=== PATIENT | female | born 1935 | race Caucasian/White ===

== ENCOUNTER 2020-03-26 13:22 | Outpatient (RCR) | payer MEDICARE, BC, SELFPAY | END 2020-04-11 23:59 | disposition home or self-care (01) | LOC: SPT 13:22 | PROVIDERS: PCP Family Medicine; Referring Provider Family Medicine; Visit Provider Family Medicine | DX: M50.90 Cervical disc disorder, unspecified, unspecified cervical region (principal) | CPT/HCPCS: 97110; 97161 ==

== ENCOUNTER 2020-04-12 06:00 | Outpatient (RCR) | payer MEDICARE, BC, SELFPAY | END 2020-05-11 23:59 | disposition home or self-care (01) | LOC: SPT 06:00 | PROVIDERS: PCP Family Medicine; Visit Provider Family Medicine | DX: M50.90 Cervical disc disorder, unspecified, unspecified cervical region (principal) | CPT/HCPCS: 97110 ==

== ENCOUNTER 2020-05-18 06:59 | Day surgery (SDC) | payer MEDICARE, BC, SELFPAY ==
[2020-05-17 08:17] VITALS: BMI 24.5
--- NOTE | 2020-05-18 08:25 | ANES.PREANE2 ---
Pre-Anesthetic Assessment Pre-Anesthetic Assessment: Height/Weight: Height 1.68 m Weight 68.946 kg Proposed Procedure: Operation Date: 05/18/20 08:30 Proposed Procedures p EGD/poss biopsy 21909 81135 d64.9(Not Applicable) - Franklin Barroso MD s Colonoscopy/poss biopsy/poss polypectomy(Not Applicable) - Franklin Barroso MD Last intake: Intake Last Liquid Date 05/17/20 Last Liquid Time 21:00 Last Solid Date 05/16/20 Last Solid Time 18:00 Pulmonary: Pulmonary: Sleep apnea (CPAP) Comments: hx PE (DVT) PUlm HTN CV/HEM: CV/HEM: HTN Comments: mitral regurge GI: GI: GERD Metabolic: Metabolic: DM Neuropsych: Neuropsych: CVA Anesthetic Plan: ASA status: 4 Anesthesia: MAC PFSH Anesthesia PFSH: Medical History (Updated 05/13/20 @ 18:40 by Franklin Barroso MD) Anemia Anticoagulant long-term use CVA (cerebral vascular accident) Diabetes DVT (deep venous thrombosis) Dyslipidemia GERD (gastroesophageal reflux disease) [place] (hard of hearing) HTN (hypertension) Hx pulmonary embolism Mitral regurgitation BASIL on CPAP Pulmonary HTN Surgical History History of colonoscopy with polypectomy S/P cholecystectomy S/P knee surgery Status post tubal ligation Family History Brother CAD (coronary artery disease) Cancer Myocardial infarction Father Tuberculosis Denies family history of Anesthesia complication Bleeding disorder Social History Smoking and tobacco status: never smoked Household members: family Marital status: / Current occupational status: retired Data Anesthesia Cardiac Studies: No Data to Display
[2020-05-18 08:40] LABS: Glucose Point of Care 97 mg/dL (70-110)
[2020-05-18] MEDS: sodium chloride 0.9% 1,000 ML 30 ML IV (09:01)
[2020-05-18] MEDS: Fleet Enema 133 mL Enema PR (09:01)
--- NOTE | 2020-05-18 10:02 | W.PM.OPSUD ---
Surgery/Procedure H&P Update DATE OF PROCEDURE: May 18, 2020 DATE H&P PERFORMED: 05/07/20 H&P UPDATE INFORMATION: I have reviewed H&P completed within last 30 days, I have examined patient prior to procedure and No changes to prior documentation PLANNED PROCEDURE: Operation Date: 05/18/20 08:30 Proposed Procedures p EGD/poss biopsy 25134 65543 d64.9(Not Applicable) - Franklin Barroso MD s Colonoscopy/poss biopsy/poss polypectomy(Not Applicable) - Franklin Barroso MD
--- NOTE | 2020-05-18 10:26 | SUR.PREOP ---
0800 Preop nurse noted bowel prep unsuccessful. Stool dark green sludge instead of liquid. Dr. Barroso notified. Pt to receive fleets enema. Case delayed due to inadequate bowel prep.
[2020-05-18 10:32] VITALS: BP 147/60; PULSE 75; RESP 16; TEMP 36.1; O2SAT 96
--- NOTE | 2020-05-18 10:34 | ANE.PACU2 ---
Inpatient post-anesthesia follow up: Airway intact: Yes Vital signs: Temperature 97.0 F Pulse Rate 75 Respiratory Rate 16 Blood Pressure 147/60 Pulse Oximetry 96 Oxygen Delivery Me thod Nasal Cannula Oxygen Flow Rate 3 Fraction of Inspir ed Oxygen Hydration adequate: Yes Nausea and vomiting: No Pain level: 1 Mental status: Baseline
[2020-05-18 10:38] VITALS: BP 151/78; PULSE 69; RESP 18; O2SAT 97
== END 2020-05-18 10:56 | disposition home or self-care (01) ==
PROVIDERS: PCP Family Medicine; Visit Provider Surgery
PROC: 0DJ08ZZ Inspection of Upper Intestinal Tract, Via Natural or Artificial Opening Endoscopic (ICD-10-PCS; CPT 43235; principal; 2020-05-18 08:30)
PROC: 0DJD8ZZ Inspection of Lower Intestinal Tract, Via Natural or Artificial Opening Endoscopic (ICD-10-PCS; CPT 45378; 2020-05-18 08:30)
DX: D64.9 Anemia, unspecified (principal); K44.9 Diaphragmatic hernia without obstruction or gangrene; K22.2 Esophageal obstruction; K57.30 Diverticulosis of large intestine without perforation or abscess without bleeding; K64.8 Other hemorrhoids; Z79.82 Long term (current) use of aspirin; Z86.73 Personal history of transient ischemic attack (TIA), and cerebral infarction without residual deficits; E11.9 Type 2 diabetes mellitus without complications; Z86.718 Personal history of other venous thrombosis and embolism; E78.5 Hyperlipidemia, unspecified; K21.9 Gastro-esophageal reflux disease without esophagitis; I10 Essential (primary) hypertension; G47.33 Obstructive sleep apnea (adult) (pediatric); Z82.49 Family history of ischemic heart disease and other diseases of the circulatory system; Z79.01 Long term (current) use of anticoagulants
CPT/HCPCS: 12345; 36416; 43235; 45378; 82962; J2704; J7030

== ENCOUNTER 2020-07-21 20:00 | Outpatient (CLI) | payer MEDICARE, BC, SELFPAY | END 2020-07-21 20:01 | disposition home or self-care (01) | LOC: SLEEP 07-22 10:12 | PROVIDERS: PCP Family Medicine; Visit Provider Family Medicine | DX: G47.33 Obstructive sleep apnea (adult) (pediatric) (principal); D64.9 Anemia, unspecified; I48.91 Unspecified atrial fibrillation; I50.9 Heart failure, unspecified; R40.0 Somnolence | CPT/HCPCS: 95811 ==

== ENCOUNTER → 2021-03-10 08:26 | Outpatient (BNVA) | payer MEDICARE, BC, SELFPAY | PROVIDERS: PCP Family Medicine; Visit Provider Obstetrics & Gynecology | DX: Z01.810 Encounter for preprocedural cardiovascular examination (principal); Z20.822 Contact with and (suspected) exposure to COVID-19 | CPT/HCPCS: 80053; 87635 ==

== ENCOUNTER 2021-03-16 09:24 | Inpatient (IN) | payer MEDICARE, BC, SELFPAY ==
[2021-03-14 12:02] VITALS: BMI 27.1
[2021-03-14 12:42] LABS: Basophils # 0.1 10^3/uL (0.0-0.1); Eosinophils # 0.2 10^3/uL (0.0-0.8); Eosinophils % 4.3 %; Hematocrit 40.2 % (37.0-47.0); Hemoglobin 13.5 g/dL (11.5-15.3); Lymphocytes # 1.7 10^3/uL (0.8-4.8); Lymphocytes % 35.2 %; Mean Corpuscular HGB Conc 33.6 g/dL (30.0-36.0); Mean Corpuscular Hemoglobin 34.7 pg (28.0-34.0); Mean Corpuscular Volume 103.3 fL (81-99); Mean Platelet Volume 8.9 fL (7.4-10.4); Monocytes # 0.4 10^3/uL (0.2-0.9); Neutrophils # 2.45 10^3/uL (1.8-7.7); Neutrophils % 50.3 %; Nucleated Red Blood Cells % 0 %; Platelet Count 186 10^3/cmm (130-400); Red Blood Count 3.89 10^6/uL (4.1-5.3); Red Cell Distribution Width 12.4 % (12.1-15.1); White Blood Count 4.9 10^3/uL (4.0-10.0)
--- NOTE | 2021-03-14 12:45 | ECG_ITS ---
[facility] Test Date: 2021-03-14 Pat Name: Juliana Rodney Department: Room: Gender: Female Cloth Neutralizer: : 1935 Requested By: Sav Koehler Order Number: [id number] Tami MD: Diego Woods M.D. Measurements Intervals [place] Rate: 74 P: [place]: QRS: 3 QRSD: 68 T: 0 QT: 361 QTc: 401 Interpretive Statements ATRIAL FIBRILLATION ST DEVIATION AND MODERATE T-WAVE ABNORMALITY, CONSIDER ANTERIOR ISCHEMIA [-0.1+ mV T WAVE IN V3/V4] INTERPRETATION BASED ON A DEFAULT AGE OF 40 YEARS Compared to ECG 04/27/2017 05:29:45 T-wave abnormality now present Possible ischemia now present Electronically Signed On 03-16-2021 8:07:05 CDT by Diego Woods M.D. [email or web address]
[2021-03-14 13:23] LABS: Alanine Aminotransferase 10 U/L (0-33); Albumin Level 4.3 g/dL (3.5-5.2); Alkaline Phosphatase 135 IU/L (35-105); Anion Gap 12.7 (5-19); Aspartate Amino Transferase 18 U/L (0-32); Blood Urea Nitrogen 12 mg/dL (8-23); Calcium 10.1 mg/dL (8.5-10.5); Carbon Dioxide 28 mmol/L (22-29); Chloride 106 mmol/L (98-107); Glucose 87 mg/dL (65-115); Osmolality Calculated 295 mOsm/kg (285-295); Potassium 3.7 mmol/L (3.5-5.1); Sodium 143 mmol/L (136-145); Total Bilirubin 0.5 mg/dL (0.15-1.2); Total Protein 7.3 g/dL (6.6-8.7)
[2021-03-14 13:50] LABS: INR 1.05 (0.8-1.2)
[2021-03-14 14:34] LABS: Add Urine Microscopic? NO; Charge for UA Resulting for Rev
[2021-03-14 14:46] LABS: Specific Gravity, Urine 1.005 (1.005-1.030); Urine Appearance Clear (CLEAR); Urine Color Straw (Yellow); pH Urine 5 (5-7)
[2021-03-14 14:47] LABS: Bilirubin Urine Neg (Negative); Blood Urine Neg (Negative); Glucose Urine UA Norm (Normal); Ketones Urine Negative (Negative); Leukocyte Esterase Urine Negative (Negative); Nitrate Urine Negative (Negative); Protein Urine Neg (Negative); Urobilinogen Urine Norm (Negative)
--- NOTE | 2021-03-14 16:22 | ANES.PREANE2 ---
Pre-Anesthetic Assessment Pre-Anesthetic Assessment: Height/Weight: Height 1.57 m Weight 67.132 kg Preop Diagnosis: Pelvic organ prolapse stage III Proposed Procedure: Operation Date: 03/16/21 09:30 Proposed Procedures p Total Vaginal Hysterectomy 28456 26026 11405 87229 N81.10 N81.2 N39.46(Not Applicable) - Taye Muller MD s Salpingo-Oophorectomy (Vaginal)(Not Applicable) - Taye Muller MD s Sling(Not Applicable) - Taye Muller MD s Sacrospinous ligament fixation(Not Applicable) - Taye Muller MD Was Beta David taken within 24 hours: Yes Was Clonidine taken within 24 hours: N/A Social: Social History: No alcohol and No tobacco Exam: Pre-Anes Outpt Exam: alert, oriented x 3, clear to auscultation bilaterally and regular rate & rhythm Airway: Submandibular: WNL Cervical ROM: WNL MP: 2 Dentition: False CV/HEM: CV/HEM: Anemia, DVT (PE), HTN and Murmur (MR) GI: GI: GERD Neuropsych: Neuropsych: CVA Anesthetic Plan: ASA status: 3 Anesthesia: General Risk of > 500 ml blood loss (7ml/kg in children): No PFSH Anesthesia PFSH: Medical History Anemia Anticoagulant long-term use CVA (cerebral vascular accident) Diabetes DVT (deep venous thrombosis) Dyslipidemia GERD (gastroesophageal reflux disease) [place] (hard of hearing) HTN (hypertension) Hx pulmonary embolism Mitral regurgitation BASIL on CPAP Pulmonary HTN Surgical History H/O esophagogastroduodenoscopy (05/18/20) History of colonoscopy with polypectomy (05/18/20) Diverticulosis S/P cholecystectomy S/P knee surgery Status post tubal ligation Family History Brother CAD (coronary artery disease) Cancer Myocardial infarction Colon cancer Father Tuberculosis Son Diabetes Hyperlipidemia Denies family history of Ovarian cancer Clotting disorder Breast cancer Anesthesia complication Bleeding disorder Hypertension Uterine cancer Thyroid condition Stroke Social History (Updated 03/11/21 @ 10:23 by Maine Perez RN) Smoking and tobacco status: never smoked Alcohol intake: never Substance/Drug Use: never Household members: family Marital status: / Current occupational status: retired Data Anesthesia CBC & Chem 7: 03/14/21 12:25 03/14/21 12:25 Other Labs: Laboratory Results - last 48 hr 03/14/21 03/14/21 03/14/21 12:20 12:25 12:25 WBC 4.9 RBC 3.89 L Hgb 13.5 Hct 40.2 MCV 103.3 H MCH 34.7 H MCHC 33.6 RDW 12.4 Plt Count 186 MPV 8.9 Neut % (Auto) 50.3 Lymph % (Auto) 35.2 [place] % (Auto) 9.0 Eos % (Auto) 4.3 Baso % (Auto) 1.0 Neut # (Auto) 2.45 Lymph # (Auto) 1.7 [place] # (Auto) 0.4 Eos # (Auto) 0.2 Baso # (Auto) 0.1 Nucleated RBC % (auto) 0 Nucleated RBCs # 0.0 PT 14.00 INR 1.05 Sodium Potassium Chloride Carbon Dioxide Anion Gap BUN Creatinine GFR Calculation Glucose Calculated Osmolality Calcium Total Bilirubin AST ALT Alkaline Phosphatase Total Protein Albumin Globulin Urine Color Straw Urine Appearance Clear Urine pH 5 Ur Specific [place] 1.005 Urine Protein Neg Urine Glucose (UA) Norm Urine Ketones Negative Urine Blood Neg Urine Nitrate Negative Urine Bilirubin Neg Urine Urobilinogen Norm Ur Leukocyte Esterase Negative Blood Type Rho(D) Type Antibody Screen 03/14/21 03/14/21 12:25 12:25 WBC RBC Hgb Hct MCV MCH MCHC RDW Plt Count MPV Neut % (Auto) Lymph % (Auto) [place] % (Auto) Eos % (Auto) Baso % (Auto) Neut # (Auto) Lymph # (Auto) [place] # (Auto) Eos # (Auto) Baso # (Auto) Nucleated RBC % (auto) Nucleated RBCs # PT INR Sodium 143 Potassium 3.7 Chloride 106 Carbon Dioxide 28 Anion Gap 12.7 BUN 12 Creatinine 0.8 GFR Calculation Not Reportable Glucose 87 Calculated Osmolality 295 Calcium 10.1 Total Bilirubin 0.5 AST 18 ALT 10 Alkaline Phosphatase 135 H Total Protein 7.3 Albumin 4.3 Globulin 3.0 Urine Color Urine Appearance Urine pH Ur Specific [place] Urine Protein Urine Glucose (UA) Urine Ketones Urine Blood Urine Nitrate Urine Bilirubin Urine Urobilinogen Ur Leukocyte Esterase Blood Type O Negative Rho(D) Type Negative / 0 Antibody Screen Negative Cardiac Studies: No Data to Display
[2021-03-16] VITALS (17 sets, daily range): BP systolic 124–165; BP diastolic 62–91; PULSE 71–99; RESP 16–20; TEMP 36.7–37.2; O2SAT 93–100
--- NOTE | 2021-03-16 06:31 | P.ANESUD_ITS ---
Pre-Anesthetic Update Pre-Anesthetic Assessment: Date of Surgery/Procedure: 03/16/21 Preop Nhung gnosis: Pelvic organ prolapse stage III Proposed Procedure: Operation Date: 03/16/21 07:00 Proposed Procedures p Total Vaginal Hysterectomy 14501 84530 31572 04806 N81.10 N81.2 N39.46(Not Applicable) - Taye Muller MD s Salpingo-Oophorectomy (Vaginal)(Not Applicable) - Taye Muller MD s Sling(Not Applicable) - Taye Muller MD s Sacrospinous ligament fixation(Not Applicable) - Taye Muller MD Any changes to Pre-Anesthetic Assessment?: No Labs Last 48hrs: Laboratory Results - last 48 hr 03/14/21 03/14/21 03/14/21 12:20 12:25 12:25 WBC 4.9 RBC 3.89 L Hgb 13.5 Hct 40.2 MCV 103.3 H MCH 34.7 H MCHC 33.6 RDW 12.4 Plt Count 186 MPV 8.9 Neut % (Auto) 50.3 Lymph % (Auto) 35.2 [place] % (Auto) 9.0 Eos % (Auto) 4.3 Baso % (Auto) 1.0 Neut # (Auto) 2.45 Lymph # (Auto) 1.7 [place] # (Auto) 0.4 Eos # (Auto) 0.2 Baso # (Auto) 0.1 Nucleated RBC % (a uto) 0 Nucleated RBCs # 0.0 PT 14.00 INR 1.05 Sodium Potassium Chloride Carbon Dioxide Anion Gap BUN Creatinine GFR Calculation Glucose Calculated Osmolal ity Calcium Total Bilirubin AST ALT Alkaline Phosphata se Total Protein Albumin Globulin Urine Color Straw Urine Appearance Clear Urine pH 5 Ur Specific [place] y 1.005 Urine Protein Neg Urine Glucose (UA) Norm Urine Ketones Negative Urine Blood Neg Urine Nitrate Negative Urine Bilirubin Neg Urine Urobilinogen Norm Ur Leukocyte Monika ase Negative Blood Type Rho(D) Type Antibody Screen 03/14/21 03/14/21 12:25 12:25 WBC RBC Hgb Hct MCV MCH MCHC RDW Plt Count MPV Neut % (Auto) Lymph % (Auto) [place] % (Auto) Eos % (Auto) Baso % (Auto) Neut # (Auto) Lymph # (Auto) [place] # (Auto) Eos # (Auto) Baso # (Auto) Nucleated RBC % (a uto) Nucleated RBCs # PT INR Sodium 143 Potassium 3.7 Chloride 106 Carbon Dioxide 28 Anion Gap 12.7 BUN 12 Creatinine 0.8 GFR Calculation Not Reportable Glucose 87 Calculated Osmolal ity 295 Calcium 10.1 Total Bilirubin 0.5 AST 18 ALT 10 Alkaline Phosphata se 135 H Total Protein 7.3 Albumin 4.3 Globulin 3.0 Urine Color Urine Appearance Urine pH Ur Specific Grav[place] y Urine Protein Urine Glucose (UA) Urine Ketones Urine Blood Urine Nitrate Urine Bilirubin Urine Urobilinogen Ur Leukocyte Monika ase Blood Type O Negative Rho(D) Type Negative / 0 Antibody Screen Negative Exam: Pre-Anes Outpt Exam: alert, oriented x 3, clear to auscultation bilaterally and regular rate & rhythm Cardiac Studies: No Data to Display
[2021-03-16 06:33] LABS: Glucose Point of Care 106 mg/dL (70-110)
[2021-03-16] MEDS: scopolamine 1.5 Patch 1 PATCH TRANSDERMA (06:44)
[2021-03-16] MEDS: enoxaparin 40 mg/0.4 mL Syringe SUBCUT (06:44)
[2021-03-16] MEDS: sodium chloride 0.9% 1,000 ML 30 ML IV (06:45)
--- NOTE | 2021-03-16 06:57 | W.PM.OPSUD ---
Surgery/Procedure H&P Update DATE OF PROCEDURE: March 16, 2021 DATE H&P PERFORMED: 03/11/21 H&P UPDATE INFORMATION: I have reviewed H&P completed within last 30 days, I have examined patient prior to procedure and No changes to prior documentation PREOP DIAGNOSIS: Pelvic organ prolapse stage III PLANNED PROCEDURE: Operation Date: 03/16/21 07:00 Proposed Procedures p Total Vaginal Hysterectomy 10952 91114 25333 51677 N81.10 N81.2 N39.46(Not Applicable) - Taye Muller MD s Salpingo-Oophorectomy (Vaginal)(Not Applicable) - Taye Muller MD s Sling(Not Applicable) - Taye Muller MD s Sacrospinous ligament fixation(Not Applicable) - Taye Muller MD
[2021-03-16] MEDS: ceFOXitin 2,000 MG in sodium chloride 0.9% (plus) 50 ML 100 MG IV (07:06)
--- NOTE | 2021-03-16 08:10 | SUR.OPER ---
updated family via cell phone
--- NOTE | 2021-03-16 09:05 | SUR.OPER ---
family updated via cell phone
--- NOTE | 2021-03-16 10:27 | P.OP_ITS ---
Operative Report Date of procedure: March 16, 2021 Pre-op Diagnosis: Pelvic organ prolapse stage III Post-op diagnosis: same Procedure Done: Total vaginal hysterectomy with bilateral salpingo-oophorectomy Anterior colporrhaphy augmented with allograft with mid urethral sling. Small rectal laceration repair. Specimens removed/disposition: Uterus left and right adnexa and ovaries Surgeon: Taye Muller MD Anesthesia: General Estimated blood loss (mL): 100 IV fluids (mL): 1,000 Urine output (mL): 700 Complications: Small rectal laceration Condition: stable Disposition: PACU Procedure: After obtaining informed consent, the patient was taken to the operating roomThe patient was placed in dorsal lithotomy position prepped, and draped in the usual sterile fashion. The abdomen, vulva and vagina were prepped and draped in a sterile manner. The pre-procedure timeout verifying the correct patient, procedure, site and side, could not requirements was performed and acknowledge by the OR team. A Klein catheter was placed. A Bookwalter vaginal retractor was placed into the vagina in usual manner visualize the cervix. Cervix was grasped with a single tooth tenaculum and circumferentially infiltrated with 1% Xylocaine with epinephrine. Then cervix was circumferentially incised with bovie and the bladder was dissected off the pubovesical cervical fascia anteriorly with a sponge stick and Metzenbaum scissors. The anterior peritoneal reflection was identified and the anterior cul-de-sac was entered sharply with Metzenbaum scissors. The same procedure was performed posteriorly and a posterior colpotomy was made through the posterior cul-de-sac space without difficulty and the posterior blade of the Bookwalter vaginal retractor was advanced posteriorly into the cul-de-sac. At this time, the left and right uterosacral ligaments were isolated and ligated with 0 Vicryl. The Enseal device was placed over the uterosacral ligaments on either side and was then used in a serial fashion up through the cardinal ligaments bilaterally cross-clamped, cut, and sealed with the EnsealEnseal device. Finally, the uterine arteries were cross-clamped, cut, sealed and ligated with the Enseal device. Hemostasis was assured. The broad ligaments were then serially clamped, sealed and cut with the Enseal device on both sides. Excellent hemostasis was visualized. Both cornua were clamped, sealed and cut with the Enseal device. Then the pedicles were then suture ligated with excellent hemostasis. The uterus was excised and submitted for pathologic evaluation. No other abnormalities were noted in the pelvic cavity. The peritoneum was then closed in a pursestring fashion with 0 Vicryl suture. The vaginal cuff angles were closed with [id number] #0 Vicryl suture on both sides and transfixed with the ipsilateral cardinal and uterosacral ligaments. The remainder of the vaginal cuff was closed with #0 Vicryl in a running locked fashion. At this time, instruments were removed from the vagina at hemostasis assured. Then proceeded to performe the single incision midurethral sling. The anterior vaginal mucosa beneath the midurethra was infiltrated with 0.5% Marcaine with epinephrine. A vertical midline incision was made beneath the midurethra, nearly 1.5 cm length. Careful submucosal dissection was performed bilaterally up to the interior portion of the inferior pubic ramus. The insertion of adductor longus tendon on the patient?s pubic ramus was identified as reference land angie. Palpated the notch along the internal edge of ischiopubic ramus where the adductor longus tendon and the inferior pubic ramus meet. The needle of the SIS inserted aiming at the location of this notch. One of the integrated self- fixating tips place onto the needle by sliding it over the end of the needle. The needle/sling assembly was inserted toward the location of identified reference notch making sure that the flat of the handle is perpendicular to the desired path. The needle was tracked along the posterior surface of the ischiopubic ramus until the midline angie on the mesh is approximately at the midline position under the urethra. The needle was removed and the same was repeated on the contralateral side until the appropriate sling tension under the urethra was achieved ensuring that the mesh lays flat. The needle was removed and vaginal incision was closed in a running interlocking fashion with 2-0 Vicryl. Then proceedeed to perform the anterior colporrhaphy. The vaginal mucosa was then injected in the midline with normal saline. The vaginal mucosa was scored in the midline with the Bovie approximately 1 cm medial to the urethral meatus to 1 cm distal to the vaginal cuff. This vaginal mucosa was then undermined and then incised in the midline with the Metzenbaum scissors. The lateral aspects of the vaginal mucosa were then grasped with the Allis clamps and the vaginal mucosa was then dissected off the underlying fascia with the Metzenbaum scissors. Again, there was noted to be quite a bit of oozing at the incision, which was controlled with cautery. After adequate dissection was performed, bilaterally. A Coloplast allograft was modified at time of application to fit spacea, 4 x 4 cm piece . The graft was placed in front of cystocele ready to be implanted with the Basement Membrane facing the vagina mucosa. Suture is placed at distal end of graft and placed towards vaginal cuff. Final suture is placed on proximal portion of the graft to complete the pl acement overlying the bladder. Then Interrupted vertical mattress sutures of 0 Vicryl were used to elevate the cystocele superiorly. The excessive vaginal mucosa was then trimmed with the Metzenbaum scissors and the vaginal mucosa was then reapproximated in the running interlocking fashion with 2-0 Vicryl. The proceede to performe the sacrouspinous fixation. The posterior vaginal mucosa is opened in the routine fashion as described previously in Posterior Repair. A finger is inserted through the incision in the posterior vaginal mucosa, dissecting out the rectovaginal space (RVS). The right rectal pillar (RRP) is identified. The rectal pillar can be bluntly perforated either with the finger. But a small rectal laceration was noted. At this time Gerneral surgery Dr. Barroso was consulted intraoperatively. The laceration was repair in layers to water tight in usual fashion with 3-O Vicryl. The area was copiously irrigated and a Doyle acosta was left in place. The fixation was not perform. then Then the Klein catheter was removed and cystoscope was inserted. The bladder was filled with sterile water. Complete evaluation of the bladder mucosa was performed noting no lacerations, dimpling, tears, bleeding of the mucosa or muscular layers. Both ureteral orifices were identified. Prompt excretion of urine from both ureteral orifices was noted. Cystoscope was withdrawn. Excellent hemostasis was obtained. Sponge, lap, needle, and instrument counts were correct times three. The patient was taken to the recovery room, awake and in stable condition. This documentation was created by [employer] drapery maker software (known for inherent drapery maker error). Every effort was made to assure accuracy of drapery maker. Any obvious errors or omissions should be clarified with the author of the document.
--- NOTE | 2021-03-16 11:01 | SUR.PHASEI ---
1045- REMOVED SCOPALAMINE PATCH PER MANI, CIGAR HEAD HOLER
[2021-03-16] MEDS: ketorolac 30 mg/mL INJ IVP ×2 (12:08→18:42)
--- NOTE | 2021-03-16 13:15 | PC.NURSE ---
60 mL sangiuneous drainage emptied from ERIC drain.
--- NOTE | 2021-03-16 15:13 | ANE.PACU2 ---
Inpatient post-anesthesia follow up: Airway intact: Yes Vital signs: Temperature 98.4 F Pulse Rate 90 Respiratory Rate 18 Blood Pressure 131/62 Pulse Oximetry 95 Oxygen Delivery Me thod Room Air Oxygen Flow Rate 6 Fraction of Inspir ed Oxygen Hydration adequate: Yes Nausea and vomiting: No Pain level: 2 Mental status: Baseline
--- NOTE | 2021-03-16 16:00 | PC.NURSE ---
Emptied 70 mL of sangineous drainage from ERIC drain
[2021-03-16] MEDS: acetaminophen 325 mg Tablet 650 MG PO (16:20)
[2021-03-16] MEDS: dextrose 5%-lactated ringers 1,000 ML 125 ML IV (18:37)
[2021-03-16] MEDS: ferrous sulfate EC 325 mg Tablet PO (18:41)
[2021-03-16] MEDS: docusate sodium 100 mg Capsule PO (18:41)
--- NOTE | 2021-03-16 18:45 | PC.NURSE ---
Emptied 50 mL of sanguineous drainage from ERIC drain.
[2021-03-16] MEDS: metoprolol tartrate 50 mg Tablet PO (21:02)
[2021-03-17] VITALS (7 sets, daily range): BP systolic 127–152; BP diastolic 60–84; PULSE 60–88; RESP 16–18; TEMP 36.6–37.4; O2SAT 97
[2021-03-17] MEDS: ketorolac 30 mg/mL INJ IVP (01:13)
[2021-03-17] MEDS: dextrose 5%-lactated ringers 1,000 ML 125 ML IV ×2 (02:57→14:05)
[2021-03-17] MEDS: sodium chloride 0.9% 500 ML IV (04:39)
[2021-03-17 05:04] LABS: Hematocrit 29.4 % (37.0-47.0); Hemoglobin 9.8 g/dL (11.5-15.3); Mean Corpuscular HGB Conc 33.3 g/dL (30.0-36.0); Mean Platelet Volume 9.2 fL (7.4-10.4); Platelet Count 142 10^3/cmm (130-400); Red Cell Distribution Width 12.7 % (12.1-15.1); White Blood Count 5.2 10^3/uL (4.0-10.0)
[2021-03-17] MEDS: acetaminophen 325 mg Tablet 650 MG PO ×2 (06:32→21:01)
[2021-03-17] MEDS: losartan 50 mg Tablet PO (09:17)
[2021-03-17] MEDS: ferrous sulfate EC 325 mg Tablet PO ×2 (09:17→17:43)
[2021-03-17] MEDS: docusate sodium 100 mg Capsule PO ×2 (09:18→17:43)
[2021-03-17] MEDS: aspirin 81 mg EC Tablet PO (09:20)
[2021-03-17] MEDS: dilTIAZem ER (24HR) 180 mg Capsule PO (09:22)
[2021-03-17] MEDS: FUROsemide 40 mg Tablet 80 MG PO (09:23)
[2021-03-17] MEDS: metoprolol tartrate 50 mg Tablet PO (09:24)
[2021-03-17] MEDS: potassium chloride ER 10 mEq Tablet PO (09:40)
[2021-03-17] MEDS: pantoprazole DR 40 mg Tablet PO (09:41)
--- NOTE | 2021-03-17 11:07 | P.PN_ITS ---
Subjective Subjective: Interval history: Mrs. Rodney 85-year-old female status post total vaginal hysterectomy with anterior colporrhaphy augmented with allograft and mid urethral sling, postoperative day 1. Refers doing better. Vitals/I&O/Wt Last Vital Signs Temp 98.0 F 03/17/21 02:15 Pulse 82 03/17/21 09:15 Resp 16 03/17/21 09:15 BP 152/84 03/17/21 09:17 Pulse Ox 97 03/17/21 09:15 03/16/21 03/17/21 03/17/21 22:59 06:59 14:59 Intake Total 999 / 2049 Output Total 620 / 2380 450 / 2830 Balance -620 / -1330 550 / -780 Physical Exam Narrative: EXAM NARRATIVE: GA: Alert and oriented ?3. HEENT: WNL. Heart: Regular rate and rhythm. Lungs: Clear to auscultation bilaterally. Abdomen: Bowel sounds present, nontender. 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 ERIC drainage in place Extremities: No edema, no cyanosis, no calves pain. Urinary Catheter Management^: Klein: Cath Placed During This Visit: yes, but has since been removed by the nurse Reason for Continuing Indwelling Catheter: Perioperative Use in Selected Surgeries Urinary Catheter Date of Insertion: 03/16/21 Urinary Catheter Time of Insertion: 07:38 Date Urinary Catheter Removed: 03/17/21 Time Urinary Catheter Discontinued: 06:45 Data : 03/17/21 04:55 03/14/21 12:25 A&P Assessment and plan (1) POP-Q stage 3 cystocele: Mrs. Rodney 85-year-old female status post TVH and BSO with anterior c olporrhaphy augmented with allograft and mid urethral sling. Planed sacrospinous ligament fixation not performed due to surgical complication with a small rectal laceration which was repaired in layers in usual manner. A ERIC drainage was performed left in place. The patient is tolerating diet well. Urine output adequate. Ambulating without difficulty. First void PVR pending. 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
[2021-03-17 11:08] LABS: Glucose Point of Care 101 mg/dL (70-110)
[2021-03-17] MEDS: ibuprofen 800 mg tablet PO (12:43)
[2021-03-17] MEDS: HYDROcodone-acetaminophen 5-325 mg Tablet PO (12:43)
[2021-03-17 14:36] LABS: Glucose Point of Care 139 mg/dL (70-110)
[2021-03-17] MEDS: ondansetron 2 mg/ML SDV 2 mL 4 MG IVP (20:57)
[2021-03-17] MEDS: alum-mag-hydroxide-sime 30 mL UDC PO (21:10)
[2021-03-18 04:02] LABS: Glucose Point of Care 205 mg/dL (70-110)
[2021-03-18] MEDS: ibuprofen 800 mg tablet PO ×2 (06:39→12:17)
[2021-03-18 06:43] VITALS: BP 147/91; PULSE 82; RESP 16; TEMP 36.7
[2021-03-18 09:09] VITALS: BP 156/70
[2021-03-18] MEDS: losartan 50 mg Tablet PO (09:09)
[2021-03-18] MEDS: ferrous sulfate EC 325 mg Tablet PO (09:09)
[2021-03-18] MEDS: docusate sodium 100 mg Capsule PO (09:09)
[2021-03-18] MEDS: aspirin 81 mg EC Tablet PO (09:12)
[2021-03-18] MEDS: metoprolol tartrate 50 mg Tablet PO (09:12)
[2021-03-18] MEDS: FUROsemide 40 mg Tablet 80 MG PO (09:12)
[2021-03-18] MEDS: dilTIAZem ER (24HR) 180 mg Capsule PO (09:12)
[2021-03-18] MEDS: pantoprazole DR 40 mg Tablet PO (09:32)
[2021-03-18] MEDS: potassium chloride ER 10 mEq Tablet PO (09:32)
[2021-03-18 10:33] LABS: Glucose Point of Care 151 mg/dL (70-110)
[2021-03-18 11:07] VITALS: BP 157/70; PULSE 62; RESP 14; TEMP 37.1; O2SAT 95
[2021-03-18 11:39] LABS: Glucose Point of Care 109 mg/dL (70-110)
--- NOTE | 2021-03-18 13:09 | P.DS_ITS ---
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 Rodney 85-year-old female with pelvic organ prolapse stage III, adm itted for planned total vaginal hysterectomy with anterior colporrhaphy and mid urethral sling and sacrospinous ligament fixation. The total vaginal hysterectomy with anterior colporrhaphy augmented with allograft and mid urethral sling, were performed without complications. However sacrospinous ligament suspension was attempted and not performed due to surgical complication with a small rectal laceration which was repaired in layers with 3-0 Chromic Gut and 3-0 Vicryl in usual fashion. A ERIC drainage was placed. Postop observation has been uneventful, she is status post procedure postoperative day 2. Tolerating diet well, ambulating without difficulty pain under control. However PVR has been greater than 150 mL on 2 occasions and the patient will be discharged home with a leg Klein catheter, and instructed to follow-up to the clinic Sunday. Postop operative precautions were given. Physical Exam Narrative: EXAM NARRATIVE: GA: Alert and oriented ?3. HEENT: WNL. Heart: Regular rate and rhythm. Lungs: Clear to auscultation bilaterally. Abdomen: Bowel sounds present, nontender. FOUNDRY PATTERNMAKER: Spotting. Extremities: No edema, no cyanosis, no calves pain. Urinary Catheter Management^: Klein: Cath Placed During This Visit: yes, but has since been removed by the nurse Reason for Continuing Indwelling Catheter: Acute Urinary Retention or Obstruction Urinary Catheter Date of Insertion: 03/18/21 Urinary Catheter Time of Insertion: 11:52 Date Urinary Catheter Removed: 03/18/21 Time Urinary Catheter Discontinued: 09:45 Discharge Data Data Completed and Pending: Completed Studies During Hospitalization Category Date Time Status Pathology: Surgic al [PTH] Routine Pth 03/16/21 10:40 Completed Pending at discharge Category Date Time Status ES surgery / GI i mages Routine Exams 03/16/21 06:39 Taken Labs from last 24 hours 03/18/21 03/18/21 03/17/21 11:35 09:37 19:30 POC Glucose 109 151 H 205 H 03/17/21 14:31 POC Glucose 139 H Vitals: Last Vital Signs Temp 98.8 F 03/18/21 11:07 Pulse 62 03/18/21 11:07 Resp 14 03/18/21 11:07 BP 157/70 03/18/21 11:07 Pulse Ox 95 03/18/21 11:07 Discharge Plan Discharge Patient Disposition: Home Condition: Stable Prescriptions: New acetaminophen 325 mg capsule 325 mg PO Q4H PRN (Reason: fever or pain) Qty: 60 RF: 0 Colace 100 mg capsule 100 mg PO BID Qty: 60 RF: 0 hydrocodone-acetaminophen 5-325 mg tablet 1 tab PO Q4H PRN (Reason: pain) Qty: 20 RF: 0 Continued ferrous sulfate [Feosol] 325 mg (65 mg iron) tablet 325 mg PO BID RF: 0 glucosamine sulfate 1,000 mg capsule 1,000 mg PO BID RF: 0 calcium carbonate [Calcium 600] 600 mg calcium (1,500 mg) tablet 600 mg PO BID RF: 0 potassium chloride [Klor-Con M20] 20 mEq tablet,ER particles/crystals 10 meq PO DAILY RF: 0 furosemide 80 mg tablet 80 mg PO DAILY RF: 0 glimepiride 1 mg tablet 0.5 mg PO DAILY RF: 0 metoprolol tartrate 50 mg tablet 50 mg PO BID RF: 0 alprazolam [Xanax] 0.25 mg tablet 0.25 mg PO TID PRN (Reason: Anxiety) RF: 0 esomeprazole magnesium [Nexium] 40 mg capsule,delayed release(DR/EC) 40 mg PO DAILY RF: 0 sennosides 25 mg tablet 50 mg PO DAILY PRN (Reason: constipation) RF: 0 aspirin [Aspir-81] 81 mg tablet,delayed release (DR/EC) 81 mg PO DAILY RF: 0 losartan 50 mg tablet 50 mg PO DAILY Qty: 30 RF: 3 diltiazem HCl 180 mg capsule,extended release 24hr 180 mg PO DAILY RF: 0 Pradaxa 75 mg capsule 75 mg PO BID RF: 0 acetaminophen [Tylenol Extra Strength] 500 mg Tablet 1,000 mg PO QID RF: 0 Discharge Orders: Discharge Order (Routine); Ordered 03/18/21 Ordered By: Taye Muller Referrals: Taye Muller MD [Physician] - 03/21/21 10:15 am (Appt on Sunday: 03/21 at 1015 Your 2 week post-op appointment is scheduled for 03/29 @ 8:30 Your 6 week post-op appointment is scheduled for 04/29 @ 11:15) Discharge Diet: GI Soft and Soft Mechanical Discharge Activity: Increase activity as tolerated Patient Instructions: Klein Catheter Care, Vaginal Hysterectomy (DC), Anterior Vaginal Repair (DC), Bladder Sling Procedures (DC), OB Discharge Report, OB Food/Drug Interaction Guide, Opioid Safety Activity Restrictions/Additional Instructions: 1. Please call [facility] [place] [facility] clinic on next working day to make your post-operative appointment next Sunday. 2. Please stay home until you come back to the clinic on first post-operative check up. 3. Please follow instructions on your medications CAREFULLY. 4. If you have abdominal incision, do not cover it unless dressing is necessary because of drainage. OK to shower, but avoid bath. Leave steri-strips until they fall off. If they are still on one week after surgery, you may remove them. 5. If you had vaginal surgery or vaginal repair, Dr. Muller may instruct you to take SITZ bath. 6. Yellow, blood tinged odorous vaginal discharge is usually normal after hysterectomy or vaginal surgeries. 7. No sexual intercourse, tampons, or douches until you are completely released from the post-operative care. 8. Avoid constipation by eating right and maybe using some Metamucil or Milk of Magnesia. 9. All prescription refills are given during the working hours. Please do no wait till it runs out. Call the clinic at [phone] before your medication runs out. The clinic will get in touch with your doctor to prescribe medications if necessary. 10. Please remain within 40 mile radius from our hospital because emergencies do happen now and then during the post-operative period. 11. If you have stairs at home, take one step at a time slowly and minimize the number of trips. It helps to stay in one floor for the next few days. No lifting except what you can lift by one hand until you are released from the post-operative care. 12. Driving is discouraged until you are well healed. It may be 3-4 weeks before you feel strong enough to drive. You should be able to turn and look through the rear window without pain and you should be able to push the brake pedal very hard without pain before you drive. No fast rules, but SAFETY should be your primary concern. DO NOT drive if you are on sedating medications such as narcotics. 13. Call the clinic (during working hours) to make urgent appointment or go to the Emergency room, if any of the following occurs: i. Vaginal bleeding becomes heavy, more than a period. ii. Incision becomes red and sore, or drains pus. iii. Your temperature is over 100.4 or you have chill. iv. IV site becomes red and swollen (a little ``knot?? is usually OK) v. Persistent nausea and vomiting vi. Persistent constipation or diarrhea vii. Rash or allergic reaction to medications. Discharge Attestations GRINDER OPERATOR EXTERNAL TOOL Time Spent in Discharge Care*: greater than 30 min Coding Level of Care Code Acute Washer Engineer for Chg Fwd Diagnoses POP-Q stage 3 cystocele N81.10
--- NOTE | 2021-03-18 13:30 | PC.NURSE ---
ERIC drain removed by Dr. Muller. Drain intact after removal.
[2021-03-18 13:52] VITALS: BP 132/66; PULSE 81; RESP 15; TEMP 36.6; O2SAT 96
[2021-03-18] MEDS: tetanus-dipt-pertussis 0.5 mL SDV IM (14:02)
== END 2021-03-18 14:49 | disposition home or self-care (01) | DRG 742 ==
LOC: OBGYN 09:24
PROVIDERS: Admitting Provider Obstetrics & Gynecology; PCP Family Medicine; Visit Provider Obstetrics & Gynecology
PROC: 0UT98ZZ Resection of Uterus, Via Natural or Artificial Opening Endoscopic (ICD-10-PCS; principal; 2021-03-16 07:00)
PROC: 0UT98ZZ Resection of Uterus, Via Natural or Artificial Opening Endoscopic (ICD-10-PCS; CPT 58720; 2021-03-16 07:00)
PROC: 0UT98ZZ Resection of Uterus, Via Natural or Artificial Opening Endoscopic (ICD-10-PCS; CPT 57288; 2021-03-16 07:00)
PROC: 0UT98ZZ Resection of Uterus, Via Natural or Artificial Opening Endoscopic (ICD-10-PCS; CPT 57282; 2021-03-16 07:00)
PROC: 0TJB8ZZ Inspection of Bladder, Via Natural or Artificial Opening Endoscopic (ICD-10-PCS; CPT 52000; 2021-03-16 07:00)
DX: N81.10 Cystocele, unspecified (principal); N99.71 Accidental puncture and laceration of a genitourinary system organ or structure during a genitourinary system procedure; Z79.82 Long term (current) use of aspirin; D64.9 Anemia, unspecified; Z86.73 Personal history of transient ischemic attack (TIA), and cerebral infarction without residual deficits; E11.9 Type 2 diabetes mellitus without complications; Z79.84 Long term (current) use of oral hypoglycemic drugs; Z86.718 Personal history of other venous thrombosis and embolism; E78.5 Hyperlipidemia, unspecified; K21.9 Gastro-esophageal reflux disease without esophagitis; H91.90 Unspecified hearing loss, unspecified ear; I10 Essential (primary) hypertension; Z86.711 Personal history of pulmonary embolism; I34.0 Nonrheumatic mitral (valve) insufficiency; G47.33 Obstructive sleep apnea (adult) (pediatric); I27.20 Pulmonary hypertension, unspecified
CPT/HCPCS: 36415; 36416; 51702; 51798; 80053; 81003; 82962; 85025; 85027; 85610; 86850; 86900; 88307; 90471; 90715; 93005; 96372; C1713; C1762; G0378; J0694; J1100; J1650; J1815; J1885; J2405; J2704; J2710; J3010; J3490; J7030; J7040

== ENCOUNTER 2021-03-20 13:16 | Emergency (ER) | payer MEDICARE, BC, SELFPAY ==
[2021-03-20] VITALS (7 sets, daily range): BP systolic 121–156; BP diastolic 59–80; PULSE 63–74; RESP 16–20; TEMP 37.2; O2SAT 94–97; BMI 32.9
--- NOTE | 2021-03-20 14:00 | XRR_ITS ---
PROCEDURE INFORMATION: Exam: XR Chest Exam date and time: 03/20/2021 2:26 PM Age: 85 years old Clinical indication: Fever; Additional info: Fever, recent surgery TECHNIQUE: Imaging protocol: XR of the chest. Views: 1 view. COMPARISON: CR Chest 1 [place] [id number] 04/26/2017 8:46 PM FINDINGS: Lungs: Minimal bibasilar atelectasis or scarring. Pleural spaces: No definite pleural effusion. No pneumothorax. Heart/Mediastinum: Minimal cardiomegaly. Bones/joints: No acute findings. XR/XR chest 1V portable [id number] IMPRESSION: No acute findings.
--- NOTE | 2021-03-20 14:41 | CTR_ITS ---
PROCEDURE INFORMATION: Exam: CTA Chest With Contrast Exam date and time: 03/20/2021 3:01 PM Age: 85 years old Clinical indication: Other: Post hyst; Shortness of breath; Prior surgery; Surgery date: 3-7 days post-operative; Additional info: Hypoxia, post surgery. Pe HX TECHNIQUE: Imaging protocol: Computed tomographic angiography of the chest with contrast. 3D rendering (Not supervised by radiologist): MIP and/or 3D reconstructed images were created by the technologist. Radiation optimization: All CT scans at this facility use at least one of these dose optimization techniques: automated exposure control; mA and/or kV adjustment per patient size (includes targeted exams where dose is matched to clinical indication); or iterative reconstruction. Contrast material: OMNI 350; Contrast volume: 95 ml; Contrast route: INTRAVENOUS (IV); COMPARISON: CR (CHEST, ) 03/20/2021 2:27 PM RADIATION DOSE METRICS: Total DLP (mGy-cm): 1228.46 FINDINGS: Pulmonary arteries: No pulmonary emboli. Aorta: No aortic aneurysm. Lungs: Minimal bibasilar scarring. No acute consolidation or mass. Pleural spaces: Unremarkable. No pneumothorax. No pleural effusion. Heart: Cardiomegaly, no pericardial effusion. Lymph nodes: No significant adenopathy. Stomach and bowel: Hiatal hernia, the stomach is partially intrathoracic. Bones/joints: No acute findings. Soft tissues: Unremarkable. IMPRESSION: No acute findings. PROCEDURE INFORMATION: Exam: CT Abdomen And Pelvis With Contrast Exam date and time: 03/20/2021 3:01 PM Age: 85 years old Clinical indication: Other: Post hyst; Shortness of breath; Prior surgery; Surgery date: 3-7 days post-operative; Additional info: Hypoxia, post surgery. Pe HX TECHNIQUE: Imaging protocol: Computed tomography of the abdomen and pelvis with contrast. Radiation optimization: All CT scans at this facility use at least one of these dose optimization techniques: automated exposure control; mA and/or kV adjustment per patient size (includes targeted exams where dose is matched to clinical indication); or iterative reconstruction. Contrast material: OMNI 350; Contrast volume: 95 ml; Contrast route: INTRAVENOUS (IV); COMPARISON: CR (CHEST, ) 03/20/2021 2:27 PM RADIATION DOSE METRICS: Total DLP (mGy-cm): 1228.46 FINDINGS: Liver: No mass. Gallbladder and bile ducts: Cholecystectomy. No ductal dilation. Pancreas: No acute findings. No ductal dilation. Spleen: Normal. No splenomegaly. Adrenal glands: Normal. No mass. Kidneys and ureters: Normal. No hydronephrosis. Stomach and bowel: No acute findings. No obstruction. No mucosal thickening. Appendix: No evidence of appendicitis. Intraperitoneal space: Unremarkable. No free air. No significant fluid collection. Vasculature: No abdominal aortic aneurysm. Lymph nodes: No significant adenopathy. Urinary bladder: Bladder catheter, underdistended. Reproductive: No acute findings. Bones/joints: No acute findings. Soft tissues: Unremarkable. CT/CT angio chest w abd pel w con IMPRESSION: No acute findings. Radiation Dose CTDIVOL = (mGy): DLP = 1228.46~1228.46 (mGy-cm)
[2021-03-20 14:57] LABS: Basophils % 0.4 %; Eosinophils # 0.1 10^3/uL (0.0-0.8); Eosinophils % 1.3 %; Hematocrit 30.8 % (37.0-47.0); Hemoglobin 10.3 g/dL (11.5-15.3); Lymphocytes # 1.1 10^3/uL (0.8-4.8); Lymphocytes % 16.3 %; Mean Corpuscular HGB Conc 33.4 g/dL (30.0-36.0); Mean Corpuscular Hemoglobin 35.3 pg (28.0-34.0); Mean Corpuscular Volume 105.5 fL (81-99); Mean Platelet Volume 9.4 fL (7.4-10.4); Monocytes # 0.6 10^3/uL (0.2-0.9); Monocytes % 8.7 %; Neutrophils # 4.88 10^3/uL (1.8-7.7); Neutrophils % 72.9 %; Nucleated Red Blood Cells % 0 %; Platelet Count 175 10^3/cmm (130-400); Red Blood Count 2.92 10^6/uL (4.1-5.3); Red Cell Distribution Width 12.1 % (12.1-15.1); White Blood Count 6.7 10^3/uL (4.0-10.0)
[2021-03-20] MEDS: iohexol 350 mg/mL 100 mL Btl IV (15:09)
[2021-03-20 15:14] LABS: Add Urine Culture? No; Bacteria Urine TRACE /hpf; Bilirubin Urine Neg (Negative); Blood Urine Neg (Negative); Glucose Urine UA Norm (Normal); Ketones Urine Negative (Negative); Leukocyte Esterase Urine Negative (Negative); Nitrate Urine Negative (Negative); Protein Urine Neg (Negative); Specific Gravity, Urine 1.005 (1.005-1.030); Transitional Epi Cells Urine RARE /hpf; Urine Appearance Clear (CLEAR); Urine Color Colorless (Yellow); Urobilinogen Urine Norm (Negative); WBC Urine 0-4 /hpf (0-5); pH Urine 5 (5-7)
[2021-03-20 15:24] LABS: Lactate (Lactic Acid level) 0.8 mmol/L (0.5-2.2)
[2021-03-20 15:25] LABS: Alanine Aminotransferase 10 U/L (0-33); Albumin Level 3.4 g/dL (3.5-5.2); Alkaline Phosphatase 94 IU/L (35-105); Anion Gap 13.1 (5-19); Aspartate Amino Transferase 19 U/L (0-32); Blood Urea Nitrogen 10 mg/dL (8-23); Calcium 9.3 mg/dL (8.5-10.5); Carbon Dioxide 30 mmol/L (22-29); Chloride 102 mmol/L (98-107); Globulin 3.1 g/dL (1.3-4.6); Glucose 96 mg/dL (65-115); Osmolality Calculated 293 mOsm/kg (285-295); Potassium 3.1 mmol/L (3.5-5.1); Sodium 142 mmol/L (136-145); Total Bilirubin 0.9 mg/dL (0.15-1.2); Total Protein 6.5 g/dL (6.6-8.7)
--- NOTE | 2021-03-20 15:59 | W.ED.FEVER ---
HPI - Fever General: Chief Complaint: Fever Stated Complaint: FEVER, POSS INFECTION Time Seen by Provider: 03/20/21 13:59 History of Present Illness: HPI Narrative: Patient prevents with her son from home after they noticed a temp of 99.5 today she has had a little bit of lower abdominal pain but only when you press on it. They just felt she seemed a little bit more sluggish than usual they were concerned if her fever has potentially been higher because she does take Tylenol fairly regularly. They thought maybe she had a little bit of increase in respirations but patient says she has chronically shortness of breath. Patient is hard of hearing and little bit of a poor historian so most of it is by her son who is a business performance specialist. He states she had a vaginal hysterectomy and a bladder saddle surgery about 5 days ago with some complications of adhesions and/or a mild rectal tear that involved a drain however the drain was removed 2 days ago. She is otherwise been eating and drinking well passing gas. She does have a history of blood clots from previous surgeries and is chronically on Pradaxa and had recently restarted it. Patient really has no complaints however when I did palpate her abdomen she said that was a little uncomfortable. She does have a Klein catheter in place as well and they have not noticed any abnormal sediment odor or discoloration Review of Systems Narrative: General: denies fatigue, + fever or chills HEENT: denies ear pain, denies nasal congestion, denies vision changes, denies sore throat Neck: denies masses or pain Resp: denies cough, denies shortness of breath, denies pleuritic pain Cardio: denies chest pain, denies edema GI: +abdominal pain, denies N/V/D, denies black/tarry or bloody stools : denies hematuria, denies dysuria, does have a leg bag in place from postop urinary retention Neuro: denies headache, denies dizziness, denies motor or sensory changes Musculoskeletal: denies pain, denies swelling Skin: denies rashes Psych: denies SI or HI Endocrine: denies thyroid symptoms, denies lymphadenopathy all over ROS reviewed and patient denies PFSH ED PFSH: Medical History Anemia Anticoagulant long-term use CVA (cerebral vascular accident) Diabetes DVT (deep venous thrombosis) Dyslipidemia GERD (gastroesophageal reflux disease) [place] (hard of hearing) HTN (hypertension) Hx pulmonary embolism Mitral regurgitation BASIL on CPAP POP-Q stage 3 cystocele Pulmonary HTN Surgical History H/O esophagogastroduodenoscopy (05/18/20) History of colonoscopy with polypectomy (05/18/20) Diverticulosis S/P cholecystectomy S/P knee surgery Status post tubal ligation Family History Brother CAD (coronary artery disease) Cancer Myocardial infarction Colon cancer Father Tuberculosis Son Diabetes Hyperlipidemia Denies family history of Ovarian cancer Clotting disorder Breast cancer Anesthesia complication Bleeding disorder Hypertension Uterine cancer Thyroid condition Stroke Social History Smoking and tobacco status: never smoked Alcohol intake: never Household members: family Marital status: / Current occupational status: retired Physical Exam Narrative: EXAM NARRATIVE: General: a/o/3, no distress, [place] Head: atraumatic HEENT: normal eyes, normal conjunctiva, normal hearing, normal external nose, normal mouth, mucous membranes moist Neck: FROM, trachea midline Chest: normal expansion, no gross deformities Resp: normal speech, no retractions, no accessory muscle use, CTA bilaterally Cardio: regular rate and rhythm and no murmur, no peripheral edema, normal peripheral pulses GI: soft, flat RLQ and LLQ tender, no guarding normal BS. rectal area appears normal : deferred Musculoskeletal: FROM, no pain or gross deformities Neuro: a/o appropriate for age, no gross motor or sensory deficitys, CN II-XII grossly intact, normal coordination, normal speech Skin: no rashes Psych: cooperative, normal mood and effect Course Vital Signs: Vital signs: Vital Signs Temperature 98.9 F 03/20/21 13:29 Pulse Rate 74 03/20/21 15:54 Respiratory Rate 20 H 03/20/21 15:54 Blood Pressure 137/80 03/20/21 15:54 Pulse Oximetry 97 03/20/21 15:54 MDM - Fever MDM Narrative: Medical decision making narrative: Patient has no fever here she does have some mild abdominal pain she is almost 5 days postop which could be at risk for an abscess so CT of her abdomen pelvis will be checked since her urine was negative as was her chest x-ray. And discussed with son that since we are already to be giving her contrast and that the CT scan of her head and just check her for pneumonia and/or a PE by CT scan all of the her work-up was negative she has a normal white count her urine looks clean. They are actually scheduled to follow-up with the surgeon tomorrow for catheter removal. They will make sure and check her temperature little more regularly. This just possibly could be mild postop fever which can be common. They feel comfortable going home she lives with her family Medical Records: Attestation: I reviewed the patient's medical records. Lab Data: Attestation: I reviewed the patient's lab results. Labs: Lab Results 03/20/21 03/20/21 03/20/21 Range/Units 14:35 14:35 14:35 WBC 6.7 (4.0-10.0) 10^3/ uL RBC 2.92 L (4.1-5.3) 10^6/u L Hgb 10.3 L (11.5-15.3) g/dL Hct 30.8 L (37.0-47.0) % MCV 105.5 H (81-99) fL MCH 35.3 H (28.0-34.0) pg MCHC 33.4 (30.0-36.0) g/dL RDW 12.1 (12.1-15.1) % Plt Count 175 (130-400) 10^3/c mm MPV 9.4 (7.4-10.4) fL Neut % (Auto) 72.9 % Lymph % (Auto) 16.3 % [place] % (Auto) 8.7 % Eos % (Auto) 1.3 % Baso % (Auto) 0.4 % Neut # (Auto) 4.88 (1.8-7.7) 10^3/u L Lymph # (Auto) 1.1 (0.8-4.8) 10^3/u L [place] # (Auto) 0.6 (0.2-0.9) 10^3/u L Eos # (Auto) 0.1 (0.0-0.8) 10^3/u L Baso # (Auto) 0.0 (0.0-0.1) 10^3/u L Nucleated RBC % (a uto) 0 % Nucleated RBCs # 0.0 /100WBC Sodium 142 (136-145) mmol/L Potassium 3.1 L (3.5-5.1) mmol/L Chloride 102 (98-107) mmol/L Carbon Dioxide 30 H (22-29) mmol/L Anion Gap 13.1 (5-19) BUN 10 (8-23) mg/dL Creatinine 0.7 (0.5-0.9) mg/dL GFR Calculation Not Reportable Glucose 96 (65-115) mg/dL Calculated Osmolal ity 293 (285-295) mOsm/k g Lactate 0.8 (0.5-2.2) mmol/L Calcium 9.3 (8.5-10.5) mg/dL Total Bilirubin 0.9 (0.15-1.2) mg/dL AST 19 (0-32) U/L ALT 10 (0-33) U/L Alkaline Phosphata se 94 (35-105) IU/L Total Protein 6.5 L (6.6-8.7) g/dL Albumin 3.4 L (3.5-5.2) g/dL Globulin 3.1 (1.3-4.6) g/dL Urine Color (Yellow) Urine Appearance (CLEAR) Urine pH (5-7) Ur Specific Gravit y (1.005-1.030) Urine Protein (Negative) Urine Glucose (UA) (Normal) Urine Ketones (Negative) Urine Blood (Negative) Urine Nitrate (Negative) Urine Bilirubin (Negative) Urine Urobilinogen (Negative) mg/dL Ur Leukocyte Monika ase (Negative) Urine RBC (0-2) /hpf Urine WBC (0-5) /hpf Ur Squamous Epith Cells (0-5) /hpf Ur Transition Epit h Cell /hpf Amorphous Sediment Urine Bacteria (NONE) /hpf 03/20/21 Range/Units 14:40 WBC (4.0-10.0) 10^3/ uL RBC (4.1-5.3) 10^6/u L Hgb (11.5-15.3) g/dL Hct (37.0-47.0) % MCV (81-99) fL MCH (28.0-34.0) pg MCHC (30.0-36.0) g/dL RDW (12.1-15.1) % Plt Count (130-400) 10^3/c mm MPV (7.4-10.4) fL Neut % (Auto) % Lymph % (Auto) % [place] % (Auto) % Eos % (Auto) % Baso % (Auto) % Neut # (Auto) (1.8-7.7) 10^3/u L Lymph # (Auto) (0.8-4.8) 10^3/u L [place] # (Auto) (0.2-0.9) 10^3/u L Eos # (Auto) (0.0-0.8) 10^3/u L Baso # (Auto) (0.0-0.1) 10^3/u L Nucleated RBC % (a uto) % Nucleated RBCs # /100WBC Sodium (136-145) mmol/L Potassium (3.5-5.1) mmol/L Chloride (98-107) mmol/L Carbon Dioxide (22-29) mmol/L Anion Gap (5-19) BUN (8-23) mg/dL Creatinine (0.5-0.9) mg/dL GFR Calculation Glucose (65-115) mg/dL Calculated Osmolal ity (285-295) mOsm/k g Lactate (0.5-2.2) mmol/L Calcium (8.5-10.5) mg/dL Total Bilirubin (0.15-1.2) mg/dL AST (0-32) U/L ALT (0-33) U/L Alkaline Phosphata se (35-105) IU/L Total Protein (6.6-8.7) g/dL Albumin (3.5-5.2) g/dL Globulin (1.3-4.6) g/dL Urine Color Colorless (Yellow) Urine Appearance Clear (CLEAR) Urine pH 5 (5-7) Ur Specific Gravit y 1.005 (1.005-1.030) Urine Protein Neg (Negative) Urine Glucose (UA) Norm (Normal) Urine Ketones Negative (Negative) Urine Blood Neg (Negative) Urine Nitrate Negative (Negative) Urine Bilirubin Neg (Negative) Urine Urobilinogen Norm (Negative) mg/dL Ur Leukocyte Monika ase Negative (Negative) Urine RBC None (0-2) /hpf Urine WBC 0-4 H (0-5) /hpf Ur Squamous Epith Cells None (0-5) /hpf Ur Transition Epit h Cell Rare /hpf Amorphous Sediment Not Reportable Urine Bacteria Trace (NONE) /hpf Imaging Data^: Other Xray: Radiologist's impression: Negative Discharge Plan Discharge Condition: Stable Prescriptions: No Action ferrous sulfate [iron] 325 mg (65 mg iron) tablet 325 mg PO BID RF: 0 glucosamine sulfate 1,000 mg capsule 1,000 mg PO BID RF: 0 calcium carbonate [Calcium 600] 600 mg calcium (1,500 mg) tablet 600 mg PO BID RF: 0 furosemide 80 mg tablet 80 mg PO QAM RF: 0 glimepiride 1 mg tablet 0.5 mg PO QAM RF: 0 metoprolol tartrate 50 mg tablet 50 mg PO BID RF: 0 alprazolam [Xanax] 0.25 mg tablet 0.25 mg PO TID PRN (Reason: Anxiety) RF: 0 esomeprazole magnesium [Nexium] 40 mg capsule,delayed release(DR/EC) 40 mg PO QAM RF: 0 sennosides 25 mg tablet 50 mg PO BID RF: 0 aspirin [Aspir-81] 81 mg tablet,delayed release (DR/EC) 81 mg PO QAM RF: 0 hydrocodone-acetaminophen 5-325 mg tablet 1 tab PO Q4H PRN (Reason: pain) Qty: 20 RF: 0 losartan 25 mg Tablet 50 mg PO QAM RF: 0 potassium chloride 10 mEq tablet,ER particles/crystals 10 meq PO QAM RF: 0 Colace 100 mg capsule 100 mg PO BID PRN (Reason: POSTOP CONSTIPATION) RF: 0 acetaminophen 325 mg capsule 650 mg PO Q4H PRN (Reason: fever or pain) RF: 0 diltiazem HCl 180 mg capsule,extended release 24hr 180 mg PO QAM RF: 0 Pradaxa 75 mg capsule 75 mg PO BID RF: 0 Discharge Orders: Discharge ED (Routine); Ordered 03/20/21 Ordered By: Brianna Osman Referrals: Thanh Salmon MD [Primary Care Provider] - Activity Restrictions/Additional Instructions: Monitor her temperature more often prior to her taking any Tylenol. See your physician tomorrow as already scheduled for the catheter removal check in with them and let them know you were seen here in the ER for a complete work-up and everything was negative return if fevers chills increased pain any type of drainage chest pain shortness of breath Thank you for choosing [facility] for your healthcare needs today. Please realize this is an emergency room and that we are providing you with a medical screening exam and this may not be complete and all inclusive of all the testing and or work up that you may need to determine your ailment or severity of your illness. It is very important that you follow up as instructed or that you return to the Emergency Department should you have concerns or if your condition changes or worsens in any way. Coding Level of Care Code ED Children'S Nursery Assistant for Haylie Peck
== END 2021-03-20 16:57 | disposition home or self-care (01) ==
PROVIDERS: Emergency Provider Emergency Medicine; PCP Family Medicine
DX: R50.9 Fever, unspecified (principal); Z79.82 Long term (current) use of aspirin
CPT/HCPCS: 71045; 71275; 74177; 80053; 81001; 83605; 85025; 99283; Q9967

== ENCOUNTER 2021-03-23 10:09 | Inpatient (IN) | payer MEDICARE, BC, SELFPAY ==
[2021-03-23] VITALS (35 sets, daily range): BP systolic 74–150; BP diastolic 37–73; PULSE 63–98; RESP 14–28; TEMP 35.4–36.6; O2SAT 92–100; BMI 27.1
--- NOTE | 2021-03-23 10:41 | XR_ITS ---
WS: [id number] Portable AP upright chest, 03/23/2021 Clinical Data: syncope Comparison: Portable chest, 03/20/2021. Findings: The heart is enlarged. The pulmonary vascularity is not increased. No nodules, masses or ef fusions are seen. The aortic arch and descending aorta are tortuous. There is a hiatal hernia behind the heart. Monitor leads are on the chest wall. XR/XR chest 1V portable [id number] Impression: Cardiomegaly and hiatal hernia.
[2021-03-23] MEDS: sodium chloride 0.9% 500 ML IV (10:45)
[2021-03-23 10:59] LABS: Basophils # 0.1 10^3/uL (0.0-0.1); Basophils % 0.6 %; Eosinophils # 0.1 10^3/uL (0.0-0.8); Eosinophils % 0.6 %; Hematocrit 27.6 % (37.0-47.0); Hemoglobin 9.5 g/dL (11.5-15.3); Lymphocytes # 1.3 10^3/uL (0.8-4.8); Lymphocytes % 8.9 %; Mean Corpuscular HGB Conc 34.4 g/dL (30.0-36.0); Mean Corpuscular Hemoglobin 34.9 pg (28.0-34.0); Mean Corpuscular Volume 101.5 fL (81-99); Mean Platelet Volume 9.9 fL (7.4-10.4); Monocytes # 1.1 10^3/uL (0.2-0.9); Monocytes % 8.1 %; Neutrophils # 11.45 10^3/uL (1.8-7.7); Neutrophils % 80.7 %; Nucleated Red Blood Cells % 0 %; Platelet Count 273 10^3/cmm (130-400); Red Blood Count 2.72 10^6/uL (4.1-5.3); Red Cell Distribution Width 12.4 % (12.1-15.1); White Blood Count 14.2 10^3/uL (4.0-10.0)
--- NOTE | 2021-03-23 11:09 | W.ED.SYNCOPE ---
HPI - Syncope General: Chief Complaint: Syncope Stated Complaint: FALL Time Seen by Provider: 03/23/21 10:41 History of Present Illness: HPI narrative: 85-year-old female brought in by her son from home. Earlier this morning she had felt weak, fell and vomited. Patient was taken to the bathroom upon arrival and was noted to have black tarry colored stools. She also had a syncopal episode and turned pale and diaphoretic. Patient was recently here with abdominal pain. She was subsequently discharged in good condition.Patient had a vaginal hysterectomy and a bladder saddle surgery about 6 days ago with some complications of adhesions and/or a mild rectal tear that involved a drain however the drain was removed 3 days ago. She is otherwise been eating and drinking well. She is on Pradaxa for previous history of blood clots and atrial fibrillation and had recently restarted it after the surgery. And further discussion with the son he states that she did fall earlier this morning. He thinks she may have hit the toilet stool. She complained of left sided pain. Associated symptoms: Reports abdominal pain, lightheadedness and nausea; Deny chest pain or fever(s) Review of Systems General: Reports: Other (Limited secondary to the medical condition of the patient.) Narrative: 85-year-old female returns to the ER with nausea, vomiting, weakness and a syncopal episode. Patient is status post hysterectomy and bladder surgery. Const: Reports: fatigue, malaise and diaphoresis; Denies: fever(s), chills, body aches or change in appetite Card: Reports: irregular heart rhythm, lightheadedness and syncope; Denies: chest pain, palpitations, edema or swelling of feet/ankles Resp: Denies: dyspnea, productive cough, non-productive cough or wheezing GI: Reports: abdominal pain, nausea, vomiting and melena : Reports: other (Recent bladder surgery.); Denies: flank pain, difficulty voiding or dysuria Musc: Denies: neck pain or extremity swelling Neuro: Reports: other (Overall weakness.) Jhony/Lymph: Reports: other (Patient is on Pradaxa.) COUNT INCLUDES THE [facility] ED PFSH: Medical History Aftercare following surgery of the genitourinary system Anemia Anticoagulant long-term use CVA (cerebral vascular accident) Diabetes DVT (deep venous thrombosis) Dyslipidemia GERD (gastroesophageal reflux disease) [place] (hard of hearing) HTN (hypertension) Hx pulmonary embolism Mitral regurgitation Mixed stress and urge urinary incontinence BASIL on CPAP POP-Q stage 3 cystocele Pulmonary HTN Second degree uterine prolapse Surgical History H/O dilation and curettage x2 H/O esophagogastroduodenoscopy (05/18/20) H/O: hysterectomy 03/16/2021: total vaginal hysterectomy with bilateral salpingo-oophorectomy, anterior colporrhaphy augmented with allograft with midurethral sling, small rectal laceration repair, performed by Dr. Muller at [facility] History of colonoscopy with polypectomy (05/18/20) Diverticulosis S/P cholecystectomy S/P knee surgery Status post tubal ligation Family History Brother CAD (coronary artery disease) Cancer Myocardial infarction Colon cancer Father Tuberculosis Son Diabetes Hyperlipidemia Denies family history of Ovarian cancer Clotting disorder Breast cancer Anesthesia complication Bleeding disorder Hypertension Uterine cancer Thyroid condition Stroke Social History Smoking and tobacco status: never smoked Alcohol intake: never Household members: family Marital status: / Current occupational status: retired Physical Exam Narrative: EXAM NARRATIVE: 85-year-old female comes in with nausea, vomiting and a syncopal episode. Patient was seen upon entry to the ER room. She had had a syncopal episode just prior while she was being taken to the bathroom. Patient appears to be pale and diaphoretic. Const: COMMON NORMALS: patient oriented x3 GENERAL APPEARANCE: cooperative, lethargic, ill appearing, frail appearing and diaphoretic ORIENTATION/CONSCIOUSNESS: Yes awake and Yes lethargic HENMT: COMMON NORMALS: normocephalic, atraumatic and moist oral mucous membranes (Mildly dry oral mucosa.); hearing grossly not normal bilaterally (Patient is hard of hearing.) HEAD & SCALP: normal to inspection, normocephalic and atraumatic Eye: COMMON NORMALS: Equal, round and reactive pupils present, EOMs intact bilaterally, conjunctivae normal and no scleral icterus GENERAL EYE: appearance normal, both eyes and all related structures and normal light reflex CONJUNCTIVA: Yes conjunctivae normal PUPIL: Yes Equal, round and reactive pupils present DIRECT OPHTHALMOSCOPY: Yes normal light reflex Neck/C-Spine: COMMON NORMALS: full ROM, no lymphadenopathy, supple, no JVD and Thyroid normal GENERAL: Yes normal visual inspection, Yes trachea midline, No anterior neck swelling, No lymphadenopathy and No tender THYROID: Thyroid normal Chest: COMMONS NORMALS: normal inspection of the chest and normal palpation of entire chest wall Resp: COMMON NORMALS: normal respiratory effort, No retractions, No use of accessory muscles and clear to auscultation bilaterally EFFORT & INSPECTION: Yes able to speak in complete sentences, Yes symmetric chest movement, Yes abnormal respiratory pattern, No tachypneic, No respiratory distress and No decreased respiratory effort AUSCULTATION: clear to auscultation bilaterally, no crackles, no rales, no rhonchi and no wheezes Cardio: COMMON NORMALS: no JVD and Peripheral pulses 2+ throughout; negative for regular rate, negative for regular rhythm, negative for No gallops present (Cardio), negative for No clicks present (Cardio) and negative for No rub (Cardio) RATE: abnormal rate and Other (Irregular rate) RHYTHM: abnormal rhythm and other (Irregular rhythm) PERIPHERAL PULSES: Peripheral pulses 2+ throughout OTHER: Atrial fibrillation GI: COMMON NORMALS: Soft to palpation, No hepatosplenomegaly present and no masses AUSCULTATION: Yes normoactive bowel sounds PALPATION: Yes Soft to palpation, Yes Tenderness to palpation present (GI) Details: LLQ, RLQ and other (Suprapubic) and Yes No hepatosplenomegaly present Neuro: COMMON NORMALS: patient oriented x3 SENSORIUM/ORIENTATION: Yes lethargic Course Vital Signs: Vital signs: Vital Signs Temperature 97.7 F 03/23/21 10:50 Pulse Rate 87 03/23/21 15:13 Respiratory Rate 22 H 03/23/21 15:13 Blood Pressure 102/50 03/23/21 15:13 Pulse Oximetry 96 03/23/21 15:13 MDM - Syncope Lab Data: Labs: Lab Results 03/23/21 03/23/21 03/23/21 Range/Units 10:42 10:42 10:42 WBC 14.2 H (4.0-10.0) 10^3/ uL RBC 2.72 L (4.1-5.3) 10^6/u L Hgb 9.5 L (11.5-15.3) g/dL Hct 27.6 L (37.0-47.0) % MCV 101.5 H (81-99) fL MCH 34.9 H (28.0-34.0) pg MCHC 34.4 (30.0-36.0) g/dL RDW 12.4 (12.1-15.1) % Plt Count 273 (130-400) 10^3/c mm MPV 9.9 (7.4-10.4) fL Neut % (Auto) 80.7 % Lymph % (Auto) 8.9 % Mcleod % (Auto) 8.1 % Eos % (Auto) 0.6 % Baso % (Auto) 0.6 % Neut # (Auto) 11.45 H (1.8-7.7) 10^3/u L Lymph # (Auto) 1.3 (0.8-4.8) 10^3/u L Mcleod # (Auto) 1.1 H (0.2-0.9) 10^3/u L Eos # (Auto) 0.1 (0.0-0.8) 10^3/u L Baso # (Auto) 0.1 (0.0-0.1) 10^3/u L Nucleated RBC % (a uto) 0 % Nucleated RBCs # 0.0 /100WBC PT (12.1-14.9) SECO NDS INR (0.8-1.2) APTT (23.9-36.7) SECO NDS Sodium 134 L (136-145) mmol/L Potassium 2.8 L* (3.5-5.1) mmol/L Chloride 97 L (98-107) mmol/L Carbon Dioxide 26 (22-29) mmol/L Anion Gap 13.8 (5-19) BUN 8 (8-23) mg/dL Creatinine 0.8 (0.5-0.9) mg/dL GFR Calculation Not Reportable Glucose 185 H (65-115) mg/dL Calculated Osmolal ity 281 L (285-295) mOsm/k g Lactate 2.9 H (0.5-2.2) mmol/L Calcium 9.3 (8.5-10.5) mg/dL Magnesium 2.1 (1.7-2.3) mg/dL Total Bilirubin 1.0 (0.15-1.2) mg/dL AST 17 (0-32) U/L ALT 7 (0-33) U/L Alkaline Phosphata se 85 (35-105) IU/L NT-Pro-B Natriuret Pep 5019 H (0-450) pg/mL Total Protein 6.2 L (6.6-8.7) g/dL Albumin 3.2 L (3.5-5.2) g/dL Globulin 3.0 (1.3-4.6) g/dL Urine Color (Yellow) Urine Appearance (CLEAR) Urine pH (5-7) Ur Specific Gravit y (1.005-1.030) Urine Protein (Negative) Urine Glucose (UA) (Normal) Urine Ketones (Negative) Urine Blood (Negative) Urine Nitrate (Negative) Urine Bilirubin (Negative) Urine Urobilinogen (Negative) mg/dL Ur Leukocyte Monika ase (Negative) Urine RBC (0-2) /hpf Urine WBC (0-5) /hpf Ur Squamous Epith Cells (0-5) /hpf Amorphous Sediment Urine Bacteria (NONE) /hpf Blood Type Rho(D) Type Antibody Screen Crossmatch 03/23/21 03/23/21 03/23/21 Range/Units 11:38 12:46 15:18 WBC (4.0-10.0) 10^3/ uL RBC (4.1-5.3) 10^6/u L Hgb 8.4 L (11.5-15.3) g/dL Hct (37.0-47.0) % MCV (81-99) fL MCH (28.0-34.0) pg MCHC (30.0-36.0) g/dL RDW (12.1-15.1) % Plt Count (130-400) 10^3/c mm MPV (7.4-10.4) fL Neut % (Auto) % Lymph % (Auto) % Mcleod % (Auto) % Eos % (Auto) % Baso % (Auto) % Neut # (Auto) (1.8-7.7) 10^3/u L Lymph # (Auto) (0.8-4.8) 10^3/u L Mcleod # (Auto) (0.2-0.9) 10^3/u L Eos # (Auto) (0.0-0.8) 10^3/u L Baso # (Auto) (0.0-0.1) 10^3/u L Nucleated RBC % (a uto) % Nucleated RBCs # /100WBC PT 18.30 H (12.1-14.9) SECO NDS INR 1.49 H (0.8-1.2) APTT 64.4 H (23.9-36.7) SECO NDS Sodium (136-145) mmol/L Potassium (3.5-5.1) mmol/L Chloride (98-107) mmol/L Carbon Dioxide (22-29) mmol/L Anion Gap (5-19) BUN (8-23) mg/dL Creatinine (0.5-0.9) mg/dL GFR Calculation Glucose (65-115) mg/dL Calculated Osmolal ity (285-295) mOsm/k g Lactate (0.5-2.2) mmol/L Calcium (8.5-10.5) mg/dL Magnesium (1.7-2.3) mg/dL Total Bilirubin (0.15-1.2) mg/dL AST (0-32) U/L ALT (0-33) U/L Alkaline Phosphata se (35-105) IU/L NT-Pro-B Natriuret Pep (0-450) pg/mL Total Protein (6.6-8.7) g/dL Albumin (3.5-5.2) g/dL Globulin (1.3-4.6) g/dL Urine Color Yellow (Yellow) Urine Appearance Hazy A (CLEAR) Urine pH 5 (5-7) Ur Specific Gravit y 1.010 (1.005-1.030) Urine Protein Neg (Negative) Urine Glucose (UA) Norm (Normal) Urine Ketones Negative (Negative) Urine Blood 2+ H (Negative) Urine Nitrate Negative (Negative) Urine Bilirubin Neg (Negative) Urine Urobilinogen Norm (Negative) mg/dL Ur Leukocyte Monika ase 1+ H (Negative) Urine RBC 0-4 H (0-2) /hpf Urine WBC 25-40 H (0-5) /hpf Ur Squamous Epith Cells 0-4 H (0-5) /hpf Amorphous Sediment Not Reportable Urine Bacteria 4+ H (NONE) /hpf Blood Type Rho(D) Type Antibody Screen Crossmatch 03/23/21 Range/Units 15:30 WBC (4.0-10.0) 10^3/ uL RBC (4.1-5.3) 10^6/u L Hgb (11.5-15.3) g/dL Hct (37.0-47.0) % MCV (81-99) fL MCH (28.0-34.0) pg MCHC (30.0-36.0) g/dL RDW (12.1-15.1) % Plt Count (130-400) 10^3/c mm MPV (7.4-10.4) fL Neut % (Auto) % Lymph % (Auto) % Mcleod % (Auto) % Eos % (Auto) % Baso % (Auto) % Neut # (Auto) (1.8-7.7) 10^3/u L Lymph # (Auto) (0.8-4.8) 10^3/u L Mcleod # (Auto) (0.2-0.9) 10^3/u L Eos # (Auto) (0.0-0.8) 10^3/u L Baso # (Auto) (0.0-0.1) 10^3/u L Nucleated RBC % (a uto) % Nucleated RBCs # /100WBC PT (12.1-14.9) SECO NDS INR (0.8-1.2) APTT (23.9-36.7) SECO NDS Sodium (136-145) mmol/L Potassium (3.5-5.1) mmol/L Chloride (98-107) mmol/L Carbon Dioxide (22-29) mmol/L Anion Gap (5-19) BUN (8-23) mg/dL Creatinine (0.5-0.9) mg/dL GFR Calculation Glucose (65-115) mg/dL Calculated Osmolal ity (285-295) mOsm/k g Lactate (0.5-2.2) mmol/L Calcium (8.5-10.5) mg/dL Magnesium (1.7-2.3) mg/dL Total Bilirubin (0.15-1.2) mg/dL AST (0-32) U/L ALT (0-33) U/L Alkaline Phosphata se (35-105) IU/L NT-Pro-B Natriuret Pep (0-450) pg/mL Total Protein (6.6-8.7) g/dL Albumin (3.5-5.2) g/dL Globulin (1.3-4.6) g/dL Urine Color (Yellow) Urine Appearance (CLEAR) Urine pH (5-7) Ur Specific Gravit y (1.005-1.030) Urine Protein (Negative) Urine Glucose (UA) (Normal) Urine Ketones (Negative) Urine Blood (Negative) Urine Nitrate (Negative) Urine Bilirubin (Negative) Urine Urobilinogen (Negative) mg/dL Ur Leukocyte Monika ase (Negative) Urine RBC (0-2) /hpf Urine WBC (0-5) /hpf Ur Squamous Epith Cells (0-5) /hpf Amorphous Sediment Urine Bacteria (NONE) /hpf Blood Type O Negative Rho(D) Type Negative / 0 Antibody Screen Negative Crossmatch See Detail Discharge Plan Discharge Patient Disposition: Admitted As Inpatient Clinical Impression: Closed rupture of spleen, Chronic anticoagulation, Acute UTI Condition: Stable Coding Level of Care Code ED [employer] Operator for Haylie Fwd Exam Comprehensive
[2021-03-23 11:16] LABS: Lactate (Lactic Acid level) 2.9 mmol/L (0.5-2.2)
[2021-03-23 11:27] LABS: Alanine Aminotransferase 7 U/L (0-33); Albumin Level 3.2 g/dL (3.5-5.2); Alkaline Phosphatase 85 IU/L (35-105); Anion Gap 13.8 (5-19); Aspartate Amino Transferase 17 U/L (0-32); Blood Urea Nitrogen 8 mg/dL (8-23); Calcium 9.3 mg/dL (8.5-10.5); Carbon Dioxide 26 mmol/L (22-29); Chloride 97 mmol/L (98-107); Glucose 185 mg/dL (65-115); Magnesium 2.1 mg/dL (1.7-2.3); NT Pro B Type Natriuretic Pept 5019 pg/mL (0-450); Osmolality Calculated 281 mOsm/kg (285-295); Sodium 134 mmol/L (136-145); Total Protein 6.2 g/dL (6.6-8.7)
[2021-03-23 11:35] LABS: Potassium 2.8 mmol/L (3.5-5.1)
[2021-03-23 11:57] LABS: INR 1.49 (0.8-1.2)
[2021-03-23 11:59] LABS: Partial Thromboplastin Time 64.4 SECONDS (23.9-36.7)
--- NOTE | 2021-03-23 13:03 | PC.PHAR ---
PT UABLE TO CONFIRM MEDICATIONS. PT'S FAMILY MEMBER STATES THAT SHE TOOK ALL OF HER MORNING MEDICATION THIS MORNING, BUT SHORTLY AFTER, SHE THREW UP. THEY DON'T KNOW IF ANY OF HER MEDICATION STAYED DOWN.
--- NOTE | 2021-03-23 13:06 | ECG_ITS ---
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 Measurements Intervals [place] Rate: 77 P: CA: QRS: 32 QRSD: 83 T: -3 QT: 394 QTc: 448 Interpretive Statements ATRIAL FIBRILLATION NONSPECIFIC ST & T-WAVE ABNORMALITY ABNORMAL RHYTHM ECG Compared to ECG 03/14/2021 13:04:53 Possible ischemia no longer present T-wave abnormality still present Electronically Signed On 03-23-2021 18:21:58 CDT by Nancy Barron M.D. [id number] f
[2021-03-23 13:10] LABS: Add Urine Microscopic? YES; Bilirubin Urine Neg (Negative); Blood Urine 2+ (Negative); Glucose Urine UA Norm (Normal); Ketones Urine Negative (Negative); Leukocyte Esterase Urine 1+ (Negative); Nitrate Urine Negative (Negative); Protein Urine Neg (Negative); Urine Appearance Hazy (CLEAR); Urine Color Yellow (Yellow); Urobilinogen Urine Norm (Negative); pH Urine 5 (5-7)
[2021-03-23] MEDS: sodium chloride 0.9% 500 ML 999 ML IV (13:19)
--- NOTE | 2021-03-23 13:19 | CT_ITS ---
WS: [id number] CT ABDOMEN AND PELVIS WITH CONTRAST HISTORY: post op bleeding, abd pain, hypotension TECHNIQUE: Imaging performed of the abdomen and pelvis with IV contrast. Single phase imaging of the abdomen. Coronal and sagittal reformats are submitted. All CT scans at [facility] use at least one of these dose optimization techniques: automated exposure control; mA and/or kV adjustment per patient size (includes targeted exams where dose is matched to clinical indication); or iterativ e reconstruction. IV CONTRAST: Omnipaque 300; 95 mL IV. Oral contrast: No DLP: 1659.14 mGy.cm COMPARISON: 03/20/2021. Lower thorax: Dependent changes at the lung bases and very small LEFT pleural effusion. Mildly enlarg ed heart. There is a large hiatal hernia. There is increase fluid consistent with blood extending int o the hernia sac. Focal area of decreased enhancement within the posterior stomach may be areas of mu cosal bleeding or ischemia. Liver/biliary system: Normal size liver. Mild intrahepatic duct dilatation. Moderate amount of acute blood products surrounding the liver. Gallbladder: Status post cholecystectomy. Pancreas: Severe atrophy of the pancreas. Spleen: . Normal spleen. There is a large active sentinel area of extravasation and bleeding from the spleen. There is a large subcapsular hematoma. Spleen is being displaced. Linear lines within the sp estiven consistent with a splenic fracture. Adrenal glands: Normal. Right kidney: Normal. Left kidney: Normal size LEFT kidney. LEFT kidney is slightly displaced by the perisplenic hematoma. Aorta: Mild atherosclerosis with no aneurysm. Lymphadenopathy: None. Free fluid: Peritoneal fluid surrounding the liver and spleen as described above and extending along the paracolic gutters. There is a small amount of fluid in the pelvis. GI tract: No GI tract obstruction. Increase fluid adjacent to the splenic flexure. No perforation or free air is identified. Abdominal wall: Unremarkable abdominal wall. No hernia. Pelvis: There is a large fluid collection extending over length of 14 cm in the pelvis. Hounsfield un its are low. Favor this is probably an overly distended urinary bladder. Hounsfield units are not yoana vated enough for blood products. The confirm this is an overly distended bladder Klein catheter can b e placed. There is mild soft tissue thickening in the pelvis from the recent surgery. No definite abs cess. Bones: Marked increase in lumbar lordosis. Osteopenia. No rib fractures identified. CT/CT abdomen pelvis w con* [id number] IMPRESSION: 1. Active extravasation and bleeding from the spleen with splenic fracture and large splenic capsular hematoma. Notified Brycekvng Hirsch at 03/23/2021 2:46 PM. 2. Hemoperitoneum surrounding the liver and spleen and along the paracolic gut ters. 3. There is additional blood filling the hiatal hernia sac. Focal area of decr eased attenuation in the greater curvature of the stomach could be an area of i schemia or source of bleeding. 4. Large fluid collection in the pelvis with foci of air. Favor this is probab ly an overly distended urinary bladder. Hounsfield units are not elevated suffi cient for hematoma. Klein catheter placement should drain excessive amount of u rine. 5. Recent postsurgical changes from hysterectomy and pelvis. No definite absce ss or complication at this time within the pelvis. 6. No fractures identified. 7. Acute blood adjacent to the splenic flexure. No associated free air. Cannot exclude an area of injury with this amount of blood but could also be from the splenic rupture.
[2021-03-23 13:47] LABS: Add Urine Culture? Yes; Bacteria Urine 4+ /hpf; RBC Urine 0-4 /hpf (0-2); Squamous Epithelial Cell Urine 0-4 /hpf (0-5); WBC Urine 25-40 /hpf (0-5)
[2021-03-23] MEDS: iohexol 300 mg/mL 100 mL Btl IV (14:34)
--- NOTE | 2021-03-23 15:14 | P.ANESASSM_ITS ---
Pre-Anesthetic Assessment Pre-Anesthetic Assessment: Height/Weight: Height 1.57 m Weight 67.132 kg Temp Pulse Resp BP Pulse Ox 97.7 F 87 22 H 102/50 96 03/23/21 10:50 03/23/21 15:13 03/23/21 15:13 03/23/21 15:13 03/23/21 15:13 Preop Diagnosis: Pelvic organ prolapse stage III Proposed Procedure: Ex-lap Pulmonary: Pulmonary: Sleep apnea Comments: pulm HTN CV/HEM: CV/HEM: Afib, Anemia, DVT and HTN Comments: mitral regurge (moderate), 02/28 echo w/ EF 65% GI: GI: GERD Metabolic: Metabolic: DM Comments: potassium 2.8 Neuropsych: Neuropsych: CVA Anesthetic Plan: ASA status: 4E Anesthesia: General Risk of > 500 ml blood loss (7ml/kg in children): Yes, adequate IV access and fluids planned Other Pertinent Information: unable to obtain history and consent, patient brought urgently into OR PFS Anesthesia PFSH: Medical History (Updated 03/23/21 @ 16:48 by Frnaklin Barroso MD) Anemia Anticoagulant long-term use CVA (cerebral vascular accident) Diabetes DVT (deep venous thrombosis) Dyslipidemia GERD (gastroesophageal reflux disease) [place] (hard of [place]) HTN (hypertension) Hx pulmonary embolism Mitral regurgitation Mixed stress and urge urinary incontinence BASIL on CPAP POP-Q stage 3 cystocele Pulmonary HTN Second degree uterine prolapse Surgical History (Updated 03/23/21 @ 16:48 by Franklin Barroso MD) H/O dilation and curettage x2 H/O esophagogastroduodenoscopy (05/18/20) H/O: hysterectomy 03/16/2021: total vaginal hysterectomy with bilateral salpingo-oophorectomy, anterior colporrhaphy augmented with allograft with midurethral sling, small rectal laceration repair, performed by Dr. 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 Status post tubal ligation Family History Brother CAD (coronary artery disease) Cancer Myocardial infarction Colon cancer Father Tuberculosis Son Diabetes Hyperlipidemia Denies family history of Ovarian cancer Clotting disorder Breast cancer Anesthesia complication Bleeding disorder Hypertension Uterine cancer Thyroid condition Stroke Social History Smoking and tobacco status: never smoked Alcohol intake: never Household members: family Marital status: / Current occupational status: retired Data Anesthesia CBC & Chem 7: 03/23/21 15:18 03/23/21 10:42 Other Labs: Laboratory Results - last 48 hr 03/23/21 03/23/21 03/23/21 10:42 10:42 10:42 WBC 14.2 H RBC 2.72 L Hgb 9.5 L Hct 27.6 L MCV 101.5 H MCH 34.9 H MCHC 34.4 RDW 12.4 Plt Count 273 MPV 9.9 Neut % (Auto) 80.7 Lymph % (Auto) 8.9 [place] % (Auto) 8.1 Eos % (Auto) 0.6 Baso % (Auto) 0.6 Neut # (Auto) 11.45 H Lymph # (Auto) 1.3 [place] # (Auto) 1.1 H Eos # (Auto) 0.1 Baso # (Auto) 0.1 Nucleated RBC % (auto) 0 Nucleated RBCs # 0.0 PT INR APTT Sodium 134 L Potassium 2.8 L* Chloride 97 L Carbon Dioxide 26 Anion Gap 13.8 BUN 8 Creatinine 0.8 GFR Calculation Not Reportable Glucose 185 H Calculated Osmolality 281 L Lactate 2.9 H Calcium 9.3 Magnesium 2.1 Total Bilirubin 1.0 AST 17 ALT 7 Alkaline Phosphatase 85 NT-Pro-B Natriuret Pep 5019 H Total Protein 6.2 L Albumin 3.2 L Globulin 3.0 Urine Color Urine Appearance Urine pH Ur Specific [place] Urine Protein Urine Glucose (UA) Urine Ketones Urine Blood Urine Nitrate Urine Bilirubin Urine Urobilinogen Ur Leukocyte Esterase Urine RBC Urine WBC Ur Squamous Epith Cells Amorphous Sediment Urine Bacteria 03/23/21 03/23/21 11:38 12:46 WBC RBC Hgb Hct MCV MCH MCHC RDW Plt Count MPV Neut % (Auto) Lymph % (Auto) [place] % (Auto) Eos % (Auto) Baso % (Auto) Neut # (Auto) Lymph # (Auto) [place] # (Auto) Eos # (Auto) Baso # (Auto) Nucleated RBC % (auto) Nucleated RBCs # PT 18.30 H INR 1.49 H APTT 64.4 H Sodium Potassium Chloride Carbon Dioxide Anion Gap BUN Creatinine GFR Calculation Glucose Calculated Osmolality Lactate Calcium Magnesium Total Bilirubin AST ALT Alkaline Phosphatase NT-Pro-B Natriuret Pep Total Protein Albumin Globulin Urine Color Yellow Urine Appearance Hazy A Urine pH 5 Ur Specific [place] 1.010 Urine Protein Neg Urine Glucose (UA) Norm Urine Ketones Negative Urine Blood 2+ H Urine Nitrate Negative Urine Bilirubin Neg Urine Urobilinogen Norm Ur Leukocyte Esterase 1+ H Urine RBC 0-4 H Urine WBC 25-40 H Ur Squamous Epith Cells 0-4 H Amorphous Sediment Not Reportable Urine Bacteria 4+ H Micro: Microbiology 03/23/21 12:08 Occult Blood (FIT) - Final Stool - Stool Aspirate Cardiac Studies: No Data to Display
[2021-03-23 15:25] LABS: Hemoglobin 8.4 g/dL (11.5-15.3)
--- NOTE | 2021-03-23 17:02 | PM.OP ---
Operative Report Date of procedure: March 23, 2021 Pre-op Diagnosis: 1. Traumatic splenic rupture 2. Active extravasation on CT scan 3. 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 Hypotension in ER with systolic in the 100s after resuscitation Post-op Diagnosis: 1. Traumatic splenic rupture 2. 700 cc of hemoperitoneum 3. No evidence of small bowel, stomach or colonic injury 4. Hiatal hernia with blood within the hernia sac Procedure Done: Exploratory laparotomy Splenectomy Pathology: Spleen Surgeon: Franklin Barroso Anesthesia: General Condition: stable Disposition: ICU Brief History: This is a 85-year-old female with previously undergone hysterectomy about a week ago at her facility and apparently fell in the bathroom today with loss of consciousness. Patient was brought to the emergency room and a subsequent CT scan in the ER showed splenic rupture with active extravasation of contrast the findings which were discussed with Dr. Self. Patient had taken Pradaxa today for her history of DVT and PE. Patient had a tender abdomen on physical exam and her systolic was in the 100s after fluid resuscitation with 1 L. Procedure: The patient was taken emergently to the operating room, intubated under general anesthesia, Klein catheter was placed and the abdomen is prepped and draped in sterile manner. An NG tube was placed. Patient had adequate IV access. She received 2 g of IV Ancef. Using 15 blade a midline laparotomy incision was made, subcutaneous tissues divided using electrocautery and the linea alba was divided to enter the peritoneal cavity. On entering the peritoneal cavity there was hemoperitoneum noted with associated splenic rupture. The left upper quadrant was packed with lap pads and the spleen was mobilized medially by incising the lateral peritoneal attachments with electrocautery. The vascular pedicle containing the splenic artery and vein was clamped and divided with Voyent energy device. The left upper quadrant was examined for hemostasis and there was bleeding from the short gastrics which were suture-ligated with 3-0 Vicryl sutures. The peritoneal cavity was irrigated with warm saline and hemoperitoneum was evacuated. There was about 700 cc of blood in the peritoneal cavity. The rest of the peritoneal cavity was examined and there was no evidence of active bleeding. The colon, small bowel, stomach and liver appeared normal. The stomach was decompressed and NG tube was noted to be in good position. A 10 flat ERIC drain was introduced in the splenectomy bed through a stab incision in the left upper quadrant. The drain was attached to bulb suction and sutured with 0 Prolene suture. After ensuring adequate count, the fascia in the midline was closed using #1 looped PDS and skin was closed with nikko. A central line was placed by the anesthesiologist, please refer to her notes for details. The patient was extubated and transferred to recovery room in stable condition while she is awaiting an ICU bed.
--- NOTE | 2021-03-23 17:12 | ANES.PROC ---
Anesthesia Procedures Procedure/Date: 03/23/21 Arterial Line: Time Out Performed: Yes Consent: emergency procedure Size (Gauge): 20 Technique Used: guide wire technique Post-Procedure: dry sterile dressing placed Patient Tolerated Procedure: well Complications: none Site: right and radial Central Venous Insert: Time Out Performed: Yes Consent: emergency procedure Central Line: New Anesthesia monitors: pulse oximetry, EKG, BP cuff and oxygen Vein cannulated: right internal jugular Ultrasound used: to identify patency to vessel and to visualize needle entry to vein Post procedure: Obtain Chest X-Ray
--- NOTE | 2021-03-23 17:13 | XRR_ITS ---
PROCEDURE INFORMATION: Exam: XR Chest Exam date and time: 03/23/2021 5:33 PM Age: 85 years old Clinical indication: Other vascular access device placement or adjustment; Central line, non-tunnelled; Additional info: Post central line placement TECHNIQUE: Imaging protocol: XR of the chest. Views: 1 view. COMPARISON: CR XR chest 1V portable [id number] 03/23/2021 10:50 AM FINDINGS: Tubes, catheters and devices: Right IJ approach central line is in satisfactory position, with distal tip at the SVC/RA junction. Feeding tube is in satisfactory position. Surgical clips project over the epigastric region. Lungs: Left basilar atelectasis noted mina. No consolidation. Pleural spaces: Unremarkable. No pleural effusion. No pneumothorax. Heart/Mediastinum: Stable mild cardiomegaly. A hiatal hernia is present. Bones/joints: Mild levocurvature of the thoracic spine and degenerative changes seen. XR/XR chest 1V portable [id number] IMPRESSION: 1. Central line in satisfactory position. No pneumothorax. 2. No evidence of consolidation to suggest pneumonia. 3. Stable cardiomegaly.
--- NOTE | 2021-03-23 17:25 | PM.HP ---
Providers/Chief Complaint Primary Care Provider: Thanh Salmon MD Chief Complaint: FALL History of Present Illness Juliana Rodney is a 85 year old female who apparently felt weak and fell in the bathroom with an episode of emesis earlier today and was therefore brought to the emergency room by her son. Patient was noted to be pale and diaphoretic and had been complaining of abdominal pain. She had previously undergone hysterectomy on 03/16/2021 and was discharged on 03/18/2021. She was seen in the ER on 03/20/2021 with abdominal pain and at that point CT did not show any significant abnormalities. As per son she took Pradaxa this morning for previous history of DVT and PE. Patient had a CT abdomen pelvis which showed active extravasation of contrast to splenic rupture and hemoperitoneum. I discussed the findings with Dr. Self. Patient has been having black stools since she is on iron therapy. I previously performed her EGD and colonoscopy in April 2020 which had shown diverticulosis in the large hiatal hernia during work-up for anemia. Her anemia subsequently being managed with iron replacement therapy by Dr. Salmon. Review of Systems General: Reports: 10 or more systems reviewed and unremarkable except in HPI and below Medications/Allergies Home Medications Medication Instructions Recorded Confirmed Last Taken Type alprazolam 0.25 mg tablet 0.25 mg PO TID PRN 04/27/20 03/23/21 03/23/21 History esomeprazole magnesium 40 mg 40 mg PO DAILY@0800 04/27/20 03/23/21 03/23/21 History capsule,delayed release furosemide 80 mg tablet 80 mg PO DAILY@0800 04/27/20 03/23/21 03/23/21 History glimepiride 1 mg tablet 0.5 mg PO DAILY@0800 tab 04/27/20 03/23/21 03/23/21 History metoprolol tartrate 50 mg tablet 50 mg PO BID@04/27/20 03/23/21 03/23/21 History Pradaxa 75 mg PO BID@08,199905/18/20 03/23/21 03/23/21 History diltiazem HCl 180 mg PO DAILY@0800 05/18/20 03/23/21 03/23/21 History ferrous sulfate 325 mg (65 mg 325 mg PO BID@08,1999 tab 01/14/21 03/23/21 03/23/21 History iron) tablet calcium carbonate 600 mg calcium 600 mg PO BID@08,199903/11/21 03/23/21 03/23/21 History (1,500 mg) tablet glucosamine sulfate 1,000 mg 1,000 mg PO BID@0800,199903/11/21 03/23/21 03/23/21 History capsule sennosides 25 mg tablet 50 mg PO BID@799,1999 tab 03/11/21 03/23/21 03/23/21 History hydrocodone-acetaminophen 1 tab PO Q4H PRN #20 tab 03/18/21 03/23/21 Unknown Rx acetaminophen 650 mg PO Q4H PRN 03/20/21 03/23/21 03/23/21 History docusate sodium [Colace] 100 mg PO BID PRN 03/20/21 03/23/21 Unknown History losartan 25 mg PO DAILY@0800 03/20/21 03/23/21 03/23/21 History potassium chloride 10 meq PO DAILY@0800 03/20/21 03/23/21 03/23/21 History aspirin [Aspir-81] 81 mg PO DAILY@0800 03/23/21 03/23/21 03/23/21 History ibuprofen [Motrin] 800 mg PO Q6H PRN 03/23/21 03/23/21 03/23/21 History mineral oil See Rx Instructions .ROUTE .COMPLEX 03/23/21 03/23/21 03/22/21 History Allergies Allergy/AdvReac Type Severity Reaction Status Date / Time meperidine [From Demerol] AdvReac Mild ADR-Vomitin Verified 03/21/21 10:24 g zomax Allergy ADR/ALGY-Hy Uncoded 03/16/21 06:24 potension PFSH Acute PFSH: Medical History (Updated 03/23/21 @ 17:21 by Franklin Barroso MD) Anemia Anticoagulant long-term use CVA (cerebral vascular accident) Diabetes DVT (deep venous thrombosis) Dyslipidemia GERD (gastroesophageal reflux disease) [place] (hard of hearing) HTN (hypertension) Hx pulmonary embolism Mitral regurgitation Mixed stress and urge urinary incontinence BASIL on CPAP POP-Q stage 3 cystocele Pulmonary HTN Second degree uterine prolapse Traumatic rupture of spleen Surgical History (Updated 03/23/21 @ 16:48 by Franklin Barroso MD) H/O dilation and curettage x2 H/O esophagogastroduodenoscopy (05/18/20) H/O: hysterectomy 03/16/2021: total vaginal hysterectomy with bilateral salpingo-oophorectomy, anterior colporrhaphy augmented with allograft with midurethral sling, small rectal laceration repair, performed by Dr. 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) Traumatic splenic rupture Status post tubal ligation Family History Brother CAD (coronary artery disease) Cancer Myocardial infarction Colon cancer Father Tuberculosis Son Diabetes Hyperlipidemia Denies family history of Ovarian cancer Clotting disorder Breast cancer Anesthesia complication Bleeding disorder Hypertension Uterine cancer Thyroid condition Stroke Social History Smoking and tobacco status: never smoked Alcohol intake: never Household members: family Marital status: / Current occupational status: retired Vitals/I&O/Wt Last Vital Signs Temp 97.7 F 03/23/21 10:50 Pulse 87 03/23/21 15:13 Resp 22 H 03/23/21 15:13 BP 102/50 03/23/21 15:13 Pulse Ox 96 03/23/21 15:13 03/23/21 03/23/21 03/23/21 06:59 14:59 22:59 Intake Total 1000 / 1000 Balance 1000 / 1000 Weight last 48 hrs Weight 148 lb Physical Exam Narrative: EXAM NARRATIVE: HEENT: Normocephalic appears pale Eye: Sclera /conjunctiva normal Abdomen: Soft to palpation, tender, distended with guarding Neurological: Oriented to place person and time Skin: Intact, no lesions appreciated on gross exam Data : 03/23/21 15:18 03/23/21 10:42 Micro: Microbiology 03/23/21 12:08 Occult Blood (FIT) - Final Stool - Stool Aspirate A&P Assessment and plan (1) Traumatic rupture of spleen: 85-year-old female s/p fall earlier today who presents with abdominal pain. Patient was initially hypotensive but responded to 1 L of saline and her systolic was in the 100s. She had taken her Pradaxa earlier today since she has a history of DVT and PE. CT abdomen pelvis showed splenic rupture with active extravasation of contrast. Hemoglobin was 9.5. On physical exam patient had a tender abdomen. I discussed the findings with the patient's son the fact that she is active extravasation of contrast, she is on Pradaxa and her systolic is in the 100s. She would be at risk of rapid deterioration if an attempt is made to transfer her to [place]. We will therefore proceed with exploratory laparotomy and splenectomy. Patient has DNR status but wants to proceed with surgery in spite of being aware of the risks, benefits. 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
--- NOTE | 2021-03-23 19:54 | PC.NURSE ---
1800 Patient arrived to room with Mary Mckenna RN. Report given at bedside. 1 unit of PRBC started per surgery staff direction from Dr. Barroso. See transfusion record in paper chart.
[2021-03-23] MEDS: morphine 4 mg/mL SDV 1 mL 3 MG IVP (19:55)
[2021-03-23] MEDS: lactated ringers 1,000 ML 100 ML IV (20:04)
--- NOTE | 2021-03-23 20:12 | PM.HP ---
Providers/Chief Complaint Admitting Physician: Chaparro Dunn Primary Care Provider: Thanh Salmon MD Chief Complaint: FALL History of Present Illness 85-year-old lady with history of DVT, PE, atrial fibrillation, on chronic anticoagulation with Pradaxa, on aspirin, with history of CVA, pulmonary hypertension, BASIL on nightly CPAP, uterine prolapse with recent hysterectomy, bladder suspension, with small colonic tear and repair, with chronic anemia, on iron supplementation, GERD, hiatal hernia, diabetes, HTN, [place], has been feeling weak recently but managed to get up on her own to try to use the toilet when she fell down across the bowl, subsequently having pain in the left side of her abdomen, then developing nausea and an episode of vomiting. In the ER was noted to have black stool, with a syncopal episode, observed to be pale, diaphoretic. With persistent abdominal pain. Chest x-ray showed cardiomegaly and hiatal hernia. CT abdomen pelvis showed active extravasation and bleeding from the spleen with splenic fracture and large splenic capsular hematoma, with hemoperitoneum surrounding the liver and spleen and along the paracolic gutters. Additional blood filling the hiatal hernia sac. Focal area of decreased attenuation and greater curvature of the stomach, could be area of ischemia or source of bleeding. Large fluid collection in the pelvis with foci of air favored to be probably overdistended urinary bladder. Recent postsurgical changes from hysterectomy. No definite abscess or complication within the pelvis. No fracture seen. Acute blood adjacent to splenic flexure. No associated air. Cannot exclude area of injury. He was reported to last time have taken Pradaxa dose this morning. Lab studies otherwise showed leukocytosis of 14.2, hemoglobin 9.5, prior 10.3 on 03/20, platelets 273. INR 1.49. Sodium 134. Potassium 2.8. Chloride 97. Bicarbonate 26. Anion gap 13.8. BUN 8, creatinine 0.8. Glucose 185. Lactate 2.9. Calcium 9.3. Magnesium 2.1. Liver parameters normal. NT proBNP 5019. Urinalysis with 2+ blood, 1+ leukocyte esterase, 0-4 RBC, 25-40 WBC, 0-4 squamous epithelial cells. 4+ urine bacteria. EKG shows atrial fibrillation. Blood pressures in ER noted soft, 100s despite resuscitation. She was taken emergently for exploratory laparotomy and splenectomy. Received cefazolin perioperatively. Intraoperatively noted to have about 700 cc hemoperitoneum. No evidence noted of small bowel, stomach or colonic injury. Suspect area noted on CT appears to have been due to collection of extravasated blood. Repeat hemoglobin noted 8.4. Postoperatively waking up, extubated. Blood pressure soft so arterial line maintained, central line placed. Received 1 unit PRBC transfusion. Received potassium replacement. Continues to wake up in ICU, having some abdominal pain, but otherwise doing all right. Dry mouth. Provides good history. Denies having any chest pain or pressure, no shortness of breath, dizziness, presyncope or syncope at the time of event. With caveat that previously had had some confusion with recovery from anesthesia as described by her family, otherwise appears to have good insight into her condition. Denies pain elsewhere at this time. No musculoskeletal complaints. Did have right wrist pain previously, but currently this is resolved. Timmy Cook is DPOAHC. Timmy De Santiago is named as point person as he is a residential air sealing technician. Review of Systems Const: Reports: other (Generalized weakness); Denies: fever(s), chills, body aches or malaise Eyes: Denies: change in vision or eye redness ENMT: Denies: throat pain, oral sores or ear or mastoid pain Card: Denies: chest pain, edema, pre-syncope or dyspnea on exertion Resp: Denies: dyspnea, productive cough, change in phlegm color or hemoptysis GI: Reports: abdominal pain, vomiting (episode after fall) and melena (while on iron); Denies: diarrhea, constipation or hematochezia : Reports: other (slight burning w urination); Denies: flank pain, urinary frequency or hematuria Musc: Denies: back pain, joint swelling or joint redness Skin/Breast: Denies: rash, sores or new lesions Neuro: Denies: headache(s), numbness in extremities, weakness in extremities, dizziness, confusion or seizure-like activity Endo: Denies: polyuria or polydipsia Jhony/Lymph: Denies: easy bleeding or purpura All/Imm: Denies: urticaria, throat swelling or tongue swelling Medications/Allergies Home Medications Medication Instructions Recorded Confirmed Last Taken Type alprazolam 0.25 mg tablet 0.25 mg PO TID PRN 04/27/20 03/23/21 03/23/21 History esomeprazole magnesium 40 mg 40 mg PO DAILY@0800 04/27/20 03/23/21 03/23/21 History capsule,delayed release furosemide 80 mg tablet 80 mg PO DAILY@0800 04/27/20 03/23/21 03/23/21 History glimepiride 1 mg tablet 0.5 mg PO DAILY@0800 tab 04/27/20 03/23/21 03/23/21 History metoprolol tartrate 50 mg tablet 50 mg PO BID@0800,199904/27/20 03/23/21 03/23/21 History Pradaxa 75 mg PO BID@0800,199905/18/20 03/23/21 03/23/21 History diltiazem HCl 180 mg PO DAILY@0800 05/18/20 03/23/21 03/23/21 History ferrous sulfate 325 mg (65 mg 325 mg PO BID@0800,1999 tab 01/14/21 03/23/21 03/23/21 History iron) tablet calcium carbonate 600 mg calcium 600 mg PO BID@0800,199903/11/21 03/23/21 03/23/21 History (1,500 mg) tablet glucosamine sulfate 1,000 mg 1,000 mg PO BID@0800,199903/11/21 03/23/21 03/23/21 History capsule sennosides 25 mg tablet 50 mg PO BID@0800,1999 tab 03/11/21 03/23/21 03/23/21 History hydrocodone-acetaminophen 1 tab PO Q4H PRN #20 tab 03/18/21 03/23/21 Unknown Rx acetaminophen 650 mg PO Q4H PRN 03/20/21 03/23/21 03/23/21 History docusate sodium [Colace] 100 mg PO BID PRN 03/20/21 03/23/21 Unknown History losartan 25 mg PO DAILY@0800 03/20/21 03/23/21 03/23/21 History potassium chloride 10 meq PO DAILY@0800 03/20/21 03/23/21 03/23/21 History aspirin [Aspir-81] 81 mg PO DAILY@0800 03/23/21 03/23/21 03/23/21 History ibuprofen [Motrin] 800 mg PO Q6H PRN 03/23/21 03/23/21 03/23/21 History mineral oil See Rx Instructions .ROUTE .COMPLEX 03/23/21 03/23/21 03/22/21 History Allergies Allergy/AdvReac Type Severity Reaction Status Date / Time meperidine [From Demerol] AdvReac Mild ADR-Vomitin Verified 03/21/21 10:24 g zomax Allergy ADR/ALGY-Hy Uncoded 03/16/21 06:24 potension PFSH Acute PFSH: Medical History Anemia Anticoagulant long-term use CVA (cerebral vascular accident) Diabetes DVT (deep venous thrombosis) Dyslipidemia GERD (gastroesophageal reflux disease) [place] (hard of hearing) HTN (hypertension) Hx pulmonary embolism Mitral regurgitation Mixed stress and urge urinary incontinence BASIL on CPAP POP-Q stage 3 cystocele Pulmonary HTN Second degree uterine prolapse Traumatic rupture of spleen Surgical History H/O dilation and curettage x2 H/O esophagogastroduodenoscopy (05/18/20) H/O: hysterectomy 03/16/2021: total vaginal hysterectomy with bilateral salpingo-oophorectomy, anterior colporrhaphy augmented with allograft with midurethral sling, small rectal laceration repair, performed by Dr. 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) Traumatic splenic rupture Status post tubal ligation Family History Brother CAD (coronary artery disease) Cancer Myocardial infarction Colon cancer Father Tuberculosis Son Diabetes Hyperlipidemia Denies family history of Ovarian cancer Clotting disorder Breast cancer Anesthesia complication Bleeding disorder Hypertension Uterine cancer Thyroid condition Stroke Social History Smoking and tobacco status: never smoked Alcohol intake: never Household members: family Marital status: / Current occupational status: retired Vitals/I&O/Wt Last Vital Signs Temp 97.6 F 03/23/21 18:45 Pulse 98 03/23/21 19:30 Resp 24 H 03/23/21 19:55 BP 122/67 03/23/21 19:30 Pulse Ox 96 03/23/21 19:55 03/23/21 03/23/21 03/23/21 06:59 14:59 22:59 Intake Total 1000 / 1000 700 / 1700 Output Total 1300 / 1300 Balance 1000 / 1000 -600 / 400 Weight last 48 hrs Weight 67.132 kg Physical Exam Const: COMMON NORMALS: no acute distress, patient oriented x3 and alert GENERAL APPEARANCE: cooperative and frail appearing ORIENTATION/CONSCIOUSNESS: Yes awake HENMT: COMMON NORMALS: oropharynx normal Neck/C-Spine: COMMON NORMALS: no JVD Resp: COMMON NORMALS: normal respiratory effort and clear to auscultation bilaterally AUSCULTATION: clear to auscultation bilaterally Cardio: COMMON NORMALS: no JVD, regular rhythm, S1 normal heart sound present, S2 normal heart sound present and No murmurs present (Cardio) RHYTHM: regular rhythm HEART SOUNDS: S1 normal heart sound present and S2 normal heart sound present GI: COMMON NORMALS: Normal to inspection, nondistended, normoactive bowel sounds present, Soft to palpation and non-tender PALPATION: Yes Soft to palpation Extremity: COMMON NORMALS: no joint enlargement and no pedal edema Neuro: COMMON NORMALS: patient oriented x3 and moves all extremities Skin: COMMON NORMALS: no rashes or lesions noted GENERAL SKIN EXAM: no rashes or lesions noted Data : 03/23/21 15:18 03/23/21 10:42 Micro: Microbiology 03/23/21 12:08 Occult Blood (FIT) - Final Stool - Stool Aspirate Procedures Arterial Line Size (Gauge): 20 Coding Level of Care Code 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
[2021-03-23] MEDS: HYDROcodone-acetaminophen 5-325 mg Tablet 1 TAB PO (20:32)
--- NOTE | 2021-03-23 20:32 | P.CONIM_ITS ---
Providers/Reason For Consult Consulting Physican/Specialty*: Hospitalist Reason for Consult*: Medical mgmt Attending Physician: Franklin Barroso MD Primary Care Provider: Thanh Salmon MD History of Present Illness History of Present Illness 85-year-old lady with history of DVT, PE, atrial fibrillation, on chronic anticoagulation with Pradaxa, on aspirin, with history of CVA, pulmonary hypertension, BASIL on nightly CPAP, uterine prolapse with recent hysterectomy, bladder suspension, with small colonic tear and repair, with chronic anemia, on iron supplementation, GERD, hiatal hernia, diabetes, HTN, [place], has been feeling weak recently but managed to get up on her own to try to use the toilet when she fell down across the bowl, subsequently having pain in the left side of her abdomen, then developing nausea and an episode of vomiting. In the ER was noted to have black stool, with a syncopal episode, observed to be pale, diaphoretic. With persistent abdominal pain. Chest x-ray showed cardiomegaly and hiatal hernia. CT abdomen pelvis showed active extravasation and bleeding from the spleen with splenic fracture and large splenic capsular hematoma, with hemoperitoneum surrounding the liver and spleen and along the paracolic gutters. Additional blood filling the hiatal hernia sac. Focal area of decreased attenuation and greater curvature of the stomach, could be area of ischemia or source of bleeding. Large fluid collection in the pelvis with foci of air favo red to be probably overdistended urinary bladder. Recent postsurgical changes from hysterectomy. No definite abscess or complication within the pelvis. No fracture seen. Acute blood adjacent to splenic flexure. No associated air. Cannot exclude area of injury. He was reported to last time have taken Pradaxa dose this morning. Lab studies otherwise showed leukocytosis of 14.2, hemoglobin 9.5, prior 10.3 on 03/20, platelets 273. INR 1.49. Sodium 134. Potassium 2.8. Chloride 97. Bicarbonate 26. Anion gap 13.8. BUN 8, creatinine 0.8. Glucose 185. Lactate 2.9. Calcium 9.3. Magnesium 2.1. Liver parameters normal. NT proBNP 5019. Urinalysis with 2+ blood, 1+ leukocyte esterase, 0-4 RBC, 25-40 WBC, 0-4 squamous epithelial cells. 4+ urine bacteria. EKG shows atrial fibrillation. Blood pressures in ER noted soft, 100s despite resuscitation. She was taken emergently for exploratory laparotomy and splenectomy. Received cefazolin perioperatively. Intraoperatively noted to have about 700 cc hemoperitoneum. No evidence noted of small bowel, stomach or colonic injury. Suspect area noted on CT appears to have been due to collection of extravasated blood. Repeat hemoglobin noted 8.4. Postoperatively waking up, extubated. Blood pressure soft so arterial line maintained, central line placed. Received 1 unit PRBC transfusion. Received potassium replacement. Continues to wake up in ICU, having some abdominal pain, but otherwise doing all right. Dry mouth. Provides good history. Denies having any chest pain or pressure, no shortness of breath, dizziness, presyncope or syncope at the time of event. With caveat that previously had had some confusion with recovery from anesthesia as described by her family, otherwise appears to have good insight into her condition. Denies pain elsewhere at this time. No musculoskeletal complaints. Did have right wrist pain previously, but currently this is resolved. Timmy Cook is DPOAHC. Timmy De Santiago is named as point person as he is a forgesmith. Review of Systems Const: Reports: other (Generalized weakness); Denies: fever(s), chills, body aches or malaise Eyes: Denies: change in vision or eye redness ENMT: Denies: throat pain, oral sores or ear or mastoid pain Card: Denies: chest pain, edema, pre-syncope or dyspnea on exertion Resp: Denies: dyspnea, productive cough, change in phlegm color or hemoptysis GI: Reports: abdominal pain, vomiting (episode after fall) and melena (while on iron); Denies: nausea, diarrhea, constipation or hematochezia : Reports: other (slight burning w urination); Denies: flank pain, urinary frequency or hematuria Musc: Denies: back pain, joint swelling or joint redness Skin/Breast: Denies: rash, sores or new lesions Neuro: Denies: headache(s), numbness in extremities, weakness in extremities, dizziness, confusion or seizure-like activity Endo: Denies: polyuria or polydipsia Jhony/Lymph: Denies: easy bleeding or purpura All/Imm: Denies: urticaria, throat swelling or tongue swelling Meds/Allergies Home Medications and Allergies Home Medications Medication Instructions Recorded Confirmed Last Taken Type alprazolam 0.25 mg tablet 0.25 mg PO TID PRN 04/27/20 03/23/21 03/23/21 History esomeprazole magnesium 40 mg 40 mg PO DAILY@0800 04/27/20 03/23/21 03/23/21 History capsule,delayed release furosemide 80 mg tablet 80 mg PO DAILY@0800 04/27/20 03/23/21 03/23/21 History glimepiride 1 mg tablet 0.5 mg PO DAILY@0800 tab 04/27/20 03/23/21 03/23/21 History metoprolol tartrate 50 mg tablet 50 mg PO BID@0800,199904/27/20 03/23/21 03/23/21 History Pradaxa 75 mg PO BID@0800,199905/18/20 03/23/21 03/23/21 History diltiazem HCl 180 mg PO DAILY@0800 05/18/20 03/23/21 03/23/21 History ferrous sulfate 325 mg (65 mg 325 mg PO BID@0800,1999 tab 01/14/21 03/23/21 03/23/21 History iron) tablet calcium carbonate 600 mg calcium 600 mg PO BID@0800,199903/11/21 03/23/21 03/23/21 History (1,500 mg) tablet glucosamine sulfate 1,000 mg 1,000 mg PO BID@0800,199903/11/21 03/23/21 03/23/21 History capsule sennosides 25 mg tablet 50 mg PO BID@0800,1999 tab 03/11/21 03/23/21 03/23/21 History hydrocodone-acetaminophen 1 tab PO Q4H PRN #20 tab 03/18/21 03/23/21 Unknown Rx acetaminophen 650 mg PO Q4H PRN 03/20/21 03/23/21 03/23/21 History docusate sodium [Colace] 100 mg PO BID PRN 03/20/21 03/23/21 Unknown History losartan 25 mg PO DAILY@0800 03/20/21 03/23/21 03/23/21 History potassium chloride 10 meq PO DAILY@0800 03/20/21 03/23/21 03/23/21 History aspirin [Aspir-81] 81 mg PO DAILY@0800 03/23/21 03/23/21 03/23/21 History ibuprofen [Motrin] 800 mg PO Q6H PRN 03/23/21 03/23/21 03/23/21 History mineral oil See Rx Instructions .ROUTE .COMPLEX 03/23/21 03/23/21 03/22/21 History Allergies Allergy/AdvReac Type Severity Reaction Status Date / Time meperidine [From Demerol] AdvReac Mild ADR-Vomitin Verified 03/21/21 10:24 g zomax Allergy ADR/ALGY-Hy Uncoded 03/16/21 06:24 potension Current Medications Current Medications Generic Name Dose Route Start Last Admin Trade Name Freq PRN Reason Stop Dose Admin Lactated Ringer's 1,000 mls @ 100 mls/hr 03/23/21 19:36 03/23/21 20:04 Lactated Ringers IV 100 mls/hr .Q10H JS Administration Morphine Sulfate 3 mg 03/23/21 19:36 03/23/21 19:55 Morphine 4 Mg/Ml Sdv 1 Ml IVP 3 mg Q1H PRN Administration SEVERE PAIN PFSH Acute PFSH: Medical History Anemia Anticoagulant long-term use CVA (cerebral vascular accident) Diabetes DVT (deep venous thrombosis) Dyslipidemia GERD (gastroesophageal reflux disease) [place] (hard of hearing) HTN (hypertension) Hx pulmonary embolism Mitral regurgitation Mixed stress and urge urinary incontinence BASIL on CPAP POP-Q stage 3 cystocele Pulmonary HTN Second degree uterine prolapse Traumatic rupture of spleen Surgical History H/O dilation and curettage x2 H/O esophagogastroduodenoscopy (05/18/20) H/O: hysterectomy 03/16/2021: total vaginal hysterectomy with bilateral salpingo-oophorectomy, anterior colporrhaphy augmented with allograft with midurethral sling, small rectal laceration repair, performed by Dr. 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) Traumatic splenic rupture Status post tubal ligation Family History Brother CAD (coronary artery disease) Cancer Myocardial infarction Colon cancer Father Tuberculosis Son Diabetes Hyperlipidemia Denies family history of Ovarian cancer Clotting disorder Breast cancer Anesthesia complication Bleeding disorder Hypertension Uterine cancer Thyroid condition Stroke Social History Smoking and tobacco status: never smoked Alcohol intake: never Household members: family Marital status: / Current occupational status: retired Vitals/I&O/Wt Last Vital Signs Temp 97.6 F 03/23/21 18:45 Pulse 98 03/23/21 19:30 Resp 24 H 03/23/21 19:55 BP 122/67 03/23/21 19:30 Pulse Ox 96 03/23/21 19:55 03/23/21 03/23/21 03/23/21 06:59 14:59 22:59 Intake Total 1000 / 1000 700 / 1700 Output Total 1300 / 1300 Balance 1000 / 1000 -600 / 400 Weight last 48 hrs Weight 67.132 kg Physical Exam Const: COMMON NORMALS: no acute distress, patient oriented x3 and alert GENERAL APPEARANCE: cooperative and frail appearing ORIENTATION/CONSCIOUSNESS: Yes awake HENMT: COMMON NORMALS: oropharynx normal OTHER: NG with bilious contents. Neck/C-Spine: COMMON NORMALS: no JVD Resp: COMMON NORMALS: normal respiratory effort and clear to auscultation bilaterally AUSCULTATION: clear to auscultation bilaterally Cardio: COMMON NORMALS: no JVD, regular rhythm, S1 normal heart sound present, S2 normal heart sound present and No murmurs present (Cardio) RHYTHM: regular rhythm HEART SOUNDS: S1 normal heart sound present and S2 normal heart sound present GI: COMMON NORMALS: Normal to inspection, nondistended, normoactive bowel sounds present, Soft to palpation and non-tender PALPATION: Yes Soft to palpation OTHER: Midline incision with minimal bloody strikethrough. Drain to left of midline with serosanguineous contents. Extremity: COMMON NORMALS: no joint enlargement and no pedal edema Neuro: COMMON NORMALS: patient oriented x3 and moves all extremities SENSORIUM/ORIENTATION: Yes alert Skin: COMMON NORMALS: no rashes or lesions noted GENERAL SKIN EXAM: no rashes or lesions noted and dry skin Data Micro: Micro: Microbiology 03/23/21 12:08 Occult Blood (FIT) - Final Stool - Stool Asp irate A&P Assessment and plan (1) S/P splenectomy: Status full splenectomy for traumatic rupture of spleen, while on anticoagulation, aspirin. Continue to monitor in ICU, monitor vital signs. Received 1 unit PRBC. Recheck hemoglobin. Additional unit PBC available in case needed. Will need immunizations prior to discharge. Status: Acute (2) Traumatic rupture of spleen: Status: Acute (3) Chronic anticoagulation: With Pradaxa due to history of DVT, PE, atrial fibrillation. Hold anti coagulation at this time. Hold antiplatelet. Status: Acute (4) Acute UTI: Follow-up urine culture. At this time continue cefazolin, which is perioperatively. Subsequently antibiotic may change depending on culture results. Status: Acute (5) Hypokalemia: Replaced. Recheck tonight. Mg normal. Status: Acute (6) Anemia: Acute blood loss anemia secondary to traumatic ruptured spleen, on anticoagulation, antiplatelet medication. Received 1 unit PBC transfusion. Recheck hemoglobin. Anticoagulation, antiplatelet on hold. Status: Acute Additional A&P Information Generalized weakness: Possibly secondary to UTI. With generalized deconditioning as well after recent surgery, would benefit from PT/OT assessment when able, with consideration for rehabilitation after discharge. Recent hysterectomy, bladder suspension surgery, minor colonic tear with repair. DM2: Sliding scale insulin HTN: Currently blood pressure soft. Hold antihypertensives. Pulmonary hypertension: Oxygen support as needed BASIL: Nightly CPAP History of DVT, PE, Atrial fibrillation, judith blockers for now on hold due to soft blood pressure. Anticoagulation on hold. History of CVA, Chronic anemia, on iron supplementation, GERD: Famotidine Hiatal hernia, Dark stools: Suspected secondary to iron supplementation. Has had recent unremarkable endoscopy [place] SCD Consult Attestations Medical Necessity Statement: Admission of over 2 midnights is going to be needed for assessment management of acute blood loss anemia following traumatic splenic rupture, requiring splenectomy in the setting of chronic anticoagulation, antiplatelet with history of DVT/PE, atrial fibrillation, treatment of UTI, electrolyte abnormality in a lady of advanced age with multiple additional underlying comorbidities. 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
[2021-03-23] MEDS: famotidine 20 mg/2 mL INJ IVP (21:02)
[2021-03-23] MEDS: lactulose oral liq 20 gm/30 mL UDC 10 GM PO (21:02)
[2021-03-23 21:03] LABS: Glucose Point of Care 262 mg/dL (70-110)
[2021-03-23] MEDS: ondansetron 2 mg/ML SDV 2 mL 4 MG IVP (21:14)
[2021-03-23 22:30] LABS: Basophils # 0.1 10^3/uL (0.0-0.1); Basophils % 0.5 %; Eosinophils # 0.1 10^3/uL (0.0-0.8); Eosinophils % 0.7 %; Lymphocytes # 0.7 10^3/uL (0.8-4.8); Lymphocytes % 4.3 %; Mean Corpuscular HGB Conc 33.3 g/dL (30.0-36.0); Mean Corpuscular Hemoglobin 33.2 pg (28.0-34.0); Mean Corpuscular Volume 99.5 fL (81-99); Mean Platelet Volume 9.9 fL (7.4-10.4); Monocytes # 0.8 10^3/uL (0.2-0.9); Monocytes % 4.7 %; Neutrophils # 15.07 10^3/uL (1.8-7.7); Neutrophils % 89.1 %; Nucleated Red Blood Cells % 0.1 %; Platelet Count 198 10^3/cmm (130-400); Red Blood Count 1.96 10^6/uL (4.1-5.3); Red Cell Distribution Width 15.2 % (12.1-15.1); White Blood Count 16.9 10^3/uL (4.0-10.0)
[2021-03-23 22:43] LABS: Alanine Aminotransferase < 5 U/L (0-33); Albumin Level 3.1 g/dL (3.5-5.2); Alkaline Phosphatase 55 IU/L (35-105); Anion Gap 11.7 (5-19); Aspartate Amino Transferase 11 U/L (0-32); Blood Urea Nitrogen 11 mg/dL (8-23); Calcium 7.6 mg/dL (8.5-10.5); Carbon Dioxide 23 mmol/L (22-29); Chloride 106 mmol/L (98-107); Globulin 1.8 g/dL (1.3-4.6); Glucose 254 mg/dL (65-115); Osmolality Calculated 294 mOsm/kg (285-295); Sodium 138 mmol/L (136-145); Total Bilirubin 0.7 mg/dL (0.15-1.2); Total Protein 4.9 g/dL (6.6-8.7)
[2021-03-23 22:44] LABS: Potassium 2.7 mmol/L (3.5-5.1)
[2021-03-23 22:54] LABS: Hemoglobin 6.5 g/dL (11.5-15.3)
[2021-03-23 22:55] LABS: Hematocrit 19.5 % (37.0-47.0)
[2021-03-23 22:56] LABS: Slide Review Slide Review Perform
--- NOTE | 2021-03-23 23:57 | PC.NURSE ---
ASSUMING CARE Patient resting in bed with family at bedside on room air. Left nare nasogastric tube in place and clamped. Right IJ triple lumen CVL in place. Medial abdomen incision covered by ABD, drainage circled at bedside with report with MONALISA Mark. Left lateral abdomen ERIC drain in place and draining. Pulses palpable. Patient is alert and oriented to place, situation and person. Patient has nothing running intravenously.
[2021-03-24] VITALS (46 sets, daily range): BP systolic 105–161; BP diastolic 37–94; PULSE 57–107; RESP 12–23; TEMP 36.4–37.4; O2SAT 88–96
--- NOTE | 2021-03-24 | PC.NURSE ---
CRITICAL LABS Critical potassium at 2.7, hemoglobin of 6.5, and hematocrit of 19.[address] Avendano gave order for 2 units PRBC and 80 mEq K-rider, and instructed nurse to call Dr. Barroso with critical values also. Dr. Barroso notified and agreed with orders. Lab called to notify nurse that this facility only has O positive blood available at this time, patients blood type is O negative. Lab reported to nurse that this facilities pathologist states that it is okay to give her O-positive (Dr. Haris Bhatt). Nurse nor physician spoke with pathologist personally to clarify this. Dr. Avendano notified and states to give patient 1 unit instead of 2 to see how she tolerates. Patient is not hemodynamically unstable at this time, current BP is 120/53. Physician called back by nurse to discuss concerns and risks outweighing benefits for this patient at this time to give O positive blood. Lab was called by nurse and asked when O negative blood would be in. Labs states that they should have 3 more units of O negative blood today, 03/24. Dr. Avendano states that since patient is stable at this time, to wait on O negative blood to arrive today. No blood to be given at this time per Dr. Avendano.
[2021-03-24] MEDS: potassium chloride premix 40 MEQ/100 ML PREMIX 25 MEQ IV ×2 (00:11→04:11)
[2021-03-24] MEDS: ondansetron 2 mg/ML SDV 2 mL 4 MG IVP ×2 (00:31→11:17)
[2021-03-24] MEDS: HYDROcodone-acetaminophen 5-325 mg Tablet 1 TAB PO ×3 (03:24→16:22)
[2021-03-24 03:41] LABS: Basophils # 0.1 10^3/uL (0.0-0.1); Basophils % 0.4 %; Eosinophils # 0.1 10^3/uL (0.0-0.8); Eosinophils % 0.3 %; Lymphocytes # 1.1 10^3/uL (0.8-4.8); Lymphocytes % 6.2 %; Mean Corpuscular HGB Conc 33.3 g/dL (30.0-36.0); Mean Platelet Volume 9.6 fL (7.4-10.4); Monocytes # 1.4 10^3/uL (0.2-0.9); Monocytes % 7.6 %; Neutrophils # 15.35 10^3/uL (1.8-7.7); Neutrophils % 84.8 %; Nucleated Red Blood Cells % 0.2 %; Platelet Count 211 10^3/cmm (130-400); Red Blood Count 1.91 10^6/uL (4.1-5.3); Red Cell Distribution Width 16.2 % (12.1-15.1); White Blood Count 18.1 10^3/uL (4.0-10.0)
[2021-03-24 03:59] LABS: Anion Gap 10.6 (5-19); Blood Urea Nitrogen 10 mg/dL (8-23); Calcium 8.1 mg/dL (8.5-10.5); Carbon Dioxide 24 mmol/L (22-29); Chloride 108 mmol/L (98-107); Glucose 205 mg/dL (65-115); Osmolality Calculated 293 mOsm/kg (285-295); Potassium 3.6 mmol/L (3.5-5.1); Sodium 139 mmol/L (136-145)
[2021-03-24 04:14] LABS: Hematocrit 18.9 % (37.0-47.0); Hemoglobin 6.3 g/dL (11.5-15.3)
[2021-03-24 04:15] LABS: Slide Review Slide Review Perform
[2021-03-24] MEDS: lactated ringers 1,000 ML 100 ML IV ×2 (06:30→16:08)
[2021-03-24 07:32] LABS: Glucose Point of Care 206 mg/dL (70-110)
[2021-03-24] MEDS: dilTIAZem ER (24HR) 180 mg Capsule PO (08:01)
[2021-03-24] MEDS: losartan 50 mg Tablet 25 MG PO (08:01)
[2021-03-24] MEDS: metoprolol tartrate 50 mg Tablet PO ×2 (08:02→20:01)
[2021-03-24] MEDS: lactulose oral liq 20 gm/30 mL UDC 10 GM PO (08:02)
[2021-03-24] MEDS: famotidine 20 mg/2 mL INJ IVP (08:33)
--- NOTE | 2021-03-24 08:48 | P.PN_ITS ---
Subjective Subjective: Interval history: This morning she feels generally weak. Abdomen is tender. She is having some mild chest discomfort feeling like pressure. Denies shortness of breath. Vitals/I&O/Wt Last Vital Signs Temp 97.7 F 03/24/21 07:01 Pulse 91 03/24/21 07:01 Resp 17 03/24/21 07:01 BP 148/67 03/24/21 08:01 Pulse Ox 92 03/24/21 07:01 03/23/21 03/24/21 03/24/21 22:59 06:59 14:59 Intake Total 980 / 1980 1100 / 3080 Output Total 1300 / 1300 1075 / 2375 Balance -320 / 680 25 / 705 Weight last 48 hrs Weight 74.752 kg Weight 67.132 kg Physical Exam Const: COMMON NORMALS: no acute distress, patient oriented x3 and alert GENERAL APPEARANCE: cooperative and frail appearing ORIENTATION/CONSCIOUSNESS: Yes awake HENMT: COMMON NORMALS: oropharynx normal OTHER: NG with bilious contents. Neck/C-Spine: COMMON NORMALS: no JVD Resp: COMMON NORMALS: normal respiratory effort and clear to auscultation bilaterally AUSCULTATION: clear to auscultation bilaterally Cardio: COMMON NORMALS: no JVD, regular rhythm, S1 normal heart sound present, S2 normal heart sound present and No murmurs present (Cardio) RHYTHM: regular rhythm HEART SOUNDS: S1 normal heart sound present and S2 normal heart sound present GI: COMMON NORMALS: Normal to inspection, nondistended, normoactive bowel sounds present, Soft to palpation and non-tender PALPATION: Yes Soft to palpation OTHER: Midline incision with minimal old bloody strikethrough. Drain to left of midline with serosanguineous contents. Extremity: COMMON NORMALS: no joint enlargement and no pedal edema Neuro: COMMON NORMALS: patient oriented x3 and moves all extremities SENS ORIUM/ORIENTATION: Yes alert Skin: COMMON NORMALS: no rashes or lesions noted GENERAL SKIN EXAM: no rashes or lesions noted and dry skin Data : 03/24/21 03:27 03/24/21 03:27 Micro: Microbiology 03/23/21 12:08 Occult Blood (FIT) - Final Stool - Stool Aspirate A&P Assessment and plan (1) Anemia: Acute on chronic anemia. Hemoglobin decreased last night down to 6.5, this morning 6.3. 2 units PRBC were ordered last night. Per blood bank should be arriving here today around noon. Son Jonnathan has stated he is O- as well, and it may give blood if necessary. Discussed with blood bank, although this is not a usual procedure, they will look into whether this is an option if necessary. Discussed possibility of getting O+ blood. She is having abdominal pain, also some mild chest discomfort which may be after her trauma and/or postoperative but we will go ahead and check troponin EKG series for any acute ischemia. Anticoagulation, antiplatelet on hold. Hemoccult noted positive. At home was also taking aspirin, ibuprofen. Will change from famotidine to Protonix IV twice daily. 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 Continue to monitor in ICU, monitor vital signs. Will need immunizations prior to discharge. Status: Acute (3) Traumatic rupture of spleen: Status: Acute (4) Chronic anticoagulation: With Pradaxa due to history of DVT, PE, atrial fibrillation. Hold anticoagulation at this time. Hold antiplatelet. Status: Acute (5) Acute UTI: Follow-up urine culture. At this time continue cefazolin, which is perioperatively. Subsequently antibiotic may change depending on culture results. Status: Acute (6) Hypokalemia: Replaced. Recheck tonight. Mg normal. Status: Acute Additional A&P Information Leukocytosis increased up to 18,000. Suspect this is reactive secondary to acute anemia. Has UTI, although overall this is nonsymptomatic. She is afebrile, without tachycardia or other signs of sepsis. Monitor. Generalized weakness: Possibly secondary to UTI. With generalized deconditioning as well after recent surgery, would benefit from PT/OT assessment when able, with consideration for rehabilitation after discharge. Elevated BNP: Likely secondary to severe pulmonary hypertension noted on prior TTE. Recent hysterectomy, bladder suspension surgery, minor colonic tear with repair. DM2: Sliding scale insulin HTN: Currently blood pressure soft. Hold antihypertensives. Pulmonary hypertension: Oxygen support as needed BASIL: Nightly CPAP History of DVT, PE, Atrial fibrillation, judith blockers for now on hold due to soft blood pressure. Anticoagulation on hold. History of CVA, Chronic anemia, on iron supplementation, GERD: PPI Hiatal hernia, Dark stools: Suspected secondary to iron supplementation. Has had recent unremarkable endoscopy [facility] S[facility] Attestations Medical Necessity Statement*: Continue admission for treatment of acute anemia following traumatic spleen rupture, splenectomy and lady who was taking anticoagulation, antiplatelet medications. 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
--- NOTE | 2021-03-24 08:49 | ECG_ITS ---
[facility] Test Date: 2021-03-24 Pat Name: Juliana Rodney Department: Room: ICU12 Gender: Female [address] [employer] Clerk: : 1935 Requested By: Chaparro Dunn Order Number: [id number] Reading MD: Diego Woods M.D. Measurements Intervals [place] Rate: 82 P: [place]: QRS: 20 QRSD: 79 T: 20 QT: 371 QTc: 435 Interpretive Statements ATRIAL FIBRILLATION MODERATE ST DEPRESSION [0.05+ mV ST DEPRESSION] Compared to ECG 03/23/2021 10:53:49 ST (T wave) deviation now present T-wave abnormality no longer present Electronically Signed On 03-24-2021 19:26:17 CDT by Diego Woods M.D. [id number]
--- NOTE | 2021-03-24 09:16 | PC.NURSE ---
Physician Rounding Dr. Dunn rounding on Ms. Rodney with discussions of plan of care. Son at bedside. Plans to given an additional two units of blood due to Hgb and hct labs being low, see laboratory results. Currently no o negative blood available in the hospital, laboratory has been contacted. Notified this nurse that o negative blood should arrive later this morning around 1100. Dr. Dunn and Dr. Barroso notified and aware, requested to be updated throughout the day. Pt requested to have the NG tube removed and to be started on a diet. Awaiting to round for additional orders and further care.
--- NOTE | 2021-03-24 09:29 | PC.CHAP ---
Pastoral Care Encounter/Spiritual Assessment Type of Contact [] Declined licensed funeral director and embalmer visit [] Patient/Family/Request visit [] Outpatient visit [] Follow-up visit [] Physician referral [] Code/Alert [x] Routine visit [] Staff referral [] Actively dying [] Patient sleeping [x] Family support [] [] Out of room [] Palliative care [] [] Receiving care in room [] Pre-surgical visit [] Trauma [] Long length of stay [x] ICU visit [] Other: Relational/Emotional Strength [] Patient feels connected with others/family/visitors/staff [] Distress [] Loneliness/isolation [] Abandonment Spirituality of Patient [] Person of Desire [] Attends Presybeterian of their Desire [] Believes in Prayer [] Reads Bible or Hinduism materials [] There are Spiritual issues to be addressed Supervisor Kennel Interventions [x] Prayer [x] Active listening [x] Non-anxious presence [x] Spiritual/emotional support [] Crisis/trauma care [] Spiritual counseling [] Bereavement support [] Provided bereavement packet [] Provided Bible/devotional materials [] Provided toy/stuffed animal, coloring book to patient or family member [] Provided Communion [] Anointing/[place] [] Salvation [x] Completed spiritual assessment [] Other: Impact on Illness or Injury [] Angry [] Fearful [] Anxious [] Often cries [] Exhaustion [] Unable to work [] Unable to attend yarsani [] Unable to walk/stand [] Unable to read [] Unable to drive [] Unable to eat/drink [] Unable to sleep [] Unable to be with family [] Patient intubated [] Other: Summary patient doing well after surgery.. Time spent with patient 10 min
[2021-03-24] MEDS: pantoprazole 40 mg SDV IVP ×2 (09:44→21:06)
--- NOTE | 2021-03-24 10:01 | PC.NURSE ---
Extreme Shortage of O negative blood Blood bank called this nurse regarding the o negative blood for Ms. Rodney. Nurse notified that there is an extreme shortage of o negative blood. The pathologist stated that o positive is okay to be given per Caprice in blood bank. This nurse notified Caprice in Blood bank that the son requested to donate his blood because he is o negative as well. Caprice stated that the son would have to travel to [place] to do this procedure. Dr. Dunn and and Dr. Barroso notified. Dr. Dunn to report to bedside to speak with the family regarding this matter. Dr. Barroso agreed to the transfusion of o positive blood.
[2021-03-24 10:34] LABS: Troponin(5th) Baseline 15 ng/L (0-10)
--- NOTE | 2021-03-24 10:49 | ECG_ITS ---
[facility] Test Date: 2021-03-24 Pat Name: Juliana Rodney Department: Room: ICU12 Gender: Female Boom Cat Operator: : 1935 Requested By: Chaparro Dunn Order Number: [id number] Reading MD: Diego Woods M.D. Measurements Intervals [place] Rate: 70 P: [place]: QRS: 24 QRSD: 84 T: 27 QT: 391 QTc: 422 Interpretive Statements ATRIAL FIBRILLATION ABNORMAL RHYTHM ECG Compared to ECG 03/24/2021 08:55:14 ST (T wave) deviation no longer present Electronically Signed On 03-24-2021 19:32:42 CDT by Diego Woods M.D. [id number]
--- NOTE | 2021-03-24 11:08 | PC.NURSE ---
Blood Administration Consent Form Signed Dr. Dunn at bedside educating patient on possible side effects of transfusion of o positive blood. Patient and son agreed to transfusion of o positive blood. Consent form signed by patient, Dr. Dunn, and this nurse as witness. Consent form placed in the patient chart.
[2021-03-24] MEDS: sodium chloride 0.9% (100 ml) 100 ML 20 ML (11:16)
[2021-03-24 11:26] LABS: Glucose Point of Care 162 mg/dL (70-110)
--- NOTE | 2021-03-24 14:49 | ECG_ITS ---
[facility] Test Date: 2021-03-24 Pat Name: Juliana Rodney Department: Room: ICU12 Gender: Female Caregivers Non Medical: : 1935 Requested By: Chaparro Dunn Order Number: [id number] Reading MD: Diego Woods M.D. Measurements Intervals [place]ale Rate: 86 P: VA: QRS: 32 QRSD: 85 T: 47 QT: 358 QTc: 430 Interpretive Statements ATRIAL FIBRILLATION NONSPECIFIC T-WAVE ABNORMALITY ABNORMAL RHYTHM ECG Compared to ECG 03/24/2021 11:23:00 T-wave abnormality now present Electronically Signed On 03-24-2021 19:32:02 CDT by Diego Woods M.D. [id number]
--- NOTE | 2021-03-24 14:59 | PC.PT ---
Nursing recommends hold PT evaluation today due to low hemoglobin patient receiving blood currently, nursing also wanting to defer therapy until after Art line has been removed. Will reattempt evaluation tomorrow
[2021-03-24 15:01] LABS: Troponin 5 2HR 18.75 ng/L (0-10)
[2021-03-24 15:04] LABS: Troponin 5 2HR Delta -3.75 ABS# (0-10)
[2021-03-24] MEDS: cefTRIAXone 1,000 MG in sodium chloride 0.9% (plus) 50 ML 100 MG IV (16:08)
[2021-03-24 16:49] LABS: Glucose Point of Care 148 mg/dL (70-110)
[2021-03-24 19:13] LABS: Troponin 5 6HR 19.32 ng/L (0-10)
[2021-03-24 19:15] LABS: Troponin 5 6HR Delta 0.57 ng/L (0-12)
[2021-03-24 22:18] LABS: Hematocrit 24.9 % (37.0-47.0)
[2021-03-24 22:20] LABS: Hemoglobin 8.3 g/dL (11.5-15.3)
[2021-03-25] VITALS (29 sets, daily range): BP systolic 134–180; BP diastolic 55–95; PULSE 69–94; RESP 15–22; TEMP 37.2–37.8; O2SAT 90–95
--- NOTE | 2021-03-25 02:23 | PC.NURSE ---
ASSUMING CARE Patient is lying in bed on room air, and son is at bedside. Patient is laughing and joking with nurse and states that she is in the hospital and knows she just had surgery. Abdominal drain in place at left lateral abdomen, medical incision dressing in place and drainage is circled. Right IJ CVL in place and patent. Klein catheter in place and draining. LR is running at 100 mL/hour. 2nd unit of PRBC finished infusing right before shift change.
--- NOTE | 2021-03-25 02:27 | PC.NURSE ---
PULLED IV OUT Nurse rounding on patient and observed that patient was attempting to take gown off and had pulled bilateral antecubital IV's out. Patient educated on importance of leaving IV's in and calling nurse for assistance. She was reminded that she was in the hospital and had just had surgery. Patient states that she knows she is in the hospital and is just needing to get ready to sew.
[2021-03-25] MEDS: HYDROcodone-acetaminophen 5-325 mg Tablet 1 TAB PO ×2 (03:33→11:11)
[2021-03-25 04:11] LABS: Basophils # 0.1 10^3/uL (0.0-0.1); Basophils % 0.3 %; Eosinophils # 0.1 10^3/uL (0.0-0.8); Eosinophils % 0.3 %; Hematocrit 25.7 % (37.0-47.0); Hemoglobin 8.5 g/dL (11.5-15.3); Lymphocytes # 1.3 10^3/uL (0.8-4.8); Mean Corpuscular HGB Conc 33.1 g/dL (30.0-36.0); Mean Corpuscular Hemoglobin 31.6 pg (28.0-34.0); Mean Corpuscular Volume 95.5 fL (81-99); Mean Platelet Volume 9.6 fL (7.4-10.4); Monocytes # 1.5 10^3/uL (0.2-0.9); Monocytes % 7.8 %; Neutrophils # 15.38 10^3/uL (1.8-7.7); Neutrophils % 82.2 %; Nucleated Red Blood Cells # 0.3 /100WBC; Nucleated Red Blood Cells % 1.4 %; Platelet Count 240 10^3/cmm (130-400); Red Blood Count 2.69 10^6/uL (4.1-5.3); Red Cell Distribution Width 17.2 % (12.1-15.1); White Blood Count 18.7 10^3/uL (4.0-10.0)
[2021-03-25 04:22] LABS: Anion Gap 10.8 (5-19); Blood Urea Nitrogen 10 mg/dL (8-23); Calcium 9.5 mg/dL (8.5-10.5); Carbon Dioxide 26 mmol/L (22-29); Chloride 106 mmol/L (98-107); Glucose 144 mg/dL (65-115); Osmolality Calculated 290 mOsm/kg (285-295); Potassium 3.8 mmol/L (3.5-5.1); Sodium 139 mmol/L (136-145)
[2021-03-25 07:30] LABS: Glucose Point of Care 136 mg/dL (70-110)
[2021-03-25] MEDS: lactulose oral liq 20 gm/30 mL UDC 10 GM PO ×2 (08:38→20:41)
[2021-03-25] MEDS: piperacillin-tazobactam 3.375 GM in sodium chloride 0.9% (plus) 50 ML IV ×2 (08:38→17:07)
[2021-03-25] MEDS: losartan 50 mg Tablet 25 MG PO (08:39)
[2021-03-25] MEDS: dilTIAZem ER (24HR) 180 mg Capsule PO (08:39)
[2021-03-25] MEDS: pantoprazole 40 mg SDV IVP ×2 (08:39→20:41)
[2021-03-25 08:40] LABS: Alanine Aminotransferase < 5 U/L (0-33); Albumin Level 3.1 g/dL (3.5-5.2); Alkaline Phosphatase 69 IU/L (35-105); Aspartate Amino Transferase 20 U/L (0-32); Globulin 2.3 g/dL (1.3-4.6); Total Bilirubin 0.4 mg/dL (0.15-1.2); Total Protein 5.4 g/dL (6.6-8.7)
[2021-03-25] MEDS: metoprolol tartrate 50 mg Tablet PO ×2 (08:40→20:41)
[2021-03-25 09:53] LABS: Hematocrit 25.8 % (37.0-47.0); Hemoglobin 8.5 g/dL (11.5-15.3)
--- NOTE | 2021-03-25 11:13 | PM.PN ---
Subjective Subjective: Interval history: She feels about the same. Denies any severe pain. Generally weak. Knows the year is 2020. Is not entirely sure where she is, states insurance building. Denies trouble breathing. Denies nausea or vomiting. Vitals/I&O/Wt Last Vital Signs Temp 100.0 F H 03/25/21 06:28 Pulse 73 03/25/21 10:00 Resp 16 03/25/21 10:00 BP 151/87 03/25/21 10:00 Pulse Ox 91 03/25/21 10:00 03/24/21 03/25/21 03/25/21 22:59 06:59 14:59 Intake Total 1763.333 / 2453.333 60 / 2513.333 250 / 250 Output Total 510 / 510 520 / 1030 Balance 1253.333 / 1943.333 -460 / 1483.333 250 / 250 Weight last 48 hrs Weight 73.482 kg Weight 74.752 kg Physical Exam Const: COMMON NORMALS: no acute distress, patient oriented x3 and alert GENERAL APPEARANCE: cooperative and frail appearing ORIENTATION/CONSCIOUSNESS: Yes awake OTHER: Generally weak. HENMT: COMMON NORMALS: oropharynx normal OTHER: NG with bilious contents. Neck/C-Spine: COMMON NORMALS: no JVD Resp: COMMON NORMALS: normal respiratory effort and clear to auscultation bilaterally AUSCULTATION: clear to auscultation bilaterally Cardio: COMMON NORMALS: no JVD, regular rhythm, S1 normal heart sound present, S2 normal heart sound present and No murmurs present (Cardio) RHYTHM: regular rhythm HEART SOUNDS: S1 normal heart sound present and S2 normal heart sound present GI: COMMON NORMALS: Normal to inspection, nondistended, normoactive bowel sounds present, Soft to palpation and non-tender PALPATION: Yes Soft to palpation OTHER: Midline incision clean. Drain to left of midline with serosanguineous contents. Extremity: COMMON NORMALS: no joint enlargement and no pedal edema Neuro: COMMON NORMALS: patient oriented x3 and moves all extremities SENSORIUM/ORIENTATION: Yes alert Skin: COMMON NORMALS: no rashes or lesions noted GENERAL SKIN EXAM: no rashes or lesions noted and dry skin Data : 03/25/21 09:36 03/25/21 03:53 Micro: Microbiology 03/25/21 09:28 Blood Culture - Preliminary Blood SPECIMEN COLLECTED 03/25/21 09:36 Blood Culture - Preliminary Blood SPECIMEN COLLECTED 03/23/21 12:46 Urine Culture - Preliminary Urine,Clean Catch Gram Negative Rods A&P Assessment and plan (1) Anemia: Received 2 additional PBC transfusions. As per discussion with blood bank O- blood reserved only 2 patients of childbearing age, discussed risks and benefits of transfusion of O+ blood, and patient and son were agreeable to proceed. In case further blood is needed, as discussed with her and her son, directions fusion can be considered, but son would have to donate blood in [place] at [facility]. Hemoglobin stabilized at 8.5 currently. Appears about 80 cc serosanguineous fluid from left abdominal drain. Continue to monitor blood counts. Pradaxa, antiplatelet on hold. Hemoccult noted positive. At home was also taking aspirin, ibuprofen. Continue PPI. 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 Trial of FLD. Will need immunizations prior to discharge. Status: Acute (3) Traumatic rupture of spleen: After a fall, generalized weakness, deconditioning, would benefit from rehabilitation after discharge. Status: Acute (4) Chronic anticoagulation: Pradaxa on hold. Discussed with surgery, should be safe to initiate prophylactic heparin. Monitor blood counts. Hold antiplatelet. Status: Acute (5) Acute UTI: Gram-negative rods. Low-grade fever, 100, persistent leukocytosis 18.7. Possible sepsis. Change antibiotic to Zosyn. Repeat blood culture. Follow culture results. No obstruction on CT. Status: Acute (6) Hypokalemia: Replaced. Recheck tonight. Mg normal. Status: Acute (7) Acute encephalopathy: Has been having episodes of confusion. Appears as had confusion after prior surgery as well, so it may be prone to delirium. Discussed with her son, additionally may have acute discopathy secondary to infection, with urinary tract infection, possibility of ICU delirium, as well as metabolic encephalopathy secondary to medications, pain medication. Continue to treat UTI, reorient, supportive care, diet is being advanced. If remains stable transfer to medical surgical wheeler may help as well. Consider one-to-one sitter if needed. Status: Acute Additional A&P Information Generalized weakness: Possibly secondary to UTI. With generalized deconditioning as well after recent surgery, PT/OT, rehabilitation after discharge. Elevated BNP: Likely secondary to severe pulmonary hypertension noted on prior TTE. Recent hysterectomy, bladder suspension surgery, minor colonic tear with repair. DM2: Sliding scale insulin HTN: Blood pressures improved. She is resumed on losartan, metoprolol, Cardizem. Pulmonary hypertension: Oxygen support as needed BASIL: Nightly CPAP History of DVT, PE, Atrial fibrillation: Bob blockers resumed. BP doing well. Arterial line came out last night. Anticoagulation on hold. History of CVA, Chronic anemia, on iron supplementation, GERD: PPI Hiatal hernia, Dark stools: On iron supplementation, but Hemoccult positive as well. Continue PPI. Has had recent unremarkable endoscopy. [place] DVT prophylaxis: SCD, cautious trial of subcu heparin Attestations Medical Necessity Statement*: Continue admission for acute blood loss anemia after traumatic splenic rupture while on anticoagulation, antiplatelet medication, treatment of UTI with possible sepsis. Procedures Arterial Line Size (Gauge): 20 Coding Level of Care Code Acute Senior Research Executive for Chg Fwd Exam Comprehensive Diagnoses Anemia D64.9 S/P splenectomy Z90.81 Traumatic rupture of spleen S36.09XA Chronic anticoagulation Z79.01 Acute UTI N39.0 Hypokalemia E87.6 Acute encephalopathy G93.40
[2021-03-25 11:18] LABS: Glucose Point of Care 158 mg/dL (70-110)
[2021-03-25] MEDS: heparin 5,000 unit/mL INJ 1 mL 5000 UNIT SUBCUT (11:36)
[2021-03-25 14:07] LABS: Lactate (Lactic Acid level) 0.9 mmol/L (0.5-2.2)
--- NOTE | 2021-03-25 15:42 | P.PN_ITS ---
Subjective Subjective: Interval history: Patient had been stable overnight, hemoglobin is been 6.3 since O- blood has been unavailable and she has not received any more blood except for 1 unit PRBC in the recovery room. She has had good urine output, complains of abdominal pain, awake and alert Vitals/I&O/Wt Last Vital Signs Temp 97.6 F 03/24/21 15:35 Pulse 86 03/24/21 15:35 Resp 19 H 03/24/21 15:35 BP 148/91 03/24/21 15:35 Pulse Ox 92 03/24/21 15:35 03/24/21 03/24/21 03/24/21 06:59 14:59 22:59 Intake Total 1100 / 3080 690 / 690 0 / 690 Output Total 1075 / 2375 50 / 50 Balance 25 / 705 690 / 640 -50 / 640 Weight last 48 hrs Weight 164 lb 12.8 oz Weight 148 lb Physical Exam Narrative: EXAM NARRATIVE: Abdomen: Soft, tender, dressings dry and intact, ERIC drain output is sanguinous, NG tube output has been minimal Klein to gravity Data : 03/25/21 09:36 03/25/21 03:53 Micro: Microbiology 03/23/21 12:46 Urine Culture - Preliminary Urine,Clean Catch Gram Negative Rods 03/23/21 12:08 Occult Blood (FIT) - Final Stool - Stool Aspirate A&P Assessment and plan (1) S/P splenectomy: 85-year-old female with traumatic splenic flexure status post colectomy postop day 1 Patient continues to be anemic: Awaiting O- blood if not available plan to transfuse 2 units PRBC of O+ blood DC NG tube, start clear liquid diet Patient took Pradaxa yesterday and therefore we can hold off on anticoagulation until tomorrow Pepcid for GI prophylaxis Resume home medications Insulin sliding scale Morphine, [place] for pain control Continue IV Zosyn for posterior prophylaxis and UTI Patient will need greater than 2 nights of inpatient stay to ensure that she does not develop any postop complications. She will also need H. influenzae/pneumococcal/meningococcal vaccination prior to discharge Status: Acute Attestations Medical Necessity Statement*: Status post splenectomy requiring 1 more night of inpatient stay Procedures Arterial Line Size (Gauge): 20 Coding Level of Care Code Acute Internet And E Business Project Manager for Chg Fwd Diagnoses S/P splenectomy Z90.81
--- NOTE | 2021-03-25 15:46 | P.PN_ITS ---
Subjective Subjective: Interval history: Patient received 2 units PRBC and her hemoglobin is up to 8.3, her ERIC drain output has been minimal. She had bowel movements yesterday, tolerated clear liquid diet Vitals/I&O/Wt Last Vital Signs Temp 100.0 F H 03/25/21 06:28 Pulse 69 03/25/21 15:00 Resp 16 03/25/21 15:00 BP 145/78 03/25/21 15:00 Pulse Ox 92 03/25/21 15:00 03/25/21 03/25/21 03/25/21 06:59 14:59 22:59 Intake Total 60 / 2513.333 400 / 400 Output Total 520 / 1030 0 / 0 Balance -460 / 1483.333 400 / 400 Weight last 48 hrs Weight 162 lb Weight 164 lb 12.8 oz Physical Exam Narrative: EXAM NARRATIVE: Abdomen: Soft, tender, incision clean dry intact, ERIC drain output is sanguinous Klein to gravity Data : 03/25/21 09:36 03/25/21 03:53 Micro: Microbiology 03/23/21 12:46 Urine Culture - Final Urine,Clean Catch Escherichia coli 03/25/21 09:28 Blood Culture - Preliminary Blood SPECIMEN COLLECTED 03/25/21 09:36 Blood Culture - Preliminary Blood SPECIMEN COLLECTED A&P Assessment and plan (1) S/P splenectomy: 85-year-old female with traumatic splenic flexure status post colectomy postop day 1 Anemia: Hemoglobin up to 8.5 after 2 units PRBC WBC is 18.7 patient was febrile up to 100, has UTI, continue Zosyn DC Klein today Decrease IV fluids to 30 cc/h Advance to full liquid diet Patient took Pradaxa day before yesterday, restart heparin Pepcid for GI prophylaxis Continue home medications Insulin sliding scale Morphine, [place] for pain control Patient will need greater than 2 nights of inpatient stay to ensure that she do es not develop any postop complications. She will also need H. influenzae/pneumococcal/meningococcal vaccination prior to discharge Status: Acute Attestations Medical Necessity Statement*: Status post splenectomy requiring 1 more night of inpatient stay due to leukocytosis/febrile for IV antibiotics and monitoring Procedures Arterial Line Size (Gauge): 20 Coding Level of Care Code Acute Intellectual Property Counsel for [facility] Fwd Diagnoses S/P splenectomy Z90.81
[2021-03-26] VITALS (20 sets, daily range): BP systolic 117–162; BP diastolic 57–96; PULSE 54–96; RESP 14–19; TEMP 36.4–36.8; O2SAT 90–95
[2021-03-26] MEDS: heparin 5,000 unit/mL INJ 1 mL 5000 UNIT SUBCUT ×2 (00:15→11:04)
[2021-03-26] MEDS: piperacillin-tazobactam 3.375 GM in sodium chloride 0.9% (plus) 50 ML IV ×3 (00:25→17:19)
[2021-03-26] MEDS: HYDROcodone-acetaminophen 5-325 mg Tablet 1 TAB PO ×3 (03:26→17:19)
[2021-03-26 04:08] LABS: Basophils # 0.1 10^3/uL (0.0-0.1); Basophils % 0.3 %; Eosinophils % 0.2 %; Hematocrit 24.4 % (37.0-47.0); Hemoglobin 8.1 g/dL (11.5-15.3); Lymphocytes # 1.3 10^3/uL (0.8-4.8); Mean Corpuscular HGB Conc 33.2 g/dL (30.0-36.0); Mean Corpuscular Hemoglobin 31.8 pg (28.0-34.0); Mean Corpuscular Volume 95.7 fL (81-99); Mean Platelet Volume 9.6 fL (7.4-10.4); Monocytes # 1.2 10^3/uL (0.2-0.9); Monocytes % 7.4 %; Neutrophils # 13.41 10^3/uL (1.8-7.7); Neutrophils % 81.8 %; Nucleated Red Blood Cells # 0.6 /100WBC; Nucleated Red Blood Cells % 3.4 %; Platelet Count 249 10^3/cmm (130-400); Red Blood Count 2.55 10^6/uL (4.1-5.3); Red Cell Distribution Width 17.1 % (12.1-15.1); White Blood Count 16.4 10^3/uL (4.0-10.0)
[2021-03-26 04:30] LABS: Anion Gap 12.4 (5-19); Blood Urea Nitrogen 11 mg/dL (8-23); Calcium 9.1 mg/dL (8.5-10.5); Carbon Dioxide 26 mmol/L (22-29); Chloride 105 mmol/L (98-107); Glucose 137 mg/dL (65-115); Osmolality Calculated 292 mOsm/kg (285-295); Potassium 3.4 mmol/L (3.5-5.1); Sodium 140 mmol/L (136-145)
--- NOTE | 2021-03-26 06:42 | PC.NURSE ---
uneventful night, no c/o at this time, reported no pain after PRN [place], supine 30 degrees call light within reach
[2021-03-26 07:02] LABS: Glucose Point of Care 148 mg/dL (70-110)
[2021-03-26] MEDS: losartan 50 mg Tablet 25 MG PO (07:13)
[2021-03-26] MEDS: metoprolol tartrate 50 mg Tablet PO ×2 (07:13→20:38)
[2021-03-26] MEDS: dilTIAZem ER (24HR) 180 mg Capsule PO (07:13)
[2021-03-26] MEDS: lactulose oral liq 20 gm/30 mL UDC 10 GM PO ×2 (07:13→20:38)
[2021-03-26] MEDS: potassium chloride oral liq 20 mEq/15 mL UDC PO (08:25)
[2021-03-26] MEDS: pantoprazole 40 mg SDV IVP ×2 (08:25→20:38)
--- NOTE | 2021-03-26 08:47 | PM.PN ---
Subjective Subjective: Interval history: Says that she last night back she was knocked out . Then when she woke up she thought it was night. Belly is a little bit sore, otherwise does not have any complaints, although son indicates she usually does not complain. She denies nausea. Denies vomiting. No chest pain. No trouble breathing. Vitals/I&O/Wt Last Vital Signs Temp 97.8 F 03/26/21 07:00 Pulse 65 03/26/21 07:00 Resp 15 03/26/21 07:00 BP 154/96 03/26/21 07:13 Pulse Ox 92 03/26/21 07:00 03/25/21 03/26/21 03/26/21 22:59 06:59 14:59 Intake Total 50 / 450 11.042 / 461.042 0 / 0 Output Total 450 / 450 400 / 850 Balance -400 / 0 -388.958 / -388.958 0 / 0 Weight last 48 hrs Weight 73.936 kg Weight 73.482 kg Physical Exam Narrative: EXAM NARRATIVE: Son at bedside. Const: COMMON NORMALS: no acute distress and alert GENERAL APPEARANCE: cooperative and frail appearing ORIENTATION/CONSCIOUSNESS: Yes awake OTHER: Generally weak. A little bit more energetic today. In better spirits. HENMT: COMMON NORMALS: oropharynx normal Neck/C-Spine: COMMON NORMALS: no JVD Resp: COMMON NORMALS: normal respiratory effort and clear to auscultation bilaterally AUSCULTATION: clear to auscultation bilaterally Cardio: COMMON NORMALS: no JVD, regular rhythm, S1 normal heart sound present, S2 normal heart sound present and No murmurs present (Cardio) RHYTHM: regular rhythm HEART SOUNDS: S1 normal heart sound present and S2 normal heart sound present GI: COMMON NORMALS: Normal to inspection, nondistended, normoactive bowel sounds present, Soft to palpation and non-tender PALPATION: Yes Soft to palpation OTHER: Midline incision clean. Drain to left of midline with serosanguineous contents. Extremity: COMMON NORMALS: no joint enlargement and no pedal edema Neuro: COMMON NORMALS: moves all extremities SENSORIUM/ORIENTATION: Yes alert Skin: COMMON NORMALS: no rashes or lesions noted GENERAL SKIN EXAM: no rashes or lesions noted and dry skin Data : 03/26/21 03:53 03/26/21 03:53 Micro: Microbiology 05/12/21 12:46 Urine Culture - Final Urine,Clean Catch Escherichia coli 03/25/21 09:28 Blood Culture - Preliminary Blood SPECIMEN COLLECTED 03/25/21 09:36 Blood Culture - Preliminary Blood SPECIMEN COLLECTED A&P Assessment and plan (1) Anemia: Anemia overall appears to have stabilized. Slight downtrend today hemoglobin 8.1. Continue to monitor. Started on prophylactic dose heparin yesterday. Monitor drain output. Pradaxa, antiplatelet on hold. Hemoccult noted positive. At home was also taking aspirin, ibuprofen. Continue PPI. Discontinue NSAIDs. Status: Acute (2) 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 Seems to be tolerating FLD. Mobilize with PT/OT. Continue incentive spirometry. Will need immunizations prior to discharge. Status: Acute (3) Traumatic rupture of spleen: After a fall, generalized weakness, deconditioning, would benefit from rehabilitation after discharge. Status: Acute (4) Chronic anticoagulation: Pradaxa on hold. Started on prophylactic heparin. Monitor blood counts. If remains stable, consider heparin drip or Lovenox trial prior to resumption of Pradaxa. Also remained stable consider cautious resumption of antiplatelet. If GI effects of aspirin are concerned, consideration may be given to Plavix. Status: Acute (5) Acute UTI: E. coli. For now continue Zosyn. Possible sepsis improving. Improving leukocytosis. Status: Acute (6) Hypokalemia: Requested additional potassium. Check magnesium. Status: Acute (7) Acute encephalopathy: Some sundowning noted, does say she slept through the night, but when woke up this morning thought it was nighttime. Continue supportive care, continue to treat underlying conditions. Reorient. Advance diet as tolerating. Mobilize with PT/OT. Can likely move to medical floor. Consider one-to-one sitter upstairs due to episodes of confusion to prevent pulling on tubing, etc. Has been having episodes of confusion. Appears as had confusion after prior surgery as well, so it may be prone to delirium. Discussed with her son, additionally may have acute discopathy secondary to infection, with urinary tract infection, possibility of ICU delirium, as well as metabolic encephalopathy secondary to medications, pain medication. Status: Acute Additional A&P Information Discussed with son at bedside. Generalized weakness: Multifactorial with UTI, generalized deconditioning as well after recent surgery, PT/OT, rehabilitation after discharge. Elevated BNP: Likely secondary to severe pulmonary hypertension noted on prior TTE. Recent hysterectomy, bladder suspension surgery, minor colonic tear with repair. DM2: Sliding scale insulin HTN: Blood pressures improved. She is resumed on losartan, metoprolol, Cardizem. Pulmonary hypertension: Oxygen support as needed BASIL: Nightly CPAP History of DVT, PE, Atrial fibrillation: Bob blockers resumed. BP doing well. Arterial line came out last night. Anticoagulation on hold. History of CVA, Chronic anemia, on iron supplementation, GERD: PPI Hiatal hernia, Dark stools: On iron supplementation, but Hemoccult positive as well. Continue PPI. Has had recent unremarkable endoscopy. [place] DVT prophylaxis: SCD, cautious trial of subcu heparin Attestations Medical Necessity Statement*: Continue admission for assessment and management following emergent laparotomy and splenectomy due to traumatic splenic rupture while on anticoagulation, antiplatelet, with acute anemia, with UTI, acute encephalopathy with delirium, in a lady of advanced age with multiple comorbidities. Procedures Arterial Line Size (Gauge): 20 Coding Level of Care Code Acute Teacher Kindergarten for Chg Fwd Exam Comprehensive Diagnoses Anemia D64.9 S/P splenectomy Z90.81 Traumatic rupture of spleen S36.09XA Chronic anticoagulation Z79.01 Acute UTI N39.0 Hypokalemia E87.6 Acute encephalopathy G93.40
[2021-03-26 09:07] LABS: Magnesium 2.2 mg/dL (1.7-2.3)
[2021-03-26] MEDS: ondansetron 2 mg/ML SDV 2 mL 4 MG IVP (09:28)
--- NOTE | 2021-03-26 10:15 | P.PN_ITS ---
Subjective Subjective: Interval history: She is more awake and ambulating with physical therapy today, ERIC drain output was serosanguineous, tolerating full liquid diet Medications: Reviewed: Yes Vitals/I&O/Wt Last Vital Signs Temp 97.8 F 03/26/21 07:00 Pulse 72 03/26/21 10:00 Resp 18 03/26/21 10:00 BP 149/60 03/26/21 09:00 Pulse Ox 92 03/26/21 09:00 03/25/21 03/26/21 03/26/21 22:59 06:59 14:59 Intake Total 50 / 461.042 11.042 / 461.042 240 / 240 Output Total 450 / 850 400 / 850 Balance -400 / -388.958 -388.958 / -388.958 240 / 240 Weight last 48 hrs Weight 163 lb Weight 162 lb Physical Exam Narrative: EXAM NARRATIVE: Abdomen: Soft, nondistended, minimally tender, incision clean dry and intact, ERIC drain output is serosanguineous Data : 03/26/21 03:53 03/26/21 03:53 Micro: Microbiology 03/25/21 09:28 Blood Culture - Preliminary Blood NEGATIVE TO DATE 03/25/21 09:36 Blood Culture - Preliminary Blood NEGATIVE TO DATE 03/23/21 12:46 Urine Culture - Final Urine,Clean Catch Escherichia coli A&P Assessment and plan (1) S/P splenectomy: 85-year-old female with traumatic splenic flexure status post colectomy, postop day 3 Anemia: Hemoglobin stable at 8 WBC is down to 16.4 today, has been afebrile since yesterday morning, has UTI, continue Zosyn DC Klein today DC IV fluids Advance to GI soft diet Continue heparin 5000 subcu twice daily for DVT prophylaxis Pepcid for GI prophylaxis Continue home medications Insulin sliding scale Morphine, [place] for pain control Lactulose 15 cc p.o. twice daily for bowel regimen Transfer to the floor Patient will need greater than 2 nights of inpatient stay to ensure that she does not develop any postop complications. She will also need H. influenzae/pneumococcal/meningococcal vaccination prior to discharge Status: Acute Attestations Medical Necessity Statement*: Status post splenectomy requiring continued inpatient stay to ensure resolution of leukocytosis and placement in rehab Procedures Arterial Line Size (Gauge): 20 Coding Level of Care Code Acute Business System Consultant for Chg [place] Diagnoses S/P splenectomy Z90.81
[2021-03-26 11:04] LABS: Glucose Point of Care 135 mg/dL (70-110)
--- NOTE | 2021-03-26 11:36 | PC.NURSE ---
Transferred to [facility] Pt transferred to [facility] room 273 via wheelchair. Pt transferred from wheelchair to bed with two assisit. Pt tolerated well. MONALISA Perez and son at bedside. Pt A&Ox3 at time of transfer.
--- NOTE | 2021-03-26 12:44 | PC.SOCIAL ---
Pg 2 IMM Explained to pt's son Pg 2 IMM. No questions voiced. Provided pt a copy. Signed, dated, & timed a copy & placed in chart.
[2021-03-26 17:06] LABS: Glucose Point of Care 165 mg/dL (70-110)
--- NOTE | 2021-03-26 18:38 | PC.NURSE ---
Pt had not urinated since art catheter was removed this AM around 1100. Bladder scanned patient at this time and results were 110, results posted in chart and Dr. Dunn notified, no new orders at this time.
[2021-03-26 20:04] LABS: Glucose Point of Care 252 mg/dL (70-110)
[2021-03-26 22:35] LABS: Glucose Point of Care 167 mg/dL (70-110)
--- NOTE | 2021-03-26 22:40 | CTR_ITS ---
PROCEDURE INFORMATION: Exam: CT Head Without Contrast Exam date and time: 03/26/2021 10:40 PM Age: 85 years old Clinical indication: Speech disturbance and weakness, extremity; Right; Patient HX: New onset R sided weakness and expressive aphasia; Additional info: R/O CVA TECHNIQUE: Imaging protocol: Computed tomography of the head without contrast. Radiation optimization: All CT scans at this facility use at least one of these dose optimization techniques: automated exposure control; mA and/or kV adjustment per patient size (includes targeted exams where dose is matched to clinical indication); or iterative reconstruction. ADDITIONAL STUDY INFORMATION: Total DLP (mGy-cm): 896.76 COMPARISON: CT head wo con* [id number] 04/26/2017 8:22 PM FINDINGS: Examination is limited by artifacts from patient motion. There is small old-appearing infarction in left basal ganglia and extending to adjacent white matter. There is moderate low density in the bilateral periventricular white matter which may represent chronic small vessel ischemic disease in the appropriate clinical setting. The possibility of superimposed acute infarctions cannot be excluded; consider MRI brain (including diffusion images) for further assessment if clinically warranted and if patient has no contraindication to MRI. There are prominent intracranial arterial calcifications. There is moderate cerebral cortical and cerebellar volume loss. Ventricles do not appear significantly dilated. No definite depressed calvarial fracture is demonstrated. Visualized paranasal sinuses and mastoid air cells demonstrate no significant opacification. CT/CT head wo con* [id number] IMPRESSION: Examination is limited by artifacts from patient motion. Probable chronic ischemic changes as discussed above. Radiation Dose CTDIVOL = (mGy): DLP = 896.76 (mGy-cm)
[2021-03-27] VITALS (13 sets, daily range): BP systolic 120–154; BP diastolic 49–83; PULSE 55–92; RESP 16–19; TEMP 36.3–37.3; O2SAT 93–97
[2021-03-27] MEDS: piperacillin-tazobactam 3.375 GM in sodium chloride 0.9% (plus) 50 ML IV ×3 (00:05→17:50)
[2021-03-27] MEDS: heparin 5,000 unit/mL INJ 1 mL 5000 UNIT SUBCUT ×2 (00:06→18:19)
--- NOTE | 2021-03-27 04:05 | PC.NURSE ---
Stroke Assessment at 2214 I got patient up to bedside commode for bowel movement and possible void, patient was able to ambulate to the bedside commode with minimal assistance, Once on the commode I noticed that she dropped her arm on the right side and slummed over in that direction, I asked her some orientation questions and assessed her hip hop dancer and mobility while on commode and noticed a change, called for help and the charge initiated a stroke alert on her. With maximum assistance of 3 people we were able to get her back into bed, I performed a total NIH on her at 2229 and her score was a 12, Dr Wayne at bedside at this time, ordered a head CT and q1 hour Neuro checks for 4 hours then q4h neuros after that. Patient not a candidate for TPA, head CT did not show anything hemorrhagic so will wait for MRI. Also during this time we got vitals signs every hour and alfredito labs and checked a blood sugar, placed her on tele which showed afib.
[2021-03-27 05:33] LABS: Basophils % 0.2 %; Eosinophils % 0.3 %; Hematocrit 23.4 % (37.0-47.0); Hemoglobin 7.6 g/dL (11.5-15.3); Lymphocytes # 1.1 10^3/uL (0.8-4.8); Lymphocytes % 8.2 %; Mean Corpuscular HGB Conc 32.5 g/dL (30.0-36.0); Mean Corpuscular Hemoglobin 32.1 pg (28.0-34.0); Mean Corpuscular Volume 98.7 fL (81-99); Mean Platelet Volume 9.8 fL (7.4-10.4); Monocytes % 7.3 %; Neutrophils # 10.62 10^3/uL (1.8-7.7); Neutrophils % 79.7 %; Nucleated Red Blood Cells # 0.9 /100WBC; Nucleated Red Blood Cells % 6.6 %; Platelet Count 267 10^3/cmm (130-400); Red Blood Count 2.37 10^6/uL (4.1-5.3); Red Cell Distribution Width 16.6 % (12.1-15.1); White Blood Count 13.4 10^3/uL (4.0-10.0)
--- NOTE | 2021-03-27 05:46 | PC.NURSE ---
Patient Summary: Patient was alert and oriented times one too two, but at 2229 she had stroke like symptoms and we did stroke workup for her, She has been getting q1 hour neuros then q 4 hour neuros at 6am her speech has improved but she is still neglecting the right side, she moves her arms and legs on both sides now, but still has a hard time with words, cannot tell me her name or birthday. She had her art catheter removed yesterday and had not voided yet as of 329 so bladder scanned her and received an order from Dr Wayne for a art catheter that I placed. Patients son Joey updated on stroke situation and CT done, MRI may be in the near future.
[2021-03-27 05:55] LABS: Anion Gap 12.2 (5-19); Blood Urea Nitrogen 11 mg/dL (8-23); Calcium 8.8 mg/dL (8.5-10.5); Carbon Dioxide 25 mmol/L (22-29); Chloride 103 mmol/L (98-107); Glucose 136 mg/dL (65-115); Osmolality Calculated 285 mOsm/kg (285-295); Potassium 3.2 mmol/L (3.5-5.1); Sodium 137 mmol/L (136-145)
[2021-03-27 06:29] LABS: Glucose Point of Care 166 mg/dL (70-110)
--- NOTE | 2021-03-27 08:51 | P.PN_ITS ---
Subjective Subjective: Interval history: Patient is asleep, apparently had an episode of right-sided weakness last night and a CT head was obtained which showed chronic ischemic changes. Patient had a bowel movement yesterday and had been ambulating with physical therapy yesterday.She had minimal drainage from the ERIC drain Vitals/I&O/Wt Last Vital Signs Temp 98.6 F 03/27/21 08:00 Pulse 73 03/27/21 08:00 Resp 18 03/27/21 08:00 BP 150/71 03/27/21 08:00 Pulse Ox 96 03/27/21 08:00 03/26/21 03/27/21 03/27/21 22:59 06:59 14:59 Intake Total 410 / 2090 30 / 2090 50 / 50 Output Total 30 / 480 450 / 480 Balance 380 / 1610 -420 / 1610 50 / 50 Weight last 48 hrs Weight 163 lb 12.8 oz Weight 163 lb Physical Exam Narrative: EXAM NARRATIVE: Abdomen: Soft, nondistended, minimally tender, incision clean dry intact, ERIC drain output is serous fluid Klein: Clear urine output Urinary Catheter Management^: Klein: Cath Placed During This Visit: yes Reason for Continuing Indwelling Catheter: Acute Urinary Retention or Obstruction Urinary Catheter Date of Insertion: 03/27/21 Urinary Catheter Time of Insertion: 03:00 Data : 03/27/21 05:10 03/27/21 05:10 Micro: Microbiology 03/25/21 09:28 Blood Culture - Preliminary Blood Gram Negative Rods 03/25/21 09:36 Blood Culture - Preliminary Blood NEGATIVE TO DATE A&P Assessment and plan (1) 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 twice daily for bowel regimen Patient will need greater than 2 nights of inpatient stay to ensure that she does not develop any postop complications. She will also need H. influenzae/pneumococcal/meningococcal vaccination prior to discharge Status: Acute Attestations Medical Necessity Statement*: Status post colectomy requiring continued inpatient stay as patient had right-sided weakness Procedures Arterial Line Size (Gauge): 20 Coding Level of Care Code Acute Chinese Herbalist for Chg Fwd Diagnoses S/P splenectomy Z90.81
[2021-03-27] MEDS: lactulose oral liq 20 gm/30 mL UDC 10 GM PO ×2 (09:13→20:57)
[2021-03-27] MEDS: losartan 50 mg Tablet 25 MG PO (09:14)
[2021-03-27] MEDS: metoprolol tartrate 50 mg Tablet PO ×2 (09:14→21:00)
[2021-03-27] MEDS: dilTIAZem ER (24HR) 180 mg Capsule PO (09:14)
[2021-03-27] MEDS: pantoprazole 40 mg SDV IVP ×2 (09:15→20:19)
[2021-03-27] MEDS: potassium chloride ER 20 mEq Tablet 80 MEQ PO (09:15)
[2021-03-27 11:34] LABS: Glucose Point of Care 127 mg/dL (70-110)
--- NOTE | 2021-03-27 12:20 | CTR_ITS ---
PROCEDURE INFORMATION: Exam: CT Angiography Head With Contrast, Arteriography Exam date and time: 03/27/2021 12:24 PM Age: 85 years old Clinical indication: Other: CVA TECHNIQUE: Imaging protocol: Computed tomography angiography of the head with contrast. Exam focused on the arteries. 3D rendering (Not supervised by radiologist): MIP and/or 3D reconstructed images were created by the technologist. Radiation optimization: All CT scans at this facility use at least one of these dose optimization techniques: automated exposure control; mA and/or kV adjustment per patient size (includes targeted exams where dose is matched to clinical indication); or iterative reconstruction. Contrast material: OMNI 350; Contrast volume: 95 ml; Contrast route: INTRAVENOUS (IV); COMPARISON: CT head wo con* [id number] 03/26/2021 10:41 PM RADIATION DOSE METRICS: Total DLP (mGy-cm): 2058. FINDINGS: ANTERIOR CIRCULATION: Right internal carotid artery: Unremarkable. Intracranial segment is patent with no significant stenosis. No aneurysm. Right middle cerebral artery: Unremarkable. No occlusion or significant stenosis. No aneurysm. Right anterior cerebral artery: Unremarkable. No occlusion or significant stenosis. No aneurysm. Left internal carotid artery: Unremarkable. Intracranial segment is patent with no significant stenosis. No aneurysm. Left middle cerebral artery: Unremarkable. No occlusion or significant stenosis. No aneurysm. Left anterior cerebral artery: Unremarkable. No occlusion or significant stenosis. No aneurysm. POSTERIOR CIRCULATION: Right vertebral artery: Dominant right vertebral artery with patent left vertebral artery. Left vertebral artery: Unremarkable. No occlusion or significant stenosis. No aneurysm. Basilar artery: Unremarkable. No occlusion or significant stenosis. No aneurysm. Right posterior cerebral artery: Direct origin of the right posterior cerebral artery from the anterior circulation. Left posterior cerebral artery: Unremarkable. No occlusion or significant stenosis. No aneurysm. Left posterior communicating artery: Left posterior communicating artery. Brain: No definite mass, mass effect, or midline shift. Cerebral ventricles: No ventriculomegaly. Bones/joints: Unremarkable. No acute fracture. Soft tissues: Unremarkable. Other findings: No large vessel occlusion. IMPRESSION: No large vessel occlusion. PROCEDURE INFORMATION: Exam: CT Angiography Neck With Contrast Exam date and time: 03/27/2021 12:24 PM Age: 85 years old Clinical indication: Other: CVA TECHNIQUE: Imaging protocol: Computed tomography angiography of the neck with contrast. 3D rendering (Not supervised by radiologist): MIP and/or 3D reconstructed images were created by the technologist. Radiation optimization: All CT scans at this facility use at least one of these dose optimization techniques: automated exposure control; mA and/or kV adjustment per patient size (includes targeted exams where dose is matched to clinical indication); or iterative reconstruction. Contrast material: OMNI 350; Contrast volume: 95 ml; Contrast route: INTRAVENOUS (IV); COMPARISON: CT head wo [facility]* [id number] 03/26/2021 10:41 PM RADIATION DOSE METRICS: Total DLP (mGy-cm): 2058.1 FINDINGS: Right common carotid artery: No stenosis. No dissection or occlusion. Right internal carotid artery: Right carotid bifurcation calcified plaque. No ICA stenosis by NASCET/SRU criteria. Right external carotid artery: No occlusion or stenosis of the origin. Right vertebral artery: Dominant right vertebral artery with patent left vertebral artery. Left common carotid artery: No stenosis. No dissection or occlusion. Left internal carotid artery: Left carotid bifurcation calcified plaque. Left external carotid artery: No occlusion or stenosis of the origin. Left vertebral artery: There is direct origin of the left vertebral artery from the aortic arch which is a normal variant seen in 1% of the population. Other vasculature: Examination is limited secondary to motion artifact. Bones/joints: Moderate to severe multilevel spine degenerative changes including degenerative disc disease, spondylosis and facet degenerative changes. Soft tissues: Normal. No significant soft tissue swelling. Lymph nodes: Calcified left hilar nodes and/or mediastinal nodes and/or lung granulomas consistent with old granulomatous disease. Lungs: Bilateral mild to moderate pleural fluid collections. CT/CT angio headneck* [id number] IMPRESSION: 1. Bilateral mild to moderate pleural fluid collections. 2. Dominant right vertebral artery with patent left vertebral artery. 3. No ICA stenosis by NASCET/SRU criteria. REFERENCES: NASCET CRITERIA. The degree of internal carotid artery stenosis is based on NASCET criteria. Normal is no stenosis. Mild is less than 50% stenosis. Moderate is 50-69% stenosis. Severe is 70% to 99% stenosis. Total occlusion is no detectable patent lumen. Radiation Dose CTDIVOL = (mGy): DLP = 9.1~2058.1 (mGy-cm)
[2021-03-27] MEDS: iohexol 350 mg/mL 100 mL Btl IV (12:55)
--- NOTE | 2021-03-27 13:46 | PC.OT ---
OTR/L consult with CATES during treatment session secondary to patient experiencing stroke-like symptoms since time of evaluation. Patient is more lethargic than at time of evaluation and right neglect noted (pt. did not look at therapist standing on her right side though she responded to therapist's voice). Treatment plan updated to reflect additional visual perceptual goal addressing right neglect. All other goals remain appropriate.
[2021-03-27] MEDS: HYDROcodone-acetaminophen 5-325 mg Tablet 1 TAB PO ×2 (15:19→20:58)
--- NOTE | 2021-03-27 16:11 | PM.PN ---
Subjective Subjective: Interval history: Last night per documentation I see concern regarding strokelike symptoms. Was assessed by CT head. This morning she is initially somnolent, then waking up, somewhat difficult to assess as she appears confused. She is answering few simple questions, although not sure if entirely reliably, and otherwise unable to provide good review of systems or history. Not following commands well. During my evaluation appeared to be moving all extremities, and her son noticed the same. Did not really participate in other parts of the exam. During PT evaluation was a little more cooperative and noticed to preferentially look to the left with possibly some right-sided neglect. This was reassessed little bit later, and during my evaluation was able to track me walking from left to the right side of the bed, however, after few prompts was able to count fingers on the left side, but not on the right. PT had similar experience not long after that as well. Despite some of the confused statements, still appears like may be having a degree of aphasia. Discussed with her family. Discussed concern regarding possible CVA. She would not be a candidate for TPA. Discussed usual standard treatment including endovascular treatment, though she would not likely make a good candidate for this. Discussed consideration of additional assessment by CT angiogram head which could at least also help us evaluate potential signs of CVA in case of large vessel occlusion which would preclude reinitiation of anticoagulation. After consideration discussion of risks including FREDY and benefits her family agreed to proceed. She would not be able to tolerate MRI at this time. CTA obtained, with no large vessel occlusion identified. No large territory CVA seen. As per discussion hemorrhagic transformation may be a risk even with small CVA, although would be more likely with a large territory stroke and anticoagulation. Received aspirin 81 mg last night. Continue low-dose aspirin. Trial of anticoagulation was considered, however, given anaerobic gram-negative yaakov is identified from the gram-negative ayakov in blood, with concern for possibility of septic embolus, although not identified on CT as discussed with family, raises concern regarding hemorrhagic transformation. Risks discussed with family. They are in consensus for now to continue prophylactic dose heparin at most and avoid risk that anticoagulation may create despite losing possible benefit. Son states also that her RN BJ in ICU had noticed patient had stool coming from vaginal opening. Vitals/I&O/Wt Last Vital Signs Temp 99 F 03/27/21 11:53 Pulse 55 L 03/27/21 15:02 Resp 16 05/16/21 11:53 BP 147/80 03/27/21 11:53 Pulse Ox 97 03/27/21 11:53 03/27/21 03/27/21 03/27/21 06:59 14:59 22:59 Intake Total 0 100 / 100 Output Total 450 / 480 575 / 575 Balance -420 / 1610 -475 / -475 Weight last 48 hrs Weight 74.298 kg Weight 73.936 kg Physical Exam Narrative: EXAM NARRATIVE: Family at bedside Const: COMMON NORMALS: no acute distress and alert GENERAL APPEARANCE: cooperative and frail appearing ORIENTATION/CONSCIOUSNESS: Yes awake and Yes confused OTHER: Generally weak. HENMT: COMMON NORMALS: oropharynx normal Neck/C-Spine: COMMON NORMALS: no meningeal signs and no JVD Resp: COMMON NORMALS: normal respiratory effort and clear to auscultation bilaterally AUSCULTATION: clear to auscultation bilaterally Cardio: COMMON NORMALS: no JVD, regular rhythm, S1 normal heart sound present, S2 normal heart sound present and No murmurs present (Cardio) RHYTHM: regular rhythm HEART SOUNDS: S1 normal heart sound present and S2 normal heart sound present GI: COMMON NORMALS: Normal to inspection, nondistended, normoactive bowel sounds present, Soft to palpation and non-tender PALPATION: Yes Soft to palpation OTHER: Midline incision clean. Drain to left of midline with serosanguineous contents. Extremity: COMMON NORMALS: no joint enlargement and no pedal edema Neuro: COMMON NORMALS: moves all extremities SENSORIUM/ORIENTATION: Yes alert MENINGEAL SIGNS: Yes no meningeal signs COORDINATION/BALANCE: other (Unable to perform) SPEECH: abnormal speech (Confused, but appears to have degree of aphasia) GAIT: Yes Unable to assess gait SENSORY EXAM: Yes other (Attempted to examine several times. Appears probably symmetrical) MOTOR EXAM: Other motor observations present (3+ upper, did not follow comm for LE, but moving feet) COORDINATION: other (Unable to perform) OTHER: Appears to be able to track me from left side to the right side of the bed, but counts fingers on the left, not on the right, though unreliably Skin: COMMON NORMALS: no rashes or lesions noted GENERAL SKIN EXAM: no rashes or lesions noted and dry skin Urinary Catheter Management^: Klein: Cath Placed During This Visit: yes Reason for Continuing Indwelling Catheter: Acute Urinary Retention or Obstruction Urinary Catheter Date of Insertion: 03/27/21 Urinary Catheter Time of Insertion: 03:00 Data : 03/27/21 05:10 03/27/21 05:10 Micro: Microbiology 03/25/21 09:28 Blood Culture - Preliminary Blood Anaerobic gram negative rods A&P Assessment and plan (1) CVA (cerebral vascular accident): Appears to have suffered probable CVA, with right-sided neglect, confused, but appears to have degree of aphasia as well. CT of the head showed chronic periventricular ischemic changes. CTA obtained, without large vessel occlusion. Received aspirin last night. Continue low-dose aspirin. Discussed consideration of anticoagulation as below with concern of possible septic embolic etiology. At this time continue prophylactic dose heparin only. Would not able to obtain MRI in current condition, but this may be beneficial when possible. Continue aspirin. PPI. Add statin. ST assessment requested. Continue PT, OT. Consider follow-up with neurology regarding safe timing of reinitiation of anticoagulation for atrial fibrillation. Status: Acute (2) Anemia: Blood count slightly lower today, 7.6. Per discussion with surgery output from ERIC drain has been good, without signs of ongoing bleeding currently. Did have also Hemoccult positive as discussed with surgery, difficult to say regarding also GI bleeding with everything going on including placement of NG tube. At home appears was taking ibuprofen in addition to low-dose aspirin. At this time we will continue PPI. Monitor hemoglobin. Discontinue NSAIDs. Status: Acute (3) Bacteremia: Gram-negative yaakov 1/4 bottles, initially thought related to urinary tract infection, however, this now appears to be coming back as anaerobic gram-negative rods. Discussed the new finding with patient family, surgery. They understand that overall gram-negative yaakov bacteremia carries poor prognosis for patients. However, in her case it also complicates resumption of anticoagulation which she chronically takes for DVT/PE history and A. fib, and currently with possible acute CVA due to risk of hemorrhagic transformation in case of septic embolic etiology. Discussing with surgery. Continue Zosyn. 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 Ileus had resolved. Tolerating diet. Mobilize with PT/OT. Continue incentive spirometry. Will need immunizations prior to discharge. Status: Acute (5) Traumatic rupture of spleen: After a fall, generalized weakness, deconditioning, would benefit from rehabilitation after discharge. Status: Acute (6) Chronic anticoagulation: CVA, but also anaerobic gram-negative yaakov identified from blood culture on presentation, possibility of septic embolic etiology. At this time hold off anticoagulation for risk of hemorrhagic transformation. Prophylactic heparin dose. Pradaxa on hold. Started on prophylactic heparin. Monitor blood counts. Status: Acute (7) Acute UTI: E. coli. For now continue Zosyn. Possible sepsis improving. Improving leukocytosis. Status: Acute (8) Hypokalemia: Replaced. Status: Acute (9) Acute encephalopathy: More confused today. Appears to have sustained acute CVA. Continue supportive care, continue to treat underlying conditions. Reorient. Advance diet as tolerating and per ST after CVA Mobilize with PT/OT. Status: Acute Additional A&P Information Recent hysterectomy, bladder suspension surgery, minor colonic tear with repair. Son states that his ICU nurse HELENA may have reported to him that she had seen some stool from the vaginal opening. This will need additional assessment. Discussed with surgery. Generalized weakness: Multifactorial with UTI, generalized deconditioning as well after recent surgery, PT/OT, rehabilitation after discharge. Elevated BNP: Likely secondary to severe pulmonary hypertension noted on prior TTE. DM2: Sliding scale insulin HTN: Blood pressures improved. She is resumed on losartan, metoprolol, Cardizem. Pulmonary hypertension: Oxygen support as needed BASIL: Nightly CPAP History of DVT, PE. Anticoagulation held. Atrial fibrillation: Bob blockers resumed. BP doing well. Anticoagulation on hold. History of CVA, Chronic anemia, on iron supplementation, GERD: PPI Hiatal hernia, Dark stools: On iron supplementation, but Hemoccult positive as well. Continue PPI. Has had recent unremarkable endoscopy. [facility] DVT prophylaxis: SCD, cautious trial of subcu heparin Attestations Medical Necessity Statement*: Continue admission for assessment and management of improving sepsis, complicated with anaerobic gram-negative yaakov bacteremia, acute CVA, possibility of septic embolic event, with underlying atrial fibrillation, history of DVT and PE, usually on chronic anticoagulation, status post splenectomy following traumatic rupture, acute encephalopathy, UTI, and a number of underlying additional issues as above. Procedures Arterial Line Size (Gauge): 20 Coding Level of Care Code Acute Finish Machine Tender for [facility] Fwd Exam Comprehensive Diagnoses CVA (cerebral vascular accident) I63.9 Anemia D64.9 Bacteremia R78.81 S/P splenectomy Z90.81 Traumatic rupture of spleen S36.09XA Chronic anticoagulation Z79.01 Acute UTI N39.0 Hypokalemia E87.6 Acute encephalopathy G93.40
[2021-03-27 16:39] LABS: Partial Thromboplastin Time 32.1 SECONDS (23.9-36.7)
[2021-03-27 17:53] LABS: Glucose Point of Care 145 mg/dL (70-110)
[2021-03-27 20:43] LABS: Glucose Point of Care 223 mg/dL (70-110)
[2021-03-27] MEDS: atorvastatin 40 mg Tablet PO (21:00)
[2021-03-28] VITALS (9 sets, daily range): BP systolic 133–155; BP diastolic 67–87; PULSE 54–97; RESP 17–20; TEMP 36.3–38; O2SAT 90–94
[2021-03-28] MEDS: piperacillin-tazobactam 3.375 GM in sodium chloride 0.9% (plus) 50 ML IV ×3 (01:04→17:33)
[2021-03-28 04:45] LABS: Basophils % 0.3 %; Eosinophils # 0.2 10^3/uL (0.0-0.8); Eosinophils % 1.5 %; Hematocrit 23.7 % (37.0-47.0); Hemoglobin 7.7 g/dL (11.5-15.3); Lymphocytes # 1.2 10^3/uL (0.8-4.8); Lymphocytes % 10.2 %; Mean Corpuscular HGB Conc 32.5 g/dL (30.0-36.0); Mean Corpuscular Volume 98.3 fL (81-99); Mean Platelet Volume 9.7 fL (7.4-10.4); Monocytes # 1.1 10^3/uL (0.2-0.9); Monocytes % 9.4 %; Neutrophils # 8.63 10^3/uL (1.8-7.7); Neutrophils % 74.1 %; Nucleated Red Blood Cells # 0.9 /100WBC; Nucleated Red Blood Cells % 7.7 %; Platelet Count 302 10^3/cmm (130-400); Red Blood Count 2.41 10^6/uL (4.1-5.3); Red Cell Distribution Width 16.4 % (12.1-15.1); White Blood Count 11.7 10^3/uL (4.0-10.0)
[2021-03-28 05:01] LABS: Alanine Aminotransferase 9 U/L (0-33); Albumin Level 2.5 g/dL (3.5-5.2); Alkaline Phosphatase 67 IU/L (35-105); Anion Gap 8.8 (5-19); Aspartate Amino Transferase 24 U/L (0-32); Blood Urea Nitrogen 7 mg/dL (8-23); Calcium 8.8 mg/dL (8.5-10.5); Carbon Dioxide 28 mmol/L (22-29); Chloride 103 mmol/L (98-107); Globulin 2.7 g/dL (1.3-4.6); Glucose 125 mg/dL (65-115); Osmolality Calculated 281 mOsm/kg (285-295); Potassium 3.8 mmol/L (3.5-5.1); Sodium 136 mmol/L (136-145); Total Bilirubin 0.6 mg/dL (0.15-1.2); Total Protein 5.2 g/dL (6.6-8.7)
[2021-03-28] MEDS: heparin 5,000 unit/mL INJ 1 mL 5000 UNIT SUBCUT ×2 (05:28→17:34)
--- NOTE | 2021-03-28 05:49 | PC.NURSE ---
Shift Summary Patient rested well through the night. There was minimal bloody vaginal discharge. ERIC drain had 5ml out total through the night. Patient it able to move right leg and arm more this morning. Sensations is still minimal. When patient was asked to move her right leg with touch and vocal, patient was able to slide right leg to the side. Nurse observed patient moving right leg and arm throughout the night without patient being aware of motion.
[2021-03-28 06:15] LABS: Glucose Point of Care 184 mg/dL (70-110)
[2021-03-28] MEDS: pantoprazole 40 mg SDV IVP ×2 (08:08→21:02)
[2021-03-28] MEDS: lactulose oral liq 20 gm/30 mL UDC 10 GM PO ×2 (08:08→20:23)
[2021-03-28] MEDS: metoprolol tartrate 50 mg Tablet PO ×2 (08:09→20:23)
[2021-03-28] MEDS: aspirin 81 mg EC Tablet PO (08:09)
[2021-03-28] MEDS: dilTIAZem ER (24HR) 180 mg Capsule PO (08:09)
[2021-03-28] MEDS: losartan 50 mg Tablet 25 MG PO (08:09)
--- NOTE | 2021-03-28 11:50 | PC.SOCIAL ---
*IMM UPDATE* Gave patient's son IMM update at bedside. Provided copy of pg 2. Verbalized understanding. 03/28/21 @ 2360 Initialed, dated, timed and placed in chart.
[2021-03-28 12:09] LABS: Glucose Point of Care 107 mg/dL (70-110)
--- NOTE | 2021-03-28 14:07 | PC.OT ---
OT note: Attempted x2. In AM pt began to participate but was confused and had a hard time following directions. Then two more visitors entered room and pt was unable to sustain attention so therapist was agreeable to trying again later in day. When attempted in PM pt was soundly sleeping and from report from PLASMA TABLE OPERATOR pt was very fatigued after activity done during PT session. Will attempt again later/next day as able.
[2021-03-28] MEDS: ondansetron 2 mg/ML SDV 2 mL 4 MG IVP (15:55)
[2021-03-28 16:44] LABS: Procalcitonin 0.06 ng/mL (0-0.5)
[2021-03-28 16:45] LABS: Thyroid Stimulating Hormone 3.44 uIU/mL (0.27-4.20)
[2021-03-28 16:55] LABS: Iron 21 ug/dL (37-145); Percent Saturation 17.5 % (20-50); Total Iron Binding Capacity 120 mcg/dl; Unsaturated Iron Binding 99 ug/dL (112-347)
[2021-03-28] MEDS: HYDROcodone-acetaminophen 5-325 mg Tablet 1 TAB PO (17:38)
--- NOTE | 2021-03-28 17:41 | P.PN_ITS ---
Subjective Subjective: Interval history: patient is more awake, not much appetite, denies any nausea or vomiting. Vitals/I&O/Wt Last Vital Signs Temp 97.9 F 03/28/21 16:00 Pulse 89 03/28/21 16:00 Resp 17 03/28/21 16:00 BP 142/82 03/28/21 16:00 Pulse Ox 91 03/28/21 16:00 03/28/21 03/28/21 03/28/21 06:59 14:59 22:59 Intake Total 410 / 560 290 / 290 Output Total 455 / 1400 40 / 40 Balance -45 / -840 250 / 250 Weight last 48 hrs Weight 169 lb Weight 163 lb 12.8 oz Physical Exam Narrative: EXAM NARRATIVE: Abdomen: soft , ND, minimally tender, incision c/d/i, ERIC drain serosangineous Urinary Catheter Management^: Klein: Cath Placed During This Visit: yes Reason for Continuing Indwelling Catheter: Acute Urinary Retention or O bstruction Urinary Catheter Date of Insertion: 03/27/21 Urinary Catheter Time of Insertion: 03:00 Data : 03/28/21 04:29 03/28/21 04:29 Micro: Microbiology 03/25/21 09:28 Blood Culture - Preliminary Blood Anaerobic gram negative rods A&P Assessment and plan (1) 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 Muller for post op check since there was concern about vaginal drainage Protonix for GI prophylaxis Continue home medications Insulin sliding scale Morphine, [place] for pain control Lactulose 15 cc p.o. twice daily for bowel regimen Patient will need greater than 2 nights of inpatient stay to ensure that she does not develop any postop complications. She will also need H. influenzae/pneumococcal/meningococcal vaccination prior to discharge Status: Acute Attestations Medical Necessity Statement*: s/p splenectomy requiring continued inpatient stay Procedures Arterial Line Size (Gauge): 20 Coding Level of Care Code Acute Marketing Services Manager for Chg Fwd Diagnoses S/P splenectomy Z90.81
--- NOTE | 2021-03-28 17:53 | P.PN_ITS ---
Subjective Subjective: Interval history: Hospital course appreciated. Sitting up in bed complaining of mild nausea. Has been able to eat a little bit as per family though does not have any appetite. Has remained afebrile. Hemodynamically stable. Patient had 2-3 semisolid bowel movements today. As per the nurse she did notice some bowel movements to the vagina as well. Medications: Reviewed: Yes Vitals/I&O/Wt Last Vital Signs Temp 97.9 F 03/28/21 16:00 Pulse 89 03/28/21 16:00 Resp 17 03/28/21 16:00 BP 142/82 03/28/21 16:00 Pulse Ox 91 03/28/21 16:00 03/28/21 03/28/21 03/28/21 06:59 14:59 22:59 Intake Total 410 / 560 290 / 290 240 / 530 Output Total 455 / 1400 40 / 40 Balance -45 / -840 250 / 250 240 / 490 Weight last 48 hrs Weight 76.657 kg Weight 74.298 kg Physical Exam Urinary Catheter Management^: Klein: Cath Placed During This Visit: yes, but has since been removed by the nurse Reason for Continuing Indwelling Catheter: Acute Urinary Retention or Obstruction Urinary Catheter Date of Insertion: 03/27/21 Urinary Catheter Time of Insertion: 03:00 Date Urinary Catheter Removed: 03/28/21 Time Urinary Catheter Discontinued: 13:00 Data : 03/28/21 04:29 03/28/21 04:29 Micro: Microbiology 03/25/21 09:28 Blood Culture - Preliminary Blood Anaerobic gram negative rods A&P Assessment and plan (1) CVA (cerebral vascular accident): Does have some right-sided neglect. Not confused at moment. Does not have any degree of aphasia today. CT of the head showed chronic periventricular ischemic changes. CTA obtained, without large vessel occlusion. Continue low-dose aspirin, statin, PPI. PT/OT/ST evaluation. Most likely will have to restart anticoagulation around 10 days post stroke to avoid hemorrhagic conversion. Patient will most likely need neurology follow-up as an outpatient. Status: Acute (2) Anemia: Post 3 unit transfusion during admission. Hemoglobin 7.7 today. Hemoccult blood positive. Check iron panel, folic acid, vitamin B12 levels. Start IV iron supplementation accordingly. Continue PPIs. Status: Acute (3) Bacteremia: Anaerobic gram-negative yaakov one set positive. Most likely got bacteria. For now continue with Zosyn. Repeat blood cultures. We will await ID before changing antibiotics. Most likely can transition over to oral Flagyl. Patient remains hemodynamically stable and afebrile. 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 Diet as per surgery team. Mobilize with PT/OT. Continue incentive spirometry. Will need immunizations prior to discharge. Status: Acute (5) Traumatic rupture of spleen: After a fall, generalized weakness, deconditioning, would benefit from rehabilitation after discharge. Status: Acute (6) Chronic anticoagulation: With Pradaxa for atrial fibrillation. For now hold off reinitiation of anticoagulation because of recent stroke. Status: Acute (7) Acute UTI: Status: Acute (8) Hypokalemia: Replaced. Status: Acute (9) Acute encephalopathy: Possibly secondary to multiple hospitalization, prolonged hospitalization, stroke Advance diet as tolerating and per ST after CVA Mobilize with PT/OT. Status: Acute (10) H/O: hysterectomy: Status: Acute Additional A&P Information Recent hysterectomy, bladder suspension surgery, minor colonic tear with repair. Concern for stool from vagina. Cannot rule out rectovaginal fistula. Awaiting gynecological examination and recommendations. DM2: Sliding scale insulin HTN: Goal blood pressure less than 140/90 mmHg. Increased dose of losartan. Continue home dose of Cardizem and metoprolol. Pulmonary hypertension: Oxygen support as needed keeping saturation over 90% BASIL: Nightly CPAP History of DVT, PE. Anticoagulation held. Atrial fibrillation: Bob blockers resumed. BP doing well. Anticoagulation on hold. History of CVA, Chronic anemia, on iron supplementation, GERD: PPI Hiatal hernia, Dark stools: On iron supplementation, but Hemoccult positive as well. Continue PPI. Has had recent unremarkable endoscopy. RESIGHINI DVT prophylaxis: SCD, cautious trial of subcu heparin Limited resuscitation. GI soft diet. Patient's care discussed in detail with surgery. Attestations Medical Necessity Statement*: As per primary team and patient requires further hospitalization for management of ongoing bacteremia, recent CVA, postoperative care for splenectomy. Time Spent in Patient Care: Greater than 35 minutes (>than 50% of time spent in counselling and/or direct pt care on unit) . Procedures Arterial Line Size (Gauge): 20 Coding Level of Care Code Acute Senior Unix Administrator for Chg Fwd Diagnoses CVA (cerebral vascular accident) I63.9 Anemia D64.9 Bacteremia R78.81 S/P splenectomy Z90.81 Traumatic rupture of spleen S36.09XA Chronic anticoagulation Z79.01 Acute UTI N39.0 Hypokalemia E87.6 Acute encephalopathy G93.40 H/O: hysterectomy Z90.710
[2021-03-28 18:06] LABS: Glucose Point of Care 139 mg/dL (70-110)
[2021-03-28 18:27] LABS: Reticulocyte % 2.9 % (0.5-2.0)
[2021-03-28 18:55] LABS: Folate Level 9.7 ng/mL (4.8-37.3)
[2021-03-28 18:56] LABS: Vitamin B12 469 pg/mL (232-1245)
[2021-03-28 19:04] LABS: SARS Covid-2 Antigen Negative (Negative)
[2021-03-28] MEDS: iron sucrose 200 MG in sodium chloride 0.9% (100 ml) 100 ML 220 MG IV (20:22)
[2021-03-28] MEDS: atorvastatin 40 mg Tablet PO (20:23)
[2021-03-28 20:53] LABS: Glucose Point of Care 205 mg/dL (70-110)
[2021-03-29] VITALS (21 sets, daily range): BP systolic 111–147; BP diastolic 44–96; PULSE 45–108; RESP 7–20; TEMP 36.7–37.6; O2SAT 92–100
[2021-03-29] MEDS: piperacillin-tazobactam 3.375 GM in sodium chloride 0.9% (plus) 50 ML IV (00:17)
[2021-03-29] MEDS: heparin 5,000 unit/mL INJ 1 mL 5000 UNIT SUBCUT (00:18)
--- NOTE | 2021-03-29 05:05 | PC.NURSE ---
Patient has had multiple bloody discharges from [place] (exact origin unknown) opening through the night. Most recent discharge was copious amount of bloody, brown discharge with large clot. Bedding with 3 blue chucks and cloth dashawn all soaked. Hospitalist notified with no new orders. Nurse expressed concern about bleeding to physician. Dr. Ontiveros informed nurse that there is no need to inform Dr. Muller, OBGYN, at this time.
[2021-03-29 05:10] LABS: Basophils % 0.3 %; Eosinophils # 0.1 10^3/uL (0.0-0.8); Hematocrit 22.5 % (37.0-47.0); Hemoglobin 7.2 g/dL (11.5-15.3); Lymphocytes # 1.1 10^3/uL (0.8-4.8); Lymphocytes % 8.5 %; Mean Corpuscular Hemoglobin 31.7 pg (28.0-34.0); Mean Corpuscular Volume 99.1 fL (81-99); Mean Platelet Volume 9.8 fL (7.4-10.4); Monocytes # 1.3 10^3/uL (0.2-0.9); Monocytes % 10.4 %; Neutrophils # 9.55 10^3/uL (1.8-7.7); Neutrophils % 76.7 %; Nucleated Red Blood Cells # 0.7 /100WBC; Nucleated Red Blood Cells % 5.5 %; Platelet Count 338 10^3/cmm (130-400); Red Blood Count 2.27 10^6/uL (4.1-5.3); Red Cell Distribution Width 16.6 % (12.1-15.1); White Blood Count 12.5 10^3/uL (4.0-10.0)
[2021-03-29 05:27] LABS: Alanine Aminotransferase 9 U/L (0-33); Albumin Level 2.4 g/dL (3.5-5.2); Alkaline Phosphatase 71 IU/L (35-105); Anion Gap 10.2 (5-19); Aspartate Amino Transferase 16 U/L (0-32); Blood Urea Nitrogen 6 mg/dL (8-23); Calcium 8.6 mg/dL (8.5-10.5); Carbon Dioxide 27 mmol/L (22-29); Chloride 103 mmol/L (98-107); Globulin 2.7 g/dL (1.3-4.6); Glucose 142 mg/dL (65-115); Osmolality Calculated 284 mOsm/kg (285-295); Potassium 3.2 mmol/L (3.5-5.1); Sodium 137 mmol/L (136-145); Total Bilirubin 0.5 mg/dL (0.15-1.2); Total Protein 5.1 g/dL (6.6-8.7)
[2021-03-29 06:35] LABS: Glucose Point of Care 136 mg/dL (70-110)
--- NOTE | 2021-03-29 07:00 | PC.NURSE ---
Discussed patient condition with Dr. Muller OBGYPollo. Dr. Muller asked this nurse to reserve a room in ER to examine patient. Dr. Muller asked nursing staff to consult with hospitalist and recommend blood transfusion as patient is actively bleeding. Hbg dropped to 7.2 at 0400 from 7.7 03/28/2021 am labs. Patient continues to have heavy bleeding. Family has been called and updated on patient status.
--- NOTE | 2021-03-29 09:15 | P.PN_ITS ---
Subjective Subjective: Interval history: 85 y/o female s/p TVH with anterior colporrhaphy with mid ruthral sling complicated by retal laceration 12 days ago. She was noted to have vaginal bleeding and possible stool pasing through vagina. Vitals/I&O/Wt Last Vital Signs Temp 98.5 F 03/29/21 04:00 Pulse 104 H 03/29/21 06:00 Resp 20 H 03/29/21 04:00 BP 147/82 03/29/21 04:00 Pulse Ox 93 03/29/21 04:00 03/28/21 03/29/21 03/29/21 22:59 06:59 14:59 Intake Total 400 / 690 250 / 940 Output Total 20 / 560 25 / 585 Balance 380 / 130 225 / 355 Weight last 48 hrs Weight 76.685 kg Weight 76.657 kg Physical Exam Narrative: EXAM NARRATIVE: GA: Alert and oriented ?3. HEENT: WNL. Heart: Regular rate and rhythm. Lungs: Clear to auscultation bilaterally. Abdomen: Bowel sounds present, nontender, minimal tenderness, incision clean and dry, no redness, pain or edema. COAL SCREENER: bleeding unable to see vaginal cuff. Extremities: No edema, no cyanosis, no calves pain. Urinary Catheter Management^: Klein: Cath Placed During This Visit: yes, but has since been removed by the nurse Reason for Continuing Indwelling Catheter: Acute Urinary Retention or Obstruction Urinary Catheter Date of Insertion: 03/27/21 Urinary Catheter Time of Insertion: 03:00 Date Urinary Catheter Removed: 03/28/21 Time Urinary Catheter Discontinued: 13:00 Data : 03/29/21 04:46 03/29/21 04:46 Micro: Microbiology 03/28/21 19:45 Blood Culture - Preliminary Blood SPECIMEN COLLECTED 03/28/21 19:45 Blood Culture - Preliminary Blood SPECIMEN COLLECTED A&P Additional A&P Information 85-year-old female status post TVH anterior colporrhaphy and mid urethral sling 12 days ago. She did then have a fall in her bathroom where she ruptured her spleen. And had surgery by general surgery had a splenectomy. She has been on anticoagulant. Now she is with with postop bleeding vaginally. Heparin has been stopped. Family was counseled regarding exploration vaginal incision and possible diverting colostomy if rectal repair have been undone due to the fall. Blood transfusion has been ordered. Patient is alert and oriented. Attestations Medical Necessity Statement*: In my professional opinion per admitting diagnosis Procedures Arterial Line Size (Gauge): 20 Coding Level of Care Code Acute Quality Assurance Monitor for Haylie Peck
--- NOTE | 2021-03-29 09:17 | P.PN_ITS ---
Subjective Subjective: Interval history: Doesn't feel well Medications: Reviewed: Yes Vitals/I&O/Wt Last Vital Signs Temp 98.5 F 03/29/21 04:00 Pulse 104 H 03/29/21 06:00 Resp 20 H 03/29/21 04:00 BP 147/82 03/29/21 04:00 Pulse Ox 93 03/29/21 04:00 03/28/21 03/29/21 03/29/21 22:59 06:59 14:59 Intake Total 400 / 690 250 / 940 Output Total 20 / 560 25 / 585 Balance 380 / 130 225 / 355 Weight last 48 hrs Weight 169 lb 1 oz Weight 169 lb Physical Exam Narrative: EXAM NARRATIVE: Patient is conscious alert yet lethargic BMI 31 Head and neck examination PERRLA no masses no cervical lymphadenopathy no jaundice Abdomen nontender except at the midline incision with skin nikko in place, moderate distended soft no organomegaly guarding or rigidity/no signs of perit onitis Sided drain shows sanguinous output Bleeding towards the vagina Urinary Catheter Management^: Klein: Cath Placed During This Visit: yes, but has since been removed by the nurse Reason for Continuing Indwelling Catheter: Acute Urinary Retention or Obstruction Urinary Catheter Date of Insertion: 03/27/21 Urinary Catheter Time of Insertion: 03:00 Date Urinary Catheter Removed: 03/28/21 Time Urinary Catheter Discontinued: 13:00 Data : 03/30/21 04:03 03/30/21 04:03 Micro: Microbiology 03/28/21 19:45 Blood Culture - Preliminary Blood SPECIMEN COLLECTED 03/28/21 19:45 Blood Culture - Preliminary Blood SPECIMEN COLLECTED A&P Assessment and plan (1) Post-op bleeding: Patient is pleasant 85 years old on Pradaxa for chronic anticoagulation due to history of pulmonary embolism and atrial fibrillation, On 03/16/2021Total vaginal hysterectomy with bilateral salpingo-oophorectomy Anterior colporrhaphy augmented with allograft with mid urethral sling. Apparently the patient did develop a trauma as she fell from standing and ended up by trauma to her spleen and required a laparotomy and splenectomy 03/23/2021. During the same hospitalization status post laparotomy and splenectomy, patient started to encounter vaginal bleeding there was a concern about potential feculent material as well. I was approached by my partner Dr. Barroso as he is out of town if I could be available to assist Dr. Muller in exploring the patient with potential need for colostomy. I did discuss with the patient and her son and his the potential intervention from my end in the form of exploratory laparotomy, possible bowel resection possible colostomy. With the potential requirement of critical care postoperatively and long-term mechanical ventilation, the son mention to me when I asked that his mom is in a DNR status and one of his brothers has the power of employee benefits attorney potential. Status: Acute Attestations Medical Necessity Statement*: Patient requiring inpatient hospitalization passing 2 midnights for medical and surgical care Time Spent in Patient Care: 16 - 35 minutes (>than 50% of time spent in counselling and/or direct pt care on unit) . Procedures Arterial Line Size (Gauge): 20 Coding Level of Care Code Acute Application Support Administrator for Chg Fwd Diagnoses Post-op bleeding
--- NOTE | 2021-03-29 09:22 | P.ANESASSM_ITS ---
Pre-Anesthetic Assessment Pre-Anesthetic Assessment: Height/Weight: Height 1.57 m Weight 76.685 kg Temp Pulse Resp BP Pulse Ox 98.5 F 104 H 20 H 147/82 93 03/29/21 04:00 03/29/21 06:00 03/29/21 04:00 03/29/21 04:00 03/29/21 04:00 Preop Diagnosis: Pelvic organ prolapse stage III Proposed Procedure: Operation Date: 03/23/21 15:20 Proposed Procedures p Exploratory Laparotomy(Not Applicable) - Franklin Barroso MD Operation Date: 03/29/21 09:00 Proposed Procedures p Total Vaginal Hysterectomy(Not Applicable) - Taye Muller MD Was Beta David taken within 24 hours: Yes Was Clonidine taken within 24 hours: N/A Social: Social History: No alcohol and No tobacco Exam: Pre-Anes Outpt Exam: alert, oriented x 3, clear to auscultation bilaterally and regular rate & rhythm (Holosystolic Murmur) Airway: Submandibular: WNL Cervical ROM: WNL MP: 2 Pulmonary: Pulmonary: BOB and Sleep apnea CV/HEM: CV/HEM: CHF and Murmur Comments: Pulmonary Embolism : : None reported Hepatic: Hepatic: None reported GI: GI: None reported Metabolic: Metabolic: Hyperlipidemia and None reported Musc/skel: Musc/skel: OA/DJD Neuropsych: Neuropsych: None reported Anesthetic Plan: ASA status: 4E Anesthesia: General Other: Lengthy discussion with family and pt regarding the probability of post op mechanical ventilation; they express understanding and consent to proceed. Meds/Allergies Current Medications: Current Medications Generic Name Dose Route Start Last Admin Trade Name Freq PRN Reason Stop Dose Admin Hydrocodone Bitart /Acetaminophen 1 tab 03/23/21 19:36 03/28/21 17:38 Hydrocodone-Acet aminophen 5-325 Mg Tablet PO 1 tab Q6H PRN Administration MODERATE PAIN Aspirin 81 mg 03/28/21 09:00 03/28/21 08:09 Aspirin 81 Mg Ec Tablet PO 81 mg DAILY JS Administration Atorvastatin Calci um 40 mg 03/27/21 21:00 03/28/21 20:23 Atorvastatin 40 Mg Tablet PO 40 mg BEDTIME JS Administration Diltiazem HCl 180 mg 03/24/21 08:00 03/28/21 08:09 Diltiazem Er (24 hr) 180 Mg Capsule PO 180 mg DAILY@0800 JS Administration Heparin Sodium (Be ef Lung) 5,000 unit 03/28/21 16:30 03/29/21 00:18 Heparin 5,000 Un it/Ml Inj 1 Ml SUBCUT 5,000 unit Q8H JS Administration Piperacillin Sod/T azobactam 50 mls @ 12.5 mls /hr 03/25/21 09:00 03/29/21 05:44 Sod 3.375 gm/ So dium Chloride IV Infused Q8H JS Infusion Protocol Iron Sucrose 200 m g/ Sodium 110 mls @ 220 mls /hr 03/28/21 20:00 03/28/21 21:49 Chloride IV Infused Q24H JS Infusion Insulin Aspart 0 unit 03/23/21 18:00 03/28/21 17:40 Insulin Aspart 1 00 Unit/1 Ml SUBCUT Not Given TIDWM [facility] Protocol Lactulose 10 gm 03/23/21 20:00 03/28/21 20:23 Lactulose Oral L iq 20 Gm/30 Ml Udc PO 10 gm Q12H JS Administration Metoprolol Tartrat e 50 mg 03/23/21 20:00 03/28/21 20:23 Metoprolol Tartr ate 50 Mg Tablet PO 50 mg BID@0800,1999 [facility] Administration Morphine Sulfate 3 mg 03/23/21 19:36 03/23/21 19:55 Morphine 4 Mg/Ml Sdv 1 Ml IVP 3 mg Q1H PRN Administration SEVERE PAIN Ondansetron HCl 4 mg 03/23/21 19:36 03/28/21 15:55 Ondansetron 2 Mg /Ml Sdv 2 Ml IVP 4 mg Q4H PRN Administration NAUSEA AND VOMITI NG Pantoprazole Sodiu m 40 mg 03/24/21 09:15 03/28/21 21:02 Pantoprazole 40 Mg Sdv IVP 40 mg Q12H JS Administration PFSH Anesthesia PFSH: Medical History (Updated 03/29/21 @ 09:19 by Joey Mcguire MD) Anemia Anticoagulant long-term use CVA (cerebral vascular accident) Diabetes DVT (deep venous thrombosis) Dyslipidemia GERD (gastroesophageal reflux disease) [place] [employer] [employer] (hard of hearing) HTN (hypertension) Hx pulmonary embolism Mitral regurgitation Mixed stress and urge urinary incontinence BASIL on CPAP POP-Q stage 3 cystocele Pulmonary HTN Second degree uterine prolapse Traumatic rupture of spleen Surgical History (Updated 03/28/21 @ 18:10 by Pipe Lopez MD) H/O dilation and curettage x2 H/O esophagogastroduodenoscopy (05/18/20) H/O: hysterectomy 03/16/2021: total vaginal hysterectomy with bilateral salpingo-oophorectomy, anterior colporrhaphy augmented with allograft with midurethral sling, small rectal laceration repair, performed by Dr. Muller at [facility] History of colonoscopy with polypectomy (05/18/20) Diverticulosis S/P cholecystectomy S/P knee surgery S/P splenectomy (03/23/21) Traumatic splenic rupture Status post tubal ligation Family History Brother CAD (coronary artery disease) Cancer Myocardial infarction Colon cancer Father Tuberculosis Son Diabetes Hyperlipidemia Denies family history of Ovarian cancer Clotting disorder Breast cancer Anesthesia complication Bleeding disorder Hypertension Uterine cancer Thyroid condition Stroke Social History Smoking and tobacco status: never smoked Alcohol intake: never Household members: family Marital status: / Current occupational status: retired Data Anesthesia CBC & Chem 7: 03/29/21 04:46 03/29/21 04:46 Other Labs: Laboratory Results - last 48 hr 03/23/21 03/27/21 03/27/21 15:30 11:03 16:10 WBC RBC Hgb Hct MCV MCH MCHC RDW Plt Count MPV Neut % (Auto) Lymph % (Auto) Sunflower % (Auto) Eos % (Auto) Baso % (Auto) Reticulocyte % (Auto) Neut # (Auto) Lymph # (Auto) Sunflower # (Auto) Eos # (Auto) Baso # (Auto) Nucleated RBC % (auto) Nucleated RBCs # APTT 32.1 Sodium Potassium Chloride Carbon Dioxide Anion Gap BUN Creatinine GFR Calculation Glucose POC Glucose 127 H Calculated Osmolality Calcium Iron TIBC % Saturation Unsat Iron Binding Total Bilirubin AST ALT Alkaline Phosphatase Total Protein Albumin Globulin Vitamin B12 Folate Procalcitonin TSH SARS-CoV-2 Ag (Rapid) Crossmatch See Detail 03/27/21 03/27/21 03/28/21 17:22 20:35 04:29 WBC RBC Hgb Hct MCV MCH MCHC RDW Plt Count MPV Neut % (Auto) Lymph % (Auto) Sunflower % (Auto) Eos % (Auto) Baso % (Auto) Reticulocyte % (Auto) Neut # (Auto) Lymph # (Auto) Sunflower # (Auto) Eos # (Auto) Baso # (Auto) Nucleated RBC % (auto) Nucleated RBCs # APTT Sodium 136 Potassium 3.8 Chloride 103 Carbon Dioxide 28 Anion Gap 8.8 BUN 7 L Creatinine 0.5 GFR Calculation Not Reportable Glucose 125 H POC Glucose 145 H 223 H Calculated Osmolality 281 L Calcium 8.8 Iron TIBC % Saturation Unsat Iron Binding Total Bilirubin 0.6 AST 24 ALT 9 Alkaline Phosphatase 67 Total Protein 5.2 L Albumin 2.5 L Globulin 2.7 Vitamin B12 Folate Procalcitonin TSH SARS-CoV-2 Ag (Rapid) Crossmatch 03/28/21 03/28/21 03/28/21 04:29 04:29 04:29 WBC 11.7 H RBC 2.41 L Hgb 7.7 L Hct 23.7 L MCV 98.3 MCH 32.0 MCHC 32.5 RDW 16.4 H Plt Count 302 MPV 9.7 Neut % (Auto) 74.1 Lymph % (Auto) 10.2 Sunflower % (Auto) 9.4 Eos % (Auto) 1.5 Baso % (Auto) 0.3 Reticulocyte % (Auto) Neut # (Auto) 8.63 H Lymph # (Auto) 1.2 Sunflower # (Auto) 1.1 H Eos # (Auto) 0.2 Baso # (Auto) 0.0 Nucleated RBC % (auto) 7.7 Nucleated RBCs # 0.9 APTT Sodium Potassium Chloride Carbon Dioxide Anion Gap BUN Creatinine GFR Calculation Glucose POC Glucose Calculated Osmolality Calcium Iron 21 L TIBC 120 % Saturation 17.5 L Unsat Iron Binding 99 L Total Bilirubin AST ALT Alkaline Phosphatase Total Protein Albumin Globulin Vitamin B12 Folate Procalcitonin 0.06 TSH 3.44 SARS-CoV-2 Ag (Rapid) Crossmatch 03/28/21 03/28/21 03/28/21 04:29 04:29 04:29 WBC RBC Hgb Hct MCV MCH MCHC RDW Plt Count MPV Neut % (Auto) Lymph % (Auto) Sunflower % (Auto) Eos % (Auto) Baso % (Auto) Reticulocyte % (Auto) 2.9 H Neut # (Auto) Lymph # (Auto) Sunflower # (Auto) Eos # (Auto) Baso # (Auto) Nucleated RBC % (auto) Nucleated RBCs # APTT Sodium Potassium Chloride Carbon Dioxide Anion Gap BUN Creatinine GFR Calculation Glucose POC Glucose Calculated Osmolality Calcium Iron TIBC % Saturation Unsat Iron Binding Total Bilirubin AST ALT Alkaline Phosphatase Total Protein Albumin Globulin Vitamin B12 469 Folate 9.7 Procalcitonin TSH SARS-CoV-2 Ag (Rapid) Crossmatch 03/28/21 03/28/21 03/28/21 06:08 11:39 17:36 WBC RBC Hgb Hct MCV MCH MCHC RDW Plt Count MPV Neut % (Auto) Lymph % (Auto) Sunflower % (Auto) Eos % (Auto) Baso % (Auto) Reticulocyte % (Auto) Neut # (Auto) Lymph # (Auto) Sunflower # (Auto) Eos # (Auto) Baso # (Auto) Nucleated RBC % (auto) Nucleated RBCs # APTT Sodium Potassium Chloride Carbon Dioxide Anion Gap BUN Creatinine GFR Calculation Glucose POC Glucose 184 H 107 139 H Calculated Osmolality Calcium Iron TIBC % Saturation Unsat Iron Binding Total Bilirubin AST ALT Alkaline Phosphatase Total Protein Albumin Globulin Vitamin B12 Folate Procalcitonin TSH SARS-CoV-2 Ag (Rapid) Crossmatch 03/28/21 03/28/21 03/29/21 18:18 20:47 04:46 WBC RBC Hgb Hct MCV MCH MCHC RDW Plt Count MPV Neut % (Auto) Lymph % (Auto) Sunflower % (Auto) Eos % (Auto) Baso % (Auto) Reticulocyte % (Auto) Neut # (Auto) Lymph # (Auto) Sunflower # (Auto) Eos # (Auto) Baso # (Auto) Nucleated RBC % (auto) Nucleated RBCs # APTT Sodium 137 Potassium 3.2 L Chloride 103 Carbon Dioxide 27 Anion Gap 10.2 BUN 6 L Creatinine 0.6 GFR Calculation Not Reportable Glucose 142 H POC Glucose 205 H Calculated Osmolality 284 L Calcium 8.6 Iron TIBC % Saturation Unsat Iron Binding Total Bilirubin 0.5 AST 16 ALT 9 Alkaline Phosphatase 71 Total Protein 5.1 L Albumin 2.4 L Globulin 2.7 Vitamin B12 Folate Procalcitonin TSH SARS-CoV-2 Ag (Rapid) Negative Crossmatch 03/29/21 03/29/21 04:46 06:22 WBC 12.5 H RBC 2.27 L Hgb 7.2 L Hct 22.5 L MCV 99.1 H MCH 31.7 MCHC 32.0 RDW 16.6 H Plt Count 338 MPV 9.8 Neut % (Auto) 76.7 Lymph % (Auto) 8.5 Sunflower % (Auto) 10.4 Eos % (Auto) 1.0 Baso % (Auto) 0.3 Reticulocyte % (Auto) Neut # (Auto) 9.55 H Lymph # (Auto) 1.1 Sunflower # (Auto) 1.3 H Eos # (Auto) 0.1 Baso # (Auto) 0.0 Nucleated RBC % (auto) 5.5 Nucleated RBCs # 0.7 APTT Sodium Potassium Chloride Carbon Dioxide Anion Gap BUN Creatinine GFR Calculation Glucose POC Glucose 136 H Calculated Osmolality Calcium Iron TIBC % Saturation Unsat Iron Binding Total Bilirubin AST ALT Alkaline Phosphatase Total Protein Albumin Globulin Vitamin B12 Folate Procalcitonin TSH SARS-CoV-2 Ag (Rapid) Crossmatch Micro: Microbiology 03/28/21 19:45 Blood Culture - Preliminary Blood SPECIMEN COLLECTED 03/28/21 19:45 Blood Culture - Preliminary Blood SPECIMEN COLLECTED Cardiac Studies: No Data to Display
[2021-03-29] MEDS: sodium chloride 0.9% 1,000 ML 30 ML IV (10:00)
--- NOTE | 2021-03-29 11:27 | P.PN_ITS ---
Subjective Subjective: Interval history: Patient seen in ICU. Overnight patient had vaginal bleeding and stool from vagina along with fever going up to 100 Fahrenheit. Patient underwent follow-up today with gynecology for rectal laceration repair and vaginal cuff closure. Patient tolerated procedure well. On examination the ICU patient was awake alert with heart rate running at 110 bpm blood pressures at arterial line 144 systolics, saturating 96% on 1 L of nasal cannula. Medications: Reviewed: Yes Vitals/I&O/Wt Last Vital Signs Temp 98.4 F 03/29/21 10:10 Pulse 101 H 03/29/21 10:10 Resp 16 03/29/21 10:10 BP 136/83 03/29/21 10:10 Pulse Ox 94 03/29/21 09:52 03/28/21 03/29/21 03/29/21 22:59 06:59 14:59 Intake Total 400 / 690 250 / 940 0 / 0 Output Total 20 / 560 25 / 585 Balance 380 / 130 225 / 355 0 / 0 Weight last 48 hrs Weight 76.685 kg Weight 76.657 kg Physical Exam Narrative: EXAM NARRATIVE: Family at bedside Const: COMMON NORMALS: no acute distress and alert GENERAL APPEARANCE: cooperative and frail appearing ORIENTATION/CONSCIOUSNESS: Yes awake and Yes confused OTHER: Generally weak. HENMT: COMMON NORMALS: oropharynx normal OTHER: NG with bilious contents. Neck/C-Spine: COMMON NORMALS: no meningeal signs and no JVD Resp: COMMON NORMALS: normal respiratory effort and clear to auscultation bilaterally AUSCULTATION: clear to auscultation bilaterally Cardio: COMMON NORMALS: no JVD, regular rhythm, S1 normal heart sound present, S2 normal heart sound present and No murmurs present (Cardio) RHYTHM: regular rhythm HEART SOUNDS: S1 normal heart sound present and S2 normal heart sound present GI: COMMON NORMALS: Normal to inspection, nondistended, normoactive bowel sounds present, Soft to palpation and non-tender PALPATION: Yes Soft to palpation OTHER: Midline incision clean. Drain to left of midline with serosanguineous contents. Extremity: COMMON NORMALS: no joint enlargement and no pedal edema Neuro: COMMON NORMALS: moves all extremities SENSORIUM/ORIENTATION: Yes alert MENINGEAL SIGNS: Yes no meningeal signs COORDINATION/BALANCE: other (Unable to perform) SPEECH: abnormal speech (Confused, but appears to have degree of aphasia) GAIT: Yes Unable to assess gait SENSORY EXAM: Yes other (Attempted to examine several times. Appears probably symmetrical) MOTOR EXAM: Other motor observations present (3+ upper, did not follow comm for LE, but moving feet) COORDINATION: other (Unable to perform) OTHER: Appears to be able to track me from left side to the right side of the bed, but counts fingers on the left, not on the right, though unreliably Skin: COMMON NORMALS: no rashes or lesions noted GENERAL SKIN EXAM: no rashes or lesions noted and dry skin Urinary Catheter Management^: Klein: Cath Placed During This Visit: yes, but has since been removed by the nurse Reason for Continuing Indwelling Catheter: Acute Urinary Retention or Obstruction Urinary Catheter Date of Insertion: 03/27/21 Urinary Catheter Time of Insertion: 03:00 Date Urinary Catheter Removed: 03/28/21 Time Urinary Catheter Discontinued: 13:00 Data : 03/29/21 13:00 03/29/21 14:15 Micro: Microbiology 03/28/21 19:45 Blood Culture - Preliminary Blood SPECIMEN COLLECTED 03/28/21 19:45 Blood Culture - Preliminary Blood SPECIMEN COLLECTED A&P Assessment and plan (1) CVA (cerebral vascular accident): Does have some right-sided neglect. Not confused at moment. Does not have any degree of aphasia today. CT of the head showed chronic periventricular ischemic changes. CTA obtained, without large vessel occlusion. Continue low-dose aspirin, statin, PPI. PT/OT/ST evaluation. Most likely will have to restart anticoagulation around 10 days post stroke to avoid hemorrhagic conversion. Patient will most likely need neurology follow-up as an outpatient. Status: Acute (2) Anemia: Postoperative status. Blood patient received 5 unit of blood transfusion during the admission. 4 units out of that O+ while 1 or negative. Will confirm with hematology regarding further transfusions. Hemoglobin 7.2 today. Patient received 2 units of blood transfusion during OR today. Repeat blood work. Hemoccult blood positive. Started on IV iron after iron panel. Will finish a 5-day course for 1 g IV iron overall and transition to oral iron supplementation after that. Vitamin B12 folate levels normal. Check reticulocyte counts. Continue PPIs. Status: Acute (3) Bacteremia: Anaerobic gram-negative yaakov one set positive. Most likely gut bacteria. Given the breakthrough fever overnight and abdominal OR today we will broad- spectrum the patient to vancomycin and imipenem for now. We will repeat blood cultures and de-escalate antibiotics according to clinical picture within next 48 hours. 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 Diet as per surgery team. Mobilize with PT/OT. Continue incentive spirometry. Will need immunizations prior to discharge. Status: Acute (5) Traumatic rupture of spleen: After a fall, generalized weakness, deconditioning, would benefit from rehabilitation after discharge. Status: Acute (6) Chronic anticoagulation: With Pradaxa for atrial fibrillation. For now hold off reinitiation of anticoagulation because of recent stroke. Status: Acute (7) Acute UTI: Status: Acute (8) Hypokalemia: Replaced. Status: Acute (9) Acute encephalopathy: Possibly secondary to multiple hospitalization, prolonged hospitalization, stroke Advance diet as tolerating and per ST after CVA Mobilize with PT/OT. Status: Acute (10) H/O: hysterectomy: Status: Acute (11) Post-op bleeding: Status: Acute Additional A&P Information Recent hysterectomy, bladder suspension surgery, minor colonic tear with repair: Postop day 0 for vaginal cuff repair in detail tear repair. We will follow recommendations from MANAGER MAINTENANCE surgical team. Monitor hemoglobin. DM2: Sliding scale insulin HTN: Goal blood pressure less than 140/90 mmHg with mean over 65. Increased dose of losartan. Continue home dose of Cardizem and metoprolol. Pulmonary hypertension: Oxygen support as needed keeping saturation over 90% BASIL: Nightly CPAP History of DVT, PE. Anticoagulation held. Atrial fibrillation: Bob blockers resumed. BP doing well. Anticoagulation on hold. History of CVA, Chronic anemia, on iron supplementation, GERD: PPI Hiatal hernia, Dark stools: On iron supplementation, but Hemoccult positive as well. Continue PPI. Has had recent unremarkable endoscopy. [place] DVT prophylaxis: SCD, cautious trial of subcu heparin Limited resuscitation. GI soft diet. Patient's care discussed in detail with family at bedside. For now keep patient in ICU overnight. If patient remains stable can plan to move back to the floor tomorrow. Attestations Medical Necessity Statement*: As per primary team notation Critical Care Time: Arterial blood pressures, postop care, anemia Critical Care Time (min): 80 Procedures Arterial Line Size (Gauge): 20 Coding Level of Care Code Acute Employment Agency Manager for Chg Fwd Diagnoses CVA (cerebral vascular accident) I63.9 Anemia D64.9 Bacteremia R78.81 S/P splenectomy Z90.81 Traumatic rupture of spleen S36.09XA Chronic anticoagulation Z79.01 Acute UTI N39.0 Hypokalemia E87.6 Acute encephalopathy G93.40 H/O: hysterectomy Z90.710 Post-op bleeding
[2021-03-29] MEDS: ceFAZolin 1,000 mg SDV 1000 MG IRRIGATION ×2 (11:45→12:30)
[2021-03-29 11:47] LABS: Procalcitonin 0.07 ng/mL (0-0.5)
--- NOTE | 2021-03-29 13:16 | PM.OP ---
Operative Report Date of procedure: March 29, 2021 Pre-op Diagnosis: Vaginal bleeding, Vaginal cuff dehiscence Post-op diagnosis: same Post-op Findings: Upon examination vaginal cuff dehiscence and rectal laceration dehiscence Procedure Done: Rectal laceration repair in layers, Vaginal cuff closure Specimens removed/disposition: None Pathology: none sent Surgeon: Taye Muller MD Anesthesia: General Estimated blood loss (mL): 100 IV fluids (mL): 100 Findings: Mrs. Rodney 85-year-old female status post vaginal hysterectomy and mid urethral sling 12 days ago. Had a fall in her bathroom and seen in the emergency room and noted to have ruptured her spleen. 2 days after splenectomy vaginal bleeding was noted. Condition: stable Disposition: ICU Procedure: After informed consent, the patient was taken to the operating room where general anesthesia was administered. She was placed in the dorsal lithotomy position and prepped and draped in sterile fashion. Pre-Procedure Time-Out verifying the correct patient identity, correct procedure verified with consent, correct site and side, correct patient position, availability of correct implants and any special equipment or requirements was performed and acknowledge by the OR team. A [place] self-retaining vaginal retractor was placed in the vaginal. Blood in the vaul noticed. The vagina was copiously irrigated and suctioned. On examination dehiscence of the vaginal cuff was noted with sutures line ripped apart with blood present in retroperineal space with small amont of soft liquified stool. Digital rectal exam also showed dehiscence of the small rectal laceration. The area was copiously irrigated with antibiotic solution. A small 1 cm defect in the rectum was repaired in layers with 3-0 Vicryl in usual manner. The area was copiously irrigated again. The vaginal cuff was reapproximated with 2-0 Vicryl. A ERIC drain was left in place. The patient tolerated the procedure well without any complications. Then a sigmoidoscopy was performed by general surgery Dr. Mcguire . Repair was visualized. No further bleeding noted. Sponge, lap, needle, and instrument counts were correct times three. The patient was taken to the recovery room, awake and in stable condition.
[2021-03-29 13:28] LABS: Hematocrit 27.4 % (37.0-47.0); Hemoglobin 9.1 g/dL (11.5-15.3); Mean Corpuscular HGB Conc 33.2 g/dL (30.0-36.0); Mean Corpuscular Hemoglobin 31.5 pg (28.0-34.0); Mean Corpuscular Volume 94.8 fL (81-99); Mean Platelet Volume 9.7 fL (7.4-10.4); Platelet Count 264 10^3/cmm (130-400); Red Blood Count 2.89 10^6/uL (4.1-5.3); Red Cell Distribution Width 15.5 % (12.1-15.1); White Blood Count 11.7 10^3/uL (4.0-10.0)
--- NOTE | 2021-03-29 13:40 | PC.OT ---
OT attempted. Pt is out of room for surgery and will be going to ICU afterward. Hold OT tx for today and OTR to assess pt status for resumed services tomorrow.
[2021-03-29 13:48] LABS: Anion Gap 10.3 (5-19); Blood Urea Nitrogen 6 mg/dL (8-23); Calcium 8.2 mg/dL (8.5-10.5); Carbon Dioxide 25 mmol/L (22-29); Chloride 106 mmol/L (98-107); Glucose 160 mg/dL (65-115); Osmolality Calculated 287 mOsm/kg (285-295); Potassium 3.3 mmol/L (3.5-5.1); Sodium 138 mmol/L (136-145)
[2021-03-29] MEDS: vancomycin 1,000 MG in sodium chloride 0.9% 250 ML 250 MG IV (14:09)
[2021-03-29] MEDS: dextrose 5%-lactated ringers 1,000 ML 125 ML IV ×2 (14:10→22:03)
[2021-03-29 14:28] LABS: Glucose Point of Care 148 mg/dL (70-110)
[2021-03-29] MEDS: ketorolac 30 mg/mL INJ IVP ×2 (14:28→20:32)
[2021-03-29] MEDS: dilTIAZem ER (24HR) 180 mg Capsule PO (14:38)
[2021-03-29] MEDS: metoprolol tartrate 50 mg Tablet PO (14:38)
[2021-03-29] MEDS: losartan 50 mg Tablet PO (14:38)
--- NOTE | 2021-03-29 14:54 | ANE.PACU2 ---
Inpatient post-anesthesia follow up: Airway intact: Yes Vital signs: Temperature 98.1 F Pulse Rate [Monito r] 74 Pulse Rate 92 Respiratory Rate 13 Blood Pressure [Ri ght Arm] 115/70 Blood Pressure 113/80 Pulse Oximetry 100 Oxygen Delivery Me thod Room Air Oxygen Flow Rate 2 Fraction of Inspir ed Oxygen 21 Hydration adequate: Yes Nausea and vomiting: No Pain level: 4 Mental status: Baseline
[2021-03-29 14:56] LABS: Alanine Aminotransferase 7 U/L (0-33); Albumin Level 2.7 g/dL (3.5-5.2); Alkaline Phosphatase 56 IU/L (35-105); Anion Gap 10.7 (5-19); Aspartate Amino Transferase 13 U/L (0-32); Blood Urea Nitrogen 6 mg/dL (8-23); Calcium 8.4 mg/dL (8.5-10.5); Carbon Dioxide 26 mmol/L (22-29); Chloride 107 mmol/L (98-107); Globulin 2.3 g/dL (1.3-4.6); Glucose 151 mg/dL (65-115); Osmolality Calculated 291 mOsm/kg (285-295); Potassium 3.7 mmol/L (3.5-5.1); Sodium 140 mmol/L (136-145); Total Bilirubin 0.7 mg/dL (0.15-1.2)
[2021-03-29] MEDS: potassium chloride premix 100 ML 25 MEQ IV (15:24)
--- NOTE | 2021-03-29 15:25 | PM.PN ---
Vitals/I&O/Wt Last Vital Signs Temp 98.1 F 03/29/21 13:45 Pulse 108 H 03/29/21 14:45 Resp 18 03/29/21 14:45 BP 113/80 03/29/21 14:45 Pulse Ox 94 03/29/21 14:45 03/29/21 03/29/21 03/29/21 06:59 14:59 22:59 Intake Total 250 / 940 450 / 450 Output Total 25 / 585 Balance 225 / 355 450 / 450 Weight last 48 hrs Weight 169 lb 1 oz Weight 169 lb Physical Exam Narrative: EXAM NARRATIVE: Patient is a bit drowsy but arousable Abdomen: Soft, nontender, nondistended, incision clean dry and intact, ERIC drain output is serosanguineous Klein catheter in place Urinary Catheter Management^: Klein: Cath Placed During This Visit: yes, but has since been removed by the nurse Reason for Continuing Indwelling Catheter: Acute Urinary Retention or Obstruction Urinary Catheter Date of Insertion: 03/29/21 Urinary Catheter Time of Insertion: 11:05 Date Urinary Catheter Removed: 03/28/21 Time Urinary Catheter Discontinued: 13:00 Data : 03/30/21 04:03 03/30/21 04:03 Micro: Microbiology 03/28/21 18:18 MRSA Culture - Final Nose 03/29/21 14:17 Blood Culture - Preliminary Blood SPECIMEN COLLECTED 03/29/21 14:15 Blood Culture - Preliminary Blood SPECIMEN COLLECTED 03/25/21 09:28 Blood Culture - Preliminary Blood Bacteroides fragilis 03/28/21 19:45 Blood Culture - Preliminary Blood SPECIMEN COLLECTED 03/28/21 19:45 Blood Culture - Preliminary Blood SPECIMEN COLLECTED A&P Assessment and plan (1) S/P splenectomy: 85-year-old female with traumatic splenic flexure status post colectomy, doing well There was concerns about drainage of stool from the rectum and therefore Dr. Brooke had examined the patient this morning and subsequently decided to take her to surgery for exploration. She underwent vaginal cuff closure and repair of rectal laceration Anemia: Hemoglobin stable at 9 WBC is down, patient had UTI and positive blood cultures, final results pending Hypokalemia 3.8, resolved Leave Klein and central line in place Aware that blood cultures about decision regarding PICC line placement. Restart Pradaxa once PICC line is placed Protonix for GI prophylaxis Continue home medications Insulin sliding scale Morphine, [place] for pain control Lactulose 15 cc p.o. twice daily for bowel regimen Patient will need greater than 2 nights of inpatient stay to ensure that she does not develop any postop complications. She will also need H. influenzae/pneumococcal/meningococcal vaccination prior to discharge Status: Acute Attestations Medical Necessity Statement*: Status post laparoscopic splenectomy and subsequent repair of rectal vault dehiscence Procedures Arterial Line Size (Gauge): 20 Coding Level of Care Code Acute Admissions Consultant for Chg Fwd Diagnoses S/P splenectomy Z90.81
[2021-03-29 15:44] LABS: Absolute Segmented Neutrophil 10.5 10/cmm (1.6-7.1); Corrected White Blood Count 11.1 10^3/cmm (4.8-10.8); Lymphocytes 5 %; Lymphocytes Absolute 0.7 10^3/cmm (1.2-3.4); Monocytes Absolute 0.2 10^3/cmm (0.1-0.6); Segmented Neutrophils 90 %; Total Cells Counted 100 (0-100)
[2021-03-29 15:45] LABS: Absolute Neutrophil 10.5 10^3/cmm (1.4-6.5); Eosinophils 0 %; Platelet Estimate Normal (Normal)
[2021-03-29] MEDS: docusate sodium 100 mg Capsule PO (17:19)
[2021-03-29 17:29] LABS: Glucose Point of Care 178 mg/dL (70-110)
[2021-03-29] MEDS: lactulose oral liq 20 gm/30 mL UDC 10 GM PO (20:49)
[2021-03-29] MEDS: pantoprazole 40 mg SDV IVP (20:50)
[2021-03-29] MEDS: iron sucrose 200 MG in sodium chloride 0.9% (100 ml) 100 ML 220 MG IV (21:42)
[2021-03-30] VITALS (35 sets, daily range): BP systolic 127–168; BP diastolic 50–103; PULSE 48–93; RESP 14–24; TEMP 36.6–37.1; O2SAT 73–97
[2021-03-30] MEDS: ketorolac 30 mg/mL INJ IVP (00:48)
[2021-03-30 04:58] LABS: Basophils % 0.3 %; Hematocrit 26.9 % (37.0-47.0); Hemoglobin 8.8 g/dL (11.5-15.3); Lymphocytes # 0.7 10^3/uL (0.8-4.8); Lymphocytes % 5.1 %; Mean Corpuscular HGB Conc 32.7 g/dL (30.0-36.0); Mean Corpuscular Hemoglobin 31.7 pg (28.0-34.0); Mean Corpuscular Volume 96.8 fL (81-99); Monocytes # 0.6 10^3/uL (0.2-0.9); Monocytes % 4.3 %; Neutrophils # 12.73 10^3/uL (1.8-7.7); Neutrophils % 87.9 %; Nucleated Red Blood Cells # 0.4 /100WBC; Platelet Count 314 10^3/cmm (130-400); Red Blood Count 2.78 10^6/uL (4.1-5.3); Red Cell Distribution Width 16.8 % (12.1-15.1); White Blood Count 14.5 10^3/uL (4.0-10.0)
[2021-03-30 05:11] LABS: Alanine Aminotransferase 6 U/L (0-33); Albumin Level 2.4 g/dL (3.5-5.2); Alkaline Phosphatase 62 IU/L (35-105); Anion Gap 9.8 (5-19); Aspartate Amino Transferase 12 U/L (0-32); Blood Urea Nitrogen 7 mg/dL (8-23); Calcium 9.1 mg/dL (8.5-10.5); Carbon Dioxide 26 mmol/L (22-29); Chloride 104 mmol/L (98-107); Globulin 2.4 g/dL (1.3-4.6); Glucose 249 mg/dL (65-115); Osmolality Calculated 288 mOsm/kg (285-295); Potassium 3.8 mmol/L (3.5-5.1); Sodium 136 mmol/L (136-145); Total Bilirubin 0.5 mg/dL (0.15-1.2); Total Protein 4.8 g/dL (6.6-8.7)
--- NOTE | 2021-03-30 06:10 | PC.NURSE ---
uneventful night, no s/s of distress, no complaints throughout night, supine 45 degrees call light within reach
[2021-03-30 07:44] LABS: Glucose Point of Care 257 mg/dL (70-110)
--- NOTE | 2021-03-30 08:10 | PC.NURSE ---
Pt cleaned from stool. Loose, brown and had congealed blood. Does not look like active bleeding. Appears to be from surgical procedure. Will continue to monitor
[2021-03-30] MEDS: aspirin 81 mg EC Tablet PO (08:16)
[2021-03-30] MEDS: docusate sodium 100 mg Capsule PO ×2 (08:16→17:28)
[2021-03-30] MEDS: losartan 50 mg Tablet PO (08:17)
[2021-03-30] MEDS: dilTIAZem ER (24HR) 180 mg Capsule PO (08:17)
[2021-03-30] MEDS: potassium chloride ER 10 mEq Tablet PO (08:17)
[2021-03-30] MEDS: ferrous sulfate EC 325 mg Tablet PO ×2 (08:19→20:42)
--- NOTE | 2021-03-30 10:37 | PC.CHAP ---
Pastoral Care Encounter/Spiritual Assessment Type of Contact [] Declined beef killer visit [] Patient/Family/Request visit [] Outpatient visit [] Follow-up visit [] Physician referral [] Code/Alert [x] Routine visit [] Staff referral [] Actively dying [] Patient sleeping [x] Family support [] [] Out of room [] Palliative care [] [] Receiving care in room [] Pre-surgical visit [] Trauma [] Long length of stay [x] ICU visit [] Other: Relational/Emotional Strength [] Patient feels connected with others/family/visitors/staff [] Distress [] Loneliness/isolation [] Abandonment Spirituality of Patient [] Person of Desire [] Attends Sikhism of their Desire [] Believes in Prayer [] Reads Bible or Buddhist materials [] There are Spiritual issues to be addressed Forensic Analyst Interventions [x] Prayer [x] Active listening [x] Non-anxious presence [x] Spiritual/emotional support [] Crisis/trauma care [] Spiritual counseling [] Bereavement support [] Provided bereavement packet [] Provided Bible/devotional materials [] Provided toy/stuffed animal, coloring book to patient or family member [] Provided Communion [] Anointing/[place] [] Salvation [x] Completed spiritual assessment [] Other: Impact on Illness or Injury [] Angry [] Fearful [] Anxious [] Often cries [] Exhaustion [] Unable to work [] Unable to attend anabaptism [] Unable to walk/stand [] Unable to read [] Unable to drive [] Unable to eat/drink [] Unable to sleep [] Unable to be with family [] Patient intubated [] Other: Summary family present... feeling stronger.... Time spent with patient 10 min
[2021-03-30] MEDS: dilTIAZem 60 mg Tablet PO ×2 (11:18→15:37)
[2021-03-30] MEDS: lactated ringers 1,000 ML 75 ML IV (11:18)
[2021-03-30 12:11] LABS: Glucose Point of Care 188 mg/dL (70-110)
[2021-03-30] MEDS: pantoprazole 40 mg SDV IVP ×2 (12:39→20:43)
--- NOTE | 2021-03-30 15:01 | PC.NURSE ---
charted on wrong pt
[2021-03-30] MEDS: vancomycin 1,000 MG in sodium chloride 0.9% 250 ML 250 MG IV (15:33)
--- NOTE | 2021-03-30 16:16 | PM.PN ---
Subjective Subjective: Interval history: Patient is more awake and alert, tolerating full liquid diet, denies any nausea or vomiting, pain is manageable Vitals/I&O/Wt Last Vital Signs Temp 97.8 F 03/30/21 11:00 Pulse 69 03/30/21 14:00 Resp 18 03/30/21 13:00 BP 156/93 03/30/21 13:00 Pulse Ox 96 03/30/21 13:00 03/30/21 03/30/21 03/30/21 06:59 14:59 22:59 Intake Total 100 / 2000 470 / 470 Output Total 250 / 595 260 / 260 Balance -150 / 1405 210 / 210 Weight last 48 hrs Weight 171 lb Weight 169 lb 1 oz Physical Exam Narrative: EXAM NARRATIVE: Abdomen: Soft, nondistended, incision clean dry and intact, ERIC drain output is serosanguineous Klein catheter and ERIC drain in the vaginal vault Urinary Catheter Management^: Klein: Cath Placed During This Visit: yes, but has since been removed by the nurse Reason for Continuing Indwelling Catheter: Accurate Measurement of Urinary Output in Critically Ill Patients Urinary Catheter Date of Insertion: 03/29/21 Urinary Catheter Time of Insertion: 11:05 Date Urinary Catheter Removed: 03/28/21 Time Urinary Catheter Discontinued: 13:00 Data : 03/30/21 04:03 03/30/21 04:03 Micro: Microbiology 03/29/21 14:17 Blood Culture - Preliminary Blood NEGATIVE TO DATE 03/29/21 14:15 Blood Culture - Preliminary Blood NEGATIVE TO DATE 03/25/21 09:36 Blood Culture - Final Blood NO GROWTH AFTER 5 DAYS 03/28/21 19:45 Blood Culture - Preliminary Blood NEGATIVE TO DATE 03/28/21 19:45 Blood Culture - Preliminary Blood NEGATIVE TO DATE 03/28/21 18:18 MRSA Culture - Final Nose 03/25/21 09:28 Blood Culture - Preliminary Blood Bacteroides fragilis A&P Assessment and plan (1) S/P splenectomy: 85-year-old female with traumatic splenic rupture and splenectomy Status post vaginal exam and anesthesia with repair of rectal laceration and dehisced rectal vault Anemia: Hemoglobin stable at 8.8 WBC is 14.5, patient had UTI and positive blood cultures, final results pending, currently on vancomycin and imipenem Hypokalemia 3.8, resolved Leave Klein and central line in place Awaiting blood cultures results regarding decision for PICC line placement. Restart Pradaxa once PICC line is placed Protonix for GI prophylaxis Continue home medications Insulin sliding scale Morphine, Comfort for pain control Lactulose 15 cc p.o. twice daily for bowel regimen Patient will need greater than 2 nights of inpatient stay to ensure that she does not develop any postop complications. She will also need H. influenzae/pneumococcal/meningococcal vaccination prior to discharge Status: Acute Attestations Medical Necessity Statement*: Status post splenectomy and repair of rectal laceration requiring continued inpatient stay Procedures Arterial Line Size (Gauge): 20 Coding Level of Care Code Acute Practice Assistant for Chg Fwd Diagnoses S/P splenectomy Z90.81
--- NOTE | 2021-03-30 17:11 | PM.PN ---
Subjective Subjective: Interval history: No acute events overnight. Patient is a lot more awake and alert today morning. Having complete conversation and jovial mood with family around. Tolerating clear liquid diet well. Yesterday postoperatively had few episodes of bradycardia with heart rate going down to 30s though has remained stable overnight. Patient had a good bowel movement early in the morning mixed with old blood as per the nurse. Medications: Reviewed: Yes Vitals/I&O/Wt Last Vital Signs Temp 97.8 F 03/30/21 11:00 Pulse 60 03/30/21 17:00 Resp 17 03/30/21 17:00 BP 146/66 03/30/21 17:00 Pulse Ox 97 03/30/21 17:00 03/30/21 03/30/21 03/30/21 06:59 14:59 22:59 Intake Total 100 / 2000 470 / 470 360 / 830 Output Total 250 / 595 260 / 260 Balance -150 / 1405 210 / 210 360 / 570 Weight last 48 hrs Weight 77.564 kg Weight 76.685 kg Physical Exam Narrative: EXAM NARRATIVE: Family at bedside Const: COMMON NORMALS: no acute distress and alert GENERAL APPEARANCE: cooperative and frail appearing ORIENTATION/CONSCIOUSNESS: Yes awake and Yes confused OTHER: Generally weak. HENMT: COMMON NORMALS: oropharynx normal OTHER: NG with bilious contents. Neck/C-Spine: COMMON NORMALS: no meningeal signs and no JVD Resp: COMMON NORMALS: normal respiratory effort and clear to auscultation bilaterally AUSCULTATION: clear to auscultation bilaterally Cardio: COMMON NORMALS: no JVD, regular rhythm, S1 normal heart sound present, S2 normal heart sound present and No murmurs present (Cardio) RHYTHM: regular rhythm HEART SOUNDS: S1 normal heart sound present and S2 normal heart sound present GI: COMMON NORMALS: Normal to inspection, nondistended, normoactive bowel sounds present, Soft to palpation and non-tender PALPATION: Yes Soft to palpation OTHER: Midline incision clean. Drain to left of midline with serosanguineous contents. Extremity: COMMON NORMALS: no joint enlargement and no pedal edema Neuro: COMMON NORMALS: moves all extremities SENSORIUM/ORIENTATION: Yes alert MENINGEAL SIGNS: Yes no meningeal signs COORDINATION/BALANCE: other (Unable to perform) SPEECH: abnormal speech (Confused, but appears to have degree of aphasia) GAIT: Yes Unable to assess gait SENSORY EXAM: Yes other (Attempted to examine several times. Appears probably symmetrical) MOTOR EXAM: Other motor observations present (3+ upper, did not follow comm for LE, but moving feet) COORDINATION: other (Unable to perform) OTHER: Appears to be able to track me from left side to the right side of the bed, but counts fingers on the left, not on the right, though unreliably Skin: COMMON NORMALS: no rashes or lesions noted GENERAL SKIN EXAM: no rashes or lesions noted and dry skin Urinary Catheter Management^: Klein: Cath Placed During This Visit: yes, but has since been removed by the nurse Reason for Continuing Indwelling Catheter: Accurate Measurement of Urinary Output in Critically Ill Patients Urinary Catheter Date of Insertion: 03/29/21 Urinary Catheter Time of Insertion: 11:05 Date Urinary Catheter Removed: 03/28/21 Time Urinary Catheter Discontinued: 13:00 Data : 03/30/21 04:03 03/30/21 04:03 Micro: Microbiology 03/29/21 14:17 Blood Culture - Preliminary Blood NEGATIVE TO DATE 03/29/21 14:15 Blood Culture - Preliminary Blood NEGATIVE TO DATE 03/25/21 09:36 Blood Culture - Final Blood NO GROWTH AFTER 5 DAYS 03/28/21 19:45 Blood Culture - Preliminary Blood NEGATIVE TO DATE 03/28/21 19:45 Blood Culture - Preliminary Blood NEGATIVE TO DATE 03/28/21 18:18 MRSA Culture - Final Nose 03/25/21 09:28 Blood Culture - Preliminary Blood Bacteroides fragilis A&P Assessment and plan (1) CVA (cerebral vascular accident): Does have some right-sided neglect. Not confused at moment. Does not have any degree of aphasia today. CT of the head showed chronic periventricular ischemic changes. CTA obtained, without large vessel occlusion. Continue low-dose aspirin, statin, PPI. PT/OT/ST evaluation. Most likely will have to restart anticoagulation around 10 days post stroke to avoid hemorrhagic conversion. Can start anticoagulation on if remains stable from surgical point of view. Patient will most likely need neurology follow-up as an outpatient. Status: Acute (2) Anemia: Postoperative status. Blood patient received 5 unit of blood transfusion during the admission. 4 units out of that O+ while 1 or negative. Will confirm with hematology regarding further transfusions. Hemoglobin stable. 8.8 today. Reticulocyte count appropriate. Started on IV iron after iron panel. Will finish a 5-day course for 1 g IV iron overall and transition to oral iron supplementation after that. Continue with PPIs. Status: Acute (3) Bacteremia: Blood cultures growing Bacteroides fragilis. Cannot rule out multimicrobial contamination. For now continue with vancomycin and imipenem. If patient remains afebrile for next 24 hours will de-escalate antibiotics to Zosyn tomorrow. Blood cultures repeated have remained negative preliminary. If they continue to remain negative most likely patient can be discharged with PICC line and Zosyn to finish a course of antibiotics for 14 days since last positive blood culture. 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 Diet as per surgery team. Mobilize with PT/OT. Continue incentive spirometry. Will need immunizations prior to discharge. Status: Acute (5) Traumatic rupture of spleen: After a fall, generalized weakness, deconditioning, would benefit from rehabilitation after discharge. Status: Acute (6) Chronic anticoagulation: With Pradaxa for atrial fibrillation. For now hold off reinitiation of anticoagulation because of recent stroke. Status: Acute (7) Acute UTI: Status: Acute (8) Hypokalemia: Replaced. Status: Acute (9) Acute encephalopathy: Possibly secondary to multiple hospitalization, prolonged hospitalization, stroke Advance diet as tolerating and per ST after CVA Mobilize with PT/OT. Status: Acute (10) H/O: hysterectomy: Status: Acute (11) Post-op bleeding: Status: Acute Additional A&P Information Recent hysterectomy, bladder suspension surgery, minor colonic tear with repair: Postop day 0 for vaginal cuff repair in detail tear repair. We will follow recommendations from FILTER TANK TENDER HELPER HEAD surgical team. Monitor hemoglobin. DM2: Sliding scale insulin HTN: Goal blood pressure less than 140/90 mmHg with mean over 65. Increased dose of losartan. Continue home dose of Cardizem and metoprolol. Pulmonary hypertension: Oxygen support as needed keeping saturation over 90% BASIL: Nightly CPAP History of DVT, PE. Anticoagulation held. Atrial fibrillation: Bob blockers resumed. BP doing well. Anticoagulation on hold. History of CVA, Chronic anemia, on iron supplementation, GERD: PPI Hiatal hernia, Dark stools: On iron supplementation, but Hemoccult positive as well. Continue PPI. Has had recent unremarkable endoscopy. [place] DVT prophylaxis: SCD, cautious trial of subcu heparin Limited resuscitation. GI soft diet. Patient's care discussed in detail with family at bedside. Can plan to transfer patient onto the floors from ICU if okay with surgical team. Attestations Medical Necessity Statement*: As per primary team. Time Spent in Patient Care: Greater than 35 minutes (>than 50% of time spent in counselling and/or direct pt care on unit). Procedures Arterial Line Size (Gauge): 20 Coding Level of Care Code Acute Lithographic Retoucher Apprentice for Chg Fwd Diagnoses CVA (cerebral vascular accident) I63.9 Anemia D64.9 Bacteremia R78.81 S/P splenectomy Z90.81 Traumatic rupture of spleen S36.09XA Chronic anticoagulation Z79.01 Acute UTI N39.0 Hypokalemia E87.6 Acute encephalopathy G93.40 H/O: hysterectomy Z90.710 Post-op bleeding
[2021-03-30 17:15] LABS: Glucose Point of Care 142 mg/dL (70-110)
--- NOTE | 2021-03-30 17:27 | PC.SOCIAL ---
*imm update* Gave patient's son verbal imm update via phone. Verbalized understanding. Initialed, dated, timed and placed in chart
--- NOTE | 2021-03-30 17:55 | PM.PN ---
Subjective Subjective: Interval history: Mrs. Rodney 85-year-old female status post vaginal cuff dehiscence repair postoperative day 1. Vitals/I&O/Wt Last Vital Signs Temp 97.8 F 03/30/21 11:00 Pulse 60 03/30/21 17:00 Resp 17 03/30/21 17:00 BP 146/66 03/30/21 17:00 Pulse Ox 97 03/30/21 17:00 03/30/21 03/30/21 03/30/21 06:59 14:59 22:59 Intake Total 100 / 2000 470 / 470 360 / 830 Output Total 250 / 595 260 / 260 Balance -150 / 1405 210 / 210 360 / 570 Weight last 48 hrs Weight 77.564 kg Weight 76.685 kg Physical Exam Narrative: EXAM NARRATIVE: GA: Alert and oriented ?3. HEENT: WNL. Heart: Regular rate and rhythm. Lungs: Clear to auscultation bilaterally. Abdomen: Bowel sounds present, nontender, minimal tenderness, incision clean and dry, no redness, pain or edema. 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 ERIC drain in place. Extremities: No edema, no cyanosis, no calves pain. Urinary Catheter Management^: Klein: Cath Placed During This Visit: yes, but has since been removed by the nurse Reason for Continuing Indwelling Catheter: Accurate Measurement of Urinary Output in Critically Ill Patients Urinary Catheter Date of Insertion: 03/29/21 Urinary Catheter Time of Insertion: 11:05 Date Urinary Catheter Removed: 03/28/21 Time Urinary Catheter Discontinued: 13:00 Data : 03/30/21 04:03 03/30/21 04:03 Micro: Microbiology 03/29/21 14:17 Blood Culture - Preliminary Blood NEGATIVE TO DATE 03/29/21 14:15 Blood Culture - Preliminary Blood NEGATIVE TO DATE 03/25/21 09:36 Blood Culture - Final Blood NO GROWTH AFTER 5 DAYS 03/28/21 19:45 Blood Culture - Preliminary Blood NEGATIVE TO DATE 03/28/21 19:45 Blood Culture - Preliminary Blood NEGATIVE TO DATE 03/28/21 18:18 MRSA Culture - Final Nose 03/25/21 09:28 Blood Culture - Preliminary Blood Bacteroides fragilis A&P Assessment and plan (1) Status post repair of dehiscence of vaginal cuff: Mrs. Rodney is status post vaginal cuff dehiscence and small rectal laceration repair postoperative day 1. She is afebrile and hemodynamically stable. Tolerating liquid diet. Vaginal ERIC drainage which small serosanguineous discharge. We will continue observation recommend she continue on full liquid diet. Status: Acute Attestations Medical Necessity Statement*: In my professional opinion per admitting diagnosis. Procedures Arterial Line Size (Gauge): 20 Coding Level of Care Code Acute Transmitter Engineer In Charge for g Fwd Diagnoses Status post repair of dehiscence of vaginal cuff Z98.890
[2021-03-30] MEDS: lactulose oral liq 20 gm/30 mL UDC 10 GM PO (20:42)
[2021-03-30] MEDS: atorvastatin 40 mg Tablet PO (20:42)
[2021-03-30 21:13] LABS: Glucose Point of Care 165 mg/dL (70-110)
[2021-03-30] MEDS: iron sucrose 200 MG in sodium chloride 0.9% (100 ml) 100 ML 220 MG IV (21:23)
[2021-03-31] VITALS (12 sets, daily range): BP systolic 147–171; BP diastolic 75–98; PULSE 67–96; RESP 14–20; TEMP 36.4–37.2; O2SAT 92–98
[2021-03-31 01:27] LABS: Glucose Point of Care 102 mg/dL (70-110)
[2021-03-31] MEDS: lactated ringers 1,000 ML 75 ML IV ×2 (01:31→14:25)
[2021-03-31 06:32] LABS: Glucose Point of Care 126 mg/dL (70-110)
[2021-03-31 06:55] LABS: Alanine Aminotransferase 6 U/L (0-33); Albumin Level 2.4 g/dL (3.5-5.2); Alkaline Phosphatase 69 IU/L (35-105); Anion Gap 9.4 (5-19); Aspartate Amino Transferase 13 U/L (0-32); Blood Urea Nitrogen 6 mg/dL (8-23); Calcium 9.4 mg/dL (8.5-10.5); Carbon Dioxide 26 mmol/L (22-29); Chloride 103 mmol/L (98-107); Globulin 2.2 g/dL (1.3-4.6); Glucose 95 mg/dL (65-115); Osmolality Calculated 277 mOsm/kg (285-295); Potassium 3.4 mmol/L (3.5-5.1); Sodium 135 mmol/L (136-145); Total Bilirubin 0.3 mg/dL (0.15-1.2); Total Protein 4.6 g/dL (6.6-8.7)
[2021-03-31 07:09] LABS: Basophils % 0.2 %; Eosinophils # 0.2 10^3/uL (0.0-0.8); Eosinophils % 1.1 %; Hematocrit 27.5 % (37.0-47.0); Hemoglobin 8.9 g/dL (11.5-15.3); Lymphocytes % 6.7 %; Mean Corpuscular HGB Conc 32.4 g/dL (30.0-36.0); Mean Corpuscular Hemoglobin 31.7 pg (28.0-34.0); Mean Corpuscular Volume 97.9 fL (81-99); Mean Platelet Volume 9.8 fL (7.4-10.4); Monocytes # 1.1 10^3/uL (0.2-0.9); Monocytes % 7.9 %; Neutrophils # 11.67 10^3/uL (1.8-7.7); Nucleated Red Blood Cells # 0.6 /100WBC; Nucleated Red Blood Cells % 3.8 %; Platelet Count 355 10^3/cmm (130-400); Red Blood Count 2.81 10^6/uL (4.1-5.3); Red Cell Distribution Width 17.1 % (12.1-15.1); White Blood Count 14.4 10^3/uL (4.0-10.0)
[2021-03-31] MEDS: ferrous sulfate EC 325 mg Tablet PO ×2 (09:26→21:21)
[2021-03-31] MEDS: docusate sodium 100 mg Capsule PO ×2 (09:26→17:02)
[2021-03-31] MEDS: aspirin 81 mg EC Tablet PO (09:26)
[2021-03-31] MEDS: losartan 50 mg Tablet PO (09:26)
[2021-03-31] MEDS: potassium chloride ER 10 mEq Tablet PO (09:26)
[2021-03-31] MEDS: dilTIAZem 60 mg Tablet PO ×3 (09:26→21:20)
[2021-03-31] MEDS: lactulose oral liq 20 gm/30 mL UDC 10 GM PO ×2 (09:27→21:20)
[2021-03-31] MEDS: pantoprazole 40 mg SDV IVP ×2 (09:27→21:58)
[2021-03-31] MEDS: acetaminophen 325 mg Tablet 650 MG PO (09:28)
--- NOTE | 2021-03-31 11:23 | P.PN_ITS ---
Subjective Subjective: Interval history: Patient denies significant abdominal pain, good urine output. She had a low-grade fever of 99.5 Mrs. Rodney 85-year-old female status post vaginal cuff dehiscence repair postoperative day 2. Vitals/I&O/Wt Last Vital Signs Temp 97.9 F 04/01/21 11:36 Pulse 80 04/01/21 11:36 Resp 18 04/01/21 13:30 BP 144/76 04/01/21 11:36 Pulse Ox 93 04/01/21 11:36 04/01/21 04/01/21 04/01/21 06:59 14:59 22:59 Intake Total 310 / 1957.5 2500 / 2500 100 / 2600 Output Total 900 / 2100 1200 / 1200 Balance -590 / -142.5 1300 / 1300 100 / 1400 Weight last 48 hrs Weight 80.286 kg Weight 80.24 kg Physical Exam Narrative: EXAM NARRATIVE: EXAM NARRATIVE: GA: Alert and oriented ?3. HEENT: WNL. Heart: Regular rate and rhythm. Lungs: Clear to auscultation bilaterally. Abdomen: Bowel sounds present, nontender, minimal tenderness, incision clean and dry, no redness, pain or edema. REMEDIATION BIOANALYTICS CONSULTANT: No bleeding. ERIC drain in place. Extremities: No edema, no cyanosis, no calves pain. Urinary Catheter Management^: Klein: Cath Placed During This Visit: yes, but has since been removed by the nurse Reason for Continuing Indwelling Catheter: Other Urinary Catheter Date of Insertion: 03/29/21 Urinary Catheter Time of Insertion: 11:05 Date Urinary Catheter Removed: 03/28/21 Time Urinary Catheter Discontinued: 13:00 Data : 04/01/21 04:55 04/01/21 04:55 A&P Assessment and plan (1) Status post repair of dehiscence of vaginal cuff: Mrs. Rodney is status post vaginal cuff dehiscence and small rectal laceration repair postoperative day 1. She is afebrile and hemodynamically stable. Tolerating liquid diet. Vaginal ERIC drainage with small serosanguineous discharge. We will continue observation recommend she continue on full liquid diet. Status: Acute Attestations Medical Necessity Statement*: In my profesional opinion per admitting diagnosis, rupture slpeen, vaginal cuff dehiscence Procedures Arterial Line Size (Gauge): 20 Coding Level of Care Code Acute Radial Drill Press Operator For Plastic for Chg Fwd Diagnoses Status post repair of dehiscence of vaginal cuff Z98.890
[2021-03-31 13:35] LABS: Glucose Point of Care 161 mg/dL (70-110)
--- NOTE | 2021-03-31 15:36 | P.PN_ITS ---
Subjective Subjective: Interval history: No acute events overnight. Patient has remained hemodynamically stable. Blood pressure mildly elevated today. Afebrile overnight. Moved to the floors today. Patient's postoperative drain came out today. Medications: Reviewed: Yes Vitals/I&O/Wt Last Vital Signs Temp 97.5 F L 03/31/21 11:39 Pulse 96 03/31/21 11:39 Resp 17 03/31/21 11:39 BP 154/83 03/31/21 11:39 Pulse Ox 93 03/31/21 11:39 03/31/21 03/31/21 03/31/21 06:59 14:59 22:59 Intake Total 2460 / 3490 1307.5 / 1307.5 Output Total 500 / 760 Balance 1960 / 2730 1307.5 / 1307.5 Weight last 48 hrs Weight 80.24 kg Weight 77.564 kg Physical Exam Narrative: EXAM NARRATIVE: Family at bedside Const: COMMON NORMALS: no acute distress and alert GENERAL APPEARANCE: cooperative and frail appearing ORIENTATION/CONSCIOUSNESS: Yes awake and Yes confused OTHER: Generally weak. HENMT: COMMON NORMALS: oropharynx normal OTHER: NG with bilious contents. Neck/C-Spine: COMMON NORMALS: no meningeal signs and no JVD Resp: COMMON NORMALS: normal respiratory effort and clear to auscultation bilaterally AUSCULTATION: clear to auscultation bilaterally Cardio: COMMON NORMALS: no JVD, regular rhythm, S1 normal heart sound present, S2 normal heart sound present and No murmurs present (Cardio) RHYTHM: regular rhythm HEART SOUNDS: S1 normal heart sound present and S2 normal heart sound present GI: COMMON NORMALS: Normal to inspection, nondistended, normoactive bowel sounds present, Soft to palpation and non-tender PALPATION: Yes Soft to palpation OTHER: Midline incision clean. Drain to left of midline with serosanguineous contents. Extremity: COMMON NORMALS: no joint enlargement and no pedal edema Neuro: COMMON NORMALS: moves all extremities SENSORIUM/ORIENTATION: Yes alert MENINGEAL SIGNS: Yes no meningeal signs COORDINATION/BALANCE: other (Unable to perform) SPEECH: abnormal speech (Confused, but appears to have degree of aphasia) GAIT: Yes Unable to assess gait SENSORY EXAM: Yes other (Attempted to examine several times. Appears probably symmetrical) MOTOR EX AM: Other motor observations present (3+ upper, did not follow comm for LE, but moving feet) COORDINATION: other (Unable to perform) OTHER: Appears to be able to track me from left side to the right side of the bed, but counts fingers on the left, not on the right, though unreliably Skin: COMMON NORMALS: no rashes or lesions noted GENERAL SKIN EXAM: no rashes or lesions noted and dry skin Urinary Catheter Management^: Klein: Cath Placed During This Visit: yes, but has since been removed by the nurse Reason for Continuing Indwelling Catheter: Accurate Measurement of Urinary Output in Critically Ill Patients Urinary Catheter Date of Insertion: 03/29/21 Urinary Catheter Time of Insertion: 11:05 Date Urinary Catheter Removed: 03/28/21 Time Urinary Catheter Discontinued: 13:00 Data : 03/31/21 05:10 03/31/21 05:10 Micro: Microbiology 03/25/21 09:28 Blood Culture - Final Blood Bacteroides fragilis 03/29/21 14:17 Blood Culture - Preliminary Blood NEGATIVE TO DATE 03/29/21 14:15 Blood Culture - Preliminary Blood NEGATIVE TO DATE A&P Assessment and plan (1) CVA (cerebral vascular accident): Does have some right-sided neglect. Not confused at moment. Does not have any degree of aphasia today. CT of the head showed chronic periventricular ischemic changes. CTA obtained, without large vessel occlusion. Continue low-dose aspirin, statin, PPI. PT/OT/ST evaluation. Most likely will have to restart anticoagulation around 10 days post stroke to avoid hemorrhagic conversion. Can start anticoagulation on if remains stable from surgical point of view. Patient will most likely need neurology follow-up as an outpatient. Status: Acute (2) Anemia: Hemoglobin stable. Overall received 5 unit of blood transfusion during the admission. 4 units out of that O+ while 1 or negative. Will confirm with hematology regarding further transfusions. Reticulocyte count appropriate. Started on IV iron after iron panel. Will finish a 5-day course for 1 g IV iron overall and transition to oral iron supplementation after that. Continue with PPIs. Status: Acute (3) Bacteremia: Blood cultures growing Bacteroides fragilis. Cannot rule out multimicrobial contamination. Patient has remained afebrile. Will de-escalate antibiotics today. Stop vancomycin. If patient remains hemodynamically stable tomorrow we will transfer to [facility]. Patient will need an antibiotic for 14 days. Last positive blood culture on . Depending on the day of discharge will decide about PICC line. 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 Diet as per surgery team. Mobilize with PT/OT. Continue incentive spirometry. Will need immunizations prior to discharge. Status: Acute (5) Traumatic rupture of spleen: After a fall, generalized weakness, deconditioning, would benefit from rehabilitation after discharge. Status: Acute (6) Chronic anticoagulation: With Pradaxa for atrial fibrillation. For now hold off reinitiation of anticoagulation because of recent stroke. Status: Acute (7) Acute UTI: Status: Acute (8) Hypokalemia: Replaced. Status: Acute (9) Acute encephalopathy: Possibly secondary to multiple hospitalization, prolonged hospitalization, stroke Advance diet as tolerating and per ST after CVA Mobilize with PT/OT. Status: Acute (10) H/O: hysterectomy: Status: Acute (11) Post-op bleeding: Status: Acute Additional A&P Information Recent hysterectomy, bladder suspension surgery, minor colonic tear with repair: Postop day 0 for vaginal cuff repair in detail tear repair. We will follow recommendations from AGRICULTURAL LOAN OFFICER surgical team. Monitor hemoglobin. DM2: Sliding scale insulin HTN: Goal blood pressure less than 140/90 mmHg with mean over 65. Losartan 100 mg. Continue with daily Cardizem. Holding of metoprolol for now for postoperative bradycardia. If patient remains stable can plan to start tomorrow . Pulmonary hypertension: Oxygen support as needed keeping saturation over 90% BASIL: Nightly CPAP History of DVT, PE. Anticoagulation held. Atrial fibrillation: Bob blockers resumed. BP doing well. Anticoagulation on hold. History of CVA, Chronic anemia, on iron supplementation, GERD: PPI Hiatal hernia, Dark stools: On iron supplementation, but Hemoccult positive as well. Continue PPI. Has had recent unremarkable endoscopy. [place] DVT prophylaxis: SCD holding heparin for now as per postoperative status. We will start as per surgical team. Limited resuscitation. Full liquid diet. Patient's care discussed in detail with family at bedside. Can plan to transfer patient onto the floors from ICU if okay with surgical team. Attestations Medical Necessity Statement*: As per primary team Time Spent in Patient Care: Greater than 35 minutes (>than 50% of time spent in counselling and/or direct pt care on unit) . Procedures Arterial Line Size (Gauge): 20 Coding Level of Care Code Acute Slab Inspector for Chg Fwd Diagnoses CVA (cerebral vascular accident) I63.9 Anemia D64.9 Bacteremia R78.81 S/P splenectomy Z90.81 Traumatic rupture of spleen S36.09XA Chronic anticoagulation Z79.01 Acute UTI N39.0 Hypokalemia E87.6 Acute encephalopathy G93.40 H/O: hysterectomy Z90.710 Post-op bleeding
[2021-03-31] MEDS: ALPRAZolam 0.25 mg Tablet PO (17:02)
[2021-03-31 17:15] LABS: Glucose Point of Care 124 mg/dL (70-110)
--- NOTE | 2021-03-31 17:40 | PM.PN ---
Subjective Subjective: Interval history: Patient has been doing well, no nausea vomiting, tolerating full liquid diet, the ERIC drain through the vaginal cuff fell out today Vitals/I&O/Wt Last Vital Signs Temp 97.6 F 03/31/21 16:00 Pulse 77 03/31/21 16:00 Resp 16 03/31/21 16:00 BP 147/81 03/31/21 16:00 Pulse Ox 92 03/31/21 16:00 03/31/21 03/31/21 03/31/21 06:59 14:59 22:59 Intake Total 2460 / 3490 1307.5 / 1407.5 100 / 1407.5 Output Total 500 / 760 Balance 1960 / 2730 1307.5 / 1407.5 100 / 1407.5 Weight last 48 hrs Weight 176 lb 14.4 oz Weight 171 lb Physical Exam Narrative: EXAM NARRATIVE: Abdomen: Soft, nondistended, minimally tender, incision clean dry and intact, ERIC drain in the left upper quadrant was discontinued today Urinary Catheter Management^: Klein: Cath Placed During This Visit: yes, but has since been removed by the nurse Reason for Continuing Indwelling Catheter: Accurate Measurement of Urinary Output in Critically Ill Patients Urinary Catheter Date of Insertion: 03/29/21 Urinary Catheter Time of Insertion: 11:05 Date Urinary Catheter Removed: 03/28/21 Time Urinary Catheter Discontinued: 13:00 Data : 03/31/21 05:10 03/31/21 05:10 Micro: Microbiology 03/25/21 09:28 Blood Culture - Final Blood Bacteroides fragilis 03/29/21 14:17 Blood Culture - Preliminary Blood NEGATIVE TO DATE 03/29/21 14:15 Blood Culture - Preliminary Blood NEGATIVE TO DATE A&P Assessment and plan (1) S/P splenectomy: 85-year-old female with traumatic splenic rupture and splenectomy Status post vaginal exam and anesthesia with repair of rectal laceration and dehisced rectal vault Anemia: Hemoglobin stable at 8.9 WBC is 14.5, patient had UTI and positive blood cultures, final results pending, currently on vancomycin and imipenem Hypokalemia 3.4, 60 mEq of KCl given d/c iv fluids Leave Klein as per Dr. Muller, DC central line Awaiting blood cultures results regarding decision for PICC line placement. Restart Pradaxa once PICC line is placed if needed Protonix for GI prophylaxis Continue home medications Insulin sliding scale Morphine, Jackson for pain control Lactulose 15 cc p.o. twice daily for bowel regimen Patient will need greater than 2 nights of inpatient stay to ensure that she does not develop any postop complications. She will also need H. influenzae/pneumococcal/meningococcal vaccination prior to discharge Status: Acute Attestations Medical Necessity Statement*: Status post splenectomy and repair of rectal laceration and vaginal cuff dehiscence requiring IV antibiotics and continued inpatient stay Procedures Arterial Line Size (Gauge): 20 Coding Level of Care Code Acute Glove Turner for Chg Fwd Diagnoses S/P splenectomy Z90.81
[2021-03-31] MEDS: potassium chloride oral liq 20 mEq/15 mL UDC 60 MEQ PO (19:51)
--- NOTE | 2021-03-31 20:46 | PC.NURSE ---
PT HAS DONE WELL FOR ME. PT DID HAVE SOME COMPLAINTS OF PAIN FIRST THING THIS MORNING BUT IT SEEMED TO BE TOLERATED WITH TYELNOL. DR. BENSON WAS IN TO SEE PT FIRST THING THIS MORNING AND SAID HE WOULD BE BACK TO PULL THE ERIC DRAIN FROM HER AMADOU AREA. PT WAS WORKING WITH PHYSICAL THERAPY SHORTLY AFTER THAT THIS MORNING WHEN IT IS BELIEVED THAT THE ERIC DRAIN IN HER [place] AREA WAS ACCIDENTALLY PULLED OUT. DR BENSON NOTIFIED OF THE FINDING. DR WAS FINE WITH IT. HE SAID TO MONITOR HER FOR ANY DISCHARGE. NO DISCHARGE NOTED BY THIS NURSE. DR CABRALES ROUNDED ON PT THIS AFTERNOON AND REMOVED THE ERIC DRAIN FROM HER ABDOMEN. PT TOLERATED THAT WELL. DRESSING WAS APPLIED. MIDLINE INCISION TO PT'S ABDOMEN IS OPEN TO AIR. INCISION SITE LOOKS GOOD. QUINTEN INTACT. MINIMAL SWELLING. NO REDNESS OR INFECTION LIKE SYMPTOMS. PT HAS BEEN SOMEWHAT ANXIOUS THIS EVENING SO SOME ORDERED PRN XANAX WAS GIVEN TO THE PT. PT IS DOING MUCH BETTER. AN ORDER BY DR. CABRALES TO STOP THE FLUIDS WAS GIVEN. FLUIDS STOPPED. DR. BHANDARI, HOSPITALIST, ORDERED FOR ANOTHER PERIPHERAL IV LINE TO BE STARTED AND AFTER THERE WAS TWO IV ACCESSES FOR THE PT'S CENTRAL LINE TO BE PULLED. IV IN LEFT AC IS PATENT AND INTACT. CURRENTLY WAITING ON SOMEONE TRAINED IN DOING IVS WITH THE ULTRASOUND TO COME AND SEE PT. PT IS RESTING IN BED. FAMILY IS AT BEDSIDE. PT IS DOING WELL. NO COMPLAINTS OF PAIN, PT JUST WANTS TO REST. ELY IS STILL IN PLACE AND IS DRAINING WELL. WILL REMOVE ELY WHEN DR BENSON ORDERS US TO. PTS FAMILY IS VERY INVOLVED IN HER CARE; THEY ARE VERY HELPFUL. REPORT GIVEN TO YESSY AT BEDSIDE. ALL QUESTIONS ANSWERED. PT DOES NOT HAVE ANY QUESTIONS OR WANTS/NEEDS. WILL CONTINUE TO MONITOR PT.
[2021-03-31] MEDS: atorvastatin 40 mg Tablet PO (21:21)
[2021-03-31] MEDS: metoprolol tartrate 25 mg Tablet PO (21:21)
[2021-03-31] MEDS: iron sucrose 200 MG in sodium chloride 0.9% (100 ml) 100 ML 220 MG IV (21:58)
[2021-04-01] VITALS (17 sets, daily range): BP systolic 137–170; BP diastolic 71–97; PULSE 65–113; RESP 14–28; TEMP 36.6–37.5; O2SAT 91–100
[2021-04-01 01:22] LABS: Glucose Point of Care 118 mg/dL (70-110)
[2021-04-01 05:52] LABS: Basophils # 0.1 10^3/uL (0.0-0.1); Basophils % 0.4 %; Eosinophils # 0.2 10^3/uL (0.0-0.8); Eosinophils % 1.2 %; Hematocrit 28.1 % (37.0-47.0); Hemoglobin 9.2 g/dL (11.5-15.3); Lymphocytes % 6.2 %; Mean Corpuscular HGB Conc 32.7 g/dL (30.0-36.0); Mean Corpuscular Hemoglobin 31.5 pg (28.0-34.0); Mean Corpuscular Volume 96.2 fL (81-99); Mean Platelet Volume 9.6 fL (7.4-10.4); Monocytes # 1.2 10^3/uL (0.2-0.9); Monocytes % 7.6 %; Neutrophils # 13.41 10^3/uL (1.8-7.7); Nucleated Red Blood Cells # 0.5 /100WBC; Nucleated Red Blood Cells % 2.9 %; Platelet Count 388 10^3/cmm (130-400); Red Blood Count 2.92 10^6/uL (4.1-5.3); White Blood Count 16.3 10^3/uL (4.0-10.0)
[2021-04-01 06:02] LABS: Alanine Aminotransferase 6 U/L (0-33); Albumin Level 2.5 g/dL (3.5-5.2); Alkaline Phosphatase 67 IU/L (35-105); Anion Gap 9.9 (5-19); Aspartate Amino Transferase 14 U/L (0-32); Blood Urea Nitrogen 6 mg/dL (8-23); Calcium 8.8 mg/dL (8.5-10.5); Carbon Dioxide 25 mmol/L (22-29); Chloride 105 mmol/L (98-107); Globulin 2.4 g/dL (1.3-4.6); Glucose 107 mg/dL (65-115); Magnesium 2.1 mg/dL (1.7-2.3); Osmolality Calculated 280 mOsm/kg (285-295); Potassium 3.9 mmol/L (3.5-5.1); Sodium 136 mmol/L (136-145); Total Bilirubin 0.4 mg/dL (0.15-1.2); Total Protein 4.9 g/dL (6.6-8.7)
[2021-04-01 07:02] LABS: Glucose Point of Care 120 mg/dL (70-110)
[2021-04-01] MEDS: dilTIAZem 60 mg Tablet PO ×2 (09:08→16:07)
[2021-04-01] MEDS: docusate sodium 100 mg Capsule PO (09:08)
[2021-04-01] MEDS: aspirin 81 mg EC Tablet PO (09:08)
[2021-04-01] MEDS: ferrous sulfate EC 325 mg Tablet PO (09:08)
[2021-04-01] MEDS: potassium chloride ER 10 mEq Tablet PO (09:08)
[2021-04-01] MEDS: metoprolol tartrate 25 mg Tablet PO (09:08)
[2021-04-01 09:09] LABS: Glucose Point of Care 116 mg/dL (70-110)
[2021-04-01] MEDS: losartan 50 mg Tablet 100 MG PO (09:09)
[2021-04-01] MEDS: lactulose oral liq 20 gm/30 mL UDC 10 GM PO (09:10)
[2021-04-01] MEDS: pantoprazole 40 mg SDV IVP (09:10)
--- NOTE | 2021-04-01 12:07 | PC.SOCIAL ---
IMM Updated Updated pt's family at bedside on Pg 2 IMM. No questions voiced. Provided pt and family a copy. Signed, dated, & timed copy in chart.
--- NOTE | 2021-04-01 15:47 | PM.PN ---
Subjective Subjective: Interval history: Patient denies significant abdominal pain, was sleeping late at 11 today, had a loose bowel movement, good urine output. She had a low-grade fever of 99.5 Vitals/I&O/Wt Last Vital Signs Temp 97.9 F 04/01/21 11:36 Pulse 80 04/01/21 11:36 Resp 18 04/01/21 13:30 BP 144/76 04/01/21 11:36 Pulse Ox 93 04/01/21 11:36 04/01/21 04/01/21 04/01/21 06:59 14:59 22:59 Intake Total 310 / 1957.5 2500 / 2600 100 / 2600 Output Total 900 / 2100 1200 / 1200 Balance -590 / -142.5 1300 / 1400 100 / 1400 Weight last 48 hrs Weight 177 lb Weight 176 lb 14.4 oz Physical Exam Narrative: EXAM NARRATIVE: Abdomen: Soft, nontender, nondistended, incisions well-healed Klein catheter in place Urinary Catheter Management^: Klein: Cath Placed During This Visit: yes, but has since been removed by the nurse Reason for Continuing Indwelling Catheter: Other Urinary Catheter Date of Insertion: 03/29/21 Urinary Catheter Time of Insertion: 11:05 Date Urinary Catheter Removed: 03/28/21 Time Urinary Catheter Discontinued: 13:00 Data : 04/01/21 04:55 04/01/21 04:55 Micro: Microbiology 03/25/21 09:28 Blood Culture - Final Blood Bacteroides fragilis A&P Assessment and plan (1) S/P splenectomy: 85-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 Leave Klein as per Dr. Renzo hollins to restart anticoagulation per Dr. Muller he is planning to place a [place] drain through the vaginal cuff dehiscence Protonix for GI prophylaxis Continue home medications Insulin sliding scale Morphine, [place] for pain control Lactulose 15 cc p.o. twice daily for bowel regimen Patient will need greater than 2 nights of inpatient stay to ensure that she does not develop any postop complications. She will also need H. influenzae/pneumococcal/meningococcal vaccination prior to discharge Status: Acute Attestations Medical Necessity Statement*: splenectomy, vaginal cuff dehisence requiring iv antibiotiics and continued inpatient stay Procedures Arterial Line Size (Gauge): 20 Coding Level of Care Code Acute Plate Maker Zinc for Chg Fwd Diagnoses S/P splenectomy Z90.81
[2021-04-01 17:37] LABS: Glucose Point of Care 179 mg/dL (70-110)
--- NOTE | 2021-04-01 17:59 | P.PN_ITS ---
Subjective Subjective: Interval history: Patient denies significant abdominal pain, good urine output. She had a low-grade fever of 99.5 Mrs. Rodney 85-year-old female status post vaginal cuff dehiscence repair postoperative day 2. Refers not felling well. Vitals/I&O/Wt Last Vital Signs Temp 97.8 F 04/01/21 16:00 Pulse 65 04/01/21 21:24 Resp 18 04/01/21 18:53 BP 137/71 04/01/21 21:24 Pulse Ox 100 04/01/21 21:24 04/01/21 04/01/21 04/01/21 06:59 14:59 22:59 Intake Total 310 / 1957.5 2500 / 2500 2150 / 4650 Output Total 900 / 2100 1200 / 1200 70 / 1270 Balance -590 / -142.5 1300 / 1300 2080 / 3380 Weight last 48 hrs Weight 80.286 kg Weight 80.24 kg Physical Exam Narrative: EXAM NARRATIVE: EXAM NARRATIVE: EXAM NARRATIVE: GA: Alert and oriented ?3. HEENT: WNL. Heart: Regular rate and rhythm. Lungs: Clear to auscultation bilaterally. Abdomen: Bowel sounds present, nontender, minimal tenderness, incision clean and dry, no redness, pain or edema. SANITATION SUPERINTENDENT: Bleeding, lose stool noticed athrought dehicence. Extremities: No edema, no cyanosis, no calves pain. Urinary Catheter Management^: Klein: Cath Placed During This Visit: yes, but has since been removed by the nurse Reason for Continuing Indwelling Catheter: Other Urinary Catheter Date of Insertion: 04/01/21 Urinary Catheter Time of Insertion: 19:36 Date Urinary Catheter Removed: 04/01/21 Time Urinary Catheter Discontinued: 19:15 Data : 04/01/21 04:55 04/01/21 04:55 A&P Assessment and plan (1) Status post repair of dehiscence of vaginal cuff: Mrs. Rodney is status post vaginal cuff dehiscence and small rectal laceration repair postoperative day 2. She is afebrile and hemodynamically stable. But refers not felling well. She was taken, to PACU for speculum ex amination and site wher ERIC drain ahd been attached was open and lose stool was noted coming out through. The evening before the patietn had pulled the ERIC drain that had been place in the vagina after repair. Most likely this event pulled on the repair. The family was notified of finding and recommended taking the aptient back to OR to repair the defect again. General surgery consulted and diversion colostomy was recommended. Status: Acute Attestations Medical Necessity Statement*: IN professional opinion, per admitting diagnosis, vaginal cuff dehiscence, Vaginal bleeding, rupture spleen. Procedures Arterial Line Size (Gauge): 20 Coding Level of Care Code Acute Stuffed Casing Tier for [facility] Fwd Diagnoses Status post repair of dehiscence of vaginal cuff Z98.890
[2021-04-01] MEDS: ondansetron 2 mg/ML SDV 2 mL 4 MG IVP (18:21)
--- NOTE | 2021-04-01 18:46 | ANES.PREANE2 ---
Pre-Anesthetic Assessment Pre-Anesthetic Assessment: Height/Weight: Height 1.57 m Weight 80.286 kg Temp Pulse Resp BP Pulse Ox 97.8 F 86 18 163/77 95 04/01/21 16:00 04/01/21 16:00 04/01/21 16:00 04/01/21 16:00 04/01/21 16:00 Preop Diagnosis: rectal leak, Vaginal cuff dehiscence Proposed Procedure: Operation Date: 03/23/21 15:20 Proposed Procedures p Exploratory Laparotomy(Not Applicable) - Franklin Barroso MD Operation Date: 03/29/21 09:30 Proposed Procedures p Total Vaginal Hysterectomy(Not Applicable) - Taey Muller MD s Colostomy(Not Applicable) - Joey Mcguire MD Operation Date: 04/01/21 20:30 Proposed Procedures p Laparoscopic Colon Resection(Not Applicable) - Franklin Barroso MD s Colpocleisis(Not Applicable) - Taye Muller MD s Colostomy(Not Applicable) - Franklin Barroso MD Was Beta David taken within 24 hours: Yes Was Clonidine taken within 24 hours: N/A Social: Social History: No alcohol and No tobacco Exam: Pre-Anes Outpt Exam: alert, oriented x 3, clear to auscultation bilaterally and regular rate & rhythm Airway: Submandibular: WNL Cervical ROM: WNL MP: 2 Pulmonary: Pulmonary: Sleep apnea CV/HEM: CV/HEM: Anemia and Murmur (MR) Comments: Pulm HTN, DVT/PE GI: Comments: Recent spleenectomy s/p fall postop Metabolic: Metabolic: DM Neuropsych: Neuropsych: CVA Anesthetic Plan: ASA status: 4E Anesthesia: General Risk of > 500 ml blood loss (7ml/kg in children): No Meds/Allergies Current Medications: Current Medications Generic Name Dose Route Start Last Admin Trade Name Freq PRN Reason Stop Dose Admin Acetaminophen 650 mg 03/23/21 19:36 03/31/21 09:28 Acetaminophen 32 5 Mg Tablet PO 650 mg Q6H PRN Administration MILD PAIN OR INCR EASE TEMP Alprazolam 0.25 mg 03/29/21 13:41 03/31/21 17:02 Alprazolam 0.25 Mg Tablet PO 0.25 mg TID PRN Administration Anxiety Aspirin 81 mg 03/30/21 08:00 04/01/21 09:08 Aspirin 81 Mg Ec Tablet PO 81 mg DAILY@0800 [facility] Administration Atorvastatin Calci um 40 mg 03/27/21 21:00 03/31/21 21:21 Atorvastatin 40 Mg Tablet PO 40 mg BEDTIME [facility]1983 Administration Diltiazem HCl 60 mg 03/30/21 09:10 04/01/21 16:07 Diltiazem 60 Mg Tablet PO 60 mg TID [facility]1983 Administration Docusate Sodium 100 mg 03/29/21 18:00 04/01/21 18:03 Docusate Sodium 100 Mg Capsule PO Not Given BID [facility] Ferrous Sulfate 325 mg 03/29/21 20:00 04/01/21 09:08 Ferrous Sulfate Ec 325 Mg Tablet PO 325 mg BID@ [facility] Administration Heparin Sodium (Be ef Lung) 5,000 unit 03/28/21 16:30 03/29/21 00:18 Heparin 5,000 Un it/Ml Inj 1 Ml SUBCUT 5,000 unit Q8H [facility]1983 Administration Iron Sucrose 200 m g/ Sodium 110 mls @ 220 mls /hr 03/28/21 20:00 03/31/21 23:50 Chloride IV 04/01/21 20:29 Infused Q24H [facility]1983 Infusion Imipenem/Cilastati n Sodium 500 100 mls @ 200 mls /hr 03/30/21 12:00 04/01/21 15:24 mg/ Sodium Chlor reina IV Infused Q8H [facility] Infusion Protocol Insulin Aspart 0 unit 03/30/21 09:15 04/01/21 16:06 Insulin Aspart 1 00 Unit/1 Ml SUBCUT 2 unit Q6H [facility] Administration Protocol Lactulose 10 gm 03/23/21 20:00 04/01/21 09:10 Lactulose Oral L iq 20 Gm/30 Ml Udc PO 10 gm Q12H [facility] Administration Losartan Potassium 100 mg 04/01/21 08:00 04/01/21 09:09 Losartan 50 Mg T ablet PO 100 mg DAILY@0800 [facility] Administration Metoprolol Tartrat e 25 mg 03/31/21 20:00 04/01/21 09:08 Metoprolol Tartr ate 25 Mg Tablet PO 25 mg BID@ [facility] Administration Non-Formulary Medi cation 600 mg 03/29/21 20:00 04/01/21 12:31 Calcium Carbonat e [Calcium 600] PO Not Given BID@ [facility] Ondansetron HCl 4 mg 03/23/21 19:36 04/01/21 18:21 Ondansetron 2 Mg /Ml Sdv 2 Ml IVP 4 mg Q4H PRN Administration NAUSEA AND VOMITI NG Pantoprazole Sodiu m 40 mg 03/24/21 09:15 04/01/21 09:10 Pantoprazole 40 Mg Sdv IVP 40 mg Q12H JS Administration Potassium Chloride 10 meq 03/30/21 08:00 04/01/21 09:08 Potassium Chlori de Er 10 Meq Table t PO 10 meq DAILY@0800 JS Administration PFSH Anesthesia PFSH: Medical History (Updated 03/29/21 @ 09:19 by Joey Mcguire MD) Anemia Anticoagulant long-term use CVA (cerebral vascular accident) Diabetes DVT (deep venous thrombosis) Dyslipidemia GERD (gastroesophageal reflux disease) [place] (hard of hearing) HTN (hypertension) Hx pulmonary embolism Mitral regurgitation Mixed stress and urge urinary incontinence BASIL on CPAP POP-Q stage 3 cystocele Pulmonary HTN Second degree uterine prolapse Traumatic rupture of spleen Surgical History (Updated 03/30/21 @ 17:59 by Taye Muller MD) H/O dilation and curettage x2 H/O esophagogastroduodenoscopy (05/18/20) H/O: hysterectomy 03/16/2021: total vaginal hysterectomy with bilateral salpingo-oophorectomy, anterior colporrhaphy augmented with allograft with midurethral sling, small rectal laceration repair, performed by Dr. Muller at [facility] History of colonoscopy with polypectomy (05/18/20) Diverticulosis S/P cholecystectomy S/P knee surgery S/P splenectomy (03/23/21) Traumatic splenic rupture Status post tubal ligation Family History Brother CAD (coronary artery disease) Cancer Myocardial infarction Colon cancer Father Tuberculosis Son Diabetes Hyperlipidemia Denies family history of Ovarian cancer Clotting disorder Breast cancer Anesthesia complication Bleeding disorder Hypertension Uterine cancer Thyroid condition Stroke Social History Smoking and tobacco status: never smoked Alcohol intake: never Household members: family Marital status: / Current occupational status: retired Data Anesthesia CBC & Chem 7: 04/01/21 04:55 04/01/21 04:55 Other Labs: Laboratory Results - last 48 hr 03/23/21 03/29/21 03/30/21 15:30 04:46 20:39 WBC RBC Hgb Hct MCV MCH MCHC RDW Plt Count MPV Neut % (Auto) Lymph % (Auto) [place] % (Auto) Eos % (Auto) Baso % (Auto) Neut # (Auto) Lymph # (Auto) [place] # (Auto) Eos # (Auto) Baso # (Auto) Nucleated RBC % (auto) Nucleated RBCs # Sodium Potassium Chloride Carbon Dioxide Anion Gap BUN Creatinine GFR Calculation Glucose POC Glucose 165 H Calculated Osmolality Calcium Magnesium Total Bilirubin AST ALT Alkaline Phosphatase Total Protein Albumin Globulin Crossmatch See Detail See Detail 03/31/21 03/31/21 03/31/21 01:24 05:10 05:10 WBC 14.4 H RBC 2.81 L Hgb 8.9 L Hct 27.5 L MCV 97.9 MCH 31.7 MCHC 32.4 RDW 17.1 H Plt Count 355 MPV 9.8 Neut % (Auto) 81.0 Lymph % (Auto) 6.7 [place] % (Auto) 7.9 Eos % (Auto) 1.1 Baso % (Auto) 0.2 Neut # (Auto) 11.67 H Lymph # (Auto) 1.0 [place] # (Auto) 1.1 H Eos # (Auto) 0.2 Baso # (Auto) 0.0 Nucleated RBC % (auto) 3.8 Nucleated RBCs # 0.6 Sodium 135 L Potassium 3.4 L Chloride 103 Carbon Dioxide 26 Anion Gap 9.4 BUN 6 L Creatinine 0.6 GFR Calculation Not Reportable Glucose 95 POC Glucose 102 Calculated Osmolality 277 L Calcium 9.4 Magnesium Total Bilirubin 0.3 AST 13 ALT 6 Alkaline Phosphatase 69 Total Protein 4.6 L Albumin 2.4 L Globulin 2.2 Crossmatch 03/31/21 03/31/21 03/31/21 06:28 13:32 17:00 WBC RBC Hgb Hct MCV MCH MCHC RDW Plt Count MPV Neut % (Auto) Lymph % (Auto) [place] % (Auto) Eos % (Auto) Baso % (Auto) Neut # (Auto) Lymph # (Auto) [place] # (Auto) Eos # (Auto) Baso # (Auto) Nucleated RBC % (auto) Nucleated RBCs # Sodium Potassium Chloride Carbon Dioxide Anion Gap BUN Creatinine GFR Calculation Glucose POC Glucose 126 H 161 H 124 H Calculated Osmolality Calcium Magnesium Total Bilirubin AST ALT Alkaline Phosphatase Total Protein Albumin Globulin Crossmatch 04/01/21 04/01/21 04/01/21 01:18 04:55 04:55 WBC 16.3 H RBC 2.92 L Hgb 9.2 L Hct 28.1 L MCV 96.2 MCH 31.5 MCHC 32.7 RDW 17.0 H Plt Count 388 MPV 9.6 Neut % (Auto) 82.0 Lymph % (Auto) 6.2 [place] % (Auto) 7.6 Eos % (Auto) 1.2 Baso % (Auto) 0.4 Neut # (Auto) 13.41 H Lymph # (Auto) 1.0 [place] # (Auto) 1.2 H Eos # (Auto) 0.2 Baso # (Auto) 0.1 Nucleated RBC % (auto) 2.9 Nucleated RBCs # 0.5 Sodium 136 Potassium 3.9 Chloride 105 Carbon Dioxide 25 Anion Gap 9.9 BUN 6 L Creatinine 0.5 GFR Calculation Not Reportable Glucose 107 POC Glucose 118 H Calculated Osmolality 280 L Calcium 8.8 Magnesium 2.1 Total Bilirubin 0.4 AST 14 ALT 6 Alkaline Phosphatase 67 Total Protein 4.9 L Albumin 2.5 L Globulin 2.4 Crossmatch 04/01/21 04/01/21 04/01/21 06:40 09:05 15:51 WBC RBC Hgb Hct MCV MCH MCHC RDW Plt Count MPV Neut % (Auto) Lymph % (Auto) [place] % (Auto) Eos % (Auto) Baso % (Auto) Neut # (Auto) Lymph # (Auto) [place] # (Auto) Eos # (Auto) Baso # (Auto) Nucleated RBC % (auto) Nucleated RBCs # Sodium Potassium Chloride Carbon Dioxide Anion Gap BUN Creatinine GFR Calculation Glucose POC Glucose 120 H 116 H 179 H Calculated Osmolality Calcium Magnesium Total Bilirubin AST ALT Alkaline Phosphatase Total Protein Albumin Globulin Crossmatch Cardiac Studies: No Data to Display
--- NOTE | 2021-04-01 19:04 | PC.NURSE ---
SHIFT CHANGE Pt already in OR
[2021-04-01] MEDS: piperacillin-tazobactam 3.375 GM in sodium chloride 0.9% (plus) 50 ML IV (19:07)
[2021-04-01] MEDS: sodium chloride 0.9% 1,000 ML 30 ML IV (19:10)
[2021-04-01] MEDS: vancomycin 1,000 MG in sodium chloride 0.9% 250 ML 250 MG IV (19:10)
--- NOTE | 2021-04-01 19:28 | PM.PN ---
Subjective Subjective: Interval history: Patient seen multiple times during the day. Complaining of abdominal pain and nausea and feeling weak after which case was discussed with Dr. Muller. The plan was to take her back to the OR for possible abdominal collection or dehiscence of the wound. Discussed the need for patient went to the OR detail with patient and patient's family at bedside. We discussed risk versus benefits over to the OR again. Family has agreed to go to the OR for now. Medications: Reviewed: Yes Vitals/I&O/Wt Last Vital Signs Temp 97.8 F 04/01/21 16:00 Pulse 86 04/01/21 16:00 Resp 18 04/01/21 16:00 BP 163/77 04/01/21 16:00 Pulse Ox 95 04/01/21 16:00 04/01/21 04/01/21 04/01/21 06:59 14:59 22:59 Intake Total 310 / 1957.5 2500 / 2500 100 / 2600 Output Total 900 / 2100 1200 / 1200 Balance -590 / -142.5 1300 / 1300 100 / 1400 Weight last 48 hrs Weight 80.286 kg Weight 80.24 kg Physical Exam Narrative: EXAM NARRATIVE: Family at bedside Const: COMMON NORMALS: no acute distress and alert GENERAL APPEARANCE: cooperative and frail appearing ORIENTATION/CONSCIOUSNESS: Yes awake and Yes confused OTHER: Generally weak. HENMT: COMMON NORMALS: oropharynx normal OTHER: NG with bilious contents. Neck/C-Spine: COMMON NORMALS: no meningeal signs and no JVD Resp: COMMON NORMALS: normal respiratory effort and clear to auscultation bilaterally AUSCULTATION: clear to auscultation bilaterally Cardio: COMMON NORMALS: no JVD, regular rhythm, S1 normal heart sound present, S2 normal heart sound present and No murmurs present (Cardio) RHYTHM: regular rhythm HEART SOUNDS: S1 normal heart sound present and S2 normal heart sound present GI: COMMON NORMALS: Normal to inspection, nondistended, normoactive bowel sounds present, Soft to palpation and non-tender PALPATION: Yes Soft to palpation OTHER: Midline incision clean. Drain to left of midline with serosanguineous contents. Extremity: COMMON NORMALS: no joint enlargement and no pedal edema Neuro: COMMON NORMALS: moves all extremities SENSORIUM/ORIENTATION: Yes alert MENINGEAL SIGNS: Yes no meningeal signs COORDINATION/BALANCE: other (Unable to perform) SPEECH: abnormal speech (Confused, but appears to have degree of aphasia) GAIT: Yes Unable to assess gait SENSORY EXAM: Yes other (Attempted to examine several times. Appears probably symmetrical) MOTOR EXAM: Other motor observations present (3+ upper, did not follow comm for LE, but moving feet) COORDINATION: other (Unable to perform) OTHER: Appears to be able to track me from left side to the right side of the bed, but counts fingers on the left, not on the right, though unreliably Skin: COMMON NORMALS: no rashes or lesions noted GENERAL SKIN EXAM: no rashes or lesions noted and dry skin Urinary Catheter Management^: Klein: Cath Placed During This Visit: yes, but has since been removed by the nurse Reason for Continuing Indwelling Catheter: Other Urinary Catheter Date of Insertion: 03/29/21 Urinary Catheter Time of Insertion: 11:05 Date Urinary Catheter Removed: 03/28/21 Time Urinary Catheter Discontinued: 13:00 Data : 04/02/21 04:42 04/02/21 04:42 A&P Assessment and plan (1) CVA (cerebral vascular accident): Does have some right-sided neglect. Not confused at moment. Does not have any degree of aphasia today. CT of the head showed chronic periventricular ischemic changes. CTA obtained, without large vessel occlusion. Continue low-dose aspirin, statin, PPI. PT/OT/ST evaluation. Most likely will have to restart anticoagulation around 10 days post stroke to avoid hemorrhagic conversion. Can start anticoagulation on if remains stable from surgical point of view. Patient will most likely need neurology follow-up as an outpatient. Status: Acute (2) Anemia: Hemoglobin stable. Overall received 5 unit of blood transfusion during the admission. 4 units out of that O+ while 1 or negative. Will confirm with hematology regarding further transfusions. Reticulocyte count appropriate. Started on IV iron after iron panel. Will finish a 5-day course for 1 g IV iron overall and transition to oral iron supplementation after that. Continue with PPIs. Status: Acute (3) Bacteremia: Blood cultures growing Bacteroides fragilis. Cannot rule out multimicrobial contamination. As patient is going to the OR again we will restart vancomycin and continue with imipenem. Patient will need an antibiotic for 14 days. Last positive blood culture on . Depending on the day of discharge will decide about PICC line. 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 Diet as per surgery team. Mobilize with PT/OT. Continue incentive spirometry. Will need immunizations prior to discharge. Status: Acute (5) Traumatic rupture of spleen: After a fall, generalized weakness, deconditioning, would benefit from rehabilitation after discharge. Status: Acute (6) Chronic anticoagulation: With Pradaxa for atrial fibrillation. For now hold off reinitiation of anticoagulation because of recent stroke. Status: Acute (7) Acute UTI: Status: Acute (8) Hypokalemia: Replaced. Status: Acute (9) Acute encephalopathy: Possibly secondary to multiple hospitalization, prolonged hospitalization, stroke Advance diet as tolerating and per ST after CVA Mobilize with PT/OT. Status: Acute (10) H/O: hysterectomy: Status: Acute (11) Post-op bleeding: Status: Acute Additional A&P Information Recent hysterectomy, bladder suspension surgery, minor colonic tear with repair: Postop day 0 for vaginal cuff repair in detail tear repair. We will follow recommendations from PHARMACY CUSTOMER CARE SPECIALIST surgical team. Monitor hemoglobin. DM2: Sliding scale insulin HTN: Goal blood pressure less than 140/90 mmHg with mean over 65. Losartan 100 mg. Continue with daily Cardizem. Holding of metoprolol for now for postoperative bradycardia. If patient remains stable can plan to start tomorrow. Pulmonary hypertension: Oxygen support as needed keeping saturation over 90% BASIL: Nightly CPAP History of DVT, PE. Anticoagulation held. Atrial fibrillation: Bob blockers resumed. BP doing well. Anticoagulation on hold. History of CVA, Chronic anemia, on iron supplementation, GERD: PPI Hiatal hernia, Dark stools: On iron supplementation, but Hemoccult positive as well. Continue PPI. Has had recent unremarkable endoscopy. [place] DVT prophylaxis: SCD holding heparin for now as per postoperative status. We will start as per surgical team. Limited resuscitation. Full liquid diet. Patient's care discussed in detail with family at bedside. Can plan to transfer patient onto the floors from ICU if okay with surgical team. Attestations Medical Necessity Statement*: As per primary team. Time Spent in Patient Care: Greater than 35 minutes (>than 50% of time spent in counselling and/or direct pt care on unit). Procedures Arterial Line Size (Gauge): 20 Coding Level of Care Code Acute Senior Front End Web Developer for Chg Fwd Exam Comprehensive Diagnoses CVA (cerebral vascular accident) I63.9 Anemia D64.9 Bacteremia R78.81 S/P splenectomy Z90.81 Traumatic rupture of spleen S36.09XA Chronic anticoagulation Z79.01 Acute UTI N39.0 Hypokalemia E87.6 Acute encephalopathy G93.40 H/O: hysterectomy Z90.710 Post-op bleeding
--- NOTE | 2021-04-01 20:29 | PC.NURSE ---
2028 spoke with Jonnathan Rodney and gave update. CM
--- NOTE | 2021-04-01 21:40 | ANES.PROC ---
Anesthesia Procedures Procedure/Date: 04/01/21 Central Venous Insert: Time Out Performed: Yes Consent: requested by attending/covering physician Central Line: New Anesthesia monitors: pulse oximetry, EKG, BP cuff and oxygen Vein cannulated: left subclavian (3-lumen 20cm) Post procedure: Other (CXR pending) Additional Comments: Sterile prep, drape, mask and glove. Asader tech. Sutured in place, sterile dressing. Attempted Right IJ without success.
--- NOTE | 2021-04-01 21:50 | PC.NURSE ---
[id number] spoke with Akira Rodney and gave update. SIMONE
--- NOTE | 2021-04-01 22:35 | PC.NURSE ---
PT ARRIVE FROM OR Patient arrived from OR by bed and was placed in ICU room 3. Assessed ERIC drain, colostomy, and herb drain with surgical nurses. Patient was on 6 liters oxygen by simple mask upon arrival to the unit from OR and sats were 95%. Family in waiting room upon patient arrival to unit, they were updated on patient status. Patient has no complaints of pain at this time. Family brought in patients belongings which included hearing aids and dentures, belongings at bedside.
--- NOTE | 2021-04-01 22:36 | P.OP_ITS ---
Operative Report Date of procedure: April 01, 2021 Pre-op Diagnosis: rectal leak, Vaginal cuff dehiscence, Post-op diagnosis: same Post-op Findings: vaginal cuff dehiscence, rectal laceration leaking Procedure Done: Rectal laceration repair, Placement of ERIC drain, Specimens removed/disposition: none Pathology: none sent Surgeon: Taye Muller MD Anesthesia: General Estimated blood loss (mL): 10 Complications: none Condition: stable Disposition: PACU Brief History: Mrs. Rodney 85 y/o female s/p TVH, anterior colporrhaphy, midurethral sling, complicated by small rectal laceration, 2 weeks ago. Had fallen in the bathroom and reupture her spleen susecuently two days after sp lenectomy she started with vaginal bleeding. On examination partial denhiscence was noted and was taken to OR for repair. Two days post repair the Eric drain that had be left in place was pulled while ambulating. Next AM WBC was elevated and the patietn refers not felling well. ON examination dehiscence of the vaginal cuff and rectal alceratiion repair was noticed. General surgery was counseld again and pt take to OR to repair the dehiscence vaginal cuff and rectal repair and adverting colostomy performed. Procedure: After informed consent, the patient was taken to the operating room where general anesthesia was administered. She was placed in the dorsal lithotomy position and prepped and draped in sterile fashion. Pre-Procedure Time-Out verifying the correct patient identity, correct procedure verified with consent, correct site and side, correct patient position, availability of correct implants and any special equipment or requirements was performed and acknowledge by the OR team. A Bookwalter self-retaining vaginal retractor was placed in the vaginal. Blood in the vaul noticed. The vagina was copiously irrigated and suctioned. On examination dehiscence of the vaginal cuff was noted with sutures line ripped apart with blood present in retroperineal space with small amont of soft liquified stool from where previous ERIC drain had been anchored. Digital rectal exam also showed dehiscence of the small rectal laceration. The area was copiously irrigated with antibiotic solution. A small 0.5 cm defect in the rectum was repaired in layers with 3-0 Vicryl in usual manner. The area was copiously irrigated again. The vaginal cuff was reapproximated with interupted 2-0 Vicryl. A ERIC drain was left in place, as well pemrose drains at the vaginal cuff. The patient tolerated the procedure well without any complications. Then general surgery Dr. Barroso proceeded to perform the colostomy. No further bleeding noted. Sponge, lap, needle, and instrument counts were correct times three. The patient was taken to the recovery room, awake and in stable condition.
--- NOTE | 2021-04-01 22:40 | XRR_ITS ---
PROCEDURE INFORMATION: Exam: XR Chest Exam date and time: 04/01/2021 10:42 PM Age: 85 years old Clinical indication: Device placement; Other: Central line placement TECHNIQUE: Imaging protocol: XR of the chest. Views: 1 view. COMPARISON: CR XR chest 1V portable [id number] 03/23/2021 5:25 PM FINDINGS: Tubes, catheters and devices: Tip of the left subclavian line is present in the proximal superior vena cava. Lungs: There are multiple calcified pulmonary nodules consistent with prior granulomatous disease. Pleural spaces: No pneumothorax. Heart/Mediastinum: There is mild cardiomegaly. Bones/joints: Unremarkable. XR/XR chest 1V portable [id number] IMPRESSION: 1. Tip of the left subclavian line is present in the proximal superior vena cava. 2. No pneumothorax. 3. Mild cardiomegaly.
--- NOTE | 2021-04-01 22:44 | PM.OP ---
Operative Report Date of procedure: April 01, 2021 Pre-op Diagnosis: 1. Dehiscence of rectal laceration repair performed during vaginal hysterectomy 03/16/2021 2. Attempted primary repair of dehiscence of rectal laceration repair 03/29/2021 Post-op Diagnosis: 1. Dehiscence of rectal laceration repair during vaginal hysterectomy 2. Distended small bowel loop and adhesions in the right upper quadrant from prior surgeries Procedure Done: Laparoscopic sigmoid loop colostomy Please refer to Dr. Muller's operative report for rest of the details Pathology: none sent Surgeon: Franklin Barroso Anesthesia: General Condition: stable Disposition: ICU Procedure: The patient was taken to the operating room and intubated under general anesthesia after IV antibiotic had been administered. Please refer to Dr. Muller's note regarding details of repair of the vaginal cuff and rectal repair dehiscence. A left subclavian central line was placed by Dr. Cherri MD anesthesia, refer to his notes for further details. The abdomen was prepped and draped in a sterile manner. Using a 15 blade a 2 cm incision was made in the right upper quadrant and using open Jackson technique the peritoneal cavity was entered and a 10 mm port was placed and 15 mm of pneumoperitoneum was created. A 10 mm 30 degree scope was introduced and a 5 mm port was placed at the level of the umbilicus and the midclavicular line on the right side. The patient was placed in Trendelenburg position and small bowel loops were moved to the right side of the peritoneal cavity and the redundant sigmoid colon was identified. There were adhesions of the small bowel loops to the abdominal wall and the small bowel loops were edematous and distended. The sigmoid colon was pulled up to the abdominal wall at the site of the planned colostomy placement using bowel graspers. A stab incision was made over the rectus muscle inferior to the umbilicus and a 5 mm port was placed in the sigmoid colon was grasped. 2.5 cm diameter circular incision was made around the 5 mm port in the left lower quadrant, subcutaneous tissues divided and a cruciate incision was made in the anterior rectus sheath, rectus muscle and the posterior rectus sheath was opened to enter the peritoneal cavity. The sigmoid colon was exteriorized. Interrupted 3-0 Vicryl sutures were placed to approximate the serosa of the colon to the anterior rectus sheath. The ports were removed and the fascia in the right upper quadrant incision was closed using [id number] 0 Vicryl suture and skin at both the port sites aon the right side were closed with nikko. Using electrocautery longitudinal incision was made on the exteriorized segment of the sigmoid colon and the edges everted and the mucosa was approximated to the skin edge using interrupted 4-0 Vicryl sutures and a colostomy was created in the standard manner. A loop colostomy retraction device was placed through an opening made in the mesentery to avoid retraction of the colostomy. Digital examination of the proximal and the distal openings of the sigmoid loop colostomy revealed adequate opening within the fascia and the ostomy appeared pink and viable. The ostomy appliance was placed over the colostomy and sterile dressings were applied over the incision. The patient was extubated and transferred to ICU with a Klein catheter, ERIC drain in the perirectal space and left subclavian central line.
[2021-04-01 23:22] LABS: Glucose Point of Care 150 mg/dL (70-110)
[2021-04-02] VITALS (90 sets, daily range): BP systolic 123–173; BP diastolic 55–105; PULSE 48–106; RESP 12–29; TEMP 37–37.9; O2SAT 86–100; BMI 30.6
[2021-04-02] MEDS: heparin 5,000 unit/mL INJ 1 mL 5000 UNIT SUBCUT ×3 (01:50→15:53)
[2021-04-02] MEDS: sodium chlor 0.9% + KCl 20 mEq 20 MEQ/1,000 ML BAG 100 MEQ IV ×2 (01:50→11:28)
[2021-04-02] MEDS: piperacillin-tazobactam 3.375 GM in sodium chloride 0.9% (plus) 50 ML IV ×3 (02:13→18:14)
[2021-04-02 03:03] LABS: Glucose Point of Care 152 mg/dL (70-110)
[2021-04-02 05:33] LABS: Basophils # 0.1 10^3/uL (0.0-0.1); Basophils % 0.3 %; Hematocrit 27.9 % (37.0-47.0); Hemoglobin 8.9 g/dL (11.5-15.3); Lymphocytes # 0.6 10^3/uL (0.8-4.8); Lymphocytes % 2.7 %; Mean Corpuscular HGB Conc 31.9 g/dL (30.0-36.0); Mean Corpuscular Hemoglobin 32.1 pg (28.0-34.0); Mean Corpuscular Volume 100.7 fL (81-99); Mean Platelet Volume 9.4 fL (7.4-10.4); Monocytes # 0.7 10^3/uL (0.2-0.9); Monocytes % 3.2 %; Neutrophils # 19.05 10^3/uL (1.8-7.7); Neutrophils % 92.7 %; Nucleated Red Blood Cells # 0.1 /100WBC; Nucleated Red Blood Cells % 0.6 %; Platelet Count 372 10^3/cmm (130-400); Red Blood Count 2.77 10^6/uL (4.1-5.3); White Blood Count 20.5 10^3/uL (4.0-10.0)
[2021-04-02 06:06] LABS: Anion Gap 11.1 (5-19); Blood Urea Nitrogen 6 mg/dL (8-23); Calcium 8.5 mg/dL (8.5-10.5); Carbon Dioxide 24 mmol/L (22-29); Chloride 107 mmol/L (98-107); Glucose 116 mg/dL (65-115); Osmolality Calculated 287 mOsm/kg (285-295); Potassium 3.1 mmol/L (3.5-5.1); Sodium 139 mmol/L (136-145)
--- NOTE | 2021-04-02 07:32 | PC.NURSE ---
SHIFT SUMMARY Patient had an uneventful night. She had no complaints of pain all evening and slept throughout the whole night. Emptied 700 mLs dark yellow urine out from her art and 75 mLs of bright red drainage from the colostomy. NS with 20 mEq of KCl is running at 100 mLs an hour in the left neck IV.
[2021-04-02] MEDS: pantoprazole 40 mg SDV IVP ×2 (08:44→20:46)
--- NOTE | 2021-04-02 09:42 | ANE.PACU2 ---
Inpatient post-anesthesia follow up: Airway intact: Yes Vital signs: Temperature 99.8 F Pulse Rate [Monito r] 74 Pulse Rate 90 Respiratory Rate 18 Blood Pressure [Ri ght Arm] 115/70 Blood Pressure 159/90 Pulse Oximetry 93 Oxygen Delivery Me thod CPAP Oxygen Flow Rate 4 Fraction of Inspir ed Oxygen 21 Hydration adequate: Yes Nausea and vomiting: No Pain level: 1 Additional Comments: Patient slept most of night, resting comfortably this morning.
--- NOTE | 2021-04-02 11:07 | P.PN_ITS ---
Subjective Subjective: Interval history: Mrs. Rodney 85-year-old female status post vaginal cuff dehiscence after pulling ERIC drainage, repair postoperative day 1. Patient as sleep Vitals/I&O/Wt Last Vital Signs Temp 99.8 F H 04/02/21 10:00 Pulse 90 04/02/21 10:00 Resp 18 04/02/21 10:00 BP 159/90 04/02/21 10:00 Pulse Ox 93 04/02/21 10:00 04/01/21 04/02/21 04/02/21 22:59 06:59 14:59 Intake Total 2150 / 4650 50 / 50 Output Total 70 / 1270 700 / 1970 30 / 30 Balance 2080 / 3380 -700 / 2680 Weight last 48 hrs Weight 75.92 kg Weight 80.286 kg Physical Exam Narrative: EXAM NARRATIVE: GA: Alert and oriented ?3. HEENT: WNL. Heart: Regular rate and rhythm. Lungs: Clear to auscultation bilaterally. Abdomen: Bowel sounds present, minimal tenderness, midline incision clean and dry, no redness, pain or edema. Colostomy in palce DRUG COORDINATOR: No bleeding. ERIC Drain in place, Kevyn in place Extremities: No edema, no cyanosis, no calves pain. Urinary Catheter Management^: Klein: Cath Placed During This Visit: yes, but has since been removed by the nurse Reason for Continuing Indwelling Catheter: Accurate Measurement of Urinary Output in Critically Ill Patients Urinary Catheter Date of Insertion: 04/01/21 Urinary Catheter Time of Insertion: 19:36 Date Urinary Catheter Removed: 04/01/21 Time Urinary Catheter Discontinued: 19:15 Data : 04/02/21 04:42 04/02/21 04:42 A&P Assessment and plan (1) Status post repair of dehiscence of vaginal cuff: Mrs. Rodney is status post second vaginal cuff dehiscence and small rectal laceration after pulling ERIC drain on op day 2. She was repaired again postoperative day 1. She is afebrile now. She did had an episode of fever last night. She is hemodynamically stable. Will star on liquid diet. Vaginal ERIC drainage with small serosanguineous discharge. We will continue observation rec ommend she continue on full liquid diet. Will restart with prophylactic heparin. Colostomy bag in place. This documentation was created by [employer] applied computer science professor software (known for inherent applied computer science professor error). Every effort was made to assure accuracy of applied computer science professor. Any obvious errors or omissions should be clarified with the author of the document. Status: Acute Attestations Medical Necessity Statement*: S/P splenectomy, vaginal cuff dehiscence repair, s/p colostomy. Procedures Arterial Line Size (Gauge): 20 Coding Level of Care Code Acute Administrative Specialist for Chg Fwd Diagnoses Status post repair of dehiscence of vaginal cuff Z98.890
--- NOTE | 2021-04-02 11:15 | PC.OT ---
Per Nursing, patient is unavailable for therapy today due to late surgery. Patient to continue therapy plan of care tomorrow if able.
[2021-04-02] MEDS: losartan 50 mg Tablet 100 MG PO (11:19)
[2021-04-02] MEDS: dilTIAZem 60 mg Tablet PO ×2 (11:19→20:45)
[2021-04-02] MEDS: potassium chloride ER 10 mEq Tablet PO (11:19)
[2021-04-02] MEDS: metoprolol tartrate 25 mg Tablet PO ×2 (11:20→20:45)
[2021-04-02] MEDS: HYDROcodone-acetaminophen 5-325 mg Tablet 1 TAB PO ×2 (11:21→18:13)
[2021-04-02] MEDS: ondansetron 2 mg/ML SDV 2 mL 4 MG IVP ×3 (11:25→22:35)
[2021-04-02] MEDS: potassium chloride premix 100 ML 25 MEQ IV ×2 (11:29→15:53)
[2021-04-02 11:51] LABS: Glucose Point of Care 122 mg/dL (70-110)
[2021-04-02] MEDS: potassium chloride ER 20 mEq Tablet 80 MEQ PO (13:28)
[2021-04-02] MEDS: fluconazole premix 100 MG in empty flexible container 1 EACH 50 MG IV (13:28)
--- NOTE | 2021-04-02 16:16 | P.PN_ITS ---
Subjective Subjective: Interval history: Patient moved to the ICU overnight after the OR. Patient examination still on CPAP lying comfortably in bed, awake to exam. She underwent diverting colostomy and rectal laceration repair and placement of ERIC drain. Patient has remained hemodynamically stable overnight though has spiked fever up to 100.3 Fahrenheit. Patient has not taken anything by mouth since last night. Medications: Reviewed: Yes Vitals/I&O/Wt Last Vital Signs Temp 98.8 F 04/02/21 14:00 Pulse 65 04/02/21 14:00 Resp 18 04/02/21 14:00 BP 131/62 04/02/21 14:00 Pulse Ox 93 04/02/21 12:00 04/02/21 04/02/21 04/02/21 06:59 14:59 22:59 Intake Total 3183.333 / 3183.333 150 / 3333.333 Output Total 700 / 1970 1740 / 1740 Balance -700 / 2680 1443.333 / 1443.333 150 / 1593.333 Weight last 48 hrs Weight 75.92 kg Weight 80.286 kg Physical Exam Narrative: EXAM NARRATIVE: Family at bedside Const: COMMON NORMALS: no acute distress and alert GENERAL APPEARANCE: ambulatory care coordinator perative and frail appearing ORIENTATION/CONSCIOUSNESS: Yes awake and Yes confused OTHER: Generally weak. HENMT: COMMON NORMALS: oropharynx normal OTHER: NG with bilious contents. Neck/C-Spine: COMMON NORMALS: no meningeal signs and no JVD Resp: COMMON NORMALS: normal respiratory effort and clear to auscultation bilaterally AUSCULTATION: clear to auscultation bilaterally Cardio: COMMON NORMALS: no JVD, regular rhythm, S1 normal heart sound present, S2 normal heart sound present and No murmurs present (Cardio) RHYTHM: regular rhythm HEART SOUNDS: S1 normal heart sound present and S2 normal heart sound present GI: COMMON NORMALS: Normal to inspection, nondistended, normoactive bowel sounds present, Soft to palpation and non-tender PALPATION: Yes Soft to palpation OTHER: Midline incision clean. Drain to left of midline with serosanguineous contents. Extremity: COMMON NORMALS: no joint enlargement and no pedal edema Neuro: COMMON NORMALS: moves all extremities SENSORIUM/ORIENTATION: Yes alert MENINGEAL SIGNS: Yes no meningeal signs COORDINATION/BALANCE: other (Unable to perform) SPEECH: abnormal speech (Confused, but appears to have degree of aphasia) GAIT: Yes Unable to assess gait SENSORY EXAM: Yes other (Attempted to examine several times. Appears probably symmetrical) MOTOR EXAM: Other motor observations present (3+ upper, did not follow comm for LE, but moving feet) COORDINATION: other (Unable to perform) OTHER: Appears to be able to track me from left side to the right side of the bed, but counts fingers on the left, not on the right, though unreliably Skin: COMMON NORMALS: no rashes or lesions noted GENERAL SKIN EXAM: no rashes or lesions noted and dry skin Urinary Catheter Management^: Klein: Cath Placed During This Visit: yes, but has since been removed by the nurse Reason for Continuing Indwelling Catheter: Accurate Measurement of Urinary Output in Critically Ill Patients Urinary Catheter Date of Insertion: 04/01/21 Urinary Catheter Time of Insertion: 19:36 Date Urinary Catheter Removed: 04/01/21 Time Urinary Catheter Discontinued: 19:15 Data : 04/02/21 04:42 04/02/21 04:42 Micro: Microbiology 04/02/21 12:30 Blood Culture - Preliminary Blood SPECIMEN COLLECTED 04/02/21 12:25 Blood Culture - Preliminary Blood SPECIMEN COLLECTED A&P Assessment and plan (1) Status post repair of dehiscence of vaginal cuff: Status: Acute (2) H/O: hysterectomy: Status: Acute (3) 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 Diet as per surgery team. Mobilize with PT/OT. Continue incentive spirometry. Will need immunizations prior to discharge. Status: Acute (4) Traumatic rupture of spleen: After a fall, generalized weakness, deconditioning, would benefit from rehabilitation after discharge. Status: Acute (5) Bacteremia: Blood cultures growing Bacteroides fragilis. Cannot rule out multimicrobial contamination. As patient is going to the OR again we will restart vancomycin and continue with imipenem. Patient will need an antibiotic for 14 days. Last positive blood culture on . Depending on the day of discharge will decide about PICC line. Status: Acute (6) CVA (cerebral vascular accident): Does have some right-sided neglect. Not confused at moment. Does not hav e any degree of aphasia today. CT of the head showed chronic periventricular ischemic changes. CTA obtained, without large vessel occlusion. Continue low-dose aspirin, statin, PPI. PT/OT/ST evaluation. Most likely will have to restart anticoagulation around 10 days post stroke to avoid hemorrhagic conversion. Can start anticoagulation on if remains stable from surgical point of view. Patient will most likely need neurology follow-up as an outpatient. Status: Acute (7) Anemia: Hemoglobin stable. Overall received 5 unit of blood transfusion during the admission. 4 units out of that O+ while 1 or negative. Will confirm with hematology regarding further transfusions. Reticulocyte count appropriate. Started on IV iron after iron panel. Will finish a 5-day course for 1 g IV iron overall and transition to oral iron supplementation after that. Continue with PPIs. Status: Acute (8) Chronic anticoagulation: With Pradaxa for atrial fibrillation. For now hold off reinitiation of anticoagulation because of recent stroke. Status: Acute (9) Acute UTI: Status: Acute (10) Hypokalemia: Replaced. Status: Acute (11) Acute encephalopathy: Possibly secondary to multiple hospitalization, prolonged hospitalization, stroke Advance diet as tolerating and per ST after CVA Mobilize with PT/OT. Status: Acute (12) Post-op bleeding: Status: Acute Additional A&P Information S/p rectal laceration repair, repair of dehiscence of vaginal cuff x2, splenectomy, diverting colostomy: Last OR on April 01 night. Blood culture from admission growing Bacteroides fragilis. Continue with Zosyn. Add vancomycin as patient went to the OR overnight. Repeat blood cultures if patient is febrile. Anticoagulation as per surgical team, diet as per surgical team. Patient will benefit from TPN as has been on suboptimal nutrition for last few days because of multiple ORs. Keep mean arterial pressure over 65. Goal blood pressure less than 140/90 mmHg. DM2: Sliding scale insulin HTN: Goal blood pressure less than 140/90 mmHg with mean over 65. Losartan 100 mg. Continue with daily Cardizem. Holding of metoprolol for now for postoperative bradycardia. Hydralazine 5 mg every 6 hours as needed for systolic of more than 160 mmHg patient is not able to tolerate oral diet. Pulmonary hypertension: Oxygen support as needed keeping saturation over 90% BASIL: Nightly CPAP History of DVT, PE. Anticoagulation held. Atrial fibrillation: Bob blockers resumed. BP doing well. Anticoagulation on hold. History of CVA, Chronic anemia, on iron supplementation, GERD: PPI Hiatal hernia, Dark stools: On iron supplementation, but Hemoccult positive as well. Continue PPI. Has had recent unremarkable endoscopy. KALSKAG DVT prophylaxis: SCD, heparin 5000 every 8. Limited resuscitation. Full liquid diet. TPN Patient's care discussed in detail with family at bedside. Can plan to transfer patient onto the floors from ICU if okay with surgical team. Attestations Medical Necessity Statement*: As per primary team Time Spent in Patient Care: Greater than 35 minutes (>than 50% of time spent in counselling and/or direct pt care on unit) . Procedures Arterial Line Size (Gauge): 20 Coding Level of Care Code Acute Bill Board Poster for Chg Fwd Diagnoses Status post repair of dehiscence of vaginal cuff Z98.890 H/O: hysterectomy Z90.710 S/P splenectomy Z90.81 Traumatic rupture of spleen S36.09XA Bacteremia R78.81 CVA (cerebral vascular accident) I63.9 Anemia D64.9 Chronic anticoagulation Z79.01 Acute UTI N39.0 Hypokalemia E87.6 Acute encephalopathy G93.40 Post-op bleeding
[2021-04-02 16:57] LABS: Glucose Point of Care 133 mg/dL (70-110)
[2021-04-02] MEDS: AA-Dex 5%-20% w/Lytes 1,000 ML with multivitamin inj 10 ML 42 ML IV (17:01)
[2021-04-02] MEDS: vancomycin 1,000 MG in sodium chloride 0.9% 250 ML 250 MG IV (18:14)
[2021-04-02] MEDS: iron sucrose 200 MG in sodium chloride 0.9% (100 ml) 100 ML 220 MG IV (20:41)
[2021-04-02] MEDS: atorvastatin 40 mg Tablet PO (20:45)
[2021-04-02] MEDS: lactulose oral liq 20 gm/30 mL UDC 10 GM PO (20:45)
[2021-04-02] MEDS: donepezil 5 MG Tablet 10 MG PO (20:45)
[2021-04-02] MEDS: ferrous sulfate EC 325 mg Tablet PO (20:47)
[2021-04-02] MEDS: docusate sodium 100 mg Capsule PO (20:47)
[2021-04-02 20:55] LABS: Glucose Point of Care 211 mg/dL (70-110)
[2021-04-02] MEDS: promethazine 25 mg/mL SDV 1 mL 12.5 MG IM (22:54)
--- NOTE | 2021-04-02 23:47 | XRR_ITS ---
PROCEDURE INFORMATION: Exam: XR Abdomen Exam date and time: 04/02/2021 11:49 PM Age: 85 years old Clinical indication: Nausea and vomiting; Prior surgery; Surgery date: <1 month; Surgery type: Splenectomy; Additional info: Ileus TECHNIQUE: Imaging protocol: XR of the abdomen. Views: Frontal supine view of the abdomen. 1 View. COMPARISON: CT abdomen pelvis w con* [id number] 03/23/2021 2:31 PM FINDINGS: Gastrointestinal tract: Unremarkable in its visualized portion. No obstruction visualized. Bones/joints: No acute abnormality. XR/XR KUB portable [id number] IMPRESSION: No acute findings.
[2021-04-02] MEDS: LORazepam 2 mg/mL INJ 1 mL 1 MG IVP (23:58)
[2021-04-03] VITALS (28 sets, daily range): BP systolic 122–171; BP diastolic 57–108; PULSE 61–114; RESP 12–22; TEMP 36.8–37.7; O2SAT 85–97
--- NOTE | 2021-04-03 00:18 | PC.NURSE ---
2230 Pt vomited 50cc light green bile 2235 Zofran given 4mg 2250 Dr. looney notified Pt having nausea emesis x2 with dry heaving abd unchanged from previous assessment Phenergan ordered 225 Phenergan 12.5 IM given 2340 Pt continues to have nausea with dry heaves Dr. Looney notified by phone orders received 2355 KUB done at bedside 235 gave Lorazepam [address] Looney orders 0015 Pt resting comfortably will continue to monitor
[2021-04-03] MEDS: heparin 5,000 unit/mL INJ 1 mL 5000 UNIT SUBCUT ×3 (00:56→16:59)
[2021-04-03] MEDS: piperacillin-tazobactam 3.375 GM in sodium chloride 0.9% (plus) 50 ML IV ×3 (04:10→19:15)
[2021-04-03] MEDS: dilTIAZem 60 mg Tablet PO ×3 (04:36→19:34)
[2021-04-03] MEDS: sodium chlor 0.9% + KCl 20 mEq 20 MEQ/1,000 ML BAG 100 MEQ IV (04:43)
[2021-04-03 04:54] LABS: Basophils % 0.1 %; Eosinophils % 0.2 %; Hematocrit 26.6 % (37.0-47.0); Hemoglobin 8.4 g/dL (11.5-15.3); Lymphocytes # 0.5 10^3/uL (0.8-4.8); Lymphocytes % 3.6 %; Mean Corpuscular HGB Conc 31.6 g/dL (30.0-36.0); Mean Corpuscular Hemoglobin 32.3 pg (28.0-34.0); Mean Corpuscular Volume 102.3 fL (81-99); Mean Platelet Volume 9.5 fL (7.4-10.4); Monocytes # 0.8 10^3/uL (0.2-0.9); Monocytes % 5.2 %; Neutrophils # 13.05 10^3/uL (1.8-7.7); Neutrophils % 89.7 %; Nucleated Red Blood Cells # 0.1 /100WBC; Nucleated Red Blood Cells % 0.3 %; Platelet Count 383 10^3/cmm (130-400); Red Cell Distribution Width 17.4 % (12.1-15.1); White Blood Count 14.6 10^3/uL (4.0-10.0)
[2021-04-03 05:15] LABS: Alanine Aminotransferase < 5 U/L (0-33); Albumin Level 2.4 g/dL (3.5-5.2); Alkaline Phosphatase 60 IU/L (35-105); Aspartate Amino Transferase 14 U/L (0-32); Blood Urea Nitrogen 8 mg/dL (8-23); Calcium 8.9 mg/dL (8.5-10.5); Carbon Dioxide 26 mmol/L (22-29); Chloride 108 mmol/L (98-107); Globulin 2.5 g/dL (1.3-4.6); Glucose 239 mg/dL (65-115); Osmolality Calculated 294 mOsm/kg (285-295); Sodium 139 mmol/L (136-145); Total Bilirubin 0.4 mg/dL (0.15-1.2); Total Protein 4.9 g/dL (6.6-8.7)
[2021-04-03 07:49] LABS: Glucose Point of Care 256 mg/dL (70-110)
[2021-04-03 08:02] LABS: Glucose Point of Care 226 mg/dL (70-110)
[2021-04-03] MEDS: pantoprazole 40 mg SDV IVP ×2 (09:31→20:19)
[2021-04-03] MEDS: lactulose oral liq 20 gm/30 mL UDC 10 GM PO ×2 (09:31→19:35)
[2021-04-03] MEDS: aspirin 81 mg EC Tablet PO (09:32)
[2021-04-03] MEDS: HYDROcodone-acetaminophen 5-325 mg Tablet 1 TAB PO ×2 (09:33→18:10)
[2021-04-03] MEDS: losartan 50 mg Tablet 100 MG PO (09:34)
[2021-04-03] MEDS: potassium chloride ER 10 mEq Tablet PO (09:34)
[2021-04-03] MEDS: ferrous sulfate EC 325 mg Tablet PO ×2 (09:50→19:34)
[2021-04-03] MEDS: metoprolol tartrate 25 mg Tablet PO (09:50)
[2021-04-03] MEDS: docusate sodium 100 mg Capsule PO ×2 (09:50→18:09)
--- NOTE | 2021-04-03 10:05 | PC.NURSE ---
0700 recd. sleeping. will allow to rest at this time.
--- NOTE | 2021-04-03 10:08 | PC.NURSE ---
0800. awakened easily for assessment.
--- NOTE | 2021-04-03 10:09 | PC.NURSE ---
awakened easily for assessment and meds.
[2021-04-03 11:02] LABS: Glucose Point of Care 239 mg/dL (70-110)
--- NOTE | 2021-04-03 11:03 | PM.PN ---
Subjective Subjective: Interval history: Mrs. Rodney 85-year-old female status post vaginal cuff dehiscence after pulling ERIC drainage, repair postoperative day2. Awake, referred being nauseous last night. Vitals/I&O/Wt Last Vital Signs Temp 98.7 F 04/03/21 10:00 Pulse 103 H 04/03/21 10:00 Resp 19 H 04/03/21 10:00 BP 171/108 04/03/21 10:00 Pulse Ox 96 04/03/21 10:00 04/02/21 04/03/21 04/03/21 22:59 06:59 14:59 Intake Total 2060 / 5243.333 596.633 / 5839.966 230 / 230 Output Total 675 / 2415 1010 / 3425 Balance 1385 / 2828.333 -413.367 / 2414.966 230 / 230 Weight last 48 hrs Weight 79.379 kg Weight 75.92 kg Physical Exam Narrative: EXAM NARRATIVE: GA: Alert and oriented ?3. HEENT: WNL. Heart: Regular rate and rhythm. Lungs: Clear to auscultation bilaterally. Abdomen: Bowel sounds present, minimal tenderness, midline incision clean and dry, no redness, pain or edema. Colostomy in place. COMPUTER CONSOLE OPERATOR: No bleeding. ERIC drain in place, small amount of drainage Extremities: No edema, no cyanosis, no calves pain. Urinary Catheter Management^: Klein: Cath Placed During This Visit: yes, but has since been removed by the nurse Reason for Continuing Indwelling Catheter: Accurate Measurement of Urinary Output in Critically Ill Patients Urinary Catheter Date of Insertion: 04/01/21 Urinary Catheter Time of Insertion: 19:36 Date Urinary Catheter Removed: 04/01/21 Time Urinary Catheter Discontinued: 19:15 Data : 04/03/21 04:20 04/03/21 04:20 Micro: Microbiology 03/28/21 19:45 Blood Culture - Final Blood NO GROWTH AFTER 5 DAYS 03/28/21 19:45 Blood Culture - Final Blood NO GROWTH AFTER 5 DAYS 04/02/21 12:30 Blood Culture - Preliminary Blood SPECIMEN COLLECTED 04/02/21 12:25 Blood Culture - Preliminary Blood SPECIMEN COLLECTED A&P Assessment and plan (1) Status post repair of dehiscence of vaginal cuff: Mrs. Rodney is status post second vaginal cuff dehiscence and small rectal laceration after pulling ERIC drain on op day 2. She was repaired again postoperative day 2. Vaginal ERIC drain with small amount of drainage. she is afebrile now. Referred that she was nauseous last night. WBC has decreased to 14.6. Stable H&H. She is hemodynamically stable. Continue on clear fluids. Colostomy bag in place. Continue postop observation in ICU. This documentation was created by [employer] case assistant software (known for inherent case assistant error). Every effort was made to assure accuracy of case assistant. Any obvious errors or omissions should be clarified with the author of the document. Status: Acute Attestations Medical Necessity Statement*: Status post colostomy, status post vaginal repair. Procedures Arterial Line Size (Gauge): 20 Coding Level of Care Code Acute Human Resources Safety Manager for g [place] Diagnoses Status post repair of dehiscence of vaginal cuff Z98.890
--- NOTE | 2021-04-03 11:37 | PC.SOCIAL ---
IMM Update Pg. 2 of IMM Updated and reviewed with patient's family in ICU, who verbalized understanding. Patient resting with both eyes closed. Copy provided.
--- NOTE | 2021-04-03 11:37 | PM.PN ---
Subjective Subjective: Interval history: No acute events overnight other than Nausea and 1 episode of vomiting. Patient states she is extremely tired and weak. Denies any abdominal pain. Passing flatus. Hemodynamically has remained stable. Blood pressure mildly elevated. T-max in last 24 hours 99.8 Fahrenheit. Medications: Reviewed: Yes Vitals/I&O/Wt Last Vital Signs Temp 98.7 F 04/03/21 10:00 Pulse 103 H 04/03/21 10:00 Resp 19 H 04/03/21 10:00 BP 171/108 04/03/21 10:00 Pulse Ox 96 04/03/21 10:00 04/02/21 04/03/21 04/03/21 22:59 06:59 14:59 Intake Total 2060 / 5243.333 596.633 / 5839.966 230 / 230 Output Total 675 / 2415 1010 / 3425 Balance 1385 / 2828.333 -413.367 / 2414.966 230 / 230 Weight last 48 hrs Weight 79.379 kg Weight 75.92 kg Physical Exam Narrative: EXAM NARRATIVE: Family at bedside Const: COMMON NORMALS: no acute distress and alert GENERAL APPEARANCE: cooperative and frail appearing ORIENTATION/CONSCIOUSNESS: Yes awake and Yes confused OTHER: Generally weak. HENMT: COMMON NORMALS: oropharynx normal OTHER: NG with bilious contents. Neck/C-Spine: COMMON NORMALS: no meningeal signs and no JVD Resp: COMMON NORMALS: normal respiratory effort and clear to auscultation bilaterally AUSCULTATION: clear to auscultation bilaterally Cardio: COMMON NORMALS: no JVD, regular rhythm, S1 normal heart sound present, S2 normal heart sound present and No murmurs present (Cardio) RHYTHM: regular rhythm HEART SOUNDS: S1 normal heart sound present and S2 normal heart sound present GI: COMMON NORMALS: Normal to inspection, nondistended, normoactive bowel sounds present, Soft to palpation and non-tender PALPATION: Yes Soft to palpation OTHER: Midline incision clean. Drain to left of midline with serosanguineous contents. Extremity: COMMON NORMALS: no joint enlargement and no pedal edema Neuro: COMMON NORMALS: moves all extremities SENSORIUM/ORIENTATION: Yes alert MENINGEAL SIGNS: Yes no meningeal signs COORDINATION/BALANCE: other (Unable to perform) SPEECH: abnormal speech (Confused, but appears to have degree of aphasia) GAIT: Yes Unable to assess gait SENSORY EXAM: Yes other (Attempted to examine several times. Appears probably symmetrical) MOTOR EXAM: Other motor observations present (3+ upper, did not follow comm for LE, but moving feet) COORDINATION: other (Unable to perform) OTHER: Appears to be able to track me from left side to the right side of the bed, but counts fingers on the left, not on the right, though unreliably Skin: COMMON NORMALS: no rashes or lesions noted GENERAL SKIN EXAM: no rashes or lesions noted and dry skin Urinary Catheter Management^: Klein: Cath Placed During This Visit: yes, but has since been removed by the nurse Reason for Continuing Indwelling Catheter: Accurate Measurement of Urinary Output in Critically Ill Patients Urinary Catheter Date of Insertion: 04/01/21 Urinary Catheter Time of Insertion: 19:36 Date Urinary Catheter Removed: 04/01/21 Time Urinary Catheter Discontinued: 19:15 Data : 04/03/21 04:20 04/03/21 04:20 Micro: Microbiology 03/28/21 19:45 Blood Culture - Final Blood NO GROWTH AFTER 5 DAYS 03/28/21 19:45 Blood Culture - Final Blood NO GROWTH AFTER 5 DAYS 04/02/21 12:30 Blood Culture - Preliminary Blood SPECIMEN COLLECTED 04/02/21 12:25 Blood Culture - Preliminary Blood SPECIMEN COLLECTED A&P Assessment and plan (1) Status post repair of dehiscence of vaginal cuff: Status: Acute (2) H/O: hysterectomy: Status: Acute (3) 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 Diet as per surgery team. Mobilize with PT/OT. Continue incentive spirometry. Will need immunizations prior to discharge. Status: Acute (4) Traumatic rupture of spleen: After a fall, generalized weakness, deconditioning, would benefit from rehabilitation after discharge. Status: Acute (5) Bacteremia: Blood cultures growing Bacteroides fragilis. Cannot rule out multimicrobial contamination. Continue vancomycin for 1 more day. White count keeps trending down and patient remains hemodynamically stable can discontinue tomorrow. Follow continue Zosyn. Plan to continue Zosyn for 14 days from last positive blood culture on . Patient will need an antibiotic for 14 days. Depending on the day of discharge will decide about PICC line. Status: Acute (6) CVA (cerebral vascular accident): Does have some right-sided neglect. Not confused at moment. Does not have any degree of aphasia today. CT of the head showed chronic periventricular ischemic changes. CTA obtained, without large vessel occlusion. Continue low-dose aspirin, statin, PPI. PT/OT/ST evaluation. Most likely will have to restart anticoagulation around 10 days post stroke to avoid hemorrhagic conversion. Can start anticoagulation on if remains stable from surgical point of view. Patient will most likely need neurology follow-up as an outpatient. Status: Acute (7) Anemia: Hemoglobin stable. Overall received 5 unit of blood transfusion during the admission. 4 units out of that O+ while 1 or negative. Will confirm with hematology regarding further transfusions. Reticulocyte count appropriate. Started on IV iron after iron panel. Will finish a 5-day course for 1 g IV iron overall and transition to oral iron supplementation after that. Continue with PPIs. Status: Acute (8) Chronic anticoagulation: With Pradaxa for atrial fibrillation. For now hold off reinitiation of anticoagulation because of recent stroke. Status: Acute (9) Acute UTI: Status: Acute (10) Hypokalemia: Replaced. Status: Acute (11) Acute encephalopathy: Possibly secondary to multiple hospitalization, prolonged hospitalization, stroke Advance diet as tolerating and per ST after CVA Mobilize with PT/OT. Status: Acute (12) Post-op bleeding: Status: Acute Additional A&P Information S/p rectal laceration repair, repair of dehiscence of vaginal cuff x2, splenectomy, diverting colostomy: Last OR on April 01 night. Blood culture from admission growing Bacteroides fragilis. Continue with Zosyn. Add vancomycin as patient went to the OR overnight. Repeat blood cultures if patient is febrile. Anticoagulation as per surgical team, diet as per surgical team. Patient will benefit from TPN as has been on suboptimal nutrition for last few days because of multiple ORs. Keep mean arterial pressure over 65. Goal blood pressure less than 140/90 mmHg. Stop IV fluids. Overall including TPN at 75 cc/h to continue for now. DM2: Sliding scale insulin HTN: Goal blood pressure less than 140/90 mmHg with mean over 65. Losartan 100 mg. Continue with daily Cardizem. Increase metoprolol to home dose. If blood pressure continues to run higher can add amlodipine. Hydralazine 5 mg every 6 hours as needed for systolic of more than 160 mmHg patient is not able to tolerate oral diet. Pulmonary hypertension: Oxygen support as needed keeping saturation over 90% BASIL: Nightly CPAP History of DVT, PE. Anticoagulation held. Atrial fibrillation: Bob blockers resumed. BP doing well. Anticoagulation on hold. History of CVA, Chronic anemia, on iron supplementation, GERD: PPI Hiatal hernia, Dark stools: On iron supplementation, but Hemoccult positive as well. Continue PPI. Has had recent unremarkable endoscopy. [place] DVT prophylaxis: SCD, heparin 5000 every 8. Limited resuscitation. Clear liquid diet. TPN Patient's care discussed in detail with family at bedside. Can plan to transfer patient onto the floors from ICU if okay with surgical team. Attestations Medical Necessity Statement*: As per primary team Time Spent in Patient Care: Greater than 35 minutes (>than 50% of time spent in counselling and/or direct pt care on unit). Procedures Arterial Line Size (Gauge): 20 Coding Level of Care Code Acute Drum Dyeing Machine Operator for [facility] Fwd Diagnoses Status post repair of dehiscence of vaginal cuff Z98.890 H/O: hysterectomy Z90.710 S/P splenectomy Z90.81 Traumatic rupture of spleen S36.09XA Bacteremia R78.81 CVA (cerebral vascular accident) I63.9 Anemia D64.9 Chronic anticoagulation Z79.01 Acute UTI N39.0 Hypokalemia E87.6 Acute encephalopathy G93.40 Post-op bleeding
--- NOTE | 2021-04-03 12:06 | PC.NURSE ---
awakens to verbal stimuli. no c/o. famiy at bedside.
[2021-04-03] MEDS: AA-Dex 5%-20% w/Lytes 1,000 ML with multivitamin inj 10 ML 73 ML IV (14:36)
--- NOTE | 2021-04-03 15:11 | PM.PN ---
Subjective Subjective: Interval history: patient is awake and follows commands, states pain is bearable, no stool in ostomy, good urine output overnight Vitals/I&O/Wt Last Vital Signs Temp 98.6 F 04/02/21 20:00 Pulse 73 04/02/21 21:15 Resp 17 04/02/21 21:15 BP 154/88 04/02/21 20:45 Pulse Ox 96 04/02/21 21:15 04/02/21 04/02/21 04/02/21 06:59 14:59 22:59 Intake Total 3183.333 / 3733.333 550 / 3733.333 Output Total / 1970 1740 / 2415 675 / 2415 Balance -700 / 2680 1443.333 / 1318.333 -125 / 1318.333 Weight last 48 hrs Weight 167 lb 6 oz Weight 177 lb Physical Exam Narrative: EXAM NARRATIVE: Abdomen: soft , tender, colostomy LLQ - pink , edematous, stoma sweat, no stool, ERIC drain output is serosanguineous Urinary Catheter Management^: Klein: Cath Placed During This Visit: yes, but has since been removed by the nurse Reason for Continuing Indwelling Catheter: Accurate Measurement of Urinary Output in Critically Ill Patients Urinary Catheter Date of Insertion: 04/01/21 Urinary Catheter Time of Insertion: 19:36 Date Urinary Catheter Removed: 04/01/21 Time Urinary Catheter Discontinued: 19:15 Data : 04/03/21 04:20 04/03/21 04:20 Micro: Microbiology 03/28/21 19:45 Blood Culture - Final Blood NO GROWTH AFTER 5 DAYS 03/28/21 19:45 Blood Culture - Final Blood NO GROWTH AFTER 5 DAYS 04/02/21 12:30 Blood Culture - Preliminary Blood SPECIMEN COLLECTED 04/02/21 12:25 Blood Culture - Preliminary Blood SPECIMEN COLLECTED A&P Assessment and plan (1) S/P splenectomy: 85-year-old female status post hysterectomy complicated by rectal laceration requiring primary repair 03/16/2021 traumatic splenic rupture and splenectomy 03/23/2021 Status post vaginal exam and anesthesia with repair of rectal laceration and dehisced rectal vault 03/29/2021 Laparoscopic diverting loop colostomy and repair of rectal laceration 04/01/2021 ERIC drain output is serosanguineous, ostomy Anemia: Hemoglobin stable WBC is 20k, patient had UTI and positive blood cultures,growing Bacteroides, currently on vancomycin and zosyn Hypokalemia resolved with replacement Protein calorie malnutrition -clear liquid diet, start TPN Leave Klein as per Dr. Muller Protonix for GI prophylaxis Continue home medications Insulin sliding scale Donzepil for depression Morphine, [place] for pain control Lactulose 15 cc p.o. twice daily and Colace for bowel regimen Patient will need greater than 2 nights of inpatient stay to ensure that she does not develop any postop complications. She will also need H. influenzae/pneumococcal/meningococcal vaccination prior to discharge Status: Acute Attestations Medical Necessity Statement*: Status post diverting loop colostomy requiring continued inpatient stay Procedures Arterial Line Size (Gauge): 20 Coding Level of Care Code Acute Carpenter Supervisor Wooden Ship for Chg Fwd Diagnoses S/P splenectomy Z90.81
--- NOTE | 2021-04-03 15:15 | P.PN_ITS ---
Subjective Subjective: Interval history: Patient has been more sleepy today, had couple episodes of emesis last night, ostomy has stool output, pain is controlled Vitals/I&O/Wt Last Vital Signs Temp 98.7 F 04/03/21 10:00 Pulse 76 04/03/21 12:00 Resp 16 04/03/21 12:00 BP 160/85 04/03/21 12:00 Pulse Ox 95 04/03/21 12:00 04/03/21 04/03/21 04/03/21 06:59 14:59 22:59 Intake Total 596.633 / 5839.966 1036.7 / 1036.7 Output Total 1010 / 3425 Balance -413.367 / 2414.966 1036.7 / 1036.7 Weight last 48 hrs Weight 175 lb Weight 167 lb 6 oz Physical Exam Narrative: EXAM NARRATIVE: Abdomen: Soft, nondistended, incision clean dry and intact, tender, ostomy pink, edematous, stool in the ostomy bag, ERIC drain has stool Urinary Catheter Management^: Klein: Cath Placed During This Visit: yes, but has since been removed by the nurse Reason for Continuing Indwelling Catheter: Accurate Measurement of Urinary Output in Critically Ill Patients Urinary Catheter Date of Insertion: 04/01/21 Urinary Catheter Time of Insertion: 19:36 Date Urinary Catheter Removed: 04/01/21 Time Urinary Catheter Discontinued: 19:15 Data : 04/03/21 04:20 04/03/21 04:20 Micro: Microbiology 03/29/21 14:17 Blood Culture - Final Blood NO GROWTH AFTER 5 DAYS 03/29/21 14:15 Blood Culture - Final Blood NO GROWTH AFTER 5 DAYS 04/02/21 12:30 Blood Culture - Preliminary Blood NEGATIVE TO DATE 04/02/21 12:25 Blood Culture - Preliminary Blood NEGATIVE TO DATE 03/28/21 19:45 Blood Culture - Final Blood NO GROWTH AFTER 5 DAYS 03/28/21 19:45 Blood Culture - Final Blood NO GROWTH AFTER 5 DAYS A&P Assessment and plan (1) S/P splenectomy: 85-year-old female status post hysterectomy complicated by rectal laceration requiring primary repair 03/16/2021 traumatic splenic rupture and splenectomy 03/23/2021 Status post vaginal exam and anesthesia with repair of rectal laceration and dehisced rectal vault 03/29/2021 Laparoscopic diverting loop colostomy and repair of rectal laceration 04/01/2021 Patient had couple episodes of emesis last night but her ostomy is functioning today. Her ERIC drain output has stool in it Patient has gained 22 pounds and has anasarca, Lasix 40 mg IV x1 Anemia: Hemoglobin stable WBC is okay today, patient has been afebrile since yesterday, patient had UTI and positive blood cultures,growing Bacteroides, currently on vancomycin and zosyn Hypokalemia resolved with replacement Protein calorie malnutrition -clear liquid diet, continue TPN Leave Klein as per Dr. Muller Daily labs Protonix for GI prophylaxis Continue home medications Insulin sliding scale Donzepil for depression Morphine, [place] for pain control Lactulose 15 cc p.o. twice daily and Colace for bowel regimen Patient will need greater than 2 nights of inpatient stay to ensure that she does not develop any postop complications. She will also need H. influenzae/pneumococcal/meningococcal vaccination prior to discharge Status: Acute Attestations Medical Necessity Statement*: Rectal lacerations, status post splenectomy requiring continued inpatient stay to ensure resolution of leukocytosis Procedures Arterial Line Size (Gauge): 20 Coding Level of Care Code Acute Trestle Builder for [facility]g Fwd Diagnoses S/P splenectomy Z90.81
[2021-04-03] MEDS: FUROsemide 10 mg/mL SDV 4mL 40 MG IVP (15:18)
[2021-04-03] MEDS: hyDRALAzine 20 mg/mL INJ 1 mL 5 MG IVP (18:10)
--- NOTE | 2021-04-03 19:11 | PC.NURSE ---
pt. reluctant to admit pain today. meds x 2. ostomy dressing oozing. passing flatus.
[2021-04-03] MEDS: vancomycin 1,000 MG in sodium chloride 0.9% 250 ML 250 MG IV (19:15)
[2021-04-03] MEDS: sodium chlor 0.9% + KCl 20 mEq 20 MEQ/1,000 ML BAG 23 MEQ IV (19:16)
[2021-04-03] MEDS: metoprolol tartrate 50 mg Tablet PO (19:35)
[2021-04-03 20:05] LABS: Glucose Point of Care 217 mg/dL (70-110)
[2021-04-03] MEDS: donepezil 5 MG Tablet 10 MG PO (20:19)
[2021-04-03] MEDS: atorvastatin 40 mg Tablet PO (20:19)
[2021-04-04] VITALS (27 sets, daily range): BP systolic 124–168; BP diastolic 68–94; PULSE 60–106; RESP 14–27; TEMP 36.9–37.1; O2SAT 93–97
[2021-04-04] MEDS: heparin 5,000 unit/mL INJ 1 mL 5000 UNIT SUBCUT ×3 (00:33→17:51)
[2021-04-04] MEDS: piperacillin-tazobactam 3.375 GM in sodium chloride 0.9% (plus) 50 ML IV ×3 (02:10→17:52)
[2021-04-04 03:18] LABS: Glucose Point of Care 230 mg/dL (70-110)
[2021-04-04] MEDS: dilTIAZem 60 mg Tablet PO ×2 (03:22→19:45)
[2021-04-04 04:02] LABS: Basophils % 0.4 %; Eosinophils # 0.3 10^3/uL (0.0-0.8); Eosinophils % 2.8 %; Hematocrit 26.4 % (37.0-47.0); Hemoglobin 8.2 g/dL (11.5-15.3); Lymphocytes % 9.9 %; Mean Corpuscular HGB Conc 31.1 g/dL (30.0-36.0); Mean Corpuscular Hemoglobin 31.3 pg (28.0-34.0); Mean Corpuscular Volume 100.8 fL (81-99); Mean Platelet Volume 9.4 fL (7.4-10.4); Monocytes # 1.1 10^3/uL (0.2-0.9); Monocytes % 10.4 %; Neutrophils # 7.87 10^3/uL (1.8-7.7); Neutrophils % 74.7 %; Nucleated Red Blood Cells # 0.1 /100WBC; Nucleated Red Blood Cells % 0.6 %; Platelet Count 431 10^3/cmm (130-400); Red Blood Count 2.62 10^6/uL (4.1-5.3); Red Cell Distribution Width 17.4 % (12.1-15.1); White Blood Count 10.5 10^3/uL (4.0-10.0)
[2021-04-04 04:33] LABS: Alanine Aminotransferase 6 U/L (0-33); Albumin Level 2.5 g/dL (3.5-5.2); Alkaline Phosphatase 67 IU/L (35-105); Anion Gap 9.9 (5-19); Aspartate Amino Transferase 14 U/L (0-32); Blood Urea Nitrogen 9 mg/dL (8-23); Calcium 9.3 mg/dL (8.5-10.5); Carbon Dioxide 27 mmol/L (22-29); Chloride 107 mmol/L (98-107); Creatinine Clr Calc Pharmacy 50.1683; Globulin 2.2 g/dL (1.3-4.6); Glucose 227 mg/dL (65-115); Osmolality Calculated 298 mOsm/kg (285-295); Sodium 141 mmol/L (136-145); Total Bilirubin 0.3 mg/dL (0.15-1.2); Total Protein 4.7 g/dL (6.6-8.7)
[2021-04-04 04:39] LABS: Potassium 2.9 mmol/L (3.5-5.1)
[2021-04-04] MEDS: potassium chloride premix 40 MEQ/100 ML PREMIX 25 MEQ IV (05:05)
--- NOTE | 2021-04-04 05:08 | PC.NURSE ---
Critical lab K+2.9, notified Dr. Obando received new orders for K toma. Continue care.
[2021-04-04 05:57] LABS: Magnesium 2.1 mg/dL (1.7-2.3)
[2021-04-04] MEDS: AA-Dex 5%-20% w/Lytes 1,000 ML with multivitamin inj 10 ML 83 ML IV (06:17)
[2021-04-04 07:01] LABS: Glucose Point of Care 156 mg/dL (70-110)
[2021-04-04] MEDS: losartan 50 mg Tablet 100 MG PO (08:56)
[2021-04-04] MEDS: docusate sodium 100 mg Capsule PO ×2 (08:57→17:51)
[2021-04-04] MEDS: aspirin 81 mg EC Tablet PO (08:57)
[2021-04-04] MEDS: lactulose oral liq 20 gm/30 mL UDC 10 GM PO ×2 (08:57→19:45)
[2021-04-04] MEDS: potassium chloride oral liq 20 mEq/15 mL UDC 80 MEQ PO (09:01)
[2021-04-04] MEDS: ferrous sulfate EC 325 mg Tablet PO ×2 (09:01→19:45)
[2021-04-04] MEDS: pantoprazole 40 mg SDV IVP ×2 (09:01→20:29)
[2021-04-04] MEDS: metoprolol tartrate 50 mg Tablet PO (09:05)
[2021-04-04] MEDS: acetaminophen 325 mg Tablet 650 MG PO ×2 (10:04→17:51)
[2021-04-04 11:21] LABS: Glucose Point of Care 256 mg/dL (70-110)
--- NOTE | 2021-04-04 13:36 | PM.PN ---
Subjective Subjective: Interval history: Mrs. Rodney 85-year-old female status post vaginal cuff dehiscence after pulling ERIC drainage, repair postoperative day3. Awake, referred feeling much better than yesterday. Sitting up without difficulty. Vitals/I&O/Wt Last Vital Signs Temp 99.8 F H 04/03/21 20:00 Pulse 80 04/04/21 06:00 Resp 16 04/04/21 06:00 BP 161/92 04/04/21 08:56 Pulse Ox 96 04/04/21 06:00 04/03/21 04/04/21 04/04/21 22:59 06:59 14:59 Intake Total 1113.883 / 2150.583 1230 / 3380.583 60 / 60 Output Total 2875 / 2875 2250 / 5125 650 / 650 Balance -1761.117 / -724.417 -1020 / -1744.417 -590 / -590 Weight last 48 hrs Weight 79.832 kg Weight 79.379 kg Physical Exam Narrative: EXAM NARRATIVE: GA: Alert and oriented ?3. HEENT: WNL. Heart: Regular rate and rhythm. Lungs: Clear to auscultation bilaterally. Abdomen: Bowel sounds present, minimal tenderness, midline incision clean and dry, no redness, pain or edema. Colostomy in place and pink VP MARKETING SERVICES AND SKIN: No bleeding. ERIC drain in place, small amount of drainage Extremities: No edema, no cyanosis, no calves pain. Urinary Catheter Management^: Klein: Cath Placed During This Visit: yes, but has since been removed by the nurse Reason for Continuing Indwelling Catheter: Accurate Measurement of Urinary Output in Critically Ill Patients Urinary Catheter Date of Insertion: 04/01/21 Urinary Catheter Time of Insertion: 19:36 Date Urinary Catheter Removed: 04/01/21 Time Urinary Catheter Discontinued: 19:15 Data : 04/04/21 03:12 04/04/21 03:12 Micro: Microbiology 03/29/21 14:17 Blood Culture - Final Blood NO GROWTH AFTER 5 DAYS 03/29/21 14:15 Blood Culture - Final Blood NO GROWTH AFTER 5 DAYS 04/02/21 12:30 Blood Culture - Preliminary Blood NEGATIVE TO DATE 04/02/21 12:25 Blood Culture - Preliminary Blood NEGATIVE TO DATE A&P Assessment and plan (1) Status post repair of dehiscence of vaginal cuff: Mrs. Rodney is status post second vaginal cuff dehiscence and small rectal laceration after pulling ERIC drain on op day 2. She was repaired again postoperative day 3. Vaginal ERIC drain with small amount of drainage. she is afebrile now. WBC has decreased to 10.5. Stable H&H. She is hemodynamically stable. Tolerating liquid diet. Colostomy bag in place. Sitting up in chair without difficulty, talking and in good spirit. Continue postop observation in ICU. This documentation was created by [employer] doughnut batter mixer software (known for inherent doughnut batter mixer error). Every effort was made to assure accuracy of doughnut batter mixer. Any obvious errors or omissions should be clarified with the author of the document. Status: Acute Attestations Medical Necessity Statement*: Status post splenectomy, status post vaginal dehiscence repair, status post colostomy Procedures Arterial Line Size (Gauge): 20 Coding Level of Care Code Acute Commercial Real Estate Sales Manager for [facility] Fwd Diagnoses Status post repair of dehiscence of vaginal cuff Z98.890
[2021-04-04] MEDS: HYDROcodone-acetaminophen 5-325 mg Tablet 1 TAB PO ×2 (14:21→20:30)
[2021-04-04] MEDS: hyDRALAzine 25 mg Tablet PO ×3 (14:22→20:29)
[2021-04-04] MEDS: sertraline 50 mg Tablet PO (14:22)
--- NOTE | 2021-04-04 14:53 | PC.NUTR ---
Nutrition reassessment: Family requesting Ensure Plus be changed to strawberry, as pt is no longer wanting vanilla. Also state pt would enjoy a milkshake. Will provide Ensure Plus strawberry TID, with the lunch supplement being made into milkshake daily. Will add no tomato soup to diet order per family request. Likes chicken soup. Recommend to consider decreasing TPN rate to 75 ml hr to provide 1584 kcal, 90 g protein, and gradually decrease as po intakes improve, to avoid overfeeding and promote glucose control. Notified Dr. Brand of recommendation. See RD assessment for further details.
--- NOTE | 2021-04-04 15:38 | P.PN_ITS ---
Subjective Subjective: Interval history: Patient is more awake, no nausea or vomiting yesterday, ostomy is functioning, ERIC drain output of stool Vitals/I&O/Wt Last Vital Signs Temp 99.8 F H 04/03/21 20:00 Pulse 86 04/04/21 14:00 Resp 19 H 04/04/21 14:00 BP 154/70 04/04/21 14:00 Pulse Ox 93 04/04/21 14:00 04/04/21 04/04/21 04/04/21 06:59 14:59 22:59 Intake Total 1230 / 3380.583 280 / 280 Output Total 2250 / 5125 650 / 650 Balance -1020 / -1744.417 -370 / -370 Weight last 48 hrs Weight 176 lb Weight 175 lb Physical Exam Narrative: EXAM NARRATIVE: Abdomen: Soft, minimally tender, nondistended, incision clean dry and intact, Klein catheter in place, ostomy pink and functioning, slightly edematous Urinary Catheter Management^: Klein: Cath Placed During This Visit: yes, but has since been removed by the nurse Reason for Continuing Indwelling Catheter: Accurate Measurement of Urinary Output in Critically Ill Patients Urinary Catheter Date of Insertion: 04/01/21 Urinary Catheter Time of Insertion: 19:36 Date Urinary Catheter Removed: 04/01/21 Time Urinary Catheter Discontinued: 19:15 Data : 04/04/21 03:12 04/04/21 03:12 Micro: Microbiology 03/29/21 14:17 Blood Culture - Final Blood NO GROWTH AFTER 5 DAYS 03/29/21 14:15 Blood Culture - Final Blood NO GROWTH AFTER 5 DAYS 04/02/21 12:30 Blood Culture - Preliminary Blood NEGATIVE TO DATE 04/02/21 12:25 Blood Culture - Preliminary Blood NEGATIVE TO DATE A&P Assessment and plan (1) S/P splenectomy: 85-year-old female status post hysterectomy complicated by rectal la ceration requiring primary repair 03/16/2021 traumatic splenic rupture and splenectomy 03/23/2021 Status post vaginal exam and anesthesia with repair of rectal laceration and dehisced rectal vault 03/29/2021 Laparoscopic diverting loop colostomy and repair of rectal laceration 04/01/2021 Her ERIC drain output has stool in it Patient has gained 22 pounds and has anasarca, Lasix 40 mg IV x1 Anemia: Hemoglobin stable at 8.2 WBC is down to 10.5, continue Zosyn until 04/08/2021 due to positive blood cultures Hypokalemia 2.9, 80 mEq of KCl twice daily p.o. given Protein calorie malnutrition -advance to full liquid diet, nutritional supplements continue TPN Leave Klein as per Dr. Muller Daily labs Protonix for GI prophylaxis Continue home medications Insulin sliding scale Donzepil for depression, sertraline added Morphine, [place] for pain control Lactulose 15 cc p.o. twice daily and Colace for bowel regimen Patient will need greater than 2 nights of inpatient stay to ensure that she does not develop any postop complications. She will also need H. influenzae/pneumococcal/meningococcal vaccination prior to discharge We will transfer the patient to the floor today since she has been stable and her white count is trending down. Status: Acute Attestations Medical Necessity Statement*: Status post splenectomy, sepsis continue IV antibiotics and return of bowel function requires continued inpatient stay Procedures Arterial Line Size (Gauge): 20 Coding Level of Care Code Acute Catalytic Converter Operator Helper for Haylie Peck Diagnoses S/P splenectomy Z90.81
--- NOTE | 2021-04-04 16:18 | P.PN_ITS ---
Subjective Subjective: Interval history: No acute events overnight. Patient has have been nauseous. More awake today. Ostomy healthy. Passing flatus. ERIC drain seems to have feculent material. Medications: Reviewed: Yes Vitals/I&O/Wt Last Vital Signs Temp 99.8 F H 04/03/21 20:00 Pulse 86 04/04/21 14:00 Resp 19 H 04/04/21 14:00 BP 154/70 04/04/21 14:00 Pulse Ox 93 04/04/21 14:00 04/04/21 04/04/21 04/04/21 06:59 14:59 22:59 Intake Total 1230 / 3380.583 280 / 280 Output Total 2250 / 5125 650 / 650 Balance -1020 / -1744.417 -370 / -370 Weight last 48 hrs Weight 79.832 kg Weight 79.379 kg Physical Exam Narrative: EXAM NARRATIVE: Family at bedside Const: COMMON NORMALS: no acute distress and alert GENERAL APPEARANCE: cooperative and frail appearing ORIENTATION/CONSCIOUSNESS: Yes awake and Yes confused OTHER: Generally weak. HENMT: COMMON NORMALS: oropharynx normal Neck/C-Spine: COMMON NORMALS: no meningeal signs and no JVD Resp: COMMON NORMALS: normal respiratory effort and clear to auscultation bilaterally AUSCULTATION: clear to auscultation bilaterally Cardio: COMMON NORMALS: no JVD, regular rhythm, S1 normal heart sound present, S2 normal heart sound present and No murmurs present (Cardio) RHYTHM: regular rhythm HEART SOUNDS: S1 normal heart sound present and S2 normal heart sound present GI: COMMON NORMALS: Normal to inspection, nondistended, normoactive bowel sounds present, Soft to palpation and non-tender PALPATION: Yes Soft to palpation OTHER: Midline incision clean. Drain to left of midline with serosanguineous contents. Extremity: COMMON NORMALS: no joint enlargement and no pedal edema Neuro: COMMON NORMALS: moves all extremities SENSORIUM/ORIENTATION: Yes alert MENINGEAL SIGNS: Yes no meningeal signs COORDINATION/BALANCE: other (Unable to perform) SPEECH: abnormal speech (Confused, but appears to have degree of aphasia) GAIT: Yes Unable to assess gait SENSORY EXAM: Yes other (Attempted to examine several times. Appears probably symmetrical) MOTOR EXAM: Other motor observations present (3+ upper, did not follow comm for LE, but moving feet) COORDINATION: other (Unable to perform) OTHER: Appears to be able to track me from left side to the right side of the bed, but counts fingers on the left, not on the right, though unreliably Skin: COMMON NORMALS: no rashes or lesions noted GENERAL SKIN EXAM: no rashes or lesions noted and dry skin Urinary Catheter Management^: Klein: Cath Placed During This Visit: yes, but has since been removed by the nurse Reason for Continuing Indwelling Catheter: Accurate Measurement of Urinary Output in Critically Ill Patients Urinary Catheter Date of Insertion: 04/01/21 Urinary Catheter Time of Insertion: 19:36 Date Urinary Catheter Removed: 04/01/21 Time Urinary Catheter Discontinued: 19:15 Data : 04/04/21 03:12 04/04/21 03:12 Micro: Microbiology 03/29/21 14:17 Blood Culture - Final Blood NO GROWTH AFTER 5 DAYS 03/29/21 14:15 Blood Culture - Final Blood NO GROWTH AFTER 5 DAYS 04/02/21 12:30 Blood Culture - Preliminary Blood NEGATIVE TO DATE 04/02/21 12:25 Blood Culture - Preliminary Blood NEGATIVE TO DATE Microbiology 03/29/21 14:17 Blood Blood Culture - Final NO GROWTH AFTER 5 DAYS 03/29/21 14:15 Blood Blood Culture - Final NO GROWTH AFTER 5 DAYS 04/02/21 12:30 Blood Blood Culture - Preliminary NEGATIVE TO DATE 04/02/21 12:25 Blood Blood Culture - Preliminary NEGATIVE TO DATE 03/28/21 19:45 Blood Blood Culture - Final NO GROWTH AFTER 5 DAYS 03/28/21 19:45 Blood Blood Culture - Final NO GROWTH AFTER 5 DAYS 03/25/21 09:28 Blood Blood Culture - Final Bacteroides fragilis 03/25/21 09:36 Blood Blood Culture - Final NO GROWTH AFTER 5 DAYS 03/28/21 18:18 Nose MRSA Culture - Final 03/23/21 12:46 Urine,Clean Catch Urine Culture - Final Escherichia coli 03/23/21 12:08 Stool - Stool Aspirate Occult Blood (FIT) - Final A&P Assessment and plan (1) Status post repair of dehiscence of vaginal cuff: Status: Acute (2) H/O: hysterectomy: Status: Acute (3) 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 Diet as per surgery team. Mobilize with PT/OT. Continue incentive spirometry. Will need immunizations prior to discharge. Status: Acute (4) Traumatic rupture of spleen: After a fall, generalized weakness, deconditioning, would benefit from rehabilitation after discharge. Status: Acute (5) Bacteremia: Blood cultures growing Bacteroides fragilis. Cannot rule out multimicrobial contamination. White count normal, hemodynamically stable. Will stop vancomycin. Continue Zosyn. Plan is to continue Zosyn for 14 days since last positive blood culture which is going to be April 08, 2021. For now hold off on getting the PICC line and because were not sure about discharge date. Status: Acute (6) CVA (cerebral vascular accident): Does have some right-sided neglect. Not confused at moment. Does not means ve any degree of aphasia today. CT of the head showed chronic periventricular ischemic changes. CTA obtained, without large vessel occlusion. Continue low-dose aspirin, statin, PPI. PT/OT/ST evaluation. Most likely will have to restart anticoagulation around 10 days post stroke to avoid hemorrhagic conversion. Can start anticoagulation on if remains stable from surgical point of view. Patient will most likely need neurology follow-up as an outpatient. Status: Acute (7) Anemia: Hemoglobin stable. Overall received 5 unit of blood transfusion during the admission. 4 units out of that O+ while 1 or negative. Will confirm with hematology regarding further transfusions. Reticulocyte count appropriate. Started on IV iron after iron panel. Will finish a 5-day course for 1 g IV iron overall and transition to oral iron supplementation after that. Continue with PPIs. Status: Acute (8) Chronic anticoagulation: With Pradaxa for atrial fibrillation. For now hold off reinitiation of anticoagulation because of recent stroke. Status: Acute (9) Acute UTI: Status: Acute (10) Hypokalemia: Replaced. Status: Acute (11) Acute encephalopathy: Possibly secondary to multiple hospitalization, prolonged hospitalization, stroke Advance diet as tolerating and per ST after CVA Mobilize with PT/OT. Status: Acute (12) Post-op bleeding: Status: Acute Additional A&P Information S/p rectal laceration repair, repair of dehiscence of vaginal cuff x2, splenectomy, diverting colostomy: Last OR on April 01 night. Blood culture from admission growing Bacteroides fragilis. Continue with Zosyn. Add vancomycin as patient went to the OR overnight. Repeat blood cultures if patient is febrile. Anticoagulation as per surgical team, diet as per surgical team. Patient will benefit from TPN as has been on suboptimal nutrition for last few days because of multiple ORs. Keep mean arterial pressure over 65. Goal blood pressure less than 140/90 mmHg. Stop IV fluids. Overall including TPN at 75 cc/h to continue for now. DM2: Sliding scale insulin HTN: Goal blood pressure less than 140/90 mmHg with mean over 65. Losartan 100 mg. Continue with daily Cardizem. Patient having occasional bradycardic events. Stop metoprolol. Add hydralazine 25 mg p.o. 3 times daily along with IV hydralazine as needed for systolic blood pressure more than 180. Patient overall 22 pounds more as compared to on admission. IV Lasix repeat today. Replace potassium. Pulmonary hypertension: Oxygen support as needed keeping saturation over 90% BASIL: Nightly CPAP History of DVT, PE. Anticoagulation held. Atrial fibrillation: Bob blockers resumed. BP doing well. Anticoagulation on hold. History of CVA, Chronic anemia, on iron supplementation, GERD: PPI Hiatal hernia, Dark stools: On iron supplementation, but Hemoccult positive as well. Continue PPI. Has had recent unremarkable endoscopy. [facility] DVT prophylaxis: SCD, heparin 5000 every 8. Limited resuscitation. Clear liquid diet. TPN Patient's care discussed in detail with family at bedside. Can plan to transfer patient onto the floors from ICU if okay with surgical team. Plan for today: Stop vancomycin. Continue Zosyn. Stop metoprolol for occasional bradycardia. Continue Cardizem. Add hydralazine for blood pr essures. Continue with IV as needed hydralazine as well. Lasix 40 mg IV. Replace potassium. Attestations Medical Necessity Statement*: As per primary team Time Spent in Patient Care: Greater than 35 minutes (>than 50% of time spent in counselling and/or direct pt care on unit) . Procedures Arterial Line Size (Gauge): 20 Coding Level of Care Code Acute Numerical Control Router Operator for Chg Fwd Diagnoses Status post repair of dehiscence of vaginal cuff Z98.890 H/O: hysterectomy Z90.710 S/P splenectomy Z90.81 Traumatic rupture of spleen S36.09XA Bacteremia R78.81 CVA (cerebral vascular accident) I63.9 Anemia D64.9 Chronic anticoagulation Z79.01 Acute UTI N39.0 Hypokalemia E87.6 Acute encephalopathy G93.40 Post-op bleeding
[2021-04-04 16:35] LABS: Glucose Point of Care 294 mg/dL (70-110)
[2021-04-04 16:50] LABS: Potassium 3.6 mmol/L (3.5-5.1)
--- NOTE | 2021-04-04 17:18 | PC.NUTR ---
Spoke with Dr. Brand regarding RD recommendation to decrease TPN rate, however MD stated will not reduce at this time. Will follow up as appropriate.
[2021-04-04] MEDS: FUROsemide 10 mg/mL SDV 4mL 40 MG IVP (17:51)
[2021-04-04] MEDS: ondansetron 2 mg/ML SDV 2 mL 4 MG IVP (20:05)
[2021-04-04 20:14] LABS: Glucose Point of Care 253 mg/dL (70-110)
[2021-04-04] MEDS: donepezil 5 MG Tablet 10 MG PO (20:29)
[2021-04-04] MEDS: atorvastatin 40 mg Tablet PO (20:29)
--- NOTE | 2021-04-04 20:49 | PC.NURSE ---
This nurse along with dayshift nurse Shanti RN changed patients colostomy bag at shift change due to minor leaking. Continue care.
[2021-04-05] VITALS (13 sets, daily range): BP systolic 146–172; BP diastolic 73–94; PULSE 62–108; RESP 13–22; TEMP 36.4–37.1; O2SAT 93–98
[2021-04-05] MEDS: heparin 5,000 unit/mL INJ 1 mL 5000 UNIT SUBCUT ×4 (01:01→23:39)
[2021-04-05] MEDS: piperacillin-tazobactam 3.375 GM in sodium chloride 0.9% (plus) 50 ML IV ×3 (03:05→17:52)
[2021-04-05] MEDS: dilTIAZem 60 mg Tablet PO ×3 (03:06→21:12)
[2021-04-05 03:11] LABS: Glucose Point of Care 288 mg/dL (70-110)
[2021-04-05 03:59] LABS: Basophils # 0.1 10^3/uL (0.0-0.1); Basophils % 0.5 %; Eosinophils # 0.1 10^3/uL (0.0-0.8); Eosinophils % 0.9 %; Hematocrit 27.7 % (37.0-47.0); Hemoglobin 8.7 g/dL (11.5-15.3); Lymphocytes # 0.7 10^3/uL (0.8-4.8); Lymphocytes % 6.7 %; Mean Corpuscular HGB Conc 31.4 g/dL (30.0-36.0); Mean Corpuscular Hemoglobin 31.8 pg (28.0-34.0); Mean Corpuscular Volume 101.1 fL (81-99); Mean Platelet Volume 9.4 fL (7.4-10.4); Neutrophils # 8.91 10^3/uL (1.8-7.7); Neutrophils % 80.5 %; Nucleated Red Blood Cells # 0.1 /100WBC; Nucleated Red Blood Cells % 0.6 %; Platelet Count 516 10^3/cmm (130-400); Red Blood Count 2.74 10^6/uL (4.1-5.3); Red Cell Distribution Width 17.3 % (12.1-15.1); White Blood Count 11.1 10^3/uL (4.0-10.0)
[2021-04-05 04:41] LABS: Alanine Aminotransferase 6 U/L (0-33); Albumin Level 2.4 g/dL (3.5-5.2); Alkaline Phosphatase 82 IU/L (35-105); Anion Gap 7.2 (5-19); Aspartate Amino Transferase 17 U/L (0-32); Blood Urea Nitrogen 15 mg/dL (8-23); Calcium 9.4 mg/dL (8.5-10.5); Carbon Dioxide 29 mmol/L (22-29); Chloride 104 mmol/L (98-107); Creatinine Clr Calc Pharmacy 50.3153; Globulin 2.8 g/dL (1.3-4.6); Glucose 269 mg/dL (65-115); Osmolality Calculated 294 mOsm/kg (285-295); Potassium 3.2 mmol/L (3.5-5.1); Sodium 137 mmol/L (136-145); Total Bilirubin 0.3 mg/dL (0.15-1.2); Total Protein 5.2 g/dL (6.6-8.7)
--- NOTE | 2021-04-05 05:52 | PC.NURSE ---
TRANSFER NOTE: PATIENT TRANSFERRED FROM ICU VIA BED TO [facility] FLOOR. PATIENT ORIENTED TO ROOM.
[2021-04-05] MEDS: AA-Dex 5%-20% w/Lytes 1,000 ML with multivitamin inj 5 ML 83 ML IV ×2 (08:56→21:57)
[2021-04-05] MEDS: ondansetron 2 mg/ML SDV 2 mL 4 MG IVP (08:59)
[2021-04-05] MEDS: ferrous sulfate EC 325 mg Tablet PO ×2 (09:01→21:12)
[2021-04-05] MEDS: aspirin 81 mg EC Tablet PO (09:01)
[2021-04-05] MEDS: lactulose oral liq 20 gm/30 mL UDC 10 GM PO ×2 (09:02→21:10)
[2021-04-05] MEDS: potassium chloride ER 10 mEq Tablet PO (09:02)
[2021-04-05] MEDS: losartan 50 mg Tablet 100 MG PO (09:02)
[2021-04-05] MEDS: hyDRALAzine 25 mg Tablet PO ×3 (09:03→21:11)
[2021-04-05] MEDS: pantoprazole 40 mg SDV IVP ×2 (09:03→21:11)
[2021-04-05] MEDS: docusate sodium 100 mg Capsule PO ×2 (09:03→17:52)
[2021-04-05] MEDS: acetaminophen 325 mg Tablet 650 MG PO (09:31)
[2021-04-05] MEDS: lanolin oint 7 gm 1 APPLIC TOPICAL (09:32)
[2021-04-05 11:21] LABS: Glucose Point of Care 270 mg/dL (70-110)
--- NOTE | 2021-04-05 12:41 | PM.PN ---
Subjective Subjective: Interval history: Mrs. Rodney 85-year-old female status post vaginal cuff dehiscence after pulling ERIC drainage, repair postoperative day4. Awake, referred feeling much better than yesterday also refers reported having episode of hallucinations of think her son was in a war. Denies pain or discomfort at the time.. Sitting up without difficulty. Vitals/I&O/Wt Last Vital Signs Temp 97.6 F 04/05/21 20:00 Pulse 101 H 04/05/21 20:08 Resp 22 H 04/05/21 20:00 BP 162/81 04/05/21 20:00 Pulse Ox 96 04/05/21 20:08 04/05/21 04/05/21 04/05/21 06:59 14:59 22:59 Intake Total 170 / 142.131 4539 / 1810 290 / 2100 Output Total 1800 / 3050 600 / 600 Balance -1630 / -2186.042 1210 / 1210 290 / 1500 Weight last 48 hrs Weight 77.224 kg Weight 79.832 kg Physical Exam Narrative: EXAM NARRATIVE: GA: Alert and oriented ?3. HEENT: WNL. Heart: Regular rate and rhythm. Lungs: Clear to auscultation bilaterally. Abdomen: Bowel sounds present, minimal tenderness, midline incision clean and dry, no redness, pain or edema. Colostomy in place and pink EMPLOYMENT CASE MANAGER: No bleeding. ERIC drain in place, small dark amount of drainage Extremities: No edema, no cyanosis, no calves pain. Urinary Catheter Management^: Klein: Cath Placed During This Visit: yes, but has since been removed by the nurse Reason for Continuing Indwelling Catheter: Other Urinary Catheter Date of Insertion: 04/01/21 Urinary Catheter Time of Insertion: 19:36 Date Urinary Catheter Removed: 04/01/21 Time Urinary Catheter Discontinued: 19:15 Data : 04/05/21 03:14 04/05/21 03:14 A&P Assessment and plan (1) Status post repair of dehiscence of vaginal cuff: Mrs. Rodney is status post second vaginal cuff dehiscence and small rectal laceration after pulling ERIC drain on op day 2. She was repaired again postoperative day 3. Vaginal ERIC drain with small amount of drainage. she is afebrile now. WBC at 11.1. Stable H&H. She is hemodynamically stable. Tolerating liquid diet. Colostomy bag in place. Sitting up in chair without difficulty, talking and in good spirit. Refers hallucinations this AM thinking son was in a war and son had to come in to show her he was OK. Anemia: Hemoglobin stable at 8.7 WBC stable, afebrile, continue Zosyn until 04/08/2021 due to positive blood cultures Hypokalemia 3.2, 120 mEq of KCl daily p.o. given Protein calorie malnutrition -full liquid diet, nutritional supplements continue TPN Leave Klein This documentation was created by [employer] merchandising manager software (known for inherent merchandising manager error). Every effort was made to assure accuracy of merchandising manager. Any obvious errors or omissions should be clarified with the author of the document. Status: Acute Attestations Medical Necessity Statement*: In my professional opinion per admitting diagnosis. Procedures Arterial Line Size (Gauge): 20 Coding Level of Care Code Acute Breeding Manager for Jtg Fwd Diagnoses Status post repair of dehiscence of vaginal cuff Z98.890
--- NOTE | 2021-04-05 16:32 | P.PN_ITS ---
Subjective Subjective: Interval history: Patient is more awake today, no significant oral intake, no major issues overnight Vitals/I&O/Wt Last Vital Signs Temp 98.7 F 04/05/21 12:00 Pulse 74 04/05/21 12:00 Resp 16 04/05/21 12:00 BP 148/78 04/05/21 12:00 Pulse Ox 98 04/05/21 12:00 04/05/21 04/05/21 04/05/21 06:59 14:59 22:59 Intake Total 170 / 888.490 9377 / 1810 Output Total 1800 / 3050 600 / 600 Balance -1630 / -2186.042 1210 / 1210 Weight last 48 hrs Weight 170 lb 4 oz Weight 176 lb Physical Exam Narrative: EXAM NARRATIVE: Abdomen: Soft minimally tender, nondistended, incision clean dry and intact, ostomy pink and functioning Klein to gravity ERIC drain has fecal material/blood Urinary Catheter Management^: Klein: Cath Placed During This Visit: yes, but has since been removed by the nurse Reason for Continuing Indwelling Catheter: Accurate Measurement of Urinary Output in Critically Ill Patients Urinary Catheter Date of Insertion: 04/01/21 Urinary Catheter Time of Insertion: 19:36 Date Urinary Catheter Removed: 04/01/21 Time Urinary Catheter Discontinued: 19:15 Data : 04/05/21 03:14 04/05/21 03:14 A&P Assessment and plan (1) S/P splenectomy: 85-year-old female status post hysterectomy complicated by rectal la ceration requiring primary repair 03/16/2021 traumatic splenic rupture and splenectomy 03/23/2021 Status post vaginal exam and anesthesia with repair of rectal laceration and dehisced rectal vault 03/29/2021 Laparoscopic diverting loop colostomy and repair of rectal laceration 04/01/2021 Her ERIC drain output has stool in it Anemia: Hemoglobin stable at 8.7 WBC stable, afebrile, continue Zosyn until 04/08/2021 due to positive blood cultures Hypokalemia 3.2, 120 mEq of KCl daily p.o. given Protein calorie malnutrition -full liquid diet, nutritional supplements continue TPN Leave Klein as per Dr. Muller Daily labs Protonix for GI prophylaxis Continue home medications Insulin sliding scale Donzepil for depression, sertraline added Morphine, [place] for pain control Lactulose 15 cc p.o. twice daily and Colace for bowel regimen Patient will need greater than 2 nights of inpatient stay to ensure that she does not develop any postop complications. She will also need H. influenzae/pneumococcal/meningococcal vaccination prior to discharge . Status: Acute Attestations Medical Necessity Statement*: Protein calorie malnutrition, hypokalemia, poor oral intake requiring continued inpatient stay Procedures Arterial Line Size (Gauge): 20 Coding Level of Care Code Acute Wool Washer Feeder for Chg Fwd Diagnoses S/P splenectomy Z90.81
[2021-04-05] MEDS: potassium chloride ER 20 mEq Tablet 40 MEQ PO (16:34)
[2021-04-05 17:29] LABS: Glucose Point of Care 306 mg/dL (70-110)
--- NOTE | 2021-04-05 20:37 | P.PN_ITS ---
Subjective Subjective: Interval history: She had a rough night, could not sleep, and this morning was reported having episode of hallucinations. At the time of my visit reports feeling better. She is not entirely sure where she is, but when reminded she is in [place] confirms this. States the year correctly. Denies pain or discomfort at the time. Vitals/I&O/Wt Last Vital Signs Temp 98.0 F 04/05/21 16:00 Pulse 101 H 04/05/21 20:08 Resp 18 04/05/21 16:00 BP 160/80 04/05/21 16:00 Pulse Ox 96 04/05/21 20:08 04/05/21 04/05/21 04/05/21 06:59 14:59 22:59 Intake Total 170 / 984.954 1579 / 1810 290 / 2100 Output Total 1800 / 3050 600 / 600 Balance -1630 / -2186.042 1210 / 1210 290 / 1500 Weight last 48 hrs Weight 77.224 kg Weight 79.832 kg Physical Exam Narrative: EXAM NARRATIVE: Family at bedside Const: COMMON NORMALS: no acute distress and alert GENERAL APPEARANCE: cooperative and frail appearing ORIENTATION/CONSCIOUSNESS: Yes awake and Yes confused OTHER: Pleasant, conversant. Mild confusion. Reports feeling better. In good spirits. HENMT: COMMON NORMALS: oropharynx normal Neck/C-Spine: COMMON NORMALS: no meningeal signs and no JVD Resp: COMMON NORMALS: normal respiratory effort and clear to auscultation bilaterally AUSCULTATION: clear to auscultation bilaterally Cardio: COMMON NORMALS: no JVD, regular rhythm, S1 normal heart sound present, S2 normal heart sound present and No murmurs present (Cardio) RHYTHM: regular rhythm HEART SOUNDS: S1 normal heart sound present and S2 normal heart sound present GI: COMMON NORMALS: Normal to inspection, nondistended, normoactive bowel sounds present, Soft to palpation and non-tender PALPATION: Yes Soft to palpation OTHER: Midline incision clean. : OTHER: Vaginal drain Extremity: COMMON NORMALS: no joint enlargement and no pedal edema Neuro: COMMON NORMALS: moves all extremities SENSORIUM/ORIENTATION: Yes alert MENINGEAL SIGNS: Yes no meningeal signs COORDINATION/BALANCE: other (Unable to perform) SPEECH: abnormal speech (Confused, but appears to have degree of aphasia) GAIT: Yes Unable to assess gait SENSORY EXAM: Yes other (Attempted to examine several times. Appears probably symmetrical) MOTOR EXAM: Other motor observations present (3+ upper, did not follow comm for LE, but moving feet) COORDINATION: other (Unable to perform) OTHER: Appears to be able to track me from left side to the right side of the bed, but counts fing ers on the left, not on the right, though unreliably Skin: COMMON NORMALS: no rashes or lesions noted GENERAL SKIN EXAM: no rashes or lesions noted and dry skin Urinary Catheter Management^: Klein: Cath Placed During This Visit: yes, but has since been removed by the nurse Reason for Continuing Indwelling Catheter: Other Urinary Catheter Date of Insertion: 04/01/21 Urinary Catheter Time of Insertion: 19:36 Date Urinary Catheter Removed: 04/01/21 Time Urinary Catheter Discontinued: 19:15 Data : 04/05/21 03:14 04/05/21 03:14 A&P Assessment and plan (1) Acute encephalopathy: This morning acute encephalopathy with episodes of hallucinations this morning. Family concern regarding newly started Zoloft being possible culprit. Request medication be stopped. Appears also her Xanax has been discontinued. Family requesting this be restarted. We discussed the risks of benzodiazepines. They're agreeable to start at lower dose at this time, but we will continue to prevent withdrawal. Mobilize with PT/OT. Status: Acute (2) Status post repair of dehiscence of vaginal cuff: Continue care as per gynecology. Dark bloody output noted in the drain. Advance diet. Continues with TPN support for now due to poor oral intake. Status: Acute (3) H/O: hysterectomy: Status: Acute (4) 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 Mobilize with PT/OT. Continue incentive spirometry. Will need immunizations prior to discharge. Status: Acute (5) Traumatic rupture of spleen: After a fall, generalized weakness, deconditioning, would benefit from rehabilitation after discharge. Status: Acute (6) Bacteremia: Blood cultures growing Bacteroides fragilis. Continue Zosyn. Status: Acute (7) CVA (cerebral vascular accident): Does have some right-sided neglect. Appears to have some persistent aphasia which is mild, apparent only after a longer discussion. Mild confusion also noted this morning. CT of the head showed chronic periventricular ischemic changes. CTA obtained, without large vessel occlusion. Continue low-dose aspirin, statin, PPI. PT/OT/ST Potentially could start anticoagulation depending on need for additional surgical procedures. Status: Acute (8) Anemia: Hemoglobin stable. Overall received 5 unit of blood transfusion during the admission. 4 units out of that O+ while 1 or negative. Will confirm with hematology regarding further transfusions. Reticulocyte count appropriate. Started on IV iron after iron panel. Will finish a 5-day course for 1 g IV iron overall and transition to oral iron supplementation after that. Continue with PPIs. Status: Acute (9) Chronic anticoagulation: With Pradaxa for atrial fibrillation. Status: Acute (10) Acute UTI: Status: Acute (11) Hypokalemia: Replaced. Status: Acute (12) Post-op bleeding: Status: Acute Additional A&P Information DM2: Sliding scale insulin HTN: Blood pressure could be better. Regular diet due to poor oral intake. Continue losartan, Cardizem, hydralazine. Hydralazine as needed. Goal blood pressure less than 140/90 mmHg with mean over 65. Pulmonary hypertension: Oxygen support as needed keeping saturation over 90% BASIL: Nightly CPAP History of DVT, PE. Anticoagulation held. Atrial fibrillation: Bob blockers resumed. BP doing well. Anticoagulation on hold. History of CVA, Chronic anemia, on iron supplementation, GERD: PPI Hiatal hernia, Dark stools: On iron supplementation, but Hemoccult positive as well. Continue PPI. Has had recent unremarkable endoscopy. [facility] DVT prophylaxis: SCD, heparin 5000 every 8. Limited resuscitation. Regular diet. TPN Attestations Medical Necessity Statement*: Continue admission for medication adjustment additional supportive care monitoring due to acute encephalopathy noted overnigh t and this morning, following anaerobic bacteremia, several surgeries including most recently vaginal cuff and colonic laceration dehiscence. Procedures Arterial Line Size (Gauge): 20 Coding Level of Care Code Acute Diversional Therapist'S Assistant for g Fwd Diagnoses Acute encephalopathy G93.40 Status post repair of dehiscence of vaginal cuff Z98.890 H/O: hysterectomy Z90.710 S/P splenectomy Z90.81 Traumatic rupture of spleen S36.09XA Bacteremia R78.81 CVA (cerebral vascular accident) I63.9 Anemia D64.9 Chronic anticoagulation Z79.01 Acute UTI N39.0 Hypokalemia E87.6 Post-op bleeding
[2021-04-05] MEDS: insulin glargine 100 units/1 mL 10 UNIT SUBCUT (21:11)
[2021-04-05] MEDS: donepezil 5 MG Tablet 10 MG PO (21:12)
[2021-04-05] MEDS: ALPRAZolam 0.25 mg Tablet 0.125 MG PO ×2 (21:12→21:24)
[2021-04-05] MEDS: atorvastatin 40 mg Tablet PO (21:12)
[2021-04-06] VITALS (11 sets, daily range): BP systolic 138–180; BP diastolic 72–93; PULSE 76–94; RESP 17–19; TEMP 36.6–37.5; O2SAT 94–97
[2021-04-06 02:49] LABS: Glucose Point of Care 270 mg/dL (70-110)
[2021-04-06 03:12] LABS: Glucose Point of Care 234 mg/dL (70-110)
[2021-04-06] MEDS: dilTIAZem 60 mg Tablet PO ×3 (03:20→21:39)
[2021-04-06] MEDS: piperacillin-tazobactam 3.375 GM in sodium chloride 0.9% (plus) 50 ML IV ×3 (03:20→17:53)
[2021-04-06 06:19] LABS: Glucose Point of Care 185 mg/dL (70-110)
[2021-04-06 06:36] LABS: Basophils # 0.1 10^3/uL (0.0-0.1); Basophils % 0.8 %; Eosinophils # 0.3 10^3/uL (0.0-0.8); Eosinophils % 2.5 %; Hematocrit 25.9 % (37.0-47.0); Hemoglobin 8.1 g/dL (11.5-15.3); Lymphocytes # 0.9 10^3/uL (0.8-4.8); Lymphocytes % 7.9 %; Mean Corpuscular HGB Conc 31.3 g/dL (30.0-36.0); Mean Corpuscular Hemoglobin 31.5 pg (28.0-34.0); Mean Corpuscular Volume 100.8 fL (81-99); Mean Platelet Volume 9.1 fL (7.4-10.4); Monocytes # 1.2 10^3/uL (0.2-0.9); Monocytes % 10.7 %; Neutrophils # 8.13 10^3/uL (1.8-7.7); Nucleated Red Blood Cells # 0.1 /100WBC; Nucleated Red Blood Cells % 1.2 %; Platelet Count 497 10^3/cmm (130-400); Red Blood Count 2.57 10^6/uL (4.1-5.3); Red Cell Distribution Width 17.8 % (12.1-15.1)
[2021-04-06 06:56] LABS: Alanine Aminotransferase 8 U/L (0-33); Albumin Level 2.4 g/dL (3.5-5.2); Alkaline Phosphatase 72 IU/L (35-105); Anion Gap 8.2 (5-19); Aspartate Amino Transferase 18 U/L (0-32); Blood Urea Nitrogen 15 mg/dL (8-23); Carbon Dioxide 28 mmol/L (22-29); Chloride 105 mmol/L (98-107); Globulin 2.3 g/dL (1.3-4.6); Glucose 175 mg/dL (65-115); Osmolality Calculated 291 mOsm/kg (285-295); Potassium 3.2 mmol/L (3.5-5.1); Sodium 138 mmol/L (136-145); Total Bilirubin 0.2 mg/dL (0.15-1.2); Total Protein 4.7 g/dL (6.6-8.7)
[2021-04-06 09:12] LABS: Glucose Point of Care 250 mg/dL (70-110)
--- NOTE | 2021-04-06 11:14 | PC.NUTR ---
Nutrition reassessment: Continue to recommend decrease in TPN to 75/ml hr to provide 1584 kcal, 90 g protein, and 180 g dextrose. Current rate of 83 ml/hr providing 1760 kcal, 100 g protein, and 200 g dextrose, which exceeds estimated nutritional needs of 7761-5919 kcal (per MSJ X 1.3-1.5), 75 g protein (1 g/kg). Also noted pt consumed 50% X 2 meals yesterday per chart, and consumed portion of breakfast this AM per family. Elevated glucose ranging 185-306 in past [address] Not[address]. Dunn of continued recommendation.
[2021-04-06] MEDS: aspirin 81 mg EC Tablet PO (11:48)
[2021-04-06] MEDS: hyDRALAzine 25 mg Tablet PO ×2 (11:49→17:53)
[2021-04-06] MEDS: lactulose oral liq 20 gm/30 mL UDC 10 GM PO ×2 (11:49→21:40)
[2021-04-06] MEDS: ferrous sulfate EC 325 mg Tablet PO ×2 (11:49→21:39)
[2021-04-06] MEDS: docusate sodium 100 mg Capsule PO ×2 (11:49→17:53)
[2021-04-06] MEDS: pantoprazole 40 mg SDV IVP ×2 (11:49→22:06)
[2021-04-06] MEDS: potassium chloride ER 10 mEq Tablet PO (11:49)
[2021-04-06] MEDS: losartan 50 mg Tablet 100 MG PO (11:49)
[2021-04-06] MEDS: heparin 5,000 unit/mL INJ 1 mL 5000 UNIT SUBCUT (11:50)
[2021-04-06] MEDS: AA-Dex 5%-20% w/Lytes 1,000 ML with multivitamin inj 5 ML 83 ML IV (11:52)
--- NOTE | 2021-04-06 13:06 | PM.PN ---
Subjective Subjective: Interval history: Patient is more awake and alert, had regular food for breakfast, denies significant abdominal pain, no nausea or vomiting, ostomy is functioning Vitals/I&O/Wt Last Vital Signs Temp 98.0 F 04/06/21 12:19 Pulse 94 04/06/21 12:19 Resp 18 04/06/21 12:19 BP 180/92 04/06/21 12:19 Pulse Ox 97 04/06/21 12:19 04/05/21 04/06/21 04/06/21 22:59 06:59 14:59 Intake Total 1535 / 3475 130 / 3475 1175 / 1175 Output Total 1600 / 2200 Balance 1535 / 1275 -1470 / 1275 1175 / 1175 Weight last 48 hrs Weight 172 lb Weight 170 lb 4 oz Physical Exam Narrative: EXAM NARRATIVE: Abdomen: Soft, nondistended, minimally tender, incision clean dry and intact, ostomy pink and functioning Urinary Catheter Management^: Klein: Cath Placed During This Visit: yes, but has since been removed by the nurse Reason for Continuing Indwelling Catheter: Other Urinary Catheter Date of Insertion: 04/01/21 Urinary Catheter Time of Insertion: 19:36 Date Urinary Catheter Removed: 04/01/21 Time Urinary Catheter Discontinued: 19:15 Data : 04/06/21 06:08 04/06/21 06:08 A&P Assessment and plan (1) S/P splenectomy: 85-year-old female status post hysterectomy complicated by rectal laceration requiring primary repair 03/16/2021 traumatic splenic rupture and splenectomy 03/23/2021 Status post vaginal exam and anesthesia with repair of rectal laceration and dehisced rectal vault 03/29/2021 Laparoscopic diverting loop colostomy and repair of rectal laceration 04/01/2021 Her ERIC drain output has stool in it though minimal compared to yesterday We will restart Pradaxa today stop heparin Anemia: Hemoglobin stable at 8.1 WBC stable, afebrile, continue Zosyn until 04/08/2021 due to positive blood cultures Hypokalemia 3.2, 80 mEq of KCl daily p.o. given Protein calorie malnutrition -regular diet, nutritional supplements continue TPN Leave Klein as per Dr. Muller Daily labs Protonix for GI prophylaxis Continue home medications Insulin sliding scale Morphine, [place] for pain control Lactulose 15 cc p.o. twice daily and Colace for bowel regimen Patient will need greater than 2 nights of inpatient stay to ensure that she does not develop any postop complications. She will also need H. influenzae/pneumococcal/meningococcal vaccination prior to discharge Plan for discharge to [facility] on 04/08/2021 when she is completed IV antibiotics and TPN can be discontinued when she starts making any meeting her nutritional goals orally . Status: Acute Attestations Medical Necessity Statement*: Poor oral intake, confusion, bacteremia requiring continued inpatient stay Procedures Arterial Line Size (Gauge): 20 Coding Level of Care Code Acute Whiskey Proof Reader for Chg Fwd Diagnoses S/P splenectomy Z90.81
--- NOTE | 2021-04-06 14:16 | P.PN_ITS ---
Subjective Subjective: Interval history: Mrs. Rodney 85-year-old female status post vaginal cuff dehiscence after pulling ERIC drainage, repair postoperative day5. Sleep, family referred feeling better than yesterday. Denies pain or discomfort at the time. Had breakfast with out issues. Vitals/I&O/Wt Last Vital Signs Temp 98.0 F 04/06/21 12:19 Pulse 94 04/06/21 12:19 Resp 18 04/06/21 12:19 BP 180/92 04/06/21 12:19 Pulse Ox 97 04/06/21 12:19 04/05/21 04/06/21 04/06/21 22:59 06:59 14:59 Intake Total 1535 / 3345 130 / 3475 1415 / 1415 Output Total 1600 / 2200 Balance 1535 / 2745 -1470 / 1275 1415 / 1415 Weight last 48 hrs Weight 78.018 kg Weight 77.224 kg Physical Exam Narrative: EXAM NARRATIVE: EXAM NARRATIVE: GA: Alert and oriented ?3. HEENT: WNL. Heart: Regular rate and rhythm. Lungs: Clear to auscultation bilaterally. Abdomen: Bowel sounds present, Soft, nondistended, minimally tender, midline incision clean and dry, no redness, pain or edema. Ostomy pink and functioning. MOLD CAPPER: No bleeding. ERIC drain in place, small dark amount of drainage Extremities: No edema, no cyanosis, no calves pain. Urinary Catheter Management^: Klein: Cath Placed During This Visit: yes, but has since been removed by the nurse Reason for Continuing Indwelling Catheter: Other Urinary Catheter Date of Insertion: 04/01/21 Urinary Catheter Time of Insertion: 19:36 Date Urinary Catheter Removed: 04/01/21 Time Urinary Catheter Discontinued: 19:15 Data : 04/06/21 06:08 04/06/21 06:08 A&P Assessment and plan (1) Status post repair of dehiscence of vaginal cuff: Mrs. Rodney is status post second vaginal cuff dehiscence and small rectal laceration after pulling ERIC drain on op day 2. She was repaired again postoperative day 3. Vaginal ERIC drain with small amount of drainage. she is afebrile now. WBC at 11.0. Stable H&H. She is hemodynamically stable. Tolerating liquid diet. Colostomy bag in place. Sitting up in chair without di fficulty, talking and in good spirit. ERIC drain minimal compared to yesterday. Anemia: Hemoglobin stable at 8.7 WBC stable, afebrile, continue Zosyn until 04/08/2021 due to positive blood cultures Hypokalemia 3.2, 120 mEq of KCl daily p.o. given Protein calorie malnutrition -full liquid diet, nutritional supplements continue TPN Leave Klein until tomorrow. This documentation was created by [email or web address] speech pathologist assistant software (known for inherent speech pathologist assistant error). Every effort was made to assure accuracy of speech pathologist assistant. Any obvious errors or omissions should be clarified with the author of the document. Status: Acute Attestations Medical Necessity Statement*: s/p splenectomy, vaginal repair. Procedures Arterial Line Size (Gauge): 20 Coding Level of Care Code Acute Line Staker for Chg [employer] Diagnoses Status post repair of dehiscence of vaginal cuff Z98.890
[2021-04-06 17:05] LABS: Glucose Point of Care 239 mg/dL (70-110)
--- NOTE | 2021-04-06 19:50 | PM.PN ---
Subjective Subjective: Interval history: Today she did better. She was less confused this morning. Did better with eating breakfast. Got up and walked to the door her room with PT. Subsequently tired, did not eat much for lunch, and took a nap. Family denies further hallucinations today. Vitals/I&O/Wt Last Vital Signs Temp 97.8 F 04/06/21 16:00 Pulse 80 04/06/21 16:00 Resp 18 04/06/21 16:00 BP 170/72 04/06/21 16:00 Pulse Ox 95 04/06/21 16:00 04/06/21 04/06/21 04/06/21 06:59 14:59 22:59 Intake Total 130 / 3475 1415 / 1415 50 / 1465 Output Total 1600 / 2200 Balance -1470 / 1275 1415 / 1415 50 / 1465 Weight last 48 hrs Weight 78.018 kg Weight 77.224 kg Physical Exam Narrative: EXAM NARRATIVE: Family at bedside Const: COMMON NORMALS: no acute distress GENERAL APPEARANCE: cooperative and frail appearing ORIENTATION/CONSCIOUSNESS: Yes awake and Yes confused OTHER: Resting HENMT: COMMON NORMALS: oropharynx normal Neck/C-Spine: COMMON NORMALS: no JVD Resp: COMMON NORMALS: normal respiratory effort and clear to auscultation bilaterally AUSCULTATION: clear to auscultation bilaterally Cardio: COMMON NORMALS: no JVD, regular rhythm, S1 normal heart sound present, S2 normal heart sound present and No murmurs present (Cardio) RHYTHM: regular rhythm HEART SOUNDS: S1 normal heart sound present and S2 normal heart sound present GI: COMMON NORMALS: Normal to inspection, nondistended, normoactive bowel sounds present, Soft to palpation and non-tender PALPATION: Yes Soft to palpation OTHER: Midline incision clean. : OTHER: Perirectal drain Extremity: COMMON NORMALS: no joint enlargement and no pedal edema Neuro: COMMON NORMALS: moves all extremities Skin: COMMON NORMALS: no rashes or lesions noted GENERAL SKIN EXAM: no rashes or lesions noted and dry skin Urinary Catheter Management^: Klein: Cath Placed During This Visit: yes, but has since been removed by the nurse Reason for Continuing Indwelling Catheter: Other Urinary Catheter Date of Insertion: 04/01/21 Urinary Catheter Time of Insertion: 19:36 Date Urinary Catheter Removed: 04/01/21 Time Urinary Catheter Discontinued: 19:15 Data : 04/06/21 06:08 04/06/21 06:08 A&P Assessment and plan (1) Acute encephalopathy: Appears to be improving. Continue supportive care, mobilization. Restarted on lower dose of benzodiazepine due to possibility of withdrawal. Zoloft has been discontinued as per family request. Status: Acute (2) Status post repair of dehiscence of vaginal cuff: Continue care as per gynecology. Drain to remain in place. Advance diet. Oral intake somewhat better today. We are cutting down TPN. Status: Acute (3) H/O: hysterectomy: Status: Acute (4) 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 Mobilize with PT/OT. Continue incentive spirometry. Will need immunizations prior to discharge. Status: Acute (5) Traumatic rupture of spleen: After a fall, generalized weakness, deconditioning, would benefit from rehabilitation after discharge. After discharge will be going to SNF Status: Acute (6) Bacteremia: Blood cultures growing Bacteroides fragilis. Continue Zosyn, planned until 04/08. Status: Acute (7) CVA (cerebral vascular accident): Does have some right-sided neglect. Appears to have some persistent aphasia which is mild, apparent only after a longer discussion. Mild confusion also noted this morning. CT of the head showed chronic periventricular ischemic changes. CTA obtained, without large vessel occlusion. Continue low-dose aspirin, statin, PPI. PT/OT/ST Potentially could start anticoagulation depending on need for additional surgical procedures. Status: Acute (8) Anemia: Hemoglobin stable. Overall received 5 unit of blood transfusion during the admission. 4 units out of that O+ while 1 or negative. Will confirm with hematology regarding further transfusions. Reticulocyte count appropriate. Started on IV iron after iron panel. Finished 5-day course for 1 g IV iron with transition to oral iron supplementation after that. Continue with PPIs. Status: Acute (9) Chronic anticoagulation: With Pradaxa for atrial fibrillation. Status: Acute (10) Acute UTI: Status: Acute (11) Hypokalemia: Replaced. Status: Acute (12) Post-op bleeding: Status: Acute Additional A&P Information DM2: Sliding scale insulin HTN: Blood pressure could be better. With fluctuation today, closer to goal this morning, subsequently again with elevation. Currently 170/72. Will increase hydralazine dose to 50 mg 3 times daily. Regular diet due to poor oral intake. Continue losartan, Cardizem, hydralazine. Hydralazine as needed. Goal blood pressure less than 140/90 mmHg with mean over 65. Pulmonary hypertension: Oxygen support as needed keeping saturation over 90% BASIL: Nightly CPAP History of DVT, PE. Anticoagulation can be resumed. Atrial fibrillation: Bob blockers resumed. BP doing well. Anticoagulation to be resumed. History of CVA, Chronic anemia, on iron supplementation, GERD: PPI Hiatal hernia, Dark stools: On iron supplementation, but Hemoccult positive as well. Continue PPI. Has had recent unremarkable endoscopy. [facility] Attestations Medical Necessity Statement*: Continue admission for management of acute encephalopathy, resumption of anticoagulation with risk for recurrence of bleeding, IV antibiotic therapy, disposition planning and arrangements. Procedures Arterial Line Size (Gauge): 20 Coding Level of Care Code Acute Day Treatment Clinician/Art Therapist for [facility] Diagnoses Acute encephalopathy G93.40 Status post repair of dehiscence of vaginal cuff Z98.890 H/O: hysterectomy Z90.710 S/P splenectomy Z90.81 Traumatic rupture of spleen S36.09XA Bacteremia R78.81 CVA (cerebral vascular accident) I63.9 Anemia D64.9 Chronic anticoagulation Z79.01 Acute UTI N39.0 Hypokalemia E87.6 Post-op bleeding
[2021-04-06 21:21] LABS: Glucose Point of Care 275 mg/dL (70-110)
[2021-04-06] MEDS: donepezil 5 MG Tablet 10 MG PO (21:40)
[2021-04-06] MEDS: atorvastatin 40 mg Tablet PO (21:40)
[2021-04-06] MEDS: hyDRALAzine 25 mg Tablet 50 MG PO (21:41)
[2021-04-06] MEDS: insulin glargine 100 units/1 mL 10 UNIT SUBCUT (21:42)
[2021-04-07] VITALS (8 sets, daily range): BP systolic 150–188; BP diastolic 63–90; PULSE 81–118; RESP 17–18; TEMP 36.4–37.3; O2SAT 93–98
[2021-04-07] MEDS: AA-Dex 5%-20% w/Lytes 1,000 ML with multivitamin inj 5 ML 83 ML IV ×2 (00:01→13:02)
--- NOTE | 2021-04-07 00:14 | PC.NURSE ---
At midnight rounds patient did not cooperate with full neuro checks or turning stated im tired.
[2021-04-07 02:48] LABS: Basophils # 0.1 10^3/uL (0.0-0.1); Basophils % 0.7 %; Eosinophils # 0.2 10^3/uL (0.0-0.8); Eosinophils % 1.6 %; Hematocrit 28.1 % (37.0-47.0); Hemoglobin 8.7 g/dL (11.5-15.3); Lymphocytes # 0.9 10^3/uL (0.8-4.8); Lymphocytes % 8.3 %; Mean Corpuscular Hemoglobin 32.1 pg (28.0-34.0); Mean Corpuscular Volume 103.7 fL (81-99); Mean Platelet Volume 9.1 fL (7.4-10.4); Monocytes # 1.2 10^3/uL (0.2-0.9); Monocytes % 10.7 %; Neutrophils # 8.57 10^3/uL (1.8-7.7); Neutrophils % 76.1 %; Nucleated Red Blood Cells # 0.1 /100WBC; Nucleated Red Blood Cells % 1.2 %; Platelet Count 521 10^3/cmm (130-400); Red Blood Count 2.71 10^6/uL (4.1-5.3); Red Cell Distribution Width 18.7 % (12.1-15.1); White Blood Count 11.3 10^3/uL (4.0-10.0)
[2021-04-07 03:09] LABS: Alanine Aminotransferase 12 U/L (0-33); Albumin Level 2.3 g/dL (3.5-5.2); Alkaline Phosphatase 75 IU/L (35-105); Anion Gap 7.1 (5-19); Aspartate Amino Transferase 29 U/L (0-32); Blood Urea Nitrogen 17 mg/dL (8-23); Calcium 10.3 mg/dL (8.5-10.5); Carbon Dioxide 29 mmol/L (22-29); Chloride 105 mmol/L (98-107); Globulin 2.8 g/dL (1.3-4.6); Glucose 164 mg/dL (65-115); Osmolality Calculated 291 mOsm/kg (285-295); Potassium 3.1 mmol/L (3.5-5.1); Sodium 138 mmol/L (136-145); Total Bilirubin 0.2 mg/dL (0.15-1.2); Total Protein 5.1 g/dL (6.6-8.7)
[2021-04-07 03:31] LABS: Glucose Point of Care 197 mg/dL (70-110)
[2021-04-07] MEDS: piperacillin-tazobactam 3.375 GM in sodium chloride 0.9% (plus) 50 ML IV ×3 (03:53→21:33)
[2021-04-07] MEDS: dilTIAZem 60 mg Tablet PO ×3 (03:55→21:33)
[2021-04-07] MEDS: docusate sodium 100 mg Capsule PO ×2 (08:28→18:03)
[2021-04-07] MEDS: aspirin 81 mg EC Tablet PO (08:28)
[2021-04-07] MEDS: hyDRALAzine 25 mg Tablet 50 MG PO ×3 (08:28→21:33)
[2021-04-07] MEDS: pantoprazole 40 mg SDV IVP ×2 (08:29→23:10)
[2021-04-07] MEDS: lactulose oral liq 20 gm/30 mL UDC 10 GM PO ×2 (08:29→21:36)
[2021-04-07] MEDS: losartan 50 mg Tablet 100 MG PO (08:31)
[2021-04-07] MEDS: potassium chloride oral liq 20 mEq/15 mL UDC 40 MEQ PO (08:33)
[2021-04-07 09:01] LABS: Glucose Point of Care 264 mg/dL (70-110)
[2021-04-07] MEDS: potassium chloride oral liq 20 mEq/15 mL UDC 60 MEQ PO (09:19)
[2021-04-07] MEDS: ferrous sulfate EC 325 mg Tablet PO ×2 (09:20→21:33)
--- NOTE | 2021-04-07 14:10 | PC.NURSE ---
Bladder scanned patient at this time and it showed 400 mls of urine. Patient states that she does not feel like she needs to go at all. Straight cath completed at this time. 400mls of clear yellow urine drained from bladder using sterile technique. Patient tolerated well.
[2021-04-07 15:57] LABS: Glucose Point of Care 250 mg/dL (70-110)
--- NOTE | 2021-04-07 16:52 | PC.NURSE ---
Verbal order received from DR. Barroso to decrease TPN to 40mls at this time.
--- NOTE | 2021-04-07 16:58 | P.PN_ITS ---
Subjective Subjective: Interval history: Patient has been more sleepy today, decreased oral intake today, Klein catheter was discontinued but patient had residual 400 cc and therefore straight cath was performed Vitals/I&O/Wt Last Vital Signs Temp 98.4 F 04/07/21 12:00 Pulse 118 H 04/07/21 12:00 Resp 17 04/07/21 12:00 BP 157/73 04/07/21 12:00 Pulse Ox 98 04/07/21 12:00 04/07/21 04/07/21 04/07/21 06:59 14:59 22:59 Intake Total 1245 / 2760 1395 / 1395 Output Total 1060 / 2860 950 / 950 Balance 185 / -100 445 / 445 Weight last 48 hrs Weight 178 lb 6 oz Weight 172 lb Physical Exam Narrative: EXAM NARRATIVE: Abdomen: Soft, nondistended, nontender, incision clean dry and intact, ostomy pink and viable, ERIC drain has a small amount of stool Urinary Catheter Management^: Klein: Cath Placed During This Visit: yes, but has since been removed by the nurse Reason for Continuing Indwelling Catheter: Decision to DC Catheter Urinary Catheter Date of Insertion: 04/01/21 Urinary Catheter Time of Insertion: 19:36 Date Urinary Catheter Removed: 04/07/21 Time Urinary Catheter Discontinued: 10:30 Data : 04/07/21 02:02 04/07/21 02:02 Micro: Microbiology 04/02/21 12:30 Blood Culture - Final Blood NO GROWTH AFTER 5 DAYS 04/02/21 12:25 Blood Culture - Final Blood NO GROWTH AFTER 5 DAYS A&P Assessment and plan (1) S/P splenectomy: 85-year-old female status post hysterectomy complicated by rectal laceration requiring primary repair 03/16/2021 traumatic splenic rupture and splenectomy 03/23/2021 Status post vaginal exam and anesthesia with repair of rectal laceration and dehisced rectal vault 03/29/2021 Laparoscopic diverting loop colostomy and repair of rectal laceration 04/01/2021 Her ERIC drain output has stool in it though minimal Anemia: Hemoglobin stable at 8.7 after starting Pradaxa WBC stable, afebrile, continue Zosyn until 04/08/2021 due to positive blood cultures Hypokalemia 3.1, 100 mEq of KCl daily p.o. given Protein calorie malnutrition -regular diet, nutritional supplements continue TPN, decrease to half rate and DC TPN tomorrow Leave Latoya as per Dr. Muller Daily labs Protonix for GI prophylaxis Continue home medications Insulin sliding scale Morphine, [place] for pain control Lactulose 15 cc p.o. twice daily and Colace for bowel regimen Patient will need greater than 2 nights of inpatient stay to ensure that she does not develop any postop complications. She will also need H. influenzae/pneumococcal/meningococcal vaccination prior to discharge Plan for discharge to [facility] [place] on 04/08/2021 when she has completed IV antibiotics and TPN can be discontinued when she starts meeting her nutritional goals orally . Status: Acute Attestations Medical Necessity Statement*: sepsis requring iv abx, poor po intake requiring 1 more night of inpatient stay Procedures Arterial Line Size (Gauge): 20 Coding Level of Care Code Acute Clinical Services Manager for Chg Fwd Diagnoses S/P splenectomy Z90.81
--- NOTE | 2021-04-07 17:13 | PC.NURSE ---
Patient's son Sha states that the patient has received her Flu vaccine in 2020 and a pneumonia shot with in the last 5 years.
--- NOTE | 2021-04-07 18:45 | P.PN_ITS ---
Subjective Subjective: Interval history: Reports lack of appetite, otherwise denies pain or discomfort. No abdominal pain. Family reports she has been rather depressed, with feelings of helplessness, worthlessness. Vitals/I&O/Wt Last Vital Signs Temp 97.6 F 04/07/21 16:00 Pulse 97 04/07/21 16:00 Resp 17 04/07/21 16:00 BP 188/77 04/07/21 16:00 Pulse Ox 93 04/07/21 16:00 04/07/21 04/07/21 04/07/21 06:59 14:59 22:59 Intake Total 1245 / 2760 1395 / 1395 516.783 / 1911.783 Output Total 1060 / 2860 950 / 950 Balance 185 / -100 445 / 445 516.783 / 961.783 Weight last 48 hrs Weight 80.91 kg Weight 78.018 kg Physical Exam Narrative: EXAM NARRATIVE: Family at bedside Const: COMMON NORMALS: no acute distress GENERAL APPEARANCE: cooperative and frail appearing ORIENTATION/CONSCIOUSNESS: Yes awake OTHER: Awake, alert, pleasant, interacting. HENMT: COMMON NORMALS: oropharynx normal Neck/C-Spine: COMMON NORMALS: no JVD Resp: COMMON NORMALS: normal respiratory effort and clear to auscultation bilaterally AUSCULTATION: clear to auscultation bilaterally Cardio: COMMON NORMALS: no JVD, regular rhythm, S1 normal heart sound present, S2 normal heart sound present and No murmurs present (Cardio) RHYTHM: regular rhythm HEART SOUNDS: S1 normal heart sound present and S2 normal heart sound present GI: COMMON NORMALS: Normal to inspection, nondistended, normoactive bowel sounds present, Soft to palpation and non-tender PALPATION: Yes Soft to palpation OTHER: Midline incision clean. : OTHER: Perirectal drain with minute amount of clear/beige-colored discharge. Extremity: COMMON NORMALS: no joint enlargement and no pedal edema Neuro: COMMON NORMALS: moves all extremities Skin: COMMON NORMALS: no rashes or lesions noted GENERAL SKIN EXAM: no rashes or lesions noted and dry skin Urinary Catheter Management^: Klein: Cath Placed During This Visit: yes, but has since been removed by the nurse Reason for Continuing Indwelling Catheter: Acute Urinary Retention or Obstruction Urinary Catheter Date of Insertion: 04/07/21 Urinary Catheter Time of Insertion: 18:09 Date Urinary Catheter Removed: 04/07/21 Time Urinary Catheter Discontinued: 10:30 Data : 04/07/21 02:02 04/07/21 02:02 Micro: Microbiology 04/02/21 12:30 Blood Culture - Final Blood NO GROWTH AFTER 5 DAYS 04/02/21 12:25 Blood Culture - Final Blood NO GROWTH AFTER 5 DAYS A&P Assessment and plan (1) Acute encephalopathy: With slow gradual improvement, complicated by adjustment dis order/depression. Family states she has been losing motivation. Requesting additional assessment by behavioral health. They would be willing to consider additional pharmacotherapy, although something other than Zoloft. Discussed with him consideration of follow-up with [facility] [place] They are also concerned regarding having less family direction after discharge at the [facility] Due to stricter visitation limits. Discussed with him consideration of her returning home with caregiver and family support. They stated that had previously discussed with her and she would prefer to go to [facility], and he did not feel they currently have ability to provide adequate support for her should she return home. At this time appreciate psychiatry assessment and recommendations. Continue mobilization, transition to rehabilitation. Family understand that with the severity of delirium, severity of his illness, protracted hospitalization, multiple surgical procedures, there is possibility of longstanding or permanent cognitive deficits given her age and overall frailty. They are in agreement that trial of return to more normal regimen outside the hospital may be her best bet to start regaining prior level of functioning, although may not guarantee success. Continue benzodiazepines low-dose to avoid withdrawal. Long-term consider weaning off, with alternative treatments of anxiety with follow-up with [facility] [place]. Status: Acute (2) Status post repair of dehiscence of vaginal cuff: Continue care as per gynecology. Drain to remain in place. Advanced diet. Did not do well with voiding trial initially today, requiring straight cath. Klein catheter replaced. Consider repeat voiding trial in several days. Oral intake somewhat better today. We are cutting down TPN. Status: Acute (3) H/O: hysterectomy: Status: Acute (4) 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 Mobilize with PT/OT. Continue incentive spirometry. Will need immunizations prior to discharge. Status: Acute (5) Traumatic rupture of spleen: After a fall, generalized weakness, deconditioning, would benefit from rehabilitation after discharge. Tentative plan for discharge to SNF tomorrow. Status: Acute (6) Bacteremia: Blood cultures growing Bacteroides fragilis. Continue Zosyn, planned until 04/08. Status: Acute (7) CVA (cerebral vascular accident): So far doing well after resumption of Pradaxa. Does have some right-sided neglect. Appears to have some persistent aphasia which is mild, apparent only after a longer discussion. Mild confusion also noted this morning. CT of the head showed chronic periventricular ischemic changes. CTA obtained, without large vessel occlusion. Continue low-dose aspirin, statin, PPI. PT/OT/ST Status: Acute (8) Anemia: Recheck hemoglobin tomorrow with Pradaxa. So far stable. Overall received 5 unit of blood transfusion during the admission. 4 units out of that O+ while 1 or negative. Will confirm with hematology regarding further transfusions. Reticulocyte count appropriate. Started on IV iron after iron panel. Finished 5-day course for 1 g IV iron with transition to oral iron supplementation after that. Continue with PPIs. Status: Acute (9) Chronic anticoagulation: With Pradaxa for atrial fibrillation. Status: Acute (10) Acute UTI: Status: Acute (11) Hypokalemia: Replaced. Status: Acute (12) Post-op bleeding: Status: Acute Additional A&P Information Adjustment disorder/depression: As above. DM2: Sliding scale insulin HTN: Blood pressure could be better. With fluctuation today, closer to goal this morning, subsequently again with elevation. Currently 170/72. Will increase hydralazine dose to 50 mg 3 times daily. Regular diet due to poor oral intake. Continue losartan, Cardizem, hydralazine. Hydralazine as needed. Goal blood pressure less than 140/90 mmHg with mean over 65. Pulmonary hypertension: Oxygen support as needed keeping saturation over 90% BASIL: Nightly CPAP History of DVT, PE. Anticoagulation can be resumed. Atrial fibrillation: Bob blockers resumed. BP doing well. Anticoagulation to be resumed. History of CVA, Chronic anemia, on iron supplementation, GERD: PPI Hiatal hernia, Dark stools: On iron supplementation, but Hemoccult positive as well. Continue PPI. Has had recent unremarkable endoscopy. [facility] Attestations Medical Necessity Statement*: Continue admission for assessment management of adjustment disorder/depression, limiting mobilization, oral intake after recovery after several surgical procedures, completion of IV antibiotic course tomorrow, reassessment of hemoglobin after initiation of anticoagulation after acute blood loss anemia, disposition arrangements with discharge planned tomorrow to SNF for additional rehabilitation. Procedures Arterial Line Size (Gauge): 20 Coding Level of Care Code Acute Dramatic Agent for Chg Fwd Exam Comprehensive Diagnoses Acute encephalopathy G93.40 Status post repair of dehiscence of vaginal cuff Z98.890 H/O: hysterectomy Z90.710 S/P splenectomy Z90.81 Traumatic rupture of spleen S36.09XA Bacteremia R78.81 CVA (cerebral vascular accident) I63.9 Anemia D64.9 Chronic anticoagulation Z79.01 Acute UTI N39.0 Hypokalemia E87.6 Post-op bleeding
--- NOTE | 2021-04-07 18:52 | PC.NURSE ---
[facility]
--- NOTE | 2021-04-07 18:54 | PC.NURSE ---
Mina in Pharmacy states that we do not have the Meningococcal vaccine in the hospital.
[2021-04-07 20:13] LABS: Glucose Point of Care 244 mg/dL (70-110)
[2021-04-07] MEDS: donepezil 5 MG Tablet 10 MG PO (21:34)
[2021-04-07] MEDS: ALPRAZolam 0.25 mg Tablet 0.125 MG PO (21:34)
[2021-04-07] MEDS: atorvastatin 40 mg Tablet PO (21:34)
[2021-04-07] MEDS: insulin glargine 100 units/1 mL 10 UNIT SUBCUT (21:36)
[2021-04-08] VITALS: BP 116/67; PULSE 106; RESP 17; TEMP 36.5; O2SAT 97
[2021-04-08 03:15] LABS: Glucose Point of Care 157 mg/dL (70-110)
[2021-04-08] MEDS: piperacillin-tazobactam 3.375 GM in sodium chloride 0.9% (plus) 50 ML IV ×2 (03:39→12:10)
[2021-04-08] MEDS: dilTIAZem 60 mg Tablet PO ×2 (03:40→12:09)
[2021-04-08 04:00] VITALS: BP 153/76; PULSE 84; RESP 18; TEMP 36.9; O2SAT 95
[2021-04-08 05:23] LABS: Basophils # 0.1 10^3/uL (0.0-0.1); Basophils % 0.7 %; Eosinophils # 0.1 10^3/uL (0.0-0.8); Eosinophils % 0.7 %; Hematocrit 29.1 % (37.0-47.0); Hemoglobin 8.8 g/dL (11.5-15.3); Lymphocytes # 0.7 10^3/uL (0.8-4.8); Mean Corpuscular HGB Conc 30.2 g/dL (30.0-36.0); Mean Corpuscular Hemoglobin 31.5 pg (28.0-34.0); Mean Corpuscular Volume 104.3 fL (81-99); Mean Platelet Volume 8.9 fL (7.4-10.4); Monocytes % 8.6 %; Neutrophils # 9.23 10^3/uL (1.8-7.7); Neutrophils % 82.5 %; Nucleated Red Blood Cells # 0.1 /100WBC; Nucleated Red Blood Cells % 0.8 %; Platelet Count 529 10^3/cmm (130-400); Red Blood Count 2.79 10^6/uL (4.1-5.3); Red Cell Distribution Width 19.6 % (12.1-15.1); White Blood Count 11.2 10^3/uL (4.0-10.0)
[2021-04-08 05:37] LABS: Anion Gap 8.5 (5-19); Blood Urea Nitrogen 17 mg/dL (8-23); Calcium 10.9 mg/dL (8.5-10.5); Carbon Dioxide 28 mmol/L (22-29); Chloride 107 mmol/L (98-107); Glucose 143 mg/dL (65-115); Osmolality Calculated 294 mOsm/kg (285-295); Potassium 3.5 mmol/L (3.5-5.1); Sodium 140 mmol/L (136-145)
--- NOTE | 2021-04-08 05:58 | PC.NURSE ---
SHIFT SUMMARY Has rested well without distress. Denies pain or discomfort. Tells me she is tired. TPN continues to infuse at 40ml/hr rate and continues to receive IV antibiotics. Triple lumen CVL in place with all ports functioning. Midline incision and stab incisions all clean & dry with nikko intact. Colostomy to left abdomen with output of liquid stool and alot of gas. ERIC Drain with 6ml brown liquid with very foul odor. Good urine output via Klein. Plan is for transfer to [facility] today per son. Is hoping pts appetite will return and be able to get mobility back with rehab. Family is very attentive
--- NOTE | 2021-04-08 08:03 | PM.PN ---
Subjective Subjective: Interval history: No issues overnight, Klein catheter was replaced Vitals/I&O/Wt Last Vital Signs Temp 98.4 F 04/08/21 04:00 Pulse 84 04/08/21 04:00 Resp 18 04/08/21 04:00 BP 153/76 04/08/21 04:00 Pulse Ox 95 04/08/21 04:00 04/07/21 04/08/21 04/08/21 22:59 06:59 14:59 Intake Total 516.783 / 1961.783 50 / 1961.783 Output Total 100 / 2256 1206 / 2256 Balance 416.783 / -294.217 -1156 / -294.217 Weight last 48 hrs Weight 171 lb 4 oz Weight 178 lb 6 oz Physical Exam Narrative: EXAM NARRATIVE: Abdomen: Soft, nontender, nondistended, ostomy functioning. Deandre removed Steri-Strips applied, ostomy bridge removed Urinary Catheter Management^: Klein: Cath Placed During This Visit: yes, but has since been removed by the nurse Reason for Continuing Indwelling Catheter: Acute Urinary Retention or Obstruction Urinary Catheter Date of Insertion: 04/07/21 Urinary Catheter Time of Insertion: 18:09 Date Urinary Catheter Removed: 04/07/21 Time Urinary Catheter Discontinued: 10:30 Data : 04/08/21 05:06 04/08/21 05:06 Micro: Microbiology 04/02/21 12:30 Blood Culture - Final Blood NO GROWTH AFTER 5 DAYS 04/02/21 12:25 Blood Culture - Final Blood NO GROWTH AFTER 5 DAYS A&P Assessment and plan (1) S/P splenectomy: 85-year-old female status post hysterectomy complicated by rectal laceration requiring primary repair 03/16/2021 traumatic splenic rupture and splenectomy 03/23/2021 Status post vaginal exam and anesthesia with repair of rectal laceration and dehisced rectal vault 03/29/2021 Laparoscopic diverting loop colostomy and repair of rectal laceration 04/01/2021 Her ERIC drain output has stool in it though minimal Anemia: Hemoglobin stable at 8.8 after starting Pradaxa WBC stable, afebrile, continue Zosyn until 04/08/2021 due to positive blood cultures Hypokalemia resolved Protein calorie malnutrition -regular diet, nutritional supplements, DC TPN Leave Klein as per Dr. Muller Discharge to senior living today . Status: Acute Attestations Medical Necessity Statement*: DC to senior living today Procedures Arterial Line Size (Gauge): 20 Coding Level of Care Code Acute Loom Checker for Jtg Fwd Diagnoses S/P splenectomy Z90.81
[2021-04-08] MEDS: lactulose oral liq 20 gm/30 mL UDC 10 GM PO (08:17)
[2021-04-08] MEDS: pantoprazole 40 mg SDV IVP (08:19)
[2021-04-08] MEDS: ALPRAZolam 0.25 mg Tablet 0.125 MG PO ×2 (08:19→15:44)
[2021-04-08] MEDS: docusate sodium 100 mg Capsule PO (08:20)
[2021-04-08] MEDS: losartan 50 mg Tablet 100 MG PO (08:20)
[2021-04-08] MEDS: hyDRALAzine 25 mg Tablet 50 MG PO ×2 (08:20→15:44)
[2021-04-08] MEDS: aspirin 81 mg EC Tablet PO (08:21)
[2021-04-08] MEDS: ferrous sulfate EC 325 mg Tablet PO (08:21)
[2021-04-08 08:31] LABS: Glucose Point of Care 168 mg/dL (70-110)
[2021-04-08 09:19] VITALS: BP 171/99; PULSE 84; RESP 16; TEMP 36.7; O2SAT 94
[2021-04-08 09:22] LABS: Glucose Point of Care 173 mg/dL (70-110)
[2021-04-08 12:02] VITALS: BP 134/77; PULSE 93; RESP 16; TEMP 37.2; O2SAT 97
--- NOTE | 2021-04-08 13:20 | PM.DCS ---
Discharge Providers Date of Admission: 03/23/21 18:00 Date of Discharge: April 08, 2021 Attending Provider at Admission: Chaparro Dunn Attending Provider at Discharge: Franklin Barroso MD Primary Care Provider: Thanh Salmon MD Diagnoses at Discharge Discharge Diagnosis (1) S/P splenectomy: Status: Acute Permanent problem details: Traumatic splenic rupture Reason for Visit Reason for Visit: FALL Hospital Course Hospital Course This is a 85-year-old female who underwent hysterectomy on 03/16/2021 which was complicated by a rectal laceration that was repaired primarily. Patient presented on 03/23/2021 to the ER with abdominal pain after a fall and she was noted to have a splenic rupture. Patient underwent exploratory laparotomy and splenectomy. On postop day 4 patient is noted to have stools draining per vagina. Dr. Muller was consulted who took her to the operating room for repair of rectal laceration and closure of vaginal wall dehiscence. Patient also had a sigmoidoscopy performed by my partner at that point in the rectal repair appeared to be intact. 2 days later on 03/29/2021 patient was noted to have stool drainage from the vaginal vault and she was taken back to surgery where she underwent diverting sigmoid colostomy and repair of right laceration. A ERIC drain was placed adjacent to the repair of rectal laceration. Prior to the last visit to the OR patient was noted to have right-sided weakness/unresponsiveness and underwent a CTA of head and neck and there was no acute changes noted. She subsequently had resolution of her symptoms. In the interim patient had been off Pradaxa. By postop day 3 her ostomy was functioning and she was advanced to regular diet. Her ERIC drain output was minimal though it has stool in it. She was noted to have Bacteroides on her blood cultures on initial presentation and therefore she received 14 days of IV Zosyn which was completed today. Patient is also on TPN since her oral intake was not significant. The TPN was discontinued at the time of discharge. An attempt was made to discontinue the Klein catheter but due to urinary retention the Klein catheter had to be replaced. At time of discharge she is awake and alert, follows commands is on room air. Her nikko have been removed and her incision is clean dry and intact ostomy is pink and functioning. She has a Klein catheter and ERIC drain in place. She is being transferred to [facility] Physical Exam Urinary Catheter Management^: Klein: Cath Placed During This Visit: yes, but has since been removed by the nurse Reason for Continuing Indwelling Catheter: Acute Urinary Retention or Obstruction Urinary Catheter Date of Insertion: 04/07/21 Urinary Catheter Time of Insertion: 18:09 Date Urinary Catheter Removed: 04/07/21 Time Urinary Catheter Discontinued: 10:30 Discharge Data Data Completed and Pending: Completed Studies During Hospitalization Category Date Time Status CT abdomen pelvis w con* [id number] Urge nt Cat Scan 03/23/21 13:[address] angio headneck * [id number] Stat Cat Scan 03/27/21 12:[address] head wo con* [id number] Stat Cat Scan 03/26/21 22:40 Completed XR KUB portable 7 [id number] Stat Exams 04/02/21 23:47 Completed XR chest 1V yeni ble [id number] Routine Exams 04/01/21 22:40 Completed XR chest 1V yeni ble [id number] Urgent Exams 03/23/21 10:41 Completed XR chest 1V yeni ble [id number] Urgent Exams 03/23/21 17:13 Completed Pathology: Surgic al [PTH] Routine Pth 03/23/21 17:20 Completed Pending at discharge Category Date Time Status ES surgery / GI i mages Routine Exams 04/01/21 18:34 Ordered Basic Metabolic P karen AM LABS Lab 04/09/21 04:00 Ordered Complete Blood Co unt w/Auto AM LABS Lab 04/09/21 04:00 Ordered Labs from last 24 hours 04/08/21 04/08/21 04/08/21 09:17 08:25 05:06 WBC RBC Hgb Hct MCV MCH MCHC RDW Plt Count MPV Neut % (Auto) Lymph % (Auto) [place] % (Auto) Eos % (Auto) Baso % (Auto) Neut # (Auto) Lymph # (Auto) [place] # (Auto) Eos # (Auto) Baso # (Auto) Nucleated RBC % (a uto) Nucleated RBCs # Sodium 140 Potassium 3.5 Chloride 107 Carbon Dioxide 28 Anion Gap 8.5 BUN 17 Creatinine 0.7 GFR Calculation Not Reportable Glucose 143 H POC Glucose 173 H 168 H Calculated Osmolal ity 294 Calcium 10.9 H 04/08/21 04/08/21 04/07/21 05:06 03:12 20:10 WBC 11.2 H RBC 2.79 L Hgb 8.8 L Hct 29.1 L MCV 104.3 H MCH 31.5 MCHC 30.2 RDW 19.6 H Plt Count 529 H MPV 8.9 Neut % (Auto) 82.5 Lymph % (Auto) 6.0 [place] % (Auto) 8.6 Eos % (Auto) 0.7 Baso % (Auto) 0.7 Neut # (Auto) 9.23 H Lymph # (Auto) 0.[address] # (Auto) 1.0 H Eos # (Auto) 0.1 Baso # (Auto) 0.1 Nucleated RBC % (a uto) 0.8 Nucleated RBCs # 0.1 Sodium Potassium Chloride Carbon Dioxide Anion Gap BUN Creatinine GFR Calculation Glucose POC Glucose 157 H 244 H Calculated Osmolal ity Calcium 04/07/21 15:33 WBC RBC Hgb Hct MCV MCH MCHC RDW Plt Count MPV Neut % (Auto) Lymph % (Auto) [place] % (Auto) Eos % (Auto) Baso % (Auto) Neut # (Auto) Lymph # (Auto) [place] # (Auto) Eos # (Auto) Baso # (Auto) Nucleated RBC % (a uto) Nucleated RBCs # Sodium Potassium Chloride Carbon Dioxide Anion Gap BUN Creatinine GFR Calculation Glucose POC Glucose 250 H Calculated Osmolal ity Calcium Vitals: Last Vital Signs Temp 99.0 F 04/08/21 12:02 Pulse 93 04/08/21 12:02 Resp 16 04/08/21 12:02 BP 134/77 04/08/21 12:02 Pulse Ox 97 04/08/21 12:02 Discharge Plan Discharge Patient Disposition: Xfer SNF Condition: Stable Prescriptions: New hydrocodone-acetaminophen 5-300 mg tablet 1 tab PO Q6H PRN (Reason: pain) Qty: 10 RF: 0 lactulose 20 gram/30 mL Solution 10 g PO Q12H Qty: 2880 RF: 0 atorvastatin 40 mg Tablet 40 mg PO BEDTIME Qty: 30 RF: 0 hydralazine 25 mg Tablet 50 mg PO TID Qty: 180 RF: 0 alum-mag hydroxide-simeth [Mag-Al Plus] 200-200-20 mg/5 mL Suspension 30 ml PO Q4H PRN (Reason: Indigestion) Qty: 3000 RF: 0 Continued ferrous sulfate [iron] 325 mg (65 mg iron) tablet 325 mg PO BID@08,1999 RF: 0 glucosamine sulfate 1,000 mg capsule 1,000 mg PO BID@ RF: 0 calcium carbonate [Calcium 600] 600 mg calcium (1,500 mg) tablet 600 mg PO BID@ RF: 0 glimepiride 1 mg tablet 0.5 mg PO DAILY@0800 RF: 0 metoprolol tartrate 50 mg tablet 50 mg PO BID@ RF: 0 sennosides 25 mg tablet 50 mg PO BID@799,1999 RF: 0 potassium chloride 10 mEq tablet,ER particles/crystals 10 meq PO DAILY@0800 RF: 0 docusate sodium [Colace] 100 mg capsule 100 mg PO BID PRN (Reason: POSTOP CONSTIPATION) RF: 0 acetaminophen 325 mg capsule 650 mg PO Q4H PRN (Reason: fever or pain) RF: 0 Aspir-81 81 mg Tablet,Delayed Release (Dr/Ec) 81 mg PO DAILY@0800 RF: 0 mineral oil Oil See Rx Instructions .ROUTE .COMPLEX RF: 0 diltiazem HCl 180 mg capsule,extended release 24hr 180 mg PO DAILY@0800 RF: 0 Pradaxa 75 mg capsule 75 mg PO BID@799,1999 RF: 0 Changed furosemide 80 mg tablet 40 mg PO DAILY@0800 Qty: 0 RF: 0 esomeprazole magnesium [Nexium] 40 mg capsule,delayed release(DR/EC) 40 mg PO BID Qty: 0 RF: 0 alprazolam [Xanax] 0.25 mg tablet 0.125 mg PO TID PRN (Reason: Anxiety) Qty: 0 RF: 0 losartan 25 mg Tablet 100 mg PO DAILY@0800 Qty: 0 RF: 0 Discontinued hydrocodone-acetaminophen 5-325 mg tablet 1 tab PO Q4H PRN (Reason: pain) Qty: 20 RF: 0 Motrin 800 mg Tablet 800 mg PO Q6H PRN (Reason: Pain) RF: 0 Discharge Orders: Discharge Order (Routine); Ordered 04/08/21 Ordered By: Franklin Barroso Referrals: [facility] [place] [facility] [Provider Group] - 1 week (Depression/adjustment disorder) [facility] [Outside] Taye Muller MD [Physician] - 04/14/21 Carolyn Nick MD [Physician] - 1 week (CVA) Franklin Barroso MD [Physician] - 2 weeks Thanh Salmon MD [Primary Care Provider] - 4-7 days Discharge Diet: Regular Discharge Activity: Increase activity as tolerated and As per PT/OT instructions Patient Instructions: Self Care Measures After a Stroke (DC), Opioid Safety Activity Restrictions/Additional Instructions: After splenectomy meningococcal vaccine is needed, reported to have already received pneumococcal and Haemophilus vaccines previously. Meningococcal vaccine was not available in the hospital. Please arrange for MPSV4 vaccination. Repeat every 5 years. Please recheck hemoglobin next week with regards to anemia. Continue iron supplementation. Hemoccult was found positive in the hospital (but with NG in place), at some point consider whether repeat hemoccult or endoscopic evaluation may be warranted. Continue incentive spirometry. Reposition frequently to avoid pressure sores. Wound care: Keep incision clean dry and intact, remove Steri-Strips as they peel off routine ostomy care ERIC drain to bulb suction, monitor daily 24-hour drain output Resume follow-up with cardiology Dr. Babb regarding atrial fibrillation, hypertension. Pulmonary hypertension. Mitral regurgitation. Discharge Attestations Time Spent in Discharge Care*: less than 30 min Quality Metrics Clinical Quality Measures During this hospital stay, did patient experience: None Coding Level of Care Code Acute Chg FW DC note Diagnoses S/P splenectomy Z90.81
--- NOTE | 2021-04-08 14:02 | PC.NURSE ---
Patient offered bed bath and patient refused at this time. Patient states she is not feeling up to it.
[2021-04-08 14:30] VITALS: BP 168/76; PULSE 98; RESP 16; TEMP 36.6; O2SAT 91
[2021-04-08 15:25] VITALS: BP 150/76; PULSE 91; RESP 16; TEMP 36.9; O2SAT 94
--- NOTE | 2021-04-08 15:30 | PC.NURSE ---
CVC Removal Patient was placed in trendelenburg position Using sterile technique, CVC site was cleansed, sutures removed, catheter was pulled gently, catheter end was intact after removal. Petroleum gauze and 2x2 applied with pressure for 5-10 minutes, covered with transparent dressing. Patient tolerated well. Remained hemodynamically stable throughout, no complaints of shortness of breath.
[2021-04-08 15:33] LABS: Glucose Point of Care 178 mg/dL (70-110)
[2021-04-08 16:15] LABS: SARS Covid-2 Antigen Negative (Negative)
--- NOTE | 2021-04-08 22:20 | PM.PN ---
Subjective Subjective: Interval history: Resting, wakes up to voice. Denies any complaints. Denies any pain or discomfort. No trouble breathing. No abdominal discomfort. Son is at her bedside. Vitals/I&O/Wt Last Vital Signs Temp 98.5 F 04/08/21 15:25 Pulse 91 04/08/21 15:25 Resp 16 04/08/21 15:25 BP 150/76 04/08/21 15:25 Pulse Ox 94 04/08/21 15:25 04/08/21 04/08/21 04/08/21 06:59 14:59 22:59 Intake Total 50 / 1961.783 738.217 / 738.217 40 / 778.217 Output Total 1206 / 2256 900 / 900 Balance -1156 / -294.217 -161.783 / -161.783 40 / -121.783 Weight last 48 hrs Weight 77.678 kg Weight 80.91 kg Physical Exam Narrative: EXAM NARRATIVE: Family at bedside Const: COMMON NORMALS: no acute distress GENERAL APPEARANCE: cooperative and frail appearing ORIENTATION/CONSCIOUSNESS: Yes awake OTHER: Awake, alert, pleasant, interacting. HENMT: COMMON NORMALS: oropharynx normal OTHER: NG with bilious contents. Neck/C-Spine: COMMON NORMALS: no JVD Resp: COMMON NORMALS: normal respiratory effort and clear to auscultation bilaterally AUSCULTATION: clear to auscultation bilaterally Cardio: COMMON NORMALS: no JVD, regular rhythm, S1 normal heart sound present, S2 normal heart sound present and No murmurs present (Cardio) RHYTHM: regular rhythm HEART SOUNDS: S1 normal heart sound present and S2 normal heart sound present GI: COMMON NORMALS: Normal to inspection, nondistended, normoactive bowel sounds present, Soft to palpation and non-tender PALPATION: Yes Soft to palpation OTHER: Midline incision clean. : OTHER: Perirectal drain with minute amount of clear/beige-colored discharge. Extremity: COMMON NORMALS: no joint enlargement and no pedal edema Neuro: COMMON NORMALS: moves all extremities Skin: COMMON NORMALS: no rashes or lesions noted GENERAL SKIN EXAM: no rashes or lesions noted and dry skin Urinary Catheter Management^: Klein: Cath Placed During This Visit: yes, but has since been removed by the nurse Reason for Continuing Indwelling Catheter: Acute Urinary Retention or Obstruction Urinary Catheter Date of Insertion: 04/07/21 Urinary Catheter Time of Insertion: 18:09 Date Urinary Catheter Removed: 04/07/21 Time Urinary Catheter Discontinued: 10:30 Data : 04/08/21 05:06 04/08/21 05:06 A&P Assessment and plan (1) Acute encephalopathy: Overall gradual but very slow improvement. As discussed with family, they are aware extent of how much she may improve in the end, and whether she reaches her prior baseline currently is unknown. Continue supportive care, rehabilitation, return to more normal schedule. Depression treated as below. Continue benzodiazepines currently at lower dose to prevent withdrawal for which she is at risk, long-term consider weaning off with up titration of Lexapro. Continue follow-up with [facility]. Follow-up with gynecology, surgery for related problems. Status: Acute (2) Depression: Depression, with longstanding anxiety. Discussed with psychiatry. Appreciate recommendations. Zoloft thought not likely contributing to the episode of hallucination she had had several days ago. As per psychiatry discussion with family, they had reached a consensus to start on Lexapro 5 mg. For now given concern regarding withdrawal, continues on lower dose Xanax. As discussed earlier, long-term may benefit from weaning off benzodiazepines, possibly with up titration of Lexapro depending on how she is tolerating this. We are requesting that she follow-up with [facility] after discharge. Continue to advance oral intake as tolerating. Regular diet. Add protein shakes if possible. TPN discontinued. Status: Acute (3) Status post repair of dehiscence of vaginal cuff: Drain remains in place. Follow-up with gynecology. Did not do well with voiding trial prior to discharge. Klein catheter replaced. Consider repeat voiding trial in several days. Central line removed prior to discharge. Status: Acute (4) H/O: hysterectomy: Status: Acute (5) 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 Mobilize with PT/OT. Continue incentive spirometry. Discussed with nursing staff, they are confirming that she had previously received pneumococcal and Haemophilus influenza vaccinations. She has not had meningococcal vaccination, however, this is reported not available at the hospital currently. Please kindly arrange for this on outpatient basis. Status: Acute (6) Traumatic rupture of spleen: After a fall, generalized weakness, deconditioning, would benefit from rehabilitation after discharge. Status: Acute (7) Bacteremia: Blood cultures growing Bacteroides fragilis. Completed course of antibiotic with Zosyn, discontinued on 04/08. No growth on repeat blood cultures. Status: Acute (8) CVA (cerebral vascular accident): So far doing well after resumption of Pradaxa. Most of the symptoms appear to have improved or resolved. At the time of CVA with noted right-sided neglect. Aphasia. CT of the head showed chronic periventricular ischemic changes. CTA obtained, without large vessel occlusion. Continue low-dose aspirin, statin, PPI. Pradaxa held for time due to number of surgical procedures and consideration of possibility of septic embolic CVA. Pradaxa has since been resumed about 2 weeks after the event. So far tolerating well. Continue PT/OT Referred for follow-up with neurology. Status: Acute (9) Anemia: Monitor hemoglobin. With positive Hemoccult on presentation but with NG in place. Had recent colonoscopy. Consider follow-up with repeat Hemoccult or possibly endoscopic reevaluation. Overall received 5 unit of blood transfusion during the admission. 4 units out of that O+ while 1 O negative. Reticulocyte count appropriate. Finished 5-day course for 1 g IV iron with transitioned to oral iron supplementation after that. Continue with PPIs. Status: Acute (10) Chronic anticoagulation: With Pradaxa for atrial fibrillation. Status: Acute (11) Acute UTI: Completed antibiotic course for E. coli UTI at presentation. Status: Acute (12) Hypokalemia: Replaced. Status: Acute (13) Post-op bleeding: Status: Acute Additional A&P Information Adjustment disorder/depression: As above. DM2 HTN: Continue optimization of HTN treatment. At discharge continues at increased dose hydralazine at 50 mg 3 times daily. Continue losartan, Cardizem. Goal blood pressure less than 140/90 mmHg with mean over 65. Regular diet due to poor oral intake. Pulmonary hypertension: Doing well on room air BASIL: Nightly CPAP History of DVT, PE. Anticoagulation resumed. Atrial fibrillation: Bob blockers resumed. BP doing well. Anticoagulation to be resumed. History of CVA, Chronic anemia, on iron supplementation, GERD: PPI Hiatal hernia, Dark stools: On iron supplementation, but Hemoccult positive as well. Continue PPI. Has had recent unremarkable endoscopy. [facility] Attestations Medical Necessity Statement*: DC today. Procedures Arterial Line Size (Gauge): 20 Coding Level of Care Code Acute Automatic Spinning Lathe Setter for Chg Fwd Diagnoses Acute encephalopathy G93.40 Depression F32.9 Status post repair of dehiscence of vaginal cuff Z98.890 H/O: hysterectomy Z90.710 S/P splenectomy Z90.81 Traumatic rupture of spleen S36.09XA Bacteremia R78.81 CVA (cerebral vascular accident) I63.9 Anemia D64.9 Chronic anticoagulation Z79.01 Acute UTI N39.0 Hypokalemia E87.6 Post-op bleeding
== END 2021-04-08 15:45 | disposition skilled nursing facility (03) | DRG 799 ==
LOC: ER 10:41 → OPS 15:13 → ICU 19:35 → MEDSURG 03-26 11:21 → ICU 03-29 13:07 → MEDSURG 03-30 23:04 → ICU 04-01 22:39 → MEDSURG 04-05 05:44
PROVIDERS: Internal Medicine; Obstetrics & Gynecology; Student in an Organized Health Care Education/Training Program; Surgery; Admitting Provider Internal Medicine; Emergency Provider Emergency Medicine; PCP Family Medicine; Visit Provider Surgery
PROC: 07TP0ZZ Resection of Spleen, Open Approach (ICD-10-PCS; CPT 49000; principal; 2021-03-23 15:20)
PROC: 0DQP7ZZ Repair Rectum, Via Natural or Artificial Opening (ICD-10-PCS; principal; 2021-03-29 09:00)
PROC: 0DJD8ZZ Inspection of Lower Intestinal Tract, Via Natural or Artificial Opening Endoscopic (ICD-10-PCS; CPT 45330; 2021-03-29 09:00)
PROC: 0DQP7ZZ Repair Rectum, Via Natural or Artificial Opening (ICD-10-PCS; 2021-04-01 20:00)
PROC: 0D1B4Z4 Bypass Ileum to Cutaneous, Percutaneous Endoscopic Approach (ICD-10-PCS; CPT 44187; 2021-04-01 20:00)
DX: S36.09XA Other injury of spleen, initial encounter (principal); I63.9 Cerebral infarction, unspecified; E46 Unspecified protein-calorie malnutrition; G93.40 Encephalopathy, unspecified; D62 Acute posthemorrhagic anemia; N39.0 Urinary tract infection, site not specified; R47.01 Aphasia; G81.91 Hemiplegia, unspecified affecting right dominant side; N99.820 Postprocedural hemorrhage of a genitourinary system organ or structure following a genitourinary system procedure; T81.31XA Disruption of external operation (surgical) wound, not elsewhere classified, initial encounter; W19.XXXA Unspecified fall, initial encounter; Z86.718 Personal history of other venous thrombosis and embolism; Z86.711 Personal history of pulmonary embolism; K57.30 Diverticulosis of large intestine without perforation or abscess without bleeding; K44.9 Diaphragmatic hernia without obstruction or gangrene; D64.9 Anemia, unspecified; Z86.73 Personal history of transient ischemic attack (TIA), and cerebral infarction without residual deficits; E11.9 Type 2 diabetes mellitus without complications; E78.5 Hyperlipidemia, unspecified; K21.9 Gastro-esophageal reflux disease without esophagitis; H91.90 Unspecified hearing loss, unspecified ear; I10 Essential (primary) hypertension; I34.0 Nonrheumatic mitral (valve) insufficiency; N39.46 Mixed incontinence; G47.33 Obstructive sleep apnea (adult) (pediatric); I27.20 Pulmonary hypertension, unspecified; F32.9 Major depressive disorder, single episode, unspecified; Z79.84 Long term (current) use of oral hypoglycemic drugs; Z79.01 Long term (current) use of anticoagulants; Z79.82 Long term (current) use of aspirin; Z68.31 Body mass index [BMI] 31.0-31.9, adult; Z66 Do not resuscitate; I95.9 Hypotension, unspecified; B96.20 Unspecified Escherichia coli [E. coli] as the cause of diseases classified elsewhere; I48.91 Unspecified atrial fibrillation; E87.6 Hypokalemia; Z90.710 Acquired absence of both cervix and uterus
CPT/HCPCS: 36415; 36416; 36430; 36592; 51702; 70450; 70496; 70498; 71045; 71275; 74018; 74177; 80048; 80053; 80076; 81001; 82274; 82607; 82746; 82962; 83540; 83550; 83605; 83735; 83880; 84132; 84145; 84443; 84484; 85007; 85014; 85018; 85025; 85027; 85045; 85610; 85730; 86850; 86900; 86920; 87040; 87077; 87086; 87106; 87186; 87426; 87641; 88305; 92523; 92610; 93005; 94660; 94664; 96365; 96372; 96375; 97110; 97161; 97165; 97530; 97535; 99283; 99285; C9113; J0330; J0360; J0690; J0696; J0743; J1100; J1450; J1644; J1756; J1815 ×2; J1885; J1940; J2060; J2250; J2270; J2370; J2405; J2543; J2550; J2704; J3010; J3370; J3480; J3490; J7030; J7040; J7050; P9016; P9041; P9047; Q9967

== ENCOUNTER 2021-05-04 18:07 | Inpatient (IN) | payer MEDICARE, BC, SELFPAY ==
--- NOTE | 2021-05-04 18:09 | XRR_ITS ---
PROCEDURE INFORMATION: Exam: XR Chest Exam date and time: 05/04/2021 6:09 PM Age: 85 years old Clinical indication: Shortness of breath and other: Weak; Additional info: Weakness TECHNIQUE: Imaging protocol: XR of the chest. Views: 1 view. Total images: 1 COMPARISON: 1. CR (CHEST, ) 04/01/2021 10:45 PM 2. CR XR chest 1V portable [id number] 03/23/2021 5:25 PM 3. CR XR chest 1V portable [id number] 03/23/2021 10:50 AM 4. CR (CHEST, ) 03/20/2021 2:27 PM FINDINGS: Lungs: No visible active interstitial or alveolar airspace disease. Mild senile fibrosis primarily lung bases. Calcified granulomas of antecedent disease. Pleural spaces: No pleural effusion. No pneumothorax. Heart/Mediastinum: Cardiomegaly. Arteriosclerosis. 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 Bones/joints: High riding right shoulder consistent with chronic rotator cuff tear. XR/XR chest 1V portable [id number] IMPRESSION: Nonacute.
[2021-05-04 18:10] VITALS: BP 112/50; PULSE 47; RESP 18; TEMP 36.6; O2SAT 98; BMI 29.8
--- NOTE | 2021-05-04 18:10 | ECG_ITS ---
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 Measurements Intervals [place] Rate: 48 P: MD: QRS: 21 QRSD: 84 T: -6 QT: 472 QTc: 422 Interpretive Statements ATRIAL FIBRILLATION WITH SLOW VENTRICULAR RESPONSE ST DEVIATION AND MODERATE T-WAVE ABNORMALITY, CONSIDER ANTEROLATERAL ISCHEMIA [-0.1+ mV T WAVE IN V3-V6] Compared to ECG 03/24/2021 15:15:12 Possible ischemia now present T-wave abnormality still present Electronically Signed On 05-04-2021 20:07:57 CDT by Viola Mcbride M.D. [email or web address]
--- NOTE | 2021-05-04 18:18 | CTR_ITS ---
PROCEDURE INFORMATION: Exam: CT Head Without Contrast Exam date and time: 05/04/2021 6:18 PM Age: 85 years old Clinical indication: Altered mental status/memory loss; Additional info: AMS TECHNIQUE: Imaging protocol: Computed tomography of the head without contrast. Total images: 202 Radiation optimization: All CT scans at this facility use at least one of these dose optimization techniques: automated exposure control; mA and/or kV adjustment per patient size (includes targeted exams where dose is matched to clinical indication); or iterative reconstruction. COMPARISON: 1. CT head wo con* [id number] 03/26/2021 10:[address] angio headneck* [id number] 03/27/2021 12:42 PM RADIATION DOSE METRICS: Total DLP (mGy-cm): 817.79 FINDINGS: Brain: No evidence of active or acute intracranial pathologic process, hemorrhage, or trauma. Advanced small vessel ischemic disease with senile periventricular leukomalacia. Old lacunar infarction left frontoparietal watershed periventricular white matter. No mass effect. No midline shift. Advanced cerebral and cerebellar atrophy with ventricular dilatation greater than that anticipated for patient's chronological age. Cerebral arteriosclerosis. Cerebral ventricles: No ventriculomegaly. Paranasal sinuses: Visualized sinuses are unremarkable. No fluid levels. Mastoid air cells: Visualized mastoid air cells are well aerated. Bones/joints: Unremarkable. No acute fracture. Soft tissues: Unremarkable. Other findings: Motion artifact. CT/CT head wo con* [id number] IMPRESSION: No evidence of active or acute intracranial pathologic process, hemorrhage, or trauma. Radiation Dose CTDIVOL = (mGy): DLP = 817.79 (mGy-cm)
--- NOTE | 2021-05-04 18:23 | W.ED.AMS ---
HPI - Altered Mental Status General: Chief Complaint: Altered Mental Status Stated Complaint: AMS, A-FIB, ABNORMAL LABS Time Seen by Provider: 05/04/21 18:08 Source: patient and EMS Mode of arrival: EMS Limitations: altered mental status History of Present Illness: HPI narrative: 85-year-old female who had a history of a surgery ended with complications and she had to have a colectomy along with a splenectomy. Patient is in a halfway currently. Per halfway she has been increasingly altered today. She is able to tell me her name and where she is at but she is confused to time and does have confusion here and there as well answering questions. Had done lab work there and her sodium was 125 and potassium was 2.4. She had no vomiting or diarrhea. No head injuries. Associated symptoms: Deny depression Review of Systems Const: Denies: fever(s), chills, body aches or change in appetite Eyes: Denies: blurry vision or eye discomfort ENMT: Denies: throat pain or dental pain Card: Denies: chest pain Resp: Denies: dyspnea GI: Denies: abdominal pain, nausea, vomiting or diarrhea : Denies: dysuria Musc: Denies: neck pain or back pain Skin/Breast: Denies: rash Neuro: Reports: confusion Psych: Denies: depression Jhony/Lymph: Denies: easy bruising All/Imm: Denies: urticaria [facility] PFSH: Medical History Anemia Anticoagulant long-term use CVA (cerebral vascular accident) Diabetes DVT (deep venous thrombosis) Dyslipidemia GERD (gastroesophageal reflux disease) [place] (hard of hearing) HTN (hypertension) Hx pulmonary embolism Mitral regurgitation Mixed stress and urge urinary incontinence BASIL on CPAP POP-Q stage 3 cystocele Pulmonary HTN Second degree uterine prolapse Traumatic rupture of spleen Surgical History H/O dilation and curettage x2 H/O esophagogastroduodenoscopy (05/18/20) H/O: hysterectomy 03/16/2021: total vaginal hysterectomy with bilateral salpingo-oophorectomy, anterior colporrhaphy augmented with allograft with midurethral sling, small rectal laceration repair, performed by Dr. 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) Traumatic splenic rupture Status post tubal ligation Family History Brother CAD (coronary artery disease) Cancer Myocardial infarction Colon cancer Father Tuberculosis Son Diabetes Hyperlipidemia Denies family history of Ovarian cancer Clotting disorder Breast cancer Anesthesia complication Bleeding disorder Hypertension Uterine cancer Thyroid condition Stroke Social History Smoking and tobacco status: never smoked Alcohol intake: never Household members: family Marital status: / Current occupational status: retired Physical Exam Const: COMMON NORMALS: no acute distress, healthy appearing and alert; negative for patient oriented x3 ORIENTATION/CONSCIOUSNESS: Yes oriented to person and Yes oriented to place; not oriented to time HENMT: COMMON NORMALS: normocephalic and atraumatic HEAD & SCALP: normocephalic and atraumatic Eye: COMMON NORMALS: Equal, round and reactive pupils present and EOMs intact bilaterally PUPIL: Yes Equal, round and reactive pupils present Neck/C-Spine: COMMON NORMALS: full ROM and supple Chest: COMMONS NORMALS: normal inspection of the chest and normal palpation of entire chest wall Resp: COMMON NORMALS: normal respiratory effort, No retractions, No use of accessory muscles and clear to auscultation bilaterally AUSCULTATION: clear to auscultation bilaterally Cardio: COMMON NORMALS: regular rhythm and No murmurs present (Cardio) RATE: bradycardic RHYTHM: regular rhythm GI: COMMON NORMALS: Normal to inspection, nondistended, normoactive bowel sounds present, Soft to palpation, non-tender and no masses PALPATION: Yes Soft to palpation Extremity: COMMON NORMALS: normal to inspection and full ROM Neuro: COMMON NORMALS: moves all extremities and no focal motor deficits; negative for patient oriented x3 SENSORIUM/ORIENTATION: Yes alert, Yes oriented to person, Yes oriented to place and No oriented to time Psych: COMMON NORMALS: Normal thought process present and cooperative; negative for mental status grossly normal THOUGHT PROCESS: Normal thought process present Skin: COMMON NORMALS: no rashes or lesions noted and no wounds GENERAL SKIN EXAM: no rashes or lesions noted Course Vital Signs: Vital signs: Vital Signs Temperature 97.8 F 05/04/21 18:10 Pulse Rate 48 L 05/04/21 20:50 Respiratory Rate 16 05/04/21 20:50 Blood Pressure 128/52 05/04/21 20:50 Pulse Oximetry 95 05/04/21 20:50 MDM - Altered Mental Status MDM Narrative: Medical decision making narrative: Patient presents here with altered mental status likely from electrolyte abnormalities she is hyponatremic and hypokalemic. Head CT here is normal. She is stable while here. I spoke to the hospitalist and will admit. Lab Data: Labs: Lab Results 05/04/21 05/04/21 Range/Units 20:10 20:10 WBC 9.5 (4.0-10.0) 10^3/ uL RBC 3.39 L (4.1-5.3) 10^6/u L Hgb 11.1 L (11.5-15.3) g/dL Hct 32.5 L (37.0-47.0) % MCV 95.9 (81-99) fL MCH 32.7 (28.0-34.0) pg MCHC 34.2 (30.0-36.0) g/dL RDW 15.3 H (12.1-15.1) % Plt Count 374 (130-400) 10^3/c mm MPV 9.1 (7.4-10.4) fL Neut % (Auto) 53.1 % Lymph % (Auto) 36.1 % Todd % (Auto) 9.5 % Eos % (Auto) 0.4 % Baso % (Auto) 0.5 % Neut # (Auto) 5.05 (1.8-7.7) 10^3/u L Lymph # (Auto) 3.4 (0.8-4.8) 10^3/u L Todd # (Auto) 0.9 (0.2-0.9) 10^3/u L Eos # (Auto) 0.0 (0.0-0.8) 10^3/u L Baso # (Auto) 0.1 (0.0-0.1) 10^3/u L Nucleated RBC % (a uto) 0 % Nucleated RBCs # 0.0 /100WBC Sodium 123 L (136-145) mmol/L Potassium 2.6 L* (3.5-5.1) mmol/L Chloride 76 L (98-107) mmol/L Carbon Dioxide 38 H (22-29) mmol/L Anion Gap 11.6 (5-19) BUN 25 H (8-23) mg/dL Creatinine 0.8 (0.5-0.9) mg/dL GFR Calculation Not Reportable Glucose 357 H (65-115) mg/dL Calculated Osmolal ity 275 L (285-295) mOsm/k g Calcium 10.3 (8.5-10.5) mg/dL Magnesium 1.8 (1.7-2.3) mg/dL Total Bilirubin 0.3 (0.15-1.2) mg/dL AST 31 (0-32) U/L ALT 19 (0-33) U/L Alkaline Phosphata se 177 H (35-105) IU/L Total Protein 6.0 L (6.6-8.7) g/dL Albumin 3.3 L (3.5-5.2) g/dL Globulin 2.7 (1.3-4.6) g/dL Imaging Data^: CT Head: Attestation: I personally reviewed and interpreted this imaging study as follows: Radiologist's impression: [address] [address] [address] Scan Report Signed Patient: Juliana Rodney Unit #: [id number] : 1935 Age/Sex: 85 / F ADM Date: 05/04/21 Loc: ER Room/Bed: Attending Dr: Ordering Provider/Ordering MD: Nargis Nino MD Date of Service: 05/04/21 Procedure(s): CT head wo con* [id number] Accession Number(s): [id number] Report Number: [id number] PROCEDURE INFORMATION: Exam: CT Head Without Contrast Exam date and time: 05/04/2021 6:18 PM Age: 85 years old Clinical indication: Altered mental status/memory loss; Additional info: AMS TECHNIQUE: Imaging protocol: Computed tomography of the head without contrast. Total images: 202 Radiation optimization: All CT scans at this facility use at least one of these dose optimization techniques: automated exposure control; mA and/or kV adjustment per patient size (includes targeted exams where dose is matched to clinical indication); or iterative reconstruction. COMPARISON: 1. CT head wo con* [id number] 03/26/2021 10:[address] angio headneck* [id number] 03/27/2021 12:42 PM RADIATION DOSE METRICS: Total DLP (mGy-cm): 817.79 FINDINGS: Brain: No evidence of active or acute intracranial pathologic process, hemorrhage, or trauma. Advanced small vessel ischemic disease with senile periventricular leukomalacia. Old lacunar infarction left frontoparietal watershed periventricular white matter. No mass effect. No midline shift. Advanced cerebral and cerebellar atrophy with ventricular dilatation greater than that anticipated for patient's chronological age. Cerebral arteriosclerosis. Cerebral ventricles: No ventriculomegaly. Paranasal sinuses: Visualized sinuses are unremarkable. No fluid levels. Mastoid air cells: Visualized mastoid air cells are well aerated. Bones/joints: Unremarkable. No acute fracture. Soft tissues: Unremarkable. Other findings: Motion artifact. CT/CT head wo con* [id number] IMPRESSION: No evidence of active or acute intracranial pathologic process, hemorrhage, or trauma. Radiation Dose CTDIVOL = (mGy): DLP = 817.79 (mGy-cm) Dictated By: Jordan Maurer Signed By: Jordan Maurer Signed Date/Time: 05/04/211951 DD/ 50 EKG Data^: EKG 1: Attestation: I personally reviewed and interpreted this EKG as follows: EKG interpretation date: 05/04/21 EKG interpretation time: 18:41 Interpretation: afib slow rvr hr [address] or t wave abnormalities qrs 84 qtc 437 Discharge Plan Discharge Patient Disposition: Admitted As Inpatient Clinical Impression: Altered mental status, Hyponatremia, Hypokalemia Condition: Stable Coding Level of Care Code ED Certified Health Education Specialist for Chg Fwd Exam Comprehensive
[2021-05-04 18:31] VITALS: BP 118/54; PULSE 53; RESP 16; O2SAT 96
[2021-05-04 19:50] VITALS: BP 117/52; PULSE 50; RESP 16; O2SAT 95
[2021-05-04 20:16] LABS: Basophils # 0.1 10^3/uL (0.0-0.1); Basophils % 0.5 %; Eosinophils % 0.4 %; Hematocrit 32.5 % (37.0-47.0); Hemoglobin 11.1 g/dL (11.5-15.3); Lymphocytes # 3.4 10^3/uL (0.8-4.8); Lymphocytes % 36.1 %; Mean Corpuscular HGB Conc 34.2 g/dL (30.0-36.0); Mean Corpuscular Hemoglobin 32.7 pg (28.0-34.0); Mean Corpuscular Volume 95.9 fL (81-99); Mean Platelet Volume 9.1 fL (7.4-10.4); Monocytes # 0.9 10^3/uL (0.2-0.9); Monocytes % 9.5 %; Neutrophils # 5.05 10^3/uL (1.8-7.7); Neutrophils % 53.1 %; Nucleated Red Blood Cells % 0 %; Platelet Count 374 10^3/cmm (130-400); Red Blood Count 3.39 10^6/uL (4.1-5.3); Red Cell Distribution Width 15.3 % (12.1-15.1); White Blood Count 9.5 10^3/uL (4.0-10.0)
[2021-05-04 20:40] LABS: Alanine Aminotransferase 19 U/L (0-33); Albumin Level 3.3 g/dL (3.5-5.2); Alkaline Phosphatase 177 IU/L (35-105); Anion Gap 11.6 (5-19); Aspartate Amino Transferase 31 U/L (0-32); Blood Urea Nitrogen 25 mg/dL (8-23); Calcium 10.3 mg/dL (8.5-10.5); Carbon Dioxide 38 mmol/L (22-29); Chloride 76 mmol/L (98-107); Globulin 2.7 g/dL (1.3-4.6); Glucose 357 mg/dL (65-115); Magnesium 1.8 mg/dL (1.7-2.3); Osmolality Calculated 275 mOsm/kg (285-295); Sodium 123 mmol/L (136-145); Total Bilirubin 0.3 mg/dL (0.15-1.2)
[2021-05-04 20:43] LABS: Potassium 2.6 mmol/L (3.5-5.1)
[2021-05-04 20:50] VITALS: BP 128/52; PULSE 48; RESP 16; O2SAT 95
[2021-05-04] MEDS: potassium chloride ER 20 mEq Tablet 40 MEQ PO (21:04)
[2021-05-04] MEDS: sodium chloride 0.9% 1,000 ML 999 ML IV (21:04)
--- NOTE | 2021-05-04 21:07 | PM.HP ---
Providers/Chief Complaint Primary Care Provider: Thanh Salmon MD Chief Complaint: AMS, A-FIB, ABNORMAL LABS History of Present Illness Juliana Rdoney is a 85 year old female who [facility]. 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 Muller and Dr. Barroso. After her surgery she was sent to [facility] for PT. Patient is denying diarrhea, increased output from her stoma, nausea, vomiting, chest pain, shortness of breath, fever. She is endorsing lethargy and fatigue otherwise no other active complaints. She has a chronic indwelling catheter denying dysuria. Diagnostics in the ER revealed hyponatremia, hypokalemia, patient was hemodynamically stable, sinus bradycardia, normal chest x-ray and CT head. EKG shows A. fib without RVR heart rate in low 50s Review of Systems Const: Reports: chills, fatigue and malaise Eyes: Denies: change in vision ENMT: Denies: throat pain Card: Denies: chest pain Resp: Denies: dyspnea GI: Denies: abdominal pain : Denies: flank pain Musc: Denies: neck pain Skin/Breast: Denies: rash Neuro: Denies: headache(s) Psych: Denies: anxiety Endo: Denies: polyuria Jhony/Lymph: Denies: easy bruising All/Imm: Denies: urticaria Medications/Allergies Home Medications Medication Instructions Recorded Confirmed Last Taken Type glimepiride 1 mg tablet 0.5 mg PO DAILY@0800 04/27/20 04/18/21 03/23/21 History metoprolol tartrate 50 mg tablet 50 mg PO BID@0800,199904/27/20 04/18/21 03/23/21 History Pradaxa 75 mg PO BID@08,199905/18/20 04/18/21 03/23/21 History diltiazem HCl 180 mg PO DAILY@0800 0704/18/21 03/23/21 History ferrous sulfate 325 mg (65 mg 325 mg PO BID@08,1999 tab 01/14/21 04/18/21 03/23/21 History iron) tablet calcium carbonate 600 mg calcium 600 mg PO BID@0800,199903/11/21 04/18/21 03/23/21 History (1,500 mg) tablet glucosamine sulfate 1,000 mg 1,000 mg PO BID@08,199903/11/21 04/18/21 03/23/21 History capsule sennosides 25 mg tablet 50 mg PO BID@0800,1999 tab 03/11/21 04/18/21 03/23/21 History acetaminophen 650 mg PO Q4H PRN 03/20/21 04/18/21 03/23/21 History docusate sodium [Colace] 100 mg PO BID PRN 03/20/21 04/18/21 Unknown History potassium chloride 10 meq PO DAILY@0800 03/20/21 04/18/21 03/23/21 History aspirin 81 mg PO DAILY@0800 03/23/21 04/18/21 03/23/21 History mineral oil See Rx Instructions .ROUTE .COMPLEX 03/23/21 04/18/21 03/22/21 History Nexium 40 mg PO BID #0 cap 04/08/21 04/18/21 03/23/21 Rx alum-mag hydroxide-simeth [Mag-Al 30 ml PO Q4H PRN #3000 ml 04/08/21 04/18/21 Unknown Rx Plus] atorvastatin 40 mg PO BEDTIME #30 tab 04/08/21 04/18/21 Unknown Rx escitalopram oxalate [Lexapro] 5 mg PO DAILY #30 tab 04/08/21 04/18/21 Unknown Rx furosemide 40 mg PO DAILY@0800 #0 tab 04/08/21 04/18/21 03/23/21 Rx hydralazine 50 mg PO TID #180 tab 04/08/21 04/18/21 Unknown Rx lactulose 10 g PO Q12H #2880 ml 04/08/21 04/18/21 Unknown Rx losartan 100 mg PO DAILY@0800 #0 tab 04/08/21 04/18/21 03/23/21 Rx alprazolam 0.25 mg tablet 0.125 mg PO TID tab 04/18/21 04/18/21 Unknown History hydrocodone 5 mg-acetaminophen 325 1 tab PO Q6H PRN 04/18/21 04/18/21 Unknown History mg tablet ondansetron HCl 4 mg tablet 4 mg PO Q8H PRN 04/18/21 04/18/21 Unknown History Allergies Allergy/AdvReac Type Severity Reaction Status Date / Time meperidine [From Demerol] AdvReac Mild ADR-Vomitin Verified 04/18/21 15:20 g zomax Allergy ADR/ALGY-Hy Uncoded 03/16/21 06:24 potension PFSH Acute PFSH: Medical History Anemia Anticoagulant long-term use CVA (cerebral vascular accident) Diabetes DVT (deep venous thrombosis) Dyslipidemia GERD (gastroesophageal reflux disease) [place] (hard of hearing) HTN (hypertension) Hx pulmonary embolism Mitral regurgitation Mixed stress and urge urinary incontinence BASIL on CPAP POP-Q stage 3 cystocele Pulmonary HTN Second degree uterine prolapse Traumatic rupture of spleen Surgical History H/O dilation and curettage x2 H/O esophagogastroduodenoscopy (05/18/20) H/O: hysterectomy 03/16/2021: total vaginal hysterectomy with bilateral salpingo-oophorectomy, anterior colporrhaphy augmented with allograft with midurethral sling, small rectal laceration repair, performed by Dr. 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) Traumatic splenic rupture Status post tubal ligation Family History Brother CAD (coronary artery disease) Cancer Myocardial infarction Colon cancer Father Tuberculosis Son Diabetes Hyperlipidemia Denies family history of Ovarian cancer Clotting disorder Breast cancer Anesthesia complication Bleeding disorder Hypertension Uterine cancer Thyroid condition Stroke Social History Smoking and tobacco status: never smoked Alcohol intake: never Household members: family Marital status: / Current occupational status: retired Vitals/I&O/Wt Last Vital Signs Temp 97.8 F 05/04/21 18:10 Pulse 48 L 05/04/21 20:50 Resp 16 05/04/21 20:50 BP 128/52 05/04/21 20:50 Pulse Ox 95 05/04/21 20:50 Weight last 48 hrs Weight 73.936 kg Physical Exam Narrative: EXAM NARRATIVE: Elderly female who was lying comfortably in her bed A. fib with slow ventricular response No active shortness of breath chest pain abdominal pain Variable S1-S2 Active signs of fluid overload with bilateral extremity edema 2+ No acute respiratory distress Abdomen soft nontender colostomy bag with loose stools, dark green color, no active bleeding No signs of peritonitis Klein catheter draining clear yellow urine No joint swelling signs of cellulitis Pedal edema positive Patient is hard of hearing Left side weakness as compared to right EOMI, PERRLA, patient is awake alert oriented x3 GCS 15 Data : 05/04/21 20:10 05/04/21 20:10 A&P Assessment and plan (1) Hyponatremia: Status: Acute (2) Hypokalemia: Status: Acute (3) Alkalosis, metabolic: Status: Acute Additional A&P Information Contraction alkalosis with hyponatremia, hypokalemia Hypochloremia, sodium 123, a month ago sodium level 140 Potassium 2.6 A. fib with slow ventricular response Replenish electrolytes, slow replenishment of sodium with normal saline Patient clinically does look fluid overloaded with bilateral lower extremity edema Check BNP, patient denying diarrhea, increased output from stoma or polyuria however considering her age and poor memory I will stay skeptical and would like to rule out increased output from stoma and polyuria, She does have contraction alkalosis which goes along intravascular volume depletion, I would continue normal saline for now and avoid diuretics, stop Lasix and lactulose Check magnesium level Full code Consistent carb diet DVT prophylaxis Pradaxa I would advise against glimepiride considering her age and risk of hypoglycemia Attestations Medical Necessity Statement*: Anticipating discharge within 48 hours overnight need electrolyte replenishment Time Spent in Patient Care: (>than 50% of time spent in counselling and/or direct pt care on unit). 30mins Coding Level of Care Code Acute Fisheries Specialist for Chg Fwd Diagnoses Hyponatremia E87.1 Hypokalemia E87.6 Alkalosis, metabolic E87.3
[2021-05-04 23:01] VITALS: BP 142/77; PULSE 51; RESP 16; O2SAT 96
--- NOTE | 2021-05-04 23:06 | PC.NURSE ---
report to custodial at this time
[2021-05-04 23:07] VITALS: BP 142/77; PULSE 51; RESP 16; O2SAT 96
[2021-05-05] VITALS (7 sets, daily range): BP systolic 113–159; BP diastolic 70–80; PULSE 57–71; RESP 16–18; TEMP 36.4–36.8; O2SAT 92–98
[2021-05-05] MEDS: lidocaine 1% 5 ML in potassium chloride premix 100 ML 25 ML IV ×2 (00:15→10:34)
[2021-05-05] MEDS: sodium chloride 0.9% 1,000 ML 30 ML IV (00:15)
[2021-05-05 05:55] LABS: Basophils # 0.1 10^3/uL (0.0-0.1); Basophils % 0.6 %; Eosinophils # 0.1 10^3/uL (0.0-0.8); Eosinophils % 0.8 %; Hematocrit 31.6 % (37.0-47.0); Hemoglobin 10.6 g/dL (11.5-15.3); Lymphocytes # 4.7 10^3/uL (0.8-4.8); Lymphocytes % 49.1 %; Mean Corpuscular HGB Conc 33.5 g/dL (30.0-36.0); Mean Corpuscular Hemoglobin 31.9 pg (28.0-34.0); Mean Corpuscular Volume 95.2 fL (81-99); Mean Platelet Volume 9.3 fL (7.4-10.4); Monocytes # 0.9 10^3/uL (0.2-0.9); Monocytes % 9.4 %; Neutrophils # 3.78 10^3/uL (1.8-7.7); Neutrophils % 39.8 %; Nucleated Red Blood Cells % 0 %; Platelet Count 359 10^3/cmm (130-400); Red Blood Count 3.32 10^6/uL (4.1-5.3); Red Cell Distribution Width 15.3 % (12.1-15.1); White Blood Count 9.5 10^3/uL (4.0-10.0)
[2021-05-05 06:14] LABS: Anion Gap 5.2 (5-19); Blood Urea Nitrogen 19 mg/dL (8-23); Carbon Dioxide 40 mmol/L (22-29); Chloride 85 mmol/L (98-107); Glucose 137 mg/dL (65-115); Magnesium 1.9 mg/dL (1.7-2.3); Osmolality Calculated 268 mOsm/kg (285-295); Potassium 3.2 mmol/L (3.5-5.1); Sodium 127 mmol/L (136-145)
[2021-05-05 06:32] LABS: Glucose Point of Care 149 mg/dL (70-110)
[2021-05-05] MEDS: aspirin 81 mg EC Tablet PO (08:37)
[2021-05-05] MEDS: losartan 50 mg Tablet PO (08:37)
[2021-05-05] MEDS: hyDRALAzine 25 mg Tablet PO ×3 (10:34→21:06)
[2021-05-05] MEDS: sodium chloride 0.9% 1,000 ML 50 ML IV (10:35)
[2021-05-05 10:53] LABS: Glucose Point of Care 121 mg/dL (70-110)
--- NOTE | 2021-05-05 15:13 | P.PN_ITS ---
Subjective Subjective: Interval history: Overnight H&P Reviewed.Vitals and labs have been reviewed.Serum Sodium and potassium has improved. Vitals/I&O/Wt Last Vital Signs Temp 97.6 F 05/05/21 11:13 Pulse 71 05/05/21 11:13 Resp 18 05/05/21 11:13 BP 135/75 05/05/21 11:13 Pulse Ox 95 05/05/21 11:13 05/05/21 05/05/21 05/05/21 06:59 14:59 22:59 Intake Total 1105 / 1105 1241.5 / 1241.5 Output Total 600 / 600 1000 / 1000 Balance 505 / 505 241.5 / 241.5 Weight last 48 hrs Weight 73.936 kg Physical Exam Const: COMMON NORMALS: patient oriented x3 HENMT: COMMON NORMALS: normocephalic and atraumatic HEAD & SCALP: normocephalic and atraumatic Chest: CHEST: Yes Symmetrical chest wall rise Resp: COMMON NORMALS: clear to auscultation bilaterally EFFORT & INSPECTION: Yes symmetric chest movement AUSCULTATION: clear to auscultation bilaterally Cardio: COMMON NORMALS: S1 normal heart sound present, S2 normal heart sound p resent, No murmurs present (Cardio), No rub (Cardio) and Peripheral pulses 2+ throughout HEART SOUNDS: S1 normal heart sound present and S2 normal heart sound present PERIPHERAL PULSES: Peripheral pulses 2+ throughout GI: COMMON NORMALS: Soft to palpation and non-tender PALPATION: Yes Soft to palpation RECTAL EXAM: deferred OTHER: colostomy bag with loose stools Extremity: NARRATIVE EXTREMITY EXAM: Trace B/L L/E pitting edema Neuro: COMMON NORMALS: patient oriented x3 Data : 05/05/21 05:22 05/05/21 05:22 A&P Assessment and plan (1) Hyponatremia: Status: Acute (2) Hypokalemia: Status: Acute (3) Alkalosis, metabolic: Status: Acute Additional A&P Information Contraction alkalosis with hyponatremia, hypokalemia Hypochloremia, sodium 123, a month ago sodium level 140 Potassium 2.6 A. fib with slow ventricular response Replenish electrolytes, slow replenishment of sodium with normal saline Patient clinically does look fluid overloaded with bilateral lower extremity edema Check BNP, patient denying diarrhea, increased output from stoma or polyuria however considering her age and poor memory I will stay skeptical and would like to rule out increased output from stoma and polyuria, She does have contraction alkalosis which goes along intravascular volume depletion, I would continue normal saline for now and avoid diuretics, stop Lasix and lactulose Check magnesium level Full code Consistent carb diet DVT prophylaxis Pradaxa I would advise against glimepiride considering her age and risk of hypoglycemia Attestations Medical Necessity Statement*: Patient needs to be in hospital for the management of hypokalemia as well as hyponatremia. Coding Level of Care Code Acute Automotive Glass Specialist for g Fwd Diagnoses Hyponatremia E87.1 Hypokalemia E87.6 Alkalosis, metabolic E87.3
[2021-05-05 16:27] LABS: Glucose Point of Care 194 mg/dL (70-110)
[2021-05-05 20:35] LABS: Glucose Point of Care 93 mg/dL (70-110)
[2021-05-06] VITALS: BP 167/89; PULSE 77; RESP 16; TEMP 36.7; O2SAT 77
[2021-05-06] MEDS: sodium chloride 0.9% 1,000 ML 50 ML IV (00:42)
[2021-05-06 03:47] LABS: Add Urine Microscopic? YES; Bilirubin Urine Neg (Negative); Blood Urine Neg (Negative); Glucose Urine UA Norm (Normal); Ketones Urine Negative (Negative); Leukocyte Esterase Urine 2+ (Negative); Nitrate Urine Negative (Negative); Protein Urine Neg (Negative); Urine Appearance Clear (CLEAR); Urine Color Yellow (Yellow); Urobilinogen Urine Norm (Negative); pH Urine 9 (5-7)
[2021-05-06 03:48] LABS: Add Urine Culture? Yes; Bacteria Urine 1+ /hpf; RBC Urine 0-4 /hpf (0-2); Squamous Epithelial Cell Urine 0-4 /hpf (0-5); Sulfosalicylic Acid Urine Negative (Negative); WBC Urine 15-25 /hpf (0-5)
[2021-05-06 04:00] VITALS: BP 152/78; PULSE 56; RESP 16; TEMP 36.8; O2SAT 98
--- NOTE | 2021-05-06 04:33 | PC.NURSE ---
SHIFT note patient in bed with eyes closed this shift, easily awakened every 2 hours for positioning side to side, continued to deny pain,, open areas to bilat buttock, optifoam applied to left buttock, urine sample collected.
[2021-05-06 05:54] LABS: Basophils # 0.1 10^3/uL (0.0-0.1); Eosinophils # 0.1 10^3/uL (0.0-0.8); Eosinophils % 0.9 %; Hemoglobin 10.6 g/dL (11.5-15.3); Lymphocytes # 5.1 10^3/uL (0.8-4.8); Lymphocytes % 57.2 %; Mean Corpuscular HGB Conc 33.1 g/dL (30.0-36.0); Mean Corpuscular Hemoglobin 32.2 pg (28.0-34.0); Mean Corpuscular Volume 97.3 fL (81-99); Monocytes # 0.8 10^3/uL (0.2-0.9); Monocytes % 8.7 %; Neutrophils # 2.82 10^3/uL (1.8-7.7); Neutrophils % 31.6 %; Nucleated Red Blood Cells % 0 %; Platelet Count 387 10^3/cmm (130-400); Red Blood Count 3.29 10^6/uL (4.1-5.3); Red Cell Distribution Width 16.1 % (12.1-15.1); White Blood Count 8.9 10^3/uL (4.0-10.0)
[2021-05-06 06:16] LABS: Anion Gap 11.1 (5-19); Blood Urea Nitrogen 11 mg/dL (8-23); Calcium 10.4 mg/dL (8.5-10.5); Carbon Dioxide 33 mmol/L (22-29); Chloride 92 mmol/L (98-107); Glucose 107 mg/dL (65-115); Magnesium 1.8 mg/dL (1.7-2.3); Osmolality Calculated 276 mOsm/kg (285-295); Potassium 3.1 mmol/L (3.5-5.1); Sodium 133 mmol/L (136-145)
[2021-05-06 06:29] LABS: Glucose Point of Care 125 mg/dL (70-110)
[2021-05-06 07:43] VITALS: BP 147/75; PULSE 77; RESP 20; TEMP 36.8; O2SAT 94
[2021-05-06 08:00] VITALS: BP 147/75
[2021-05-06] MEDS: hyDRALAzine 25 mg Tablet PO ×2 (08:00→18:03)
[2021-05-06] MEDS: losartan 50 mg Tablet PO (08:00)
[2021-05-06] MEDS: potassium chloride ER 20 mEq Tablet 40 MEQ PO ×2 (08:00→11:44)
[2021-05-06] MEDS: aspirin 81 mg EC Tablet PO (08:00)
--- NOTE | 2021-05-06 11:06 | PC.CHAP ---
Pastoral Care Encounter/Spiritual Assessment Type of Contact [] Declined metal fitter visit [] Patient/Family/Request visit [] Outpatient visit [] Follow-up visit [] Physician referral [] Code/Alert [] Routine visit [] Staff referral [] Actively dying [xx] Patient sleeping [] Family support [] [] Out of room [] Palliative care [] [] Receiving care in room [] Pre-surgical visit [] Trauma [] Long length of stay [] ICU visit [] Other: Relational/Emotional Strength [xx] Patient feels connected with others/family/visitors/staff [] Distress [] Loneliness/isolation [] Abandonment Spirituality of Patient [xx] Person of Desire [] Attends Oriental Orthodox of their Desire [xx] Believes in Prayer [] Reads Bible or Restorationist materials [] There are Spiritual issues to be addressed Customs Brokerage Manager Interventions [xx] Prayer [xx] Active listening [xx] Non-anxious presence [] Spiritual/emotional support [] Crisis/trauma care [] Spiritual counseling [] Bereavement support [] Provided bereavement packet [] Provided Bible/devotional materials [] Provided toy/stuffed animal, coloring book to patient or family member [] Provided Communion [] Anointing/Rosamond [] Salvation [xx] Completed spiritual assessment [] Other: Impact on Illness or Injury [] Angry [] Fearful [] Anxious [] Often cries [] Exhaustion [] Unable to work [] Unable to attend temple [] Unable to walk/stand [] Unable to read [] Unable to drive [] Unable to eat/drink [] Unable to sleep [] Unable to be with family [] Patient intubated [] Other: Summary Patient's son was present with his mother. Son and metal fitter conversed and prayed together. Son stated his mother was scheduled to be released to return to jail later today. Time spent with patient 6 minutes
[2021-05-06 11:07] LABS: Glucose Point of Care 164 mg/dL (70-110)
[2021-05-06] MEDS: lidocaine 1% 5 ML in potassium chloride premix 100 ML 50 ML IV (11:44)
[2021-05-06 12:00] VITALS: BP 136/82; PULSE 75; RESP 14; TEMP 37.3; O2SAT 97
[2021-05-06 14:07] LABS: SARS Covid-2 Antigen Negative (Negative)
[2021-05-06 15:41] VITALS: BP 165/77; PULSE 80; RESP 14; TEMP 36.6; O2SAT 95
[2021-05-06 17:08] LABS: Glucose Point of Care 131 mg/dL (70-110)
--- NOTE | 2021-05-06 17:46 | PM.DCS ---
Discharge Providers Date of Admission: 05/05/21 16:58 Date of Discharge: May 06, 2021 Attending Provider at Admission: Theo Avendano MD Attending Provider at Discharge: Sergo Werner MD Primary Care Provider: Thanh Salmon MD Diagnoses at Discharge Discharge Diagnosis (1) Hyponatremia: Status: Resolved (2) Hypokalemia: Status: Acute (3) Alkalosis, metabolic: Status: Acute Reason for Visit Reason for Visit: AMS, A-FIB, ABNORMAL LABS Hospital Course Hospital Course 85 year old female who presented to the hospital from [facility] for abnormal blood work hyponatremia as well as hypokalemia ).Patient has had very complicated surgeries in the past status post hysterectomy complicated by rectal laceration, 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 Muller and Dr. Barroso. After her surgery she was sent [facility]. During the hospital stay she was managed for hypovolemic hyponatremia 2/2 to poor oral inatke as well as lasix use resulting in contraction alkalosis as well as hypokalemia.She was continued on I.V hydration as well as aggressive I.V and oral potassium replacement.Electrolytes correction were heading in the right direction.On discharge lasix has been kept on hold to be resumed on 05/11 , diltiazem and metoprolol tartarte has also been held till 05/09 as her H/R has been in high 40s to 50s. and can be resumed at [facility] depending on how the H/R and B/P Behave. Physical Exam Const: COMMON NORMALS: patient oriented x3 HENMT: COMMON NORMALS: normocephalic and atraumatic HEAD & SCALP: normocephalic and atraumatic Chest: CHEST: Yes Symmetrical chest wall rise Resp: COMMON NORMALS: clear to auscultation bilaterally EFFORT & INSPECTION: Yes symmetric chest movement AUSCULTATION: clear to auscultation bilaterally Cardio: COMMON NORMALS: S1 normal heart sound present, S2 normal heart sound present, No murmurs present (Cardio), No rub (Cardio) and Peripheral pulses 2+ throughout HEART SOUNDS: S1 normal heart sound present and S2 normal heart sound present PERIPHERAL PULSES: Peripheral pulses 2+ throughout GI: COMMON NORMALS: Soft to palpation and non-tender PALPATION: Yes Soft to palpation RECTAL EXAM: deferred OTHER: colostomy bag with loose stools Extremity: NARRATIVE EXTREMITY EXAM: Trace B/L L/E pitting edema Neuro: COMMON NORMALS: patient oriented x3 Discharge Data Data Completed and Pending: Completed Studies During Hospitalization Category Date Time Status CT head wo con* 7 0450 Urgent Cat Scan 05/04/21 18:18 Completed XR chest 1V yeni ble [id number] Urgent Exams 05/04/21 18:09 Completed Pending at discharge Category Date Time Status Basic Metabolic P karen AM LABS Lab 05/07/21 04:00 Ordered Basic Metabolic P karen AM LABS Lab 05/08/21 04:00 Ordered Complete Blood Co unt w/Auto AM LABS Lab 05/07/21 04:00 Ordered Complete Blood Co unt w/Auto AM LABS Lab 05/08/21 04:00 Ordered Magnesium AM LABS Lab 05/07/21 04:00 Ordered Magnesium AM LABS Lab 05/08/21 04:00 Ordered Urine Culture Sta t Lab 05/06/21 03:30 Received Labs from last 24 hours 05/06/21 05/06/21 05/06/21 17:01 13:37 10:47 WBC RBC Hgb Hct MCV MCH MCHC RDW Plt Count MPV Neut % (Auto) Lymph % (Auto) [place] % (Auto) Eos % (Auto) Baso % (Auto) Neut # (Auto) Lymph # (Auto) [place] # (Auto) Eos # (Auto) Baso # (Auto) Nucleated RBC % (a uto) Nucleated RBCs # Sodium Potassium Chloride Carbon Dioxide Anion Gap BUN Creatinine GFR Calculation Glucose POC Glucose 131 H 164 H Calculated Osmolal ity Calcium Magnesium Urine Color Urine Appearance Urine pH Ur Specific Gravit y Urine Protein Urine Glucose (UA) Urine Ketones Urine Blood Urine Nitrate Urine Bilirubin Prot Sulfosalicyli c Acd Urine Urobilinogen Ur Leukocyte Monika ase Urine RBC Urine WBC Ur Squamous Epith Cells Amorphous Sediment Urine Bacteria Urine Yeast SARS-CoV-2 Ag (Rap id) Negative 05/06/21 05/06/21 05/06/21 06:18 05:34 05:34 WBC 8.9 RBC 3.29 L Hgb 10.6 L Hct 32.0 L MCV 97.3 MCH 32.2 MCHC 33.1 RDW 16.1 H Plt Count 387 MPV 9.0 Neut % (Auto) 31.6 Lymph % (Auto) 57.2 [place] % (Auto) 8.7 Eos % (Auto) 0.9 Baso % (Auto) 1.0 Neut # (Auto) 2.82 Lymph # (Auto) 5.1 H [place] # (Auto) 0.8 Eos # (Auto) 0.1 Baso # (Auto) 0.1 Nucleated RBC % (a uto) 0 Nucleated RBCs # 0.0 Sodium 133 L Potassium 3.1 L Chloride 92 L Carbon Dioxide 33 H Anion Gap 11.1 BUN 11 Creatinine 0.5 GFR Calculation Not Reportable Glucose 107 POC Glucose 125 H Calculated Osmolal ity 276 L Calcium 10.4 Magnesium 1.8 Urine Color Urine Appearance Urine pH Ur Specific Gravit y Urine Protein Urine Glucose (UA) Urine Ketones Urine Blood Urine Nitrate Urine Bilirubin Prot Sulfosalicyli c Acd Urine Urobilinogen Ur Leukocyte Monika ase Urine RBC Urine WBC Ur Squamous Epith Cells Amorphous Sediment Urine Bacteria Urine Yeast SARS-CoV-2 Ag (Rap id) 05/06/21 05/05/21 03:30 20:26 WBC RBC Hgb Hct MCV MCH MCHC RDW Plt Count MPV Neut % (Auto) Lymph % (Auto) [place] % (Auto) Eos % (Auto) Baso % (Auto) Neut # (Auto) Lymph # (Auto) [place] # (Auto) Eos # (Auto) Baso # (Auto) Nucleated RBC % (a uto) Nucleated RBCs # Sodium Potassium Chloride Carbon Dioxide Anion Gap BUN Creatinine GFR Calculation Glucose POC Glucose 93 Calculated Osmolal ity Calcium Magnesium Urine Color Yellow Urine Appearance Clear Urine pH 9 H Ur Specific Gravit y 1.010 Urine Protein Neg Urine Glucose (UA) Norm Urine Ketones Negative Urine Blood Neg Urine Nitrate Negative Urine Bilirubin Neg Prot Sulfosalicyli c Acd Negative Urine Urobilinogen Norm Ur Leukocyte Monika ase 2+ H Urine RBC 0-4 H Urine WBC 15-25 H Ur Squamous Epith Cells 0-4 H Amorphous Sediment Not Reportable Urine Bacteria 1+ H Urine Yeast 1+ H SARS-CoV-2 Ag (Rap id) Vitals: Last Vital Signs Temp 97.9 F 05/06/21 15:41 Pulse 80 05/06/21 15:41 Resp 14 05/06/21 15:41 BP 165/77 05/06/21 15:41 Pulse Ox 95 05/06/21 15:41 Discharge Plan Discharge Patient Disposition: Xfer SNF Condition: Stable Prescriptions: Continued ferrous sulfate [iron] 325 mg (65 mg iron) tablet 325 mg PO DAILY RF: 0 ondansetron HCl [Zofran] 4 mg tablet 4 mg PO TID PRN (Reason: Nausea And Vomiting) RF: 0 hydrocodone-acetaminophen 5-325 mg tablet 1 tab PO Q6H PRN (Reason: Pain) RF: 0 aspirin 81 mg Tablet,Delayed Release (Dr/Ec) 81 mg PO DAILY@0800 RF: 0 atorvastatin 40 mg Tablet 40 mg PO BEDTIME Qty: 30 RF: 0 hydralazine 25 mg Tablet 50 mg PO TID Qty: 180 RF: 0 Tylenol 8 Hour 650 mg Tablet Extended Release 650 mg PO Q4H PRN (Reason: Pain) RF: 0 Nexium 40 mg Capsule,Delayed Release(Dr/Ec) 40 mg PO DAILY RF: 0 losartan 100 mg Tablet 100 mg PO DAILY@08 RF: 0 lactulose 20 gram/30 mL Solution 10 g PO QAM RF: 0 potassium chloride 20 mEq Tablet Extended Release 20 meq PO BID RF: 0 Pradaxa 75 mg capsule 75 mg PO BID@799,1999 RF: 0 Held metoprolol tartrate 50 mg tablet 50 mg PO BID@0800,1999 RF: 0 Hold Instructions: Resume on 05/09/21. Lasix 40 mg Tablet 60 mg PO DAILY RF: 0 Hold Instructions: Resume on 05/11/21. diltiazem HCl 180 mg capsule,extended release 24hr 180 mg PO DAILY@0800 RF: 0 Hold Instructions: Resume on 05/09/21. Discharge Orders: Discharge Order (Routine); Ordered 05/06/21 Ordered By: Sergo Werner Referrals: [facility] [Outside] Taye Muller MD [Physician] - (Please call [facility] [place] to confirm when your next appointment is.) Franklin Barroso MD [Physician] - 1 week Thanh Salmon MD [Primary Care Provider] - Discharge Diet: Soft Mechanical Discharge Activity: Increase activity as tolerated Patient Instructions: Metabolic Acidosis (GEN), Opioid Safety Discharge Attestations Time Spent in Discharge Care*: less than 30 min Specific Discharge Activities: educating patient, educating and/or supporting family/caregiver, discussing with pcp/other providers, discussing with case fitter/social workers/dc planners, documenting/other paperwork and evaluating patient/reviewing data Status at Discharge: Cognitive status at discharge: cognitively intact, Behavioral status at discharge: cooperative, Functional status at discharge: other assisted ambulation Overall status at discharge: patient is back to baseline Quality Metrics Clinical Quality Measures During this hospital stay, did patient experience: None Coding Level of Care Code Acute Chg FW DC note Diagnoses Hyponatremia E87.1 Hypokalemia E87.6 Alkalosis, metabolic E87.3
--- NOTE | 2021-05-07 14:14 | P.CONIM_ITS ---
Providers/Reason For Consult Consulting Physician/Specialty*: General Surgery Dr. 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 Patient had been transferred to group home and was due for a follow-up in my clinic. She was admitted to the hospital with dehydration and hypokalemia. With fluid resuscitation she has responded well and she is due to go home today. I was consulted for evaluation of the colostomy. Patient denies any abdominal pain, nausea or vomiting, appetite is poor. Her ostomy is functioning well and as per Dr. Muller her vaginal drainage through the drain was minimal Review of Systems General: Reports: ROS unobtainable due to mental status Meds/Allergies Home Medications and Allergies Home Medications Medication Instructions Recorded Confirmed Last Taken Type metoprolol tartrate 50 mg tablet 50 mg PO BID@0800,199904/27/20 05/05/21 03/23/21 History Pradaxa 75 mg PO BID@0800,199905/18/20 05/05/21 03/23/21 History diltiazem HCl 180 mg PO DAILY@79905/18/20 05/05/21 03/23/21 History ferrous sulfate 325 mg (65 mg 325 mg PO DAILY tab 01/14/21 05/05/21 03/23/21 History iron) tablet aspirin 81 mg PO DAILY@0800 03/23/21 05/05/21 03/23/21 History atorvastatin 40 mg PO BEDTIME #30 tab 04/08/21 05/05/21 Unknown Rx hydralazine 50 mg PO TID #180 tab 04/08/21 05/05/21 Unknown Rx hydrocodone 5 mg-acetaminophen 325 1 tab PO Q6H PRN 04/18/21 05/05/21 Unknown History mg tablet ondansetron HCl 4 mg tablet 4 mg PO TID PRN 04/18/21 05/05/21 Unknown History Lasix 60 mg PO DAILY 05/05/21 05/05/21 Unknown History Nexium 40 mg PO DAILY 05/05/21 05/05/21 Unknown History Tylenol 8 Hour 650 mg PO Q4H PRN 05/05/21 05/05/21 Unknown History lactulose 10 g PO QAM 05/05/21 05/05/21 Unknown History losartan 100 mg PO DAILY@08 05/05/21 05/05/21 Unknown History potassium chloride 20 meq PO BID 05/05/21 05/05/21 Unknown History Allergies Allergy/AdvReac Type Severity Reaction Status Date / Time meperidine [From Demerol] AdvReac Mild ADR-Vomitin Verified 05/05/21 09:18 g zomax Allergy ADR/ALGY-Hy Uncoded 03/16/21 06:24 potension PFSH Acute PFSH: Medical History Anemia CVA (cerebral vascular accident) Diabetes DVT (deep venous thrombosis) Dyslipidemia GERD (gastroesophageal reflux disease) [place] (hard of hearing) HTN (hypertension) Hx pulmonary embolism Hypokalemia Hyponatremia Mitral regurgitation Mixed stress and urge urinary incontinence BASIL on CPAP POP-Q stage 3 cystocele Pulmonary HTN Second degree uterine prolapse Surgical History H/O dilation and curettage x2 H/O esophagogastroduodenoscopy (05/18/20) H/O: hysterectomy 03/16/2021: total vaginal hysterectomy with bilateral salpingo-oophorectomy, anterior colporrhaphy augmented with allograft with midurethral sling, small rectal laceration repair, performed by Dr. 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 splenic rupture Status post tubal ligation Family History Brother CAD (coronary artery disease) Cancer Myocardial infarction Colon cancer Father Tuberculosis Son Diabetes Hyperlipidemia Denies family history of Ovarian cancer Clotting disorder Breast cancer Anesthesia complication Bleeding disorder Hypertension Uterine cancer Thyroid condition Stroke Social History Smoking and tobacco status: never smoked Alcohol intake: never Household members: family Marital status: / Current occupational status: retired Vitals/I&O/Wt Last Vital Signs Temp 97.9 F 05/06/21 15:41 Pulse 80 05/06/21 15:41 Resp 14 05/06/21 15:41 BP 165/77 05/06/21 15:41 Pulse Ox 95 05/06/21 15:41 05/06/21 05/07/21 05/07/21 22:59 06:59 14:59 Intake Total 1160 / 1745 Balance 1160 / 1745 Physical Exam Narrative: EXAM NARRATIVE: HEENT: Normocephalic Eye: Sclera /conjunctiva normal Abdomen: Soft to palpation, nontender, nondistended, incisions well-healed, ostomy pink and functioning, ERIC drain and serosanguineous fluid Neurological: Oriented to place person and time Skin: Intact, no lesions appreciated on gross exam Data Micro: Micro: Microbiology 05/06/21 03:30 Urine Culture - Pr eliminary Urine,Clean Catch Gram Negative R ods A&P Assessment and plan (1) S/P colostomy: 85-year-old female status post loop colostomy for rectovaginal fistula who was admitted for dehydration and hypokalemia which has now resolved. Patient is going to group home today. Discussed with the patient's son and we will schedule her for a barium enema in the next couple of weeks Status: Acute Consult Attestations Medical Necessity Statement: As per attending physician Coding Level of Care Code Acute General Science Teacher for Chg Fwd Diagnoses S/P colostomy Z93.3
== END 2021-05-06 18:30 | disposition skilled nursing facility (03) | DRG 641 ==
LOC: ER 20:59 → MEDSURG 22:38
PROVIDERS: Admitting Provider Internal Medicine; Emergency Provider Emergency Medicine; PCP Family Medicine; Visit Provider Internal Medicine
DX: E87.1 Hypo-osmolality and hyponatremia (principal); E87.6 Hypokalemia; E87.3 Alkalosis; E86.1 Hypovolemia; E11.9 Type 2 diabetes mellitus without complications; E78.5 Hyperlipidemia, unspecified; E87.8 Other disorders of electrolyte and fluid balance, not elsewhere classified; E86.0 Dehydration; H91.90 Unspecified hearing loss, unspecified ear; I34.0 Nonrheumatic mitral (valve) insufficiency; N39.46 Mixed incontinence; G47.33 Obstructive sleep apnea (adult) (pediatric); I27.20 Pulmonary hypertension, unspecified; N81.10 Cystocele, unspecified; I48.91 Unspecified atrial fibrillation; K21.9 Gastro-esophageal reflux disease without esophagitis; I10 Essential (primary) hypertension; R60.0 Localized edema; Z90.49 Acquired absence of other specified parts of digestive tract; Z79.82 Long term (current) use of aspirin; Z90.81 Acquired absence of spleen; Z86.73 Personal history of transient ischemic attack (TIA), and cerebral infarction without residual deficits; Z86.718 Personal history of other venous thrombosis and embolism; Z79.01 Long term (current) use of anticoagulants; Z86.711 Personal history of pulmonary embolism; Z90.710 Acquired absence of both cervix and uterus; Z79.84 Long term (current) use of oral hypoglycemic drugs; Z93.3 Colostomy status; Z96.0 Presence of urogenital implants
CPT/HCPCS: 36415; 36416; 70450; 71045; 80048; 80053; 81001; 82962; 83735; 85025; 87077; 87086; 87186; 87426; 93005; 96372; 99285; G0378; J1815; J3480; J7030

== ENCOUNTER 2021-05-20 08:10 | Outpatient (CLI) | payer OTHER, MEDICARE, BC, SELFPAY ==
--- NOTE | 2021-05-20 09:15 | FL_ITS ---
WS: [id number] Gastrografin enema, 05/20/2021 Clinical Data: N82.3 - Fistula of vagina to large intestine Comparison: None. Fluoroscopy time: 1.8 minutes. Findings: The Gastrografin was introduced in retrograde fashion to fill the sigmoid colon and rectum. The patie nt has had a diverting colostomy. Immediately on filling the rectum there was probable extravasation anteriorly at the level of the retention bulb and there was spill outside the patient. The vagina was not outlined with the Gastrografin. There is no spill within the peritoneum. The sigmoid colon and r ectum show diverticula and fecal material. FL/FL enema w gastrografin [id number] Impression: 1. Probable spill of Gastrografin from a fistula of the anterior rectum with sp ill of Gastrografin outside the patient. 2. No Gastrografin extravasated into the peritoneum. 3. Fecal material and diverticula noted in the isolated segment of sigmoid colo n and rectum.
[2021-05-20] MEDS: diatrizoate meglumine 120 mL Sol PR ×4 (10:40→10:43)
== END 2021-05-20 08:11 | disposition home or self-care (01) ==
LOC: RADWPI 08:11 → RAD 08:53
PROVIDERS: PCP Family Medicine; Visit Provider Surgery
DX: N82.3 Fistula of vagina to large intestine (principal)
CPT/HCPCS: 74270

== ENCOUNTER 2021-06-08 08:33 | Inpatient (IN) | payer MEDICARE, BC, SELFPAY ==
[2021-06-08] VITALS (17 sets, daily range): BP systolic 126–166; BP diastolic 57–85; PULSE 60–115; RESP 16–24; TEMP 36.6–36.9; O2SAT 91–97; BMI 25.6
--- NOTE | 2021-06-08 08:35 | CT_ITS ---
WS: [id number] CT head wo con* [id number] REASON FOR EXAM: STROKE LIKE SYMPTOMS IV CONTRAST ADMINISTERED: Noncontrast TOTAL EXAM DLP: 857.mGy-cm All CT scans at [facility] use at least one of these dose optimization techniques: automat ed exposure control; mA and/or kV adjustment per patient size (includes targeted exams where dose is matched to clinical indication); or iterative reconstruction. FINDINGS: No midline shift or other significant mass effect. No findings of intracranial hemorrhage and no extra-axial fluid collection. Small area of low attenuation in the left lenticular nucleus region. This is associated with atrophy around the left sylvian fissure. 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 No acute brain pare nchymal abnormality is seen in the cerebral hemispheres, brainstem, or cerebellar hemispheres. Mild to moderate dilatation of the ventricles compatible with symmetric global atrophy. The base of the skull and the bony calvarium are intact. Small right maxillary sinus with chronic sinus changes. CT/CT head wo con* [id number] IMPRESSION: No acute intracranial abnormality. CT of the brain is unchanged compared to 04/13.
--- NOTE | 2021-06-08 08:36 | CT_ITS ---
WS: [id number] CT angio headneck* [id number] REASON FOR EXAM: Strokelike symptoms TECHNIQUE: Coronal and sagittal 2-D and MIP reformations. IV CONTRAST ADMINISTERED: 95 mL of Omnipaque 350. TOTAL EXAM DLP: 1852.[address] scans at [facility] use at least one of these dose optimization techniques: automat ed exposure control; mA and/or kV adjustment per patient size (includes targeted exams where dose is matched to clinical indication); or iterative reconstruction. FINDINGS: Comparison examination 03/27/2021 Origin of great vessels: The timing of the imaging was not optimal in the extremely dense contrast in the venous structures at the base of the neck produce significant artifact. The opacification of the arteries is not optimal. The origins of the innominate, left carotid, and left subclavian arteries are patent and without sign ificant stenosis. The origin of the dominant right vertebral demonstrates no significant stenosis. The left vertebral artery is small but the origin does not appear stenosed. Cervical portion of the vertebrals and carotids: The proximal most portion of the cervical left common carotid artery is nearly completely obscured by streak artifact. There appears to be a significant stenosis however this could be artifactual. This portion of the left common carotid artery was normal on the previous examination. The remainder the c ervical portion of the left common carotid is unremarkable. The cervical portion of the right common carotid artery is unremarkable. Cervical portions of the vertebral arteries are unremarkable. Calcified plaque in the origins of both internal carotid arteries without significant stenosis. No ch jennifer from the previous examination. The cervical portions of the internal carotid arteries are unrema rkable through the base of the skull. Base of skull/intracranial: The siphon and terminus portions of both internal carotid arteries demonstrate no significant stenosi s. There is extensive of the carotid siphons. The anterior and middle cerebral artery circulations demonstrate no clot or significant stenosis. No aneurysm or arteriovenous malformation is identified. The vertebral arteries at the base of the skull are normal. The basilar artery is extremely small and the posterior cerebral circulation is filled from the internal carotids bilaterally. The posterior c erebral arterial circulation demonstrates no clot or significant stenosis. No aneurysm or vascular ma lformation. CT/CT angio headneck* [id number] IMPRESSION: The proximal cervical portion of the left common carotid artery is obscured by artifact but was normal on previous examination of 03/27/2021. No other significant vascular abnormality is identified.
--- NOTE | 2021-06-08 08:36 | XR_ITS ---
WS: [id number] XR chest 1V portable [id number] REASON FOR EXAM: Strokelike symptoms FINDINGS: Large hiatal hernia left of midline. Tortuosity and ectasia of the thoracic aorta. Mild cardiomegaly. Calcified granulomatous disease in both hemithoraces. No active pulmonary parenchymal or pleural abno rmality. Degenerative changes in the mid and lower thoracic spine and both shoulders. XR/XR chest 1V portable [id number] IMPRESSION: No acute chest abnormality. The chest is unchanged compared to 05/04/2021.
--- NOTE | 2021-06-08 08:36 | ECG_ITS ---
[facility] Test Date: 2021-06-08 Pat Name: Juliana Rodney Department: Room: Gender: Female Cement Loader: : 1935 Requested By: Collette Abad Order Number: [id number] Tami MD: Viola Mcbride M.D. Measurements Intervals [place] Rate: 108 P: NM: QRS: 53 QRSD: 70 T: 57 QT: 282 QTc: 379 Interpretive Statements ATRIAL FIBRILLATION WITH RAPID VENTRICULAR RESPONSE NONSPECIFIC ST & T-WAVE ABNORMALITY ABNORMAL RHYTHM ECG Compared to ECG 05/04/2021 18:41:00 Possible ischemia no longer present T-wave abnormality still present Electronically Signed On 06-09-2021 14:38:02 CDT by Viola Mcbride M.D. [id number]
--- NOTE | 2021-06-08 08:44 | ED_ITS ---
HPI - Altered Mental Status General: Chief Complaint: Neuro Symptoms/Deficit Stated Complaint: STROKE LIKE SYMPTOMS Time Seen by Provider: 06/08/21 08:36 Source: EMS Mode of arrival: EMS Limitations: language barrier History of Present Illness: HPI narrative: Mrs. Roach is a very nice 85-year-old female who comes in with new's left-sided weakness. She has left- sided facial droop, left-sided weakness of the upper extremity and lower extremity. Patient was noted to be normal at 7:30 AM and her symptoms were noticed at 7:58 AM. Patient's blood sugar was [address] to [address] hospital and her blood pressures was in the one 40-1 60 range and her patella blood pressure was in the 60s. It is unclear whether the patient is on any anticoagulants. Family states that she is on Plavix. This is at definite change from her norm. Review of Systems General: Reports: ROS unobtainable due to mental status PFSH ED PFSH: Medical History Anemia CVA (cerebral vascular accident) Diabetes DVT (deep venous thrombosis) Dyslipidemia GERD (gastroesophageal reflux disease) [place] (hard of hearing) HTN (hypertension) Hx pulmonary embolism Hypokalemia Hyponatremia Mitral regurgitation Mixed stress and urge urinary incontinence BASIL on CPAP POP-Q stage 3 cystocele Pulmonary HTN Second degree uterine prolapse Surgical History H/O dilation and curettage x2 H/O esophagogastroduodenoscopy (05/18/20) H/O: hysterectomy 03/16/2021: total vaginal hysterectomy with bilateral salpingo-oophorectomy, anterior colporrhaphy augmented with allograft with midurethral sling, small rectal laceration repair, performed by Dr. 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) Traumatic splenic rupture Status post tubal ligation Family History Brother CAD (coronary artery disease) Cancer Myocardial infarction Colon cancer Father Tuberculosis Son Diabetes Hyperlipidemia Denies family history of Ovarian cancer Clotting disorder Breast cancer Anesthesia complication Bleeding disorder Hypertension Uterine cancer Thyroid condition Stroke Social History Smoking and tobacco status: never smoked Alcohol intake: never Household members: family Marital status: / Current occupational status: retired Physical Exam Const: COMMON NORMALS: no acute distress and no limitations GENERAL APPEARANCE: cooperative HENMT: COMMON NORMALS: normocephalic, atraumatic, external ears normal, EAC's normal and Normal external nose present HEAD & SCALP: normal to inspection, normocephalic and atraumatic FACE & SINUS: normal facial exam and face symmetric NOSE: Normal external nose present and Normal nares present EXT ERNAL EAR: Yes external ears normal EXTERNAL AUDITORY CANAL: EAC's normal MOUTH: Normal oral and palatal mucosa present, lip normal and tongue normal Eye: COMMON NORMALS: Equal, round and reactive pupils present and conjunctivae normal GENERAL EYE: appearance normal, both eyes and all related structures ALIGNMENT: Yes alignment normal PERIORBITAL: periorbital findings normal EYELID: eyelids normal CONJUNCTIVA: Yes conjunctivae normal SCLERA: sclerae normal PUPIL: Yes Equal, round and reactive pupils present Neck/C-Spine: COMMON NORMALS: full ROM, no lymphadenopathy, supple and no JVD GENERAL: Yes normal visual inspection and Yes trachea midline Chest: COMMONS NORMALS: normal inspection of the chest and normal palpation of entire chest wall Resp: COMMON NORMALS: normal respiratory effort, No retractions, No use of accessory muscles and clear to auscultation bilaterally EFFORT & INSPECTION: Yes able to speak in complete sentences and Yes symmetric chest movement AUSCULTATION: clear to auscultation bilaterally, no crackles, no rales, no rhonchi and no wheezes Cardio: COMMON NORMALS: no JVD, regular rate, regular rhythm, S1 normal heart sound present and S2 normal heart sound present RATE: regular rate RHYTHM: regular rhythm HEART SOUNDS: S1 normal heart sound present, S2 normal heart sound present, no click, no gallops, no murmurs and no rubs GI: COMMON NORMALS: Soft to palpation and No hepatosplenomegaly present PALPATION: Yes Soft to palpation, No Tenderness to palpation present (GI), No Guarding due to palpation present (GI), No Rigid due to palpation, Yes No hepatosplenomegaly present, No Hernia present, No Palpable mass present and No Pulsatile mass present : COMMON NORMALS: Yes no CVA tenderness BLADDER/KIDNEY EXAM: Yes no CVA tenderness EXTERNAL FEMALE EXAM: No Hernia present Back/Pelvis: COMMON NORMALS: no CVA tenderness, thoracic and lumbar spine normal to inspection, no thoracic nor lumbar tenderness and thoraco-lumbar ROM normal Extremity: COMMON NORMALS: normal to inspection, full ROM, capillary refill normal, no joint enlargement, no clubbing, cyanosis or edema and no calf tenderness Neuro: SPEECH: speech normal Psych: COMMON NORMALS: mental status grossly normal, Normal thought process present, cooperative, normal affect, speech normal and activity/motor behavior normal SPEECH: Yes normal speech THOUGHT PROCESS: Normal thought process present Skin: COMMON NORMALS: no rashes or lesions noted, turgor normal, no jaundice, no petechiae and no mottling GENERAL SKIN EXAM: no rashes or lesions noted and turgor normal Course Reevaluation(s): Reevaluation #1: 0845 -patient is found to be on Pradaxa. She will not be a TPA candidate. We will try to get her back to CT soon as possible to perform the CTA to evaluate for possible intervening clot. 0853 -Dr. Nick believes the patient is resolving at this time. She was to like to go ahead with a CTA of the head and neck Vital Signs: Vital signs: Vital Signs Temperature 97.8 F 06/08/21 08:43 Pulse Rate 74 06/08/21 11:56 Respiratory Rate 20 H 06/08/21 11:56 Blood Pressure 128/63 06/08/21 11:56 Pulse Oximetry 93 06/08/21 11:56 MDM - Altered Mental Status MDM Narrative: Medical decision making narrative: 1114 -patient symptoms have improved but have not resolved. She is not a TPA candidate secondary to being on Pradaxa. There is no intervening bone lesions seen on CAT scan. Dr. Nick is aware and agrees to consult on the patient. Patient be admitted to the services of Dr. Lopez. Lab Data: Attestation: I reviewed the patient's lab results. Labs: Lab Results 06/08/21 06/08/21 06/08/21 Range/Units 08:56 08:56 08:56 WBC 18.8 H (4.0-10.0) 10^3/ uL RBC 3.47 L (4.1-5.3) 10^6/u L Hgb 11.2 L (11.5-15.3) g/dL Hct 34.4 L (37.0-47.0) % MCV 99.1 H (81-99) fL MCH 32.3 (28.0-34.0) pg MCHC 32.6 (30.0-36.0) g/dL RDW 14.9 (12.1-15.1) % Plt Count 392 (130-400) 10^3/c mm MPV 9.2 (7.4-10.4) fL Neut % (Auto) 27.3 % Lymph % (Auto) 64.0 % [place] % (Auto) 6.7 % Eos % (Auto) 1.2 % Baso % (Auto) 0.4 % Neut # (Auto) 5.12 (1.8-7.7) 10^3/u L Lymph # (Auto) 12.0 H (0.8-4.8) 10^3/u L [place] # (Auto) 1.3 H (0.2-0.9) 10^3/u L Eos # (Auto) 0.2 (0.0-0.8) 10^3/u L Baso # (Auto) 0.1 (0.0-0.1) 10^3/u L Nucleated RBC % (a uto) 0 % Nucleated RBCs # 0.0 /100WBC PT 13.80 (12.1-14.9) SECO NDS INR 1.03 (0.8-1.2) APTT 27.3 (23.9-36.7) SECO NDS Sodium 131 L (136-145) mmol/L Potassium 3.9 (3.5-5.1) mmol/L Chloride 99 (98-107) mmol/L Carbon Dioxide 22 (22-29) mmol/L Anion Gap 13.9 (5-19) BUN 13 (8-23) mg/dL Creatinine 0.5 (0.5-0.9) mg/dL GFR Calculation Not Reportable Glucose 190 H (65-115) mg/dL Calculated Osmolal ity 277 L (285-295) mOsm/k g Calcium 9.1 (8.5-10.5) mg/dL Total Bilirubin 0.3 (0.15-1.2) mg/dL AST 22 (0-32) U/L ALT 14 (0-33) U/L Alkaline Phosphata se 88 (35-105) IU/L Total Protein 6.9 (6.6-8.7) g/dL Albumin 3.0 L (3.5-5.2) g/dL Globulin 3.9 (1.3-4.6) g/dL Imaging Data^: CT Head: Radiologist's impression: See formal report CTA head and neck: Radiologist's impression: See formal report EKG Data^: EKG 1: Attestation: I personally reviewed and interpreted this EKG as follows: EKG interpretation time: 09:28 Interpretation: Atrial fibrillation with a rapid ventricular spots 108 beats a minute, no acute ST-T wave changes. Discharge Plan Discharge Patient Disposition: Admitted As Inpatient Clinical Impression: CVA (cerebral vascular accident) Condition: Stable Prescriptions: No Action ferrous sulfate [iron] 325 mg (65 mg iron) tablet 325 mg PO DAILY@08 RF: 0 metoprolol tartrate 50 mg tablet 50 mg PO BID@, RF: 0 Hold Instructions: Resume on 05/09/21. ondansetron HCl [Zofran] 4 mg tablet 4 mg PO TID PRN (Reason: Nausea And Vomiting) RF: 0 hydrocodone-acetaminophen 5-325 mg tablet 1 tab PO Q6H PRN (Reason: Pain) RF: 0 aspirin 81 mg Tablet,Delayed Release (Dr/Ec) 81 mg PO DAILY@0800 RF: 0 furosemide [Lasix] 40 mg Tablet 40 mg PO DAILY@08 RF: 0 Hold Instructions: Resume on 05/11/21. acetaminophen [Tylenol 8 Hour] 650 mg Tablet Extended Release 650 mg PO Q4H PRN (Reason: Pain) RF: 0 esomeprazole magnesium [Nexium] 40 mg Capsule,Delayed Release(Dr/Ec) 40 mg PO DAILY@08 RF: 0 losartan 100 mg Tablet 100 mg PO DAILY@08 RF: 0 lactulose 20 gram/30 mL Solution 10 g PO DAILY@08 RF: 0 diltiazem HCl 180 mg capsule,extended release 24hr 180 mg PO DAILY@0800 RF: 0 Hold Instructions: Resume on 05/09/21. Pradaxa 75 mg capsule 75 mg PO BID@,17 RF: 0 potassium chloride 10 mEq Tablet Extended Release 20 meq PO DAILY@08 RF: 0 Milk of Magnesia 400 mg/5 mL Suspension 30 ml PO DAILY PRN (Reason: Constipation) RF: 0 Flomax 0.4 mg Capsule 0.4 mg PO DAILY@08 RF: 0 Dulcolax (bisacodyl) 10 mg Suppository 10 mg NM DAILY PRN (Reason: Constipation) RF: 0 Fleet Enema 19-7 gram/118 mL Enema 118 ml NM DAILY PRN (Reason: Constipation) RF: 0 atorvastatin 40 mg tablet 40 mg PO BEDTIME@20 RF: 0 hydralazine 25 mg tablet 25 mg PO TID@08,14,20 RF: 0 Referrals: Thanh Salmon MD [Primary Care Provider] - Coding Level of Care Code ED Drying Frame Operator for Chg Fwd Exam Comprehensive NIH stroke score NIHSS Level Of Consciousness - 1a: 0 Level Of Consciousness Questions - 1b: One Correct Level Of Consciousness Commands - 1c: One Correct Best Gaze - 2: Partial Gaze Palsy Visual Sue - 3: No Visual Loss Facial Palsy - 4: Minor Paralysis Motor Arm Right - 5: No Drift Motor Arm Left - 5: Drift Motor Leg Right - 6: No Drift Motor Leg Left - 6: Drift Limb Ataxia - 7: Absent Sensory - 8: Mild To Moderate Loss Best Language - 9: Mild/Moderate Aphasia Dysarthia - 10: Severe Dysarthia Extinction And Inattention - 11: 1 Score Total Score: 11
[2021-06-08] MEDS: ondansetron 2 mg/ML SDV 2 mL 4 MG IVP (08:53)
[2021-06-08] MEDS: iohexol 350 mg/mL 100 mL Btl IV (09:00)
[2021-06-08 09:05] LABS: Basophils # 0.1 10^3/uL (0.0-0.1); Basophils % 0.4 %; Eosinophils # 0.2 10^3/uL (0.0-0.8); Eosinophils % 1.2 %; Hematocrit 34.4 % (37.0-47.0); Hemoglobin 11.2 g/dL (11.5-15.3); Mean Corpuscular HGB Conc 32.6 g/dL (30.0-36.0); Mean Corpuscular Hemoglobin 32.3 pg (28.0-34.0); Mean Corpuscular Volume 99.1 fL (81-99); Mean Platelet Volume 9.2 fL (7.4-10.4); Monocytes # 1.3 10^3/uL (0.2-0.9); Monocytes % 6.7 %; Neutrophils # 5.12 10^3/uL (1.8-7.7); Neutrophils % 27.3 %; Nucleated Red Blood Cells % 0 %; Platelet Count 392 10^3/cmm (130-400); Positive M 1; Red Blood Count 3.47 10^6/uL (4.1-5.3); Red Cell Distribution Width 14.9 % (12.1-15.1); White Blood Count 18.8 10^3/uL (4.0-10.0)
[2021-06-08] MEDS: sodium chloride 0.9% 500 ML 999 ML IV (09:06)
[2021-06-08 09:24] LABS: INR 1.03 (0.8-1.2)
[2021-06-08 09:25] LABS: Partial Thromboplastin Time 27.3 SECONDS (23.9-36.7)
[2021-06-08 09:39] LABS: Alanine Aminotransferase 14 U/L (0-33); Alkaline Phosphatase 88 IU/L (35-105); Anion Gap 13.9 (5-19); Aspartate Amino Transferase 22 U/L (0-32); Blood Urea Nitrogen 13 mg/dL (8-23); Calcium 9.1 mg/dL (8.5-10.5); Carbon Dioxide 22 mmol/L (22-29); Chloride 99 mmol/L (98-107); Globulin 3.9 g/dL (1.3-4.6); Glucose 190 mg/dL (65-115); Osmolality Calculated 277 mOsm/kg (285-295); Potassium 3.9 mmol/L (3.5-5.1); Sodium 131 mmol/L (136-145); Total Bilirubin 0.3 mg/dL (0.15-1.2); Total Protein 6.9 g/dL (6.6-8.7)
--- NOTE | 2021-06-08 15:14 | PC.NURSE ---
Dr. Lopez updated on patient not being able to take oral medication at this time. Updated on latest set of vitals. Dr. Lopez reported he would put orders in for patient.
[2021-06-08 15:25] LABS: Thyroid Stimulating Hormone 2.51 uIU/mL (0.27-4.20)
--- NOTE | 2021-06-08 18:21 | CTR_ITS ---
PROCEDURE INFORMATION: Exam: CT Head Without Contrast Exam date and time: 06/08/2021 6:21 PM Age: 85 years old Clinical indication: Altered mental status/memory loss; Confusion or disorientation; Patient HX: Continued confusion and stroke like symptoms; Additional info: Stroke, possible hemorrhagic conversion. Hemorrhagic conver TECHNIQUE: Imaging protocol: Computed tomography of the head without contrast. Radiation optimization: All CT scans at this facility use at least one of these dose optimization techniques: automated exposure control; mA and/or kV adjustment per patient size (includes targeted exams where dose is matched to clinical indication); or iterative reconstruction. COMPARISON: CT head wo con* [id number] 06/08/2021 8:35 AM RADIATION DOSE METRICS: Total DLP (mGy-cm): 729.54 FINDINGS: Brain: There is an area of decreased attenuation and loss of damon matter and white matter interfaces in the posterior right frontal lobe more conspicuous than the comparison imaging consistent with evolving ischemic infarct. There is no acute intracranial hemorrhage.There is marked cerebral atrophy. There is moderate diffuse heterogeneity of the white matter attenuation, consistent with chronic white matter ischemic changes. No midline shift of brain. Cerebral ventricles: No ventriculomegaly. Paranasal sinuses: Visualized sinuses are unremarkable. No fluid levels. Mastoid air cells: Visualized mastoid air cells are well aerated. Orbital cavity: Symmetric, unremarkable orbits. Vasculature: Intracranial atherosclerosis. Bones/joints: Unremarkable. No acute fracture. Soft tissues: Unremarkable. CT/CT head wo con* [id number] IMPRESSION: 1. Negative for intracranial hemorrhage. 2. Evolving ischemic infarct in the right frontal lobe in the right middle cerebral artery vascular distribution. Radiation Dose CTDIVOL = (mGy): DLP = 729.54 (mGy-cm)
--- NOTE | 2021-06-08 18:21 | PM.HP ---
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 As per the history given by son at bedside patient was at her baseline today morning when she woke up. While having her breakfast she started having weakness on her left side with left-sided facial droop because of where she was brought to the ER. Patient was in TPA window but could not receive TPA as she takes Pradaxa with last dose last night. On examination patient was in atrial fibrillation with rate of 70 bpm, blood pressure 160/80 mmHg with differential right-sided gaze, left-sided facial droop I am unable to move her left side of the body. Patient has failed swallow evaluation. On presentation to the ER patient was found to be in atrial fibrillation with rapid ventricular response for which she was started on Cardizem drip which was later stopped for heart rate less than 100. Review of Systems General: Reports: ROS unobtainable due to medical condition Eyes: Denies: photophobia Medications/Allergies Home Medications Medication Instructions Recorded Confirmed Last Taken Type metoprolol tartrate 50 mg tablet 50 mg PO BID@08,19 04/27/20 06/08/21 06/07/21 History Pradaxa 75 mg PO BID@08,05/18/20 06/08/21 06/07/21 16:38 History diltiazem HCl 180 mg PO DAILY@0805/18/20 06/08/21 06/07/21 History ferrous sulfate 325 mg (65 mg 325 mg PO DAILY@08 tab 01/14/21 06/08/21 06/07/21 History iron) tablet aspirin 81 mg PO DAILY@0800 03/23/21 06/08/21 06/07/21 History hydrocodone 5 mg-acetaminophen 325 1 tab PO Q6H PRN 04/18/21 06/08/21 06/07/21 16:40 History mg tablet ondansetron HCl 4 mg tablet 4 mg PO TID PRN 04/18/21 06/08/21 Unknown History acetaminophen [Tylenol 8 Hour] 650 mg PO Q4H PRN 05/05/21 06/08/21 Unknown History esomeprazole magnesium [Nexium] 40 mg PO DAILY@05/05/21 06/08/21 06/07/21 History furosemide [Lasix] 40 mg PO DAILY@05/05/21 06/08/21 06/07/21 History lactulose 10 g PO DAILY@05/05/21 06/08/21 06/07/21 History losartan 100 mg PO DAILY@05/05/21 06/08/21 06/07/21 History atorvastatin 40 mg PO BEDTIME@06/08/21 06/08/21 06/07/21 History bisacodyl [Dulcolax (bisacodyl)] 10 mg KS DAILY PRN 06/08/21 06/08/21 Unknown History hydralazine 25 mg PO TID@08,,06/08/21 06/08/21 06/07/21 History magnesium hydroxide [Milk of 30 ml PO DAILY PRN 06/08/21 06/08/21 Unknown History Magnesia] potassium chloride 20 meq PO DAILY@06/08/21 06/08/21 06/07/21 History sodium phosphates [Fleet Enema] 118 ml KS DAILY PRN 06/08/21 06/08/21 Unknown History tamsulosin [Flomax] 0.4 mg PO DAILY@06/08/21 06/08/21 06/07/21 History Allergies Allergy/AdvReac Type Severity Reaction Status Date / Time zomepirac Allergy Unknown Verified 06/08/21 10:27 meperidine [From Demerol] AdvReac Mild ADR-Vomitin Verified 06/08/21 10:27 g zomax Allergy ADR/ALGY-Hy Uncoded 03/16/21 06:24 potension PFSH Acute PFSH: Medical History Anemia CVA (cerebral vascular accident) Diabetes DVT (deep venous thrombosis) Dyslipidemia GERD (gastroesophageal reflux disease) [place] (hard of hearing) HTN (hypertension) Hx pulmonary embolism Hypokalemia Hyponatremia Mitral regurgitation Mixed stress and urge urinary incontinence BASIL on CPAP POP-Q stage 3 cystocele Pulmonary HTN Second degree uterine prolapse Surgical History H/O dilation and curettage x2 H/O esophagogastroduodenoscopy (05/18/20) H/O: hysterectomy 03/16/2021: total vaginal hysterectomy with bilateral salpingo-oophorectomy, anterior colporrhaphy augmented with allograft with midurethral sling, small rectal laceration repair, performed by Dr. 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) Traumatic splenic rupture Status post tubal ligation Family History Brother CAD (coronary artery disease) Cancer Myocardial infarction Colon cancer Father Tuberculosis Son Diabetes Hyperlipidemia Denies family history of Ovarian cancer Clotting disorder Breast cancer Anesthesia complication Bleeding disorder Hypertension Uterine cancer Thyroid condition Stroke Social History Smoking and tobacco status: never smoked Alcohol intake: never Household members: family Marital status: / Current occupational status: retired Vitals/I&O/Wt Last Vital Signs Temp 97.8 F 06/08/21 08:43 Pulse 70 06/08/21 17:34 Resp 23 H 06/08/21 17:34 BP 159/85 06/08/21 17:34 Pulse Ox 96 06/08/21 17:34 06/08/21 06/08/21 06/08/21 06:59 14:59 22:59 Intake Total 500 / 500 Balance 500 / 500 Weight last 48 hrs Weight 63.548 kg Physical Exam Const: COMMON NORMALS: no acute distress and no limitations GENERAL APPEARANCE: cooperative HENMT: COMMON NORMALS: normocephalic, atraumatic, external ears normal, EAC's normal and Normal external nose present HEAD & SCALP: normal to inspection, normocephalic and atraumatic FACE & SINUS: normal facial exam and face symmetric NOSE: Normal external nose present and Normal nares present EXTERNAL EAR: Yes external ears normal EXTERNAL AUDITORY CANAL: EAC's normal MOUTH: Normal oral and palatal mucosa present, lip normal and tongue normal Eye: COMMON NORMALS: Equal, round and reactive pupils present and conjunctivae normal GENERAL EYE: appearance normal, both eyes and all related structures ALIGNMENT: Yes alignment normal PERIORBITAL: periorbital findings normal EYELID: eyelids normal CONJUNCTIVA: Yes conjunctivae normal SCLERA: sclerae normal PUPIL: Yes Equal, round and reactive pupils present Neck/C-Spine: COMMON NORMALS: full ROM, no lymphadenopathy, supple and no JVD GENERAL: Yes normal visual inspection and Yes trachea midline Chest: COMMONS NORMALS: normal inspection of the chest and normal palpation of entire chest wall Resp: COMMON NORMALS: normal respiratory effort, No retractions, No use of accessory muscles and clear to auscultation bilaterally EFFORT & INSPECTION: Yes able to speak in complete sentences and Yes symmetric chest movement AUSCULTATION: clear to auscultation bilaterally, no crackles, no rales, no rhonchi and no wheezes Cardio: COMMON NORMALS: no JVD, regular rate, regular rhythm, S1 normal heart sound present and S2 normal heart sound present RATE: regular rate RHYTHM: regular rhythm HEART SOUNDS: S1 normal heart sound present, S2 normal heart sound present, no click, no gallops, no murmurs and no rubs GI: COMMON NORMALS: Soft to palpation and No hepatosplenomegaly present PALPATION: Yes Soft to palpation, No Tenderness to palpation present (GI), No Guarding due to palpation present (GI), No Rigid due to palpation, Yes No hepatosplenomegaly present, No Hernia present, No Palpable mass present and No Pulsatile mass present : COMMON NORMALS: Yes no CVA tenderness BLADDER/KIDNEY EXAM: Yes no CVA tenderness EXTERNAL FEMALE EXAM: No Hernia present Back/Pelvis: COMMON NORMALS: no CVA tenderness, thoracic and lumbar spine normal to inspection, no thoracic nor lumbar tenderness and thoraco-lumbar ROM normal Extremity: COMMON NORMALS: normal to inspection, full ROM, capillary refill normal, no joint enlargement, no clubbing, cyanosis or edema and no calf tenderness Neuro: SPEECH: speech normal PLANTAR REFLEX: downgoing: bilateral and upgoing (positive Babinski): bilateral Psych: COMMON NORMALS: mental status grossly normal, Normal thought process present, cooperative, normal affect, speech normal and activity/motor behavior normal SPEECH: Yes normal speech THOUGHT PROCESS: Normal thought process present Skin: COMMON NORMALS: no rashes or lesions noted, turgor normal, no jaundice, no petechiae and no mottling GENERAL SKIN EXAM: no rashes or lesions noted and turgor normal Urinary Catheter Management^: Klein: Cath Placed During This Visit: yes Reason for Continuing Indwelling Catheter: Other Urinary Catheter Date of Insertion: 06/08/21 Urinary Catheter Time of Insertion: 17:22 Data : 06/08/21 08:56 06/08/21 08:56 A&P Assessment and plan (1) Right middle cerebral artery stroke: Status: Acute (2) Atrial fibrillation: Status: Acute (3) S/P colostomy: Status: Acute (4) Chronic anticoagulation: Status: Acute Additional A&P Information Right MCA stroke: Not a candidate of TPA given she is on Pradaxa. CTA results appreciated. C/D/W Dr. Nick. Appreciate recommendations. ECHO ASA, Statin, PT/OT/ST eval. NPO for now except meds. Give meds after bedside eval. Otherwise will start on ASA 300 mg KS. Lovenox 1mg/kg Q12h. Discussed with family that if patient is not able to pass swallow eval successfully, options would be PEG tube vs comfort care. Son at bedside states family would lean towards comfort measures but would want to wait till tomorrow. Permissible HTN. Afib: RVR on admission. Wean cardizem drip. IV cardizem 5 mg Q6h PRN for HR more than 100 but hild for SBP less than 140 mmhg as patient is permissible HTN for next 24 hrs. NPO FC famotidine Q12 for PUD PPx Further GOC discussions as per progression in next 24 hrs. Will change treatment plan accordingly. Attestations Medical Necessity Statement*: Admission for more than 2 midnights for CVA, possible PEG tube placement. Time Spent in Patient Care: Greater than 35 minutes (>than 50% of time spent in counselling and/or direct pt care on unit). Coding Level of Care Code Acute Remote Recruiter for Chg Fwd Exam Comprehensive Diagnoses Right middle cerebral artery stroke I63.511 Atrial fibrillation I48.91 S/P colostomy Z93.3 Chronic anticoagulation Z79.01
[2021-06-08 18:29] LABS: Add Urine Microscopic? NO; Charge for UA Resulting for Rev
[2021-06-08 18:39] LABS: Urine Appearance Clear (CLEAR); Urine Color Yellow (Yellow)
[2021-06-08 18:40] LABS: Bilirubin Urine Neg (Negative); Blood Urine Neg (Negative); Glucose Urine UA Norm (Normal); Ketones Urine Negative (Negative); Leukocyte Esterase Urine Negative (Negative); Nitrate Urine Negative (Negative); Protein Urine Neg (Negative); Urobilinogen Urine Neg (Negative); pH Urine 6.5 (5-7)
--- NOTE | 2021-06-08 19:24 | PM.SAN ---
Stroke Alert Activation ED Arrival Date: 06/08/21 ED Physican at Bedside: 08:36 Last Known Normal/at Baseline: < 1 hour ago Other Last Known Well Infomation: Dr. Garcia activated stroke team at 837, immediately after he evaluated this 85-year-old woman who was brought by [facility] ambulance for left hemiplegia, right gaze preference and dysarthria. The patient was in CAT scan by the time Dr. Lazo called me as he looked at her on the way in. I immediately pulled up her chart and saw that she was discharged from this hospital in February on Pradaxa. I called Sarah and the witnessing nurse was pulled to the phone and described known time of onset. The patient was sitting at breakfast with another resident when she suddenly went weak on the left side, her face sagged and she turned her head to the right. I asked the nurse to check the MAR and indeed the patient is on Pradaxa. I went directly to the emergency department and reviewed her CAT scan of the head with Dr. Lazo. There was no evidence of bleeding. I suggested that we go ahead with CT angiogram in case she had a middle cerebral artery clot and we might consider embolectomy after [employer]. I examined the patient immediately on arrival to the emergency department. She had moderate left hemiparesis, strong right gaze preference. I could not obtained a response to threat on the left side. She was very pleasant and engaging but her speech was unintelligible. As I remained with the patient over the next 15 minutes she regained the use of her left arm and moved her gaze to midline. Subsequently her CT angiogram was negative for thrombus. I spoke with Dr. Rodriguez. It could be argued that this patient had a threatened embolic stroke that was prevented by Pradaxa. Obviously she has been compliant on that medication. Continue aspirin 81 mg daily. I do not recommend any type of imaging study because it would not influence decision making. Stroke Alert Activated by: Dr. Lazo Stroke Alert Activation Time: 08:37 Stroke MD @ Bedside Time: 08:37 NIH Stroke Scale Time: 08:50 NIH stroke score NIHSS: Level Of Consciousness - 1a: 0 Level Of Consciousness Questions - 1b: Neither Correct Level Of Consciousness Commands - 1c: Neither Correct Best Gaze - 2: Forced Deviation Visual Sue - 3: Partial Hemianopia Facial Palsy - 4: Partial Paralysis Motor Arm Right - 5: No Drift Motor Arm Left - 5: Effort Against [place] Motor Leg Right - 6: No Drift Motor Leg Left - 6: Effort Against [place] Limb Ataxia - 7: Absent Sensory - 8: Normal Best Language - 9: No Aphasia Dysarthia - 10: Mild/Moderate Dysarthia Extinction And Inattention - 11: 0 Score: Total Score: 14 Stroke Alert Data/Treatment Time to CT of Head: 08:37 CT Impression: No abnormalities tPA Contraindication: tPA Contraindication: Treatment not indcated tPA Admin Prior to Arrival: No Patient & Family Educated on: Aure Gonzalez Other Patient & Family Education: Her son is well versed in stroke and its treatment as he has been a member of the stroke team since its inception Other Information: I am looking at her old chart from hospitalization here in April and it looks like she had left hemiparesis, altered mental status with slurred speech and negative CTA of the head and neck. As documented in Dr. Avendano history and physical from 05/05/2021. Critical Care Time Critical Care Time: 30 - 74 mins A&P Assessment and plan (1) Right middle cerebral artery stroke: [facility] 85-year-old woman with atrial fibrillation on Pradaxa and aspirin. It looks like she had a TIA several months ago released a month ago with altered mental status and left hemiparesis that resolved just as her event did today. She already had CTA today and she had it 03/27/2021 which was presumably believe the day of her TIA. If this is the second TIA that she has experienced on Pradaxa we might consider changing to rivaroxaban. Again however, both neurologic episodes have been brief with no residual deficit. Status: Acute (2) Anticoagulant long-term use: Status: Acute (3) Atrial fibrillation: Status: Acute Coding Level of Care Code Acute Shirt Marker for Haylie Peck Diagnoses Right middle cerebral artery stroke I63.511 Anticoagulant long-term use Z79.01 Atrial fibrillation I48.91
--- NOTE | 2021-06-08 19:39 | PC.NURSE ---
FAMILY CONFERENCE REGARDING CODE STATUS When in for shift change rounding son Jonnathan at bedside told nurse they are going to have a conference with other 2 brothers that live out of town regarding pts code status. Pt has expressed to them desire to be a DNR. Awaiting family decision.
[2021-06-08 19:41] LABS: Iron 40 ug/dL (37-145); NT Pro B Type Natriuretic Pept 2389 pg/mL (0-450); Percent Saturation 16.6 % (20-50); Total Iron Binding Capacity 240 mcg/dl; Unsaturated Iron Binding 200 ug/dL (112-347)
--- NOTE | 2021-06-08 20:36 | PC.NURSE ---
DISCUSSION WITH FAMILY Family has made decision for comfort care. [facility] nurse has notified Dr of decision. Discussed pts care with family and their desires. Do want pt to have the repeat CT so will be taken down for this. Also want IV fluids. Sons are repositioning pt and relayed to them we will help if needed. phototypesetting equipment monitor to continue and will treat RVR with prn IV Cardizem still. Reviewed prn Morphine available. Are requesting Artificial tears for eyes and lanolin for lips. Both of these ordered.
[2021-06-08] MEDS: sodium chloride 0.9% 1,000 ML 50 ML IV (21:00)
[2021-06-08] MEDS: lanolin oint 7 gm 1 APPLIC TOPICAL (21:10)
[2021-06-08] MEDS: famotidine 20 mg/2 mL INJ IVP (22:58)
[2021-06-09] VITALS: BP 157/79; PULSE 97; RESP 16; TEMP 36.7; O2SAT 92
--- NOTE | 2021-06-09 00:27 | PC.NURSE ---
NEUROCHECK Has been resting with eyes closed. RN had done assessment but we had not seen her bottom yet to check for pressure areas. Woke quickly to her name. Only able to understand the word cold when she was uncovered. Did nod head no to question of pain. Continues with right gaze and left sided neglect. Did partial neurocheck at this time. Family requested for her not to be awakened earlier for it. Does claims examiner with right hand and likes for her hand to be held. Son moved to her side to hold it after we were finished. Family is very attentive.
[2021-06-09 04:00] VITALS: BP 146/83; PULSE 78; RESP 16; TEMP 37.1; O2SAT 92
[2021-06-09 06:00] VITALS: PULSE 76
--- NOTE | 2021-06-09 06:00 | USCV_ITS ---
Juliana Rodney Age: 85 Gender: F : 1935 Exam Date: 06/09/2021 06:26 Ordering Phys: Pipe Lopez MD Technologist: Charly España [place] [facility] [place]ication: A-FIB BP: 146 / 83 HR: 91 Rhythm: Atrial fibrillation Technical Quality: Adequate MEASUREMENTS (Male / Female) Normal Values 2D ECHO LV Diastolic Diameter PLAX 4.0 cm 4.2 - 5.9 / 3.9 - 5.3 cm LV Systolic Diameter PLAX 2.9 cm IVS Diastolic Thickness 0.9 cm 0.6 - 1.0 / 0.6 - 0.9 cm IVS Systolic Thickness 1.3 cm LVPW Diastolic Thickness 1.0 cm 0.6 - 1.0 / 0.6 - 0.9 cm LVPW Systolic Thickness 1.3 cm LVOT Diameter 2.0 cm LV Ejection Fraction 2D Teich 56.9 % LV Ejection Fraction MOD 2C 50.7 % LV Ejection Fraction 2C AL 50.7 % LA Diameter 4.2 cm LA Width 4.2 cm LA Height 5.2 cm RA Width 4.2 cm RA Height 5.1 cm Aorta at Sinotubular Diameter 3.0 cm M-MODE LV Diastolic Diameter MM 4.4 cm 4.2 - 5.9 / 3.9 - 5.3 cm LV Systolic Diameter MM 3.0 cm LV Ejection Fraction MM Teich 61.4 % IVS Diastolic Thickness MM 1.1 cm 0.6 - 1.0 / 0.6 - 0.9 cm IVS Systolic Thickness MM 1.5 cm LVPW Diastolic Thickness MM 0.8 cm 0.6 - 1.0 / 0.6 - 0.9 cm LVPW Systolic Thickness MM 1.3 cm Aortic Annulus Diameter 2.9 cm LA Ao Ratio MM 1.5 MV E Point Septal Separation 0.5 cm DOPPLER AV Peak Velocity 191.0 cm/s LVOT Peak Velocity 89.0 cm/s AV Area Cont Eq vti 1.2 cm squared AV Area Cont Eq pk 1.4 cm squared MV Peak Velocity 618.0 cm/s MV Area PHT 4.3 cm squared MV E' Velocity 157.0 cm/s TR Peak Velocity 238.4 cm/s TR Peak Gradient 22.7 mmHg TR Mean Velocity 95.6 cm/s TR Mean Gradient 3.9 mmHg TR Velocity Time Integral 21.9 cm Right Atrial Pressure 3.0 mmHg Pulmonary Artery Systolic Pressu 25.7 mmHg RV Acceleration Time 0.1 s RV Ejection Time 0.3 s RV AcT/ET 0.3 FINDINGS Left Ventricle Normal left ventricular size, systolic function and wall thickness, with no regional wall motion abnormalities. Left ventricular ejection fraction is estimated at 60 %. Abnormal diastolic function. Right Ventricle Right ventricle not well visualized. Probably normal right ventricular size and systolic function. Right ventricular systolic pressure 50 mmHg. Right Atrium Moderately increased right atrial size. Left Atrium Severely increased left atrial size. Mitral Valve Moderate mitral annular calcification. Moderately thickened mitral valve. Mild-moderate mitral valve regurgitation. Aortic Valve Moderate thickened calcified trileaflet aortic valve. No aortic valve stenosis. Mild to moderate aortic valve regurgitation. Tricuspid Valve Structurally normal tricuspid valve. Moderate tricuspid valve regurgitation. Pulmonic Valve Pulmonic valve not well visualized. Moderate pulmonary valve regurgitation. Pericardium No pericardial effusion. Aorta Normal-sized aortic root. Normal-sized inferior vena cava with normal respiratory variation. CONCLUSIONS 1. Normal left ventricular size, systolic function and wall thickness, with no regional wall motion abnormalities. Left ventricular ejection fraction is estimated at 60 %. Abnormal diastolic function. 2. Probably normal right ventricle size and systolic function. 3. Mild-moderate mitral valve regurgitation. Moderate tricuspid valve regurgitation. 4. Mild to moderate aortic valve regurgitation. 5. Pulmonary artery pressure estimated 50 mmHg. 6. When compared to previous echocardiogram dated 03/03/2019, pulmonary valve regurgitation and aortic valve regurgitation seems to have worsened. Nancy Barron MD (Electronically Signed) Final Date: 09 June 2021 19:05 S
--- NOTE | 2021-06-09 06:31 | PC.NURSE ---
SHIFT SUMMARY Has rested well through the night. No changes. Son at bedside. IV infusing at 50ml/hr rate. Good urine output per Klein.
[2021-06-09 08:00] VITALS: BP 149/72; PULSE 75; RESP 20; TEMP 38.1; O2SAT 96
--- NOTE | 2021-06-09 09:58 | PC.OT ---
Family requested comfort measures, no OT eval completed.
--- NOTE | 2021-06-09 10:56 | PC.CHAP ---
Pastoral Care Encounter/Spiritual Assessment Type of Contact [] Declined mental health professional visit [] Patient/Family/Request visit [] Outpatient visit [] Follow-up visit [] Physician referral [] Code/Alert [x] Routine visit [] Staff referral [] Actively dying [] Patient sleeping [x] Family support [] [] Out of room [x] Palliative care [] [x] Receiving care in room [] Pre-surgical visit [] Trauma [x] Long length of stay [] ICU visit [x] Other: S0n taking care of her Relational/Emotional Strength [] Patient feels connected with others/family/visitors/staff [x] Distress [] Loneliness/isolation [] Abandonment Spirituality of Patient [x] Person of Desire [] Attends [employer] of their Desire [x] Believes in Prayer [] Reads Bible or Restoration materials [] There are Spiritual issues to be addressed Jewel Gauger Interventions [x] Prayer [x] Active listening [x] Non-anxious presence [x] Spiritual/emotional support [] Crisis/trauma care [x] Spiritual counseling [] Bereavement support [] Provided bereavement packet [] Provided Bible/devotional materials [] Provided toy/stuffed animal, coloring book to patient or family member [] Provided Communion [] Anointing/[place] [] Salvation [x] Completed spiritual assessment [] Other: Impact on Illness or Injury [] Angry [] Fearful [] Anxious [] Often cries [] Exhaustion [] Unable to work [] Unable to attend jainism [] Unable to walk/stand [] Unable to read [] Unable to drive [] Unable to eat/drink [] Unable to sleep [] Unable to be with family [x] Patient intubated [] Other: Summary S0n taking care of her +1 Time spent with patient 10 mins
[2021-06-09 11:04] VITALS: BP 152/73; PULSE 78; RESP 18; TEMP 38.1; O2SAT 92
--- NOTE | 2021-06-09 16:27 | P.DS_ITS ---
Discharge Providers Date of Admission: 06/08/21 11:53 Date of Discharge: June 09, 2021 Attending Provider at Admission: Pipe Lopez MD Attending Provider at Discharge: Pipe Lopez MD Primary Care Provider: Thanh Salmon MD Diagnoses at Discharge Discharge Diagnosis (1) Right middle cerebral artery stroke: Status: Acute (2) Atrial fibrillation: Status: Acute (3) S/P colostomy: Status: Acute (4) Chronic anticoagulation: Status: Acute (5) Comfort measures only status: Status: Acute Reason for Visit Reason for Visit: STROKE LIKE SYMPTOMS Hospital Course Hospital Course Juliana Rodney is a 85 year old female with past medical, hypertension, history of pulmonary embolism, hyponatremia, mitral regurgitation, obstructive sleep apnea on CPAP, recent history of multiple surgeries s/p hysterectomy complicated by rectal laceration, 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 As per the history given by son at bedside patient was at her baseline today morning when she woke up. While having her breakfast she started having weakness on her left side with left-sided facial droop because of where she was brought to the ER. Patient was in TPA window but could not receive TPA as she takes Pradaxa with last dose last night. On examination patient was in atrial fibrillation with rate of 70 bpm, blood pressure 160/80 mmHg with differential right-sided gaze, left-sided facial droop I am unable to move her left side of the body. Patient has failed swallow evaluation. On presentation to the ER patient was found to be in atrial fibrillation with rapid ventricular response for which she was started on Cardizem drip which was later stopped for heart rate less than 100. Patient was admitted to hospital for further work-up and evaluation of right MCA stroke. Her hospitalization was complicated by her having rapid ventricular response with atrial fibrillation on admission which resolved with Cardizem drip. Swallow evaluation was done and she was deemed unsafe to swallow and was kept NPO. Because of worsening mental functions repeat CT scan was done which showed progression of right MCA stroke. Given all the above further goals of care and were done and discussions were made regarding PEG tube for nutrition versus hospice. Patient's family after discussing amongst themselves and confirming with the patient decided for hospice. Patient's CODE STATUS was changed to comfort measures only. Patient is being discharged in comfortable status for further hospice care to SNF. Prior to discharge rapid Covid antigen was done. Physical Exam Const: COMMON NORMALS: no acute distress and no limitations GENERAL APPEARANCE: cooperative HENMT: COMMON NORMALS: normocephalic, atraumatic, external ears normal, EAC's normal and Normal external nose present HEAD & SCALP: normal to inspection, normocephalic and atraumatic FACE & SINUS: normal facial exam and face symmetric NOSE: Normal external nose present and Normal nares present EXTERNAL EAR: Yes external ears normal EXTERNAL AUDITORY CANAL: EAC's normal MOUTH: Normal oral and palatal mucosa present, lip normal and tongue normal Eye: COMMON NORMALS: Equal, round and reactive pupils present and conjunctivae normal GENERAL EYE: appearance normal, both eyes and all related structures ALIGNMENT: Yes alignment normal PERIORBITAL: periorbital findings normal EYELID: eyelids normal CONJUNCTIVA: Yes conjunctivae normal SCLERA: sclerae normal PUPIL: Yes Equal, round and reactive pupils present Neck/C-Spine: COMMON NORMALS: full ROM, no lymphadenopathy, supple and no JVD GENERAL: Yes normal visual inspection and Yes trachea midline Chest: COMMONS NORMALS: normal inspection of the chest and normal palpation of entire chest wall Resp: COMMON NORMALS: normal respiratory effort, No retractions, No use of accessory muscles and clear to auscultation bilaterally EFFORT & INSPECTION: Yes able to speak in complete sentences and Yes symmetric chest movement AUSCULTATION: clear to auscultation bilaterally, no crackles, no rales, no rhonchi and no wheezes Cardio: COMMON NORMALS: no JVD, regular rate, regular rhythm, S1 normal heart sound present and S2 normal heart sound present RATE: regular rate RHYTHM: regular rhythm HEART SOUNDS: S1 normal heart sound present, S2 normal heart sound present, no click, no gallops, no murmurs and no rubs GI: COMMON NORMALS: Soft to palpation and No hepatosplenomegaly present PALPATION: Yes Soft to palpation, No Tenderness to palpation present (GI), No Guarding due to palpation present (GI), No Rigid due to palpation, Yes No hepatosplenomegaly present, No Hernia present, No Palpable mass present and No Pulsatile mass present : COMMON NORMALS: Yes no CVA tenderness BLADDER/KIDNEY EXAM: Yes no CVA tenderness EXTERNAL FEMALE EXAM: No Hernia present Back/Pelvis: COMMON NORMALS: no CVA tenderness, thoracic and lumbar spine normal to inspection, no thoracic nor lumbar tenderness and thoraco-lumbar ROM normal Extremity: COMMON NORMALS: normal to inspection, full ROM, capillary refill normal, no joint enlargement, no clubbing, cyanosis or edema and no calf tenderness Neuro: SPEECH: speech normal PLANTAR REFLEX: downgoing: bilateral and upgoing (positive Babinski): bilateral Psych: COMMON NORMALS: mental status grossly normal, Normal thought process present, cooperative, normal affect, speech normal and activity/motor behavior normal SPEECH: Yes normal speech THOUGHT PROCESS: Normal thought process present Skin: COMMON NORMALS: no rashes or lesions noted, turgor normal, no jaundice, no petechiae and no mottling GENERAL SKIN EXAM: no rashes or lesions noted and turgor normal Urinary Catheter Management^: Klein: Cath Placed During This Visit: yes Reason for Continuing Indwelling Catheter: Hospice/Comfort/Palliative Care Urinary Catheter Date of Insertion: 06/08/21 Urinary Catheter Time of Insertion: 17:22 Discharge Data Data Completed and Pending: Completed Studies During Hospitalization Category Date Time Status CT angio headneck * [id number] Stat Cat Scan 06/08/21 08:[address] head wo con* 7 0450 Routine Cat Scan 06/08/21 18:[address] head wo con* 7 0450 Urgent Cat Scan 06/08/21 08:35 Completed XR chest 1V yeni ble [id number] Stat Exams 06/08/21 08:36 Completed Pending at discharge Category Date Time Status MRSA by PCR Routi ne Lab 06/08/21 15:19 Uncollected SARS Covid-2 Anti gen Routine Lab 06/09/21 16:05 Received CV. echo complete * [id number] Routine Ultrasound 06/09/21 06:00 Taken Labs from last 24 hours 06/09/21 06/08/21 06/08/21 16:05 17:25 08:56 Iron 40 TIBC 240 % Saturation 16.6 L Unsat Iron Binding 200 NT-Pro-B Natriuret Pep 2389 H Urine Color Yellow Urine Appearance Clear Urine pH 6.5 Ur Specific Gravit y 1.010 Urine Protein Neg Urine Glucose (UA) Norm Urine Ketones Negative Urine Blood Neg Urine Nitrate Negative Urine Bilirubin Neg Urine Urobilinogen Neg Ur Leukocyte Monika ase Negative SARS-CoV-2 Ag (Rap id) Pending Addt'l Data from Hospital Stay: Laboratory Results WBC 18.8 10^3/uL (4.0 -10.0) H 06/08/21 08:56 RBC 3.47 10^6/uL (4.1 -5.3) L 06/08/21 08:56 Hgb 11.2 g/dL (11.5-1 5.3) L 06/08/21 08:56 Hct 34.4 % (37.0-47.0 ) L 06/08/21 08:56 MCV 99.1 fL (81-99) H 06/08/21 08:56 MCH 32.3 pg (28.0-34. 0) 06/08/21 08:56 MCHC 32.6 g/dL (30.0-3 6.0) 06/08/21 08:56 RDW 14.9 % (12.1-15.1 ) 06/08/21 08:56 Plt Count 392 10^3/cmm (130 -400) 06/08/21 08:56 MPV 9.2 fL (7.4-10.4) 06/08/21 08:56 Neut % (Auto) 27.3 % 06/08/21 08:56 Lymph % (Auto) 64.0 % 06/08/21 08:56 [place] % (Auto) 6.7 % 06/08/21 08:56 Eos % (Auto) 1.2 % 06/08/21 08:56 Baso % (Auto) 0.4 % 06/08/21 08:56 Neut # (Auto) 5.12 10^3/uL (1.8 -7.7) 06/08/21 08:56 Lymph # (Auto) 12.0 10^3/uL (0.8 -4.8) H 06/08/21 08:56 [place] # (Auto) 1.3 10^3/uL (0.2- 0.9) H 06/08/21 08:56 Eos # (Auto) 0.2 10^3/uL (0.0- 0.8) 06/08/21 08:56 Baso # (Auto) 0.1 10^3/uL (0.0- 0.1) 06/08/21 08:56 Nucleated RBC % (a uto) 0 % 06/08/21 08:56 Nucleated RBCs # 0.0 /100WBC 06/08/21 08:56 PT 13.80 SECONDS (12 .1-14.9) 06/08/21 08:56 INR 1.03 (0.8-1.2) 06/08/21 08:56 APTT 27.3 SECONDS (23. 9-36.7) 06/08/21 08:56 Sodium 131 mmol/L (136-1 45) L 06/08/21 08:56 Potassium 3.9 mmol/L (3.5-5 .1) 06/08/21 08:56 Chloride 99 mmol/L (98-107 ) 06/08/21 08:56 Carbon Dioxide 22 mmol/L (22-29) 06/08/21 08:56 Anion Gap 13.9 (5-19) 06/08/21 08:56 BUN 13 mg/dL (8-23) 06/08/21 08:56 Creatinine 0.5 mg/dL (0.5-0. 9) 06/08/21 08:56 GFR Calculation Not Reportable 06/08/21 08:56 Glucose 190 mg/dL (65-115 ) H 06/08/21 08:56 Calculated Osmolal ity 277 mOsm/kg (285- 295) L 06/08/21 08:56 Calcium 9.1 mg/dL (8.5-10 .5) 06/08/21 08:56 Iron 40 ug/dL (37-145) 06/08/21 08:56 TIBC 240 mcg/dl 06/08/21 08:56 % Saturation 16.6 % (20-50) L 06/08/21 08:56 Unsat Iron Binding 200 ug/dL (112-34 7) 06/08/21 08:56 Total Bilirubin 0.3 mg/dL (0.15-1 .2) 06/08/21 08:56 AST 22 U/L (0-32) 06/08/21 08:56 ALT 14 U/L (0-33) 06/08/21 08:56 Alkaline Phosphata se 88 IU/L (35-105) 06/08/21 08:56 NT-Pro-B Natriuret Pep 2389 pg/mL (0-450 ) H 06/08/21 08:56 Total Protein 6.9 g/dL (6.6-8.7 ) 06/08/21 08:56 Albumin 3.0 g/dL (3.5-5.2 ) L 06/08/21 08:56 Globulin 3.9 g/dL (1.3-4.6 ) 06/08/21 08:56 TSH 2.51 uIU/mL (0.27 -4.20) 06/08/21 08:56 Urine Color Yellow (Yellow) 06/08/21 17:25 Urine Appearance Clear (CLEAR) 06/08/21 17:25 Urine pH 6.5 (5-7) 06/08/21 17:25 Ur Specific Gravit y 1.010 (1.005-1.0 30) 06/08/21 17:25 Urine Protein Neg (Negative) 06/08/21 17:25 Urine Glucose (UA) Norm (Normal) 06/08/21 17:25 Urine Ketones Negative (Negati ve) 06/08/21 17:25 Urine Blood Neg (Negative) 06/08/21 17:25 Urine Nitrate Negative (Negati ve) 06/08/21 17:25 Urine Bilirubin Neg (Negative) 06/08/21 17:25 Urine Urobilinogen Neg mg/dL (Negati ve) 06/08/21 17:25 Ur Leukocyte Monika ase Negative (Negati ve) 06/08/21 17:25 Impressions Chest X-Ray 06/08/21 08:36 IMPRESSION: No acute chest abnormality. The chest is unchanged compared to 05/04/2021. Head/Neck CTA 06/08/21 08:36 IMPRESSION: The proximal cervical portion of the left common carotid artery is obscured by artifact but was normal on previous examination of 03/27/2021. No other significant vascular abnormality is identified. Head CT 06/08/21 18:21 IMPRESSION: 1. Negative for intracranial hemorrhage. 2. Evolving ischemic infarct in the right frontal lobe in the right middle cerebral artery vascular distribution. Radiation Dose CTDIVOL = (mGy): DLP = 729.54 (mGy-cm) Vitals: Last Vital Signs Temp 100.6 F H 06/09/21 11:04 Pulse 78 06/09/21 11:04 Resp 18 06/09/21 11:04 BP 152/73 06/09/21 11:04 Pulse Ox 92 06/09/21 11:04 Discharge Plan Discharge Patient Disposition: Hospice - Medical Facility Condition: Stable Prescriptions: Continued ferrous sulfate [iron] 325 mg (65 mg iron) tablet 325 mg PO DAILY@08 RF: 0 metoprolol tartrate 50 mg tablet 50 mg PO BID@08,19 RF: 0 Hold Instructions: Resume on 05/09/21. ondansetron HCl [Zofran] 4 mg tablet 4 mg PO TID PRN (Reason: Nausea And Vomiting) RF: 0 hydrocodone-acetaminophen 5-325 mg tablet 1 tab PO Q6H PRN (Reason: Pain) RF: 0 aspirin 81 mg Tablet,Delayed Release (Dr/Ec) 81 mg PO DAILY@0800 RF: 0 furosemide [Lasix] 40 mg Tablet 40 mg PO DAILY@08 RF: 0 Hold Instructions: Resume on 05/11/21. acetaminophen [Tylenol 8 Hour] 650 mg Tablet Extended Release 650 mg PO Q4H PRN (Reason: Pain) RF: 0 esomeprazole magnesium [Nexium] 40 mg Capsule,Delayed Release(Dr/Ec) 40 mg PO DAILY@08 RF: 0 losartan 100 mg Tablet 100 mg PO DAILY@08 RF: 0 lactulose 20 gram/30 mL Solution 10 g PO DAILY@08 RF: 0 diltiazem HCl 180 mg capsule,extended release 24hr 180 mg PO DAILY@0800 RF: 0 Hold Instructions: Resume on 05/09/21. Pradaxa 75 mg capsule 75 mg PO BID@08,17 RF: 0 potassium chloride 10 mEq Tablet Extended Release 20 meq PO DAILY@08 RF: 0 Milk of Magnesia 400 mg/5 mL Suspension 30 ml PO DAILY PRN (Reason: Constipation) RF: 0 Flomax 0.4 mg Capsule 0.4 mg PO DAILY@08 RF: 0 Dulcolax (bisacodyl) 10 mg Suppository 10 mg VT DAILY PRN (Reason: Constipation) RF: 0 Fleet Enema 19-7 gram/118 mL Enema 118 ml VT DAILY PRN (Reason: Constipation) RF: 0 atorvastatin 40 mg tablet 40 mg PO BEDTIME@20 RF: 0 hydralazine 25 mg tablet 25 mg PO TID@08,14,20 RF: 0 Discharge Orders: Discharge Order (Routine); Ordered 06/09/21 Ordered By: Pipe Lopez Referrals: [facility]– [place] [Outside] Thanh Salmon MD [Primary Care Provider] - Discharge Diet: Advance as tolerated Discharge Activity: Bedrest Patient Instructions: Opioid Safety Activity Restrictions/Additional Instructions: Hospice care only. Pressure feeds Discharge Attestations Time Spent in Discharge Care*: greater than 30 min Specific Discharge Activities: educating and/or supporting family/caregiver, d iscussing with field nurse case manager/social workers/dc planners, documenting/other paperwork and evaluating patient/reviewing data Status at Discharge: Cognitive status at discharge: mildly impaired cognition , Behavioral status at discharge: cooperative , Functional status at discharge: bed bound Overall status at discharge: patient has a new baseline Quality Metrics Clinical Quality Measures During this hospital stay, did patient experience: None Coding Level of Care Code Acute Chg FW DC note Diagnoses Right middle cerebral artery stroke I63.511 Atrial fibrillation I48.91 S/P colostomy Z93.3 Chronic anticoagulation Z79.01 Comfort measures only status Z51.5
[2021-06-09 16:34] LABS: SARS Covid-2 Antigen Negative (Negative)
[2021-06-09 16:42] VITALS: BP 155/70; PULSE 87; RESP 18; TEMP 37.8; O2SAT 93
== END 2021-06-09 18:24 | disposition hospice, inpatient (51) | DRG 65 ==
LOC: ER 11:58 → MEDSURG 16:29
PROVIDERS: Admitting Provider Student in an Organized Health Care Education/Training Program; Emergency Provider Emergency Medicine; PCP Family Medicine; Visit Provider Student in an Organized Health Care Education/Training Program
DX: I63.411 Cerebral infarction due to embolism of right middle cerebral artery (principal); G81.94 Hemiplegia, unspecified affecting left nondominant side; E87.1 Hypo-osmolality and hyponatremia; R29.810 Facial weakness; R47.81 Slurred speech; R29.714 NIHSS score 14; I10 Essential (primary) hypertension; Z86.711 Personal history of pulmonary embolism; I34.0 Nonrheumatic mitral (valve) insufficiency; G47.33 Obstructive sleep apnea (adult) (pediatric); Z90.81 Acquired absence of spleen; Z93.3 Colostomy status; I48.91 Unspecified atrial fibrillation; Z86.73 Personal history of transient ischemic attack (TIA), and cerebral infarction without residual deficits; E11.9 Type 2 diabetes mellitus without complications; Z86.718 Personal history of other venous thrombosis and embolism; E78.5 Hyperlipidemia, unspecified; K21.9 Gastro-esophageal reflux disease without esophagitis; H91.90 Unspecified hearing loss, unspecified ear; I27.20 Pulmonary hypertension, unspecified; Z51.5 Encounter for palliative care; Z79.891 Long term (current) use of opiate analgesic; Z79.82 Long term (current) use of aspirin; Z79.02 Long term (current) use of antithrombotics/antiplatelets
CPT/HCPCS: 51702; 70450; 70496; 70498; 71045; 80053; 81003; 83540; 83550; 83880; 84443; 85025; 85610; 85730; 87426; 93005; 93306; 96365; 96375; 99285; J2405; J3490; J7030; J7040; Q9967